=== PATIENT | male | born 1955 | race Hispanic/Latino ===

== ENCOUNTER 2017-03-20 15:17 | Inpatient (IN) | payer BC, MEDICARE ==
[2017-03-20 15:17] VITALS: BMI 27.1
--- NOTE | 2017-03-20 16:00 | ED PDOC ---
Lower Extremity Pain/Injury Time Seen by Provider: 03/20/17 15:44 Chief Complaint (Nursing): Fever Chief Complaint (Provider): Lower Extremity Problem History Per: Patient History/Exam Limitations: no limitations Onset/Duration Of Symptoms: Hrs (prior to arrival) Current Symptoms Are (Timing): Still Present Additional Complaint(s): David Valerio is a 61 year old male with a past medical history of Neutropenia presenting to the ED for an evaluation of redness and swelling to lower extremities bilaterally. The patient also reports associated fever and chills. He states starting antibiotics, on Clindamycin today, but his fever persisted. PMD: Aaron Betancur MD Past Medical History Reviewed: Historical Data, Nursing Documentation, Vital Signs Vital Signs: Last Vital Signs Temp 101.0 F H 03/20/17 15:27 Pulse 104 H 03/20/17 15:27 Resp 16 03/20/17 15:27 BP 139/77 03/20/17 15:27 Pulse Ox 100 03/20/17 15:27 - Medical History PMH: Anxiety, Arthritis, Benign Prostatic Hyperplasia, COPD, Deep Vein Thrombosis (x3), HTN, Hypothyroidism Other PMH: neutropenia - Surgical History Surgical History: Cholecystectomy, Hernia Repair (ventral) - Family History Family History: States: Unknown Family Hx - Immunization History Hx Influenza Vaccination: Yes - Home Medications Home Medications: Ambulatory Orders Medication Instructions Recorded Tamsulosin [Flomax] 0.8 mg PO HS 10/24/14 Dorzolamide 2%/Timolol 0.5% 1 drop EACHEYE BID 06/13/16 [Cosopt 2%-0.5% Opht] Acetaminophen [Tylenol 325mg tab] 650 mg PO Q6 PRN #0 tab 06/18/16 Dexamethasone/Tobramycin [Tobradex 1 drop OS Q4 bottle 06/18/16 Opht Susp] Dorzolamide 2% [Trusopt] 1 drop OU BID bottle 06/18/16 Moxifloxacin [Avelox] 400 mg PO DAILY #7 tab 06/18/16 Mupirocin 2% Ointment [Bactroban 1 applic TOP BID tube 06/18/16 Ointment] Tamsulosin [Flomax] 0.8 mg PO HS cap 06/18/16 predniSONE [predniSONE Tab] 10 mg PO BID tab 06/18/16 Azithromycin [Zithromax] 250 mg PO DAILY #6 tab 06/28/16 Benzonatate [Tessalon Perle] 100 mg PO Q8 PRN #30 capsule 06/28/16 Fluticasone Propionate [Flonase] 2 spr NS DAILY PRN #1 bottle 06/28/16 - Allergies Allergies/Adverse Reactions: Allergies Allergy/AdvReac Type Severity Reaction Status Date / Time aspirin Allergy RASH Verified 03/20/17 15:27 naproxen Allergy RASH Verified 03/20/17 15:27 Penicillins Allergy RASH Verified 03/20/17 15:27 Sulfa (Sulfonamide Allergy RASH Verified 03/20/17 15:27 Antibiotics) Review of Systems ROS Statement: Except As Marked, All Systems Reviewed And Found Negative Constitutional: Positive for: Fever Musculoskeletal: Positive for: Leg Pain (redness and swelling to lower extremities bilaterally) Physical Exam - Reviewed Nursing Documentation Reviewed: Yes Vital Signs Reviewed: Yes - Physical Exam Appears: Positive for: Non-toxic, No Acute Distress Head Exam: Positive for: ATRAUMATIC, NORMOCEPHALIC Cardiovascular/Chest: Positive for: Regular Rate, Rhythm. Negative for: Murmur Respiratory: Positive for: Normal Breath Sounds. Negative for: Respiratory Distress Extremity: Positive for: Tenderness (bilateral lower extremities), Swelling ( bilateral lower extremities), Other (pretibial erythema to left lower extremity ; minimal erythema to right lower extremity). Negative for: Calf Tenderness Neurologic/Psych: Positive for: Alert, Oriented (x3). Negative for: Motor/ Sensory Deficits - Laboratory Results Result Diagrams: 03/20/17 16:30 - ECG O2 Sat by Pulse Oximetry: 100 (RA) Pulse Ox Interpretation: Normal Medical Decision Making Medical Decision Making: Time: 15:44 Impression: Lower Extremity swelling and redness with fever Plan: * VBG * CMP * CBC (with differential) * Blood Culture * Vancomycin Inj 1 gm NS 0.9% 250 ml IVPB * US Duplex Lower Extr Vein Bilat * Reevaluation Scribe Attestation: Documented by Agueda Blue, acting as a scribe for Alexis Bruno MD. Provider Scribe Attestation: All medical record entries made by the Scribe were at my direction and personally dictated by me. I have reviewed the chart and agree that the record accurately reflects my personal performance of the history, physical exam, medical decision making, and the department course for this patient. I have also personally directed, reviewed, and agree with the discharge instructions and disposition. Disposition - Clinical Impression Clinical Impression: Cellulitis - Patient ED Disposition Is Patient to be Admitted: Transfer of Care - Disposition Disposition: Transfer of Care Disposition Time: 17:04 Condition: FAIR Forms: Cuffed and Wanted ([place]) Patient Signed Over To: Aravind Corbin
[2017-03-20] MEDS ORDERED: Vancomycin 1 g Inj ONE (16:20)
[2017-03-20 16:46] LABS: VENOUS BLOOD GAS BASE EXCESS 3.2 mmol/L (0.0-2.0); VENOUS BLOOD GAS PCO2 35 mmHg (40-60); VENOUS BLOOD PH 7.49 (7.32-7.43)
[2017-03-20 17:00] LABS: ALB/GLOB RATIO 1.1 (1.0-2.1); ALKALINE PHOSPHATASE 77 U/L (38-126); ALT/SGPT 25 U/L (21-72); AST/SGOT 19 U/L (17-59); BILIRUBIN,TOTAL 0.6 mg/dl (0.2-1.3); BLOOD UREA NITROGEN 17 mg/dl (9-20); CALCIUM 9.4 mg/dL (8.4-10.2); CARBON DIOXIDE 22 mmol/L (22-30); CHLORIDE 101 mmol/L (98-107); GFR AFRICAN-AMERICAN > 60; GLUCOSE,RANDOM 104 mg/dL (75-110); POTASSIUM 4.5 MMOL/L (3.6-5.0); SODIUM 133 mmol/l (132-148); TOTAL PROTEIN 7.9 G/DL (6.3-8.2)
[2017-03-20 17:03] LABS: BASO % 0.8 % (0.0-2.0); EOS # 0.1 K/uL (0.0-0.7); EOS % 2.2 % (0.0-4.0); HEMATOCRIT 25.3 % (35.0-51.0); LYMPH # 0.7 K/uL (1.0-4.3); LYMPH % 27.7 % (20.0-40.0); MEAN CELL VOLUME 103.9 fl (80.0-94.0); MEAN CORPUSCULAR HEMOGLOBIN 34.4 pg (27.0-31.0); MEAN CORPUSCULAR HGB CONC 33.1 g/dL (33.0-37.0); MEAN PLATELET VOLUME 8.6 fl (7.2-11.7); MONO # 0.2 K/uL (0.0-0.8); MONO % 10.5 % (0.0-10.0); NEUT # 1.4 K/uL (1.8-7.0); NEUT % 58.8 % (50.0-75.0); NRBC % 0.1 % (0.0-0.0); PLATELET COUNT 130 K/uL (130-400); RED CELL DISTRIBUTION WIDTH 13.2 % (11.5-14.5); WHITE BLOOD COUNT 2.4 K/uL (4.8-10.8)
--- NOTE | 2017-03-20 17:25 | ED PDOC ---
- Laboratory Results Result Diagrams: 03/20/17 16:30 03/20/17 16:30 Interpretation Of Abn Labs: 2.4 wbc - ECG O2 Sat by Pulse Oximetry: 100 (RA) Pulse Ox Interpretation: Normal - CT Scan/US us Other Rad Studies (CT/US): Read By Radiologist Other Rad Interpretation: no dvt - Progress ED Course And Treament: 1724: Took over care from Dr. Bruno. Luis Alberto on labs and imaging. Fever with leg cellulitis. Vanco given. 1905: Stable. [facility] resident will admit tele. Disposition Counseled Patient/Family Regarding: Studies Performed, Diagnosis - Clinical Impression Clinical Impression: Cellulitis, Sepsis - POA Present On Arrival: None - Disposition Disposition: Admitted as In-Patient Disposition Time: 18:30 Condition: FAIR
--- NOTE | 2017-03-20 18:04 | US ---
PROCEDURE: Bilateral lower extremity venous duplex Doppler. HISTORY: lower ext pain and erythema COMPARISON: Comparison is made to the previous study dated 07/28/2015 and 05/04/2015 TECHNIQUE: Bilateral common femoral, superficial femoral, popliteal and posterior tibial veins were evaluated. Flow was assessed with color Doppler, compressibility, assessment of phasic flow and augmentation response. FINDINGS: COMMON FEMORAL VEIN: Right CFV: Unremarkable. Left CFV: Unremarkable. SUPERFICIAL FEMORAL VEIN: Right SFV: Unremarkable. Left SFV: Unremarkable. POPLITEAL VEIN: Right Popliteal: Unremarkable. Left Popliteal: Unremarkable. POSTERIOR TIBIAL VEIN: Right PTV: Unremarkable. Left PTV: Unremarkable. OTHER FINDINGS: None. IMPRESSION: No evidence of deep venous thrombosis.
--- NOTE | 2017-03-20 20:12 | CP.PCM.HP ---
<Lizzie Pitt - Last Filed: 03/20/17 21:14> History of Present Illness - History of Present Illness History of Present Illness: 60 y/o male with pmhx leukopenia (Dr. Webb), and Benign Prostatic Hyperplasia , and per medical records COPD (not on any medication for it), Deep Vein Thrombosis (x3), HTN (pt denie), Hypothyroidism ( no TSH on record) presents with complaints of bilateral lower extremity cellulitis, per pt he noticed it 3 days ago, thought something bit him so did not make it a big deal but today his foot was much swollen and red, so he went to see a doctor who started him on Clindamycin, he took 1 tablet this morning, but started to feel feverish so decided to come to the ED. Pt reports he has had previous cellulitis on his right leg in the past. Does not have any other complaints. PMH:leukopenia (Dr. Webb), Anxiety, Arthritis, Benign Prostatic Hyperplasia, COPD?, Deep Vein Thrombosis (x3), HTN?, Hypothyroidism? PSH:hernia repair, hip FH: denies SH: Denies tobacco, ETOH, IVDU MEDS: Flomax 0.8 at night, eye drops, Prednisone ( per pt he stopped taking it about a week ago, as it was causing palpitations) ALLERGIES: aspirin, naproxen, penicillins, sulfa drugs Present on Admission - Present on Admission Any Indicators Present on Admission: Yes History of DVT/PE: Yes History of Uncontrolled Diabetes: No Urinary Catheter: No Review of Systems - Review of Systems All systems: reviewed and no additional remarkable complaints except Past Patient History - Infectious Disease Hx of Infectious Diseases: None - Tetanus Immunizations Tetanus Immunization: Unknown - Past Medical History & Family History Past Medical History?: Yes - Past Social History Smoking Status: Unknown If Ever Smoked - CARDIAC Hx Hypertension: Yes - PULMONARY Hx Chronic Obstructive Pulmonary Disease (COPD): Yes - HEENT Hx HEENT Problems: Yes - ENDOCRINE/METABOLIC Hx Hypothyroidism: Yes - INTEGUMENTARY Hx Dermatological Problems: No - MUSCULOSKELETAL/RHEUMATOLOGICAL Hx Arthritis: Yes - GENITOURINARY/GYNECOLOGICAL Hx Genitourinary Disorders: Yes - PSYCHIATRIC Hx Anxiety: Yes - SURGICAL HISTORY Hx Cholecystectomy: Yes - ANESTHESIA Hx Anesthesia: Yes Hx Anesthesia Reactions: No Hx Malignant Hyperthermia: No Meds Allergies/Adverse Reactions: Allergies Allergy/AdvReac Type Severity Reaction Status Date / Time aspirin Allergy RASH Verified 03/20/17 15:27 naproxen Allergy RASH Verified 03/20/17 15:27 Penicillins Allergy RASH Verified 03/20/17 15:27 Sulfa (Sulfonamide Allergy RASH Verified 03/20/17 15:27 Antibiotics) Physical Exam - Head Exam Head Exam: ATRAUMATIC, NORMOCEPHALIC - Eye Exam Eye Exam: EOMI - ENT Exam ENT Exam: Mucous Membranes Moist - Neck Exam Neck exam: Positive for: Full Rom. Negative for: Lymphadenopathy, Tenderness - Respiratory Exam Respiratory Exam: Clear to Auscultation Bilateral, NORMAL BREATHING PATTERN. absent: Rhonchi, Wheezes - Cardiovascular Exam Cardiovascular Exam: REGULAR RHYTHM, +S1, +S2 - GI/Abdominal Exam GI & Abdominal Exam: Normal Bowel Sounds, Soft. absent: Tenderness - Extremities Exam Extremities exam: Positive for: pedal edema. Negative for: calf tenderness Additional comments: foot 2+ edema left lower extremity: almost entire circumference is erythematous right lower extremity: erythema mainly on the back of the leg - Neurological Exam Neurological exam: Alert, CN II-XII Intact, Oriented x3 - Skin Skin Exam: Erythema Additional comments: mainly on the lower extremity Results - Vital Signs Recent Vital Signs: Last Vital Signs Temp 98.4 F 03/20/17 17:59 Pulse 92 H 03/20/17 17:59 Resp 16 03/20/17 17:59 BP 142/79 03/20/17 17:59 Pulse Ox 100 03/20/17 19:08 - Labs Result Diagrams: 03/20/17 16:30 03/20/17 16:30 Assessment & Plan - Assessment and Plan (Free Text) Assessment: 61 y/o male with pmhc leukopenia (Dr. Webb), Anxiety, Arthritis, Benign Prostatic Hyperplasia, COPD?, Deep Vein Thrombosis (x3), HTN, Hypothyroidism? who presented to ED in sepsis due to bilateral lower extremity cellulites but no longer meets septic criteria at time of admission as fever and tachycardia had resolved, being admitted management of bilateral lower extremity cellulites Plan: 1. Bilateral Lower extremity cellulitis Sepsis resolved Ultrasound negative for DVT continue with vanco and clinda, awaiting Infectious dx consult recommendation tylenol for fever f/u blood culture 2. History of Chronic Neutropenia wbc 2.4 Dr. Channing Samano- consulted, spoke with her via telephone, states pt get neupogen when ANC <900 or has an infection Unable to calculate ANC as bands is not reported on hematology report, mannual diff ordered stat f/u ANC, and neupogen status 3. BPH continue with flomax 0.8 HS 4. History of Possible Hypothyroidism Not on any medication NO TSH on record in labs since 2013 TSH ordered, f/u results 5. History of Previous DVTS per pt he was on termite control technician anticoagulation for years then it was d/c; has not had a DVT since No DVT on ultrasound done in ED today monitor 6. Possible history of HTN Pt denies BP currently controlled Continue to monitor 7. Diet- Regular 8. DVT prophylaxis- Lovenox 40mg daily <Aaron Betancur - Last Filed: 03/21/17 06:40> Results - Vital Signs Recent Vital Signs: Last Vital Signs Temp 99.2 F 03/21/17 06:23 Pulse 80 03/21/17 06:23 Resp 20 03/21/17 06:23 BP 102/57 L 03/21/17 06:23 Pulse Ox 98 03/21/17 06:23 - Labs Result Diagrams: 03/20/17 16:30 03/21/17 04:00 Labs: Laboratory Results - last 24 hr 03/20/17 03/20/17 03/20/17 15:52 16:30 16:30 WBC 2.4 L D RBC 2.43 L Hgb 8.4 L D Hct 25.3 L MCV 103.9 H MCH 34.4 H MCHC 33.1 RDW 13.2 Plt Count 130 MPV 8.6 Neut % (Auto) 58.8 Lymph % (Auto) 27.7 [place] % (Auto) 10.5 H Eos % (Auto) 2.2 Baso % (Auto) 0.8 Neut # 1.4 L Lymph # 0.7 L [place] # 0.2 Eos # 0.1 Baso # 0.0 Neutrophils % (Manual) 57 Lymphocytes % (Manual) 35 Monocytes % (Manual) 8 Platelet Estimate Normal Anisocytosis (manual) Slight Macrocytosis (manual) Slight Tear Drop Cells Slight Ovalocytes Slight pO2 48 VBG pH 7.49 H VBG pCO2 35 L VBG HCO3 27.3 VBG Total CO2 27.8 VBG O2 Sat (Calc) 94.1 H VBG Base Excess 3.2 H VBG Potassium 5.0 Sodium 133.0 133 Chloride 103.0 101 Glucose 107 Lactate 1.0 FiO2 21.0 Potassium 4.5 Carbon Dioxide 22 Anion Gap 15 BUN 17 Creatinine 0.9 Est GFR ( Amer) > 60 Est GFR (Non-Af Amer) > 60 Random Glucose 104 Calcium 9.4 Total Bilirubin 0.6 AST 19 ALT 25 Alkaline Phosphatase 77 Total Protein 7.9 Albumin 4.1 Globulin 3.8 Albumin/Globulin Ratio 1.1 Venous Blood Potassium 5.0 03/21/17 04:00 WBC RBC Hgb Hct MCV MCH MCHC RDW Plt Count MPV Neut % (Auto) Lymph % (Auto) [place] % (Auto) Eos % (Auto) Baso % (Auto) Neut # Lymph # [place] # Eos # Baso # Neutrophils % (Manual) Lymphocytes % (Manual) Monocytes % (Manual) Platelet Estimate Anisocytosis (manual) Macrocytosis (manual) Tear Drop Cells Ovalocytes pO2 VBG pH VBG pCO2 VBG HCO3 VBG Total CO2 VBG O2 Sat (Calc) VBG Base Excess VBG Potassium Sodium 136 Chloride 103 Glucose Lactate FiO2 Potassium 4.1 Carbon Dioxide 24 Anion Gap 13 BUN 12 Creatinine 0.9 Est GFR ( Amer) > 60 Est GFR (Non-Af Amer) > 60 Random Glucose 97 Calcium 8.9 Total Bilirubin AST ALT Alkaline Phosphatase Total Protein Albumin Globulin Albumin/Globulin Ratio Venous Blood Potassium Attending/Attestation - Attestation I have personally seen and examined this patient.: Yes I have fully participated in the care of the patient.: Yes I have reviewed all pertinent clinical information: Yes
[2017-03-20 21:39] LABS: NEUTROPHIL 57 % (42-75); TOTAL CELLS COUNTED 100
[2017-03-21] MEDS: [UNRECOGNIZED DRUG - OTHER] OU SCH ×2 (04:01→18:32)
[2017-03-21 06:08] LABS: BLOOD UREA NITROGEN 12 mg/dl (9-20); CALCIUM 8.9 mg/dL (8.4-10.2); CARBON DIOXIDE 24 mmol/L (22-30); CHLORIDE 103 mmol/L (98-107); GFR AFRICAN-AMERICAN > 60; GLUCOSE,RANDOM 97 mg/dL (75-110); POTASSIUM 4.1 MMOL/L (3.6-5.0); SODIUM 136 mmol/l (132-148)
[2017-03-21 06:12] LABS: BASO % 0.7 % (0.0-2.0); EOS # 0.1 K/uL (0.0-0.7); EOS % 3.8 % (0.0-4.0); HEMATOCRIT 22.5 % (35.0-51.0); LYMPH # 0.6 K/uL (1.0-4.3); LYMPH % 35.8 % (20.0-40.0); MEAN CELL VOLUME 104.7 fl (80.0-94.0); MEAN CORPUSCULAR HGB CONC 33.4 g/dL (33.0-37.0); MEAN PLATELET VOLUME 8.4 fl (7.2-11.7); MONO # 0.2 K/uL (0.0-0.8); MONO % 12.1 % (0.0-10.0); NEUT # 0.7 K/uL (1.8-7.0); NEUT % 47.6 % (50.0-75.0); NRBC % 0.2 % (0.0-0.0); RED CELL DISTRIBUTION WIDTH 13.2 % (11.5-14.5)
[2017-03-21 06:41] LABS: WHITE BLOOD COUNT 1.6 K/uL (4.8-10.8)
--- NOTE | 2017-03-21 08:45 | CP.PCM.PN ---
<Jessica Baugh - Last Filed: 03/21/17 15:44> Subjective - Date & Time of Evaluation Date of Evaluation: 03/21/17 Time of Evaluation: 07:10 - Subjective Subjective: Patient seen and examined in telemetry unit attending kayode. Denies Cp, cough, chills, SOB, N/V, dizziness, urinary symptoms or other complains at this evaluation. Had low grade fever last night of 100.5 F Objective - Vital Signs/Intake and Output Vital Signs (last 24 hours): Temp Pulse Resp BP Pulse Ox 99.6 F 88 14 112/67 95 03/21/17 08:15 03/21/17 08:15 03/21/17 08:15 03/21/17 08:15 03/21/17 08:15 - Medications Medications: Current Medications Acetaminophen (Tylenol 325mg Tab) 650 mg PO Q6 PRN PRN Reason: Fever >100.4 F Last Admin: 03/20/17 23:55 Dose: 650 mg Clindamycin HCl (Cleocin) 150 mg PO QID [facility] Last Admin: 03/20/17 23:10 Dose: 150 mg Home Med (Patient's Own Medication) 1 unit OU Q12@0500,1700 [facility] Last Admin: 03/21/17 04:01 Dose: 1 unit Vancomycin HCl 1 gm/ Sodium (Chloride) 250 mls @ 166.667 mls/hr IVPB Q12@0500, 1700 [facility] Last Admin: 03/21/17 04:00 Dose: 166.667 mls/hr Tamsulosin HCl (Flomax) 0.8 mg PO HS [facility] - Labs Labs: 03/21/17 04:00 03/21/17 04:00 - Constitutional Appears: No Acute Distress - ENT Exam ENT Exam: Mucous Membranes Moist - GI/Abdominal Exam GI & Abdominal Exam: absent: Distended, Guarding - Additional Findings Additional findings: Head Exam Head Exam: ATRAUMATIC, NORMOCEPHALIC - Eye Exam Eye Exam: EOMI - ENT Exam ENT Exam: Mucous Membranes Moist - Neck Exam Neck exam: Positive for: Full Rom. Negative for: Lymphadenopathy, Tenderness - Respiratory Exam Respiratory Exam: Clear to Auscultation Bilateral, NORMAL BREATHING PATTERN. absent: Rhonchi, Wheezes - Cardiovascular Exam Cardiovascular Exam: REGULAR RHYTHM, +S1, +S2 - GI/Abdominal Exam GI & Abdominal Exam: Normal Bowel Sounds, Soft. absent: Tenderness - Extremities Exam Extremities exam: Positive for: pedal edema. Negative for: calf tenderness Additional comments: foot 2+ edema left lower extremity: almost entire circumference is erythematous right lower extremity: erythema mainly on the back of the leg - Neurological Exam Neurological exam: Alert, CN II-XII Intact, Oriented x3 - Skin Skin Exam: Erythema Additional comments: lower extremities Assessment and Plan - Assessment and Plan (Free Text) Assessment: 61 y/o male with pmhc leukopenia (Dr. Webb), Anxiety, Arthritis, Benign Prostatic Hyperplasia, COPD?, Deep Vein Thrombosis (x3), HTN, Hypothyroidism? being admitted management of bilateral lower extremity cellulites and neutropenia. Plan: Bilateral Lower extremity cellulitis -had low grade fever 100.5 F -Ultrasound negative for DVT -continue with vancomycin 1 gm IVP Q12 -continue with clindamycin IV PO -c/w Tylenol PRN for fever -f/u Blood Cx -ID consult appreciated, Dr. Bailey, f/u recommendations Leucopenia History of Chronic Neutropenia WBC 1.6 Dr. Channing Samano- consulted, f/u recommendations Granix 480 mcg SC once f/u repeat CBC in AM Anemia no evidence of active bleeding H/H: 7.5/22.5 Transfuse 2 units of PRBC, will get patient's consent Dr. Joslyn Abbasi aware and agrees with transfusion. F/u recommendations f/u CBC BPH continue with flomax 0.8 HS History of Possible Hypothyroidism no evidence of Hypothyroidism at this time Not on any medication NO TSH on record in labs since 2013 TSH 1.67 WNL History of Previous DVTs per pt he was on [facility] anticoagulation for years/Warfarin then it was d/c; has not had a DVT since approximately 5 years ago No DVT on ultrasound done in ED today will monitor DVT prophylaxis SCDs for now Hemo aware and agrees with holding Lovenox because platelets 120 today <Aaron Betancur - Last Filed: 03/23/17 06:42> Objective - Vital Signs/Intake and Output Vital Signs (last 24 hours): Temp Pulse Resp BP Pulse Ox 98.2 F 70 18 134/74 95 03/23/17 05:45 03/23/17 05:45 03/23/17 05:45 03/23/17 05:45 03/23/17 05:45 - Medications Medications: Current Medications Acetaminophen (Tylenol 325mg Tab) 650 mg PO Q6 PRN PRN Reason: Fever >100.4 F Last Admin: 03/21/17 19:55 Dose: 650 mg Benzocaine/Menthol (Cepacol Sore Throat) 1 alem PO Q3 PRN PRN Reason: Sore Throat Last Admin: 03/22/17 21:19 Dose: 1 alem Famotidine (Pepcid) 20 mg PO DAILY [facility] Last Admin: 03/22/17 10:07 Dose: 20 mg Fluconazole (Diflucan) 200 mg PO DAILY [facility] Home Med (Patient's Own Medication) 1 unit OU Q12@0500,1700 [facility] Last Admin: 03/23/17 05:19 Dose: 1 unit Vancomycin HCl 1 gm/ Sodium (Chloride) 250 mls @ 166.667 mls/hr IVPB Q12 [facility] Last Admin: 03/22/17 20:27 Dose: 166.667 mls/hr Nystatin (Nystatin Oral Susp) 5 ml PO QID [facility] Last Admin: 03/22/17 21:17 Dose: 5 ml Ondansetron HCl (Zofran Inj) 4 mg IVP Q6 PRN PRN Reason: Nausea/Vomiting Last Admin: 03/21/17 17:40 Dose: 4 mg Prednisone (Prednisone Tab) 10 mg PO DAILY [facility] Last Admin: 03/22/17 10:08 Dose: 10 mg Tamsulosin HCl (Flomax) 0.8 mg PO HS [facility] Last Admin: 03/22/17 21:17 Dose: 0.8 mg - Labs Labs: 03/23/17 05:00 03/22/17 05:00 Attending/Attestation - Attestation I have personally seen and examined this patient.: Yes I have fully participated in the care of the patient.: Yes I have reviewed all pertinent clinical information, including history, physical exam and plan: Yes
[2017-03-21] MEDS ORDERED: Dorzolamide 2% Ophth Soln OU SCH (09:00)
[2017-03-21] MEDS ORDERED: Enoxaparin 40 mg Syringe SC SCH (09:00)
--- NOTE | 2017-03-21 09:59 | CP.PCM.CON ---
History of Present Illness - History of Present Illness History of Present Illness: This is a 61 yrs old male who is well known to me for a few years. He had chronic neutropenia. A marrow was done but did not show any abnormal cells. When ever he got an infectiopn of any kind i would give him 1 dose of Granix and the wbc would go up to 15-20, and his infection would improve. Since then he has been diagnosed to have a autoimmune disorder polyarhtritis and was on prednisone until 1 week ago. He has now developed cellulitis and was admitted to the hospital . I was called from the or and I had asked them to give him a dose of granix right away, but it was not given. Today the pt's WBC has dropped from 2.4 to 1.6 today . His Hgb was always normal but today his Hgb is 7.5gms. He does not give a h/o dark stools and frankly has never looked at them. He claims he stopped the prednisone because it was bothering his stomach Platelets are still ok. PMH he has had DVT is the past, but his platelet count is low normal as is the HGB , and I do not want him to get DVT prophylaxis at this time. Past Patient History - Infectious Disease Hx of Infectious Diseases: None - Tetanus Immunizations Tetanus Immunization: Unknown - Past Medical History & Family History Past Medical History?: Yes - Past Social History Smoking Status: Former Smoker - CARDIAC Hx Cardiac Disorders: Yes Hx Hypertension: Yes - PULMONARY Hx Respiratory Disorders: Yes Hx Chronic Obstructive Pulmonary Disease (COPD): Yes - NEUROLOGICAL Hx Neurological Disorder: No - HEENT Hx HEENT Problems: Yes Hx Glaucoma: Yes - RENAL Hx Chronic Kidney Disease: No - ENDOCRINE/METABOLIC Hx Endocrine Disorders: Yes Hx Hypothyroidism: Yes - HEMATOLOGICAL/ONCOLOGICAL Hx Blood Disorders: Yes Other/Comment: neutropenia - INTEGUMENTARY Hx Dermatological Problems: No - MUSCULOSKELETAL/RHEUMATOLOGICAL Hx Musculoskeletal Disorders: Yes Hx Arthritis: Yes Hx Falls: No - GASTROINTESTINAL Hx Gastrointestinal Disorders: No - GENITOURINARY/GYNECOLOGICAL Hx Genitourinary Disorders: Yes Hx Prostate Problems: Yes - PSYCHIATRIC Hx Psychophysiologic Disorder: Yes Hx Anxiety: Yes Hx Substance Use: No - SURGICAL HISTORY Hx Surgeries: Yes Hx Cholecystectomy: Yes Hx Herniorrhaphy: Yes Other/Comment: right hip surgery,prostate surgery - ANESTHESIA Hx Anesthesia: Yes Hx Anesthesia Reactions: No Hx Malignant Hyperthermia: No Has any member of the family had a problem w/ anesthesia?: No Meds Allergies/Adverse Reactions: Allergies Allergy/AdvReac Type Severity Reaction Status Date / Time aspirin Allergy RASH Verified 03/20/17 15:27 naproxen Allergy RASH Verified 03/20/17 15:27 Penicillins Allergy RASH Verified 03/20/17 15:27 Sulfa (Sulfonamide Allergy RASH Verified 03/20/17 15:27 Antibiotics) - Medications Medications: Current Medications Acetaminophen (Tylenol 325mg Tab) 650 mg PO Q6 PRN PRN Reason: Fever >100.4 F Last Admin: 03/21/17 09:06 Dose: 650 mg Clindamycin HCl (Cleocin) 150 mg PO QID [facility] Last Admin: 03/21/17 09:06 Dose: 150 mg Home Med (Patient's Own Medication) 1 unit OU Q12@0500,1700 [facility] Last Admin: 03/21/17 04:01 Dose: 1 unit Vancomycin HCl 1 gm/ Sodium (Chloride) 250 mls @ 166.667 mls/hr IVPB Q12@0500, 1700 [facility] Last Admin: 03/21/17 04:00 Dose: 166.667 mls/hr Tamsulosin HCl (Flomax) 0.8 mg PO HS [facility] Physical Exam - Additional Findings Additional findings: Physical exam; Alert, well oriented in no acute distress., neck; Supple, no adenopathy Chest; Clear, no rales or rhonchi Heart; RSR, no murmur Abd; Soft, no mass, no h/s megaly EXT; Left lower extremity shows cellulitis on the benson area , better than yesterday Results - Vital Signs Recent Vital Signs: Last Vital Signs Temp 99.6 F 03/21/17 08:15 Pulse 88 03/21/17 08:15 Resp 14 03/21/17 08:15 BP 112/67 03/21/17 08:15 Pulse Ox 95 03/21/17 08:15 - Labs Result Diagrams: 03/21/17 04:00 03/21/17 04:00 Labs: Laboratory Results - last 24 hr 03/20/17 03/20/17 03/20/17 15:52 16:30 16:30 WBC 2.4 L D RBC 2.43 L Hgb 8.4 L D Hct 25.3 L MCV 103.9 H MCH 34.4 H MCHC 33.1 RDW 13.2 Plt Count 130 MPV 8.6 Neut % (Auto) 58.8 Lymph % (Auto) 27.7 [place] % (Auto) 10.5 H Eos % (Auto) 2.2 Baso % (Auto) 0.8 Neut # 1.4 L Lymph # 0.7 L [place] # 0.2 Eos # 0.1 Baso # 0.0 Neutrophils % (Manual) 57 Lymphocytes % (Manual) 35 Monocytes % (Manual) 8 Platelet Estimate Normal Anisocytosis (manual) Slight Macrocytosis (manual) Slight Tear Drop Cells Slight Ovalocytes Slight pO2 48 VBG pH 7.49 H VBG pCO2 35 L VBG HCO3 27.3 VBG Total CO2 27.8 VBG O2 Sat (Calc) 94.1 H VBG Base Excess 3.2 H VBG Potassium 5.0 Sodium 133.0 133 Chloride 103.0 101 Glucose 107 Lactate 1.0 FiO2 21.0 Potassium 4.5 Carbon Dioxide 22 Anion Gap 15 BUN 17 Creatinine 0.9 Est GFR ( Amer) > 60 Est GFR (Non-Af Amer) > 60 Random Glucose 104 Calcium 9.4 Total Bilirubin 0.6 AST 19 ALT 25 Alkaline Phosphatase 77 Total Protein 7.9 Albumin 4.1 Globulin 3.8 Albumin/Globulin Ratio 1.1 TSH 3rd Generation Venous Blood Potassium 5.0 03/21/17 03/21/17 03/21/17 04:00 04:00 04:00 WBC 1.6 L* RBC 2.15 L Hgb 7.5 L Hct 22.5 L MCV 104.7 H MCH 35.0 H MCHC 33.4 RDW 13.2 Plt Count 120 L MPV 8.4 Neut % (Auto) 47.6 L Lymph % (Auto) 35.8 [place] % (Auto) 12.1 H Eos % (Auto) 3.8 Baso % (Auto) 0.7 Neut # 0.7 L Lymph # 0.6 L [place] # 0.2 Eos # 0.1 Baso # 0.0 Neutrophils % (Manual) Lymphocytes % (Manual) Monocytes % (Manual) Platelet Estimate Anisocytosis (manual) Macrocytosis (manual) Tear Drop Cells Ovalocytes pO2 VBG pH VBG pCO2 VBG HCO3 VBG Total CO2 VBG O2 Sat (Calc) VBG Base Excess VBG Potassium Sodium 136 Chloride 103 Glucose Lactate FiO2 Potassium 4.1 Carbon Dioxide 24 Anion Gap 13 BUN 12 Creatinine 0.9 Est GFR ( Amer) > 60 Est GFR (Non-Af Amer) > 60 Random Glucose 97 Calcium 8.9 Total Bilirubin AST ALT Alkaline Phosphatase Total Protein Albumin Globulin Albumin/Globulin Ratio TSH 3rd Generation 1.67 Venous Blood Potassium Assessment & Plan - Assessment and Plan (Free Text) Assessment: Impresson; Chronic neutropenia, Celllulitis left lower extremity Plan: Plan; Pt is on antibiotics and already doing better. his Wbc count however is very low and he needs the Granix right away.\ I also feel he neds to get a PRBC transfusion Suggest GI consult to r/o upper gi bleeding.
--- NOTE | 2017-03-21 11:08 | CP.PCM.CON ---
History of Present Illness - History of Present Illness History of Present Illness: Infectious Disease Consult Note- asked to see this patient at the request of for cellulitis HPI- Patient is a 60 year old amle with pmh of BPH, chronic leukopenia ( f/u closely by ) , copd , HTN, Hypothyroidism who was admitted with c/o fever and b /l LE erythema for the past 2 days. Pt. explains he has had cellulitis of the LE in past and was treated. This time he denies any injury to the LE and denies any animal exposure and is not sure how he developed this cellulitis. He states he has chronic leukopenia and even had BM biopsy by bindery machine feeder offbearer allen was negative and he states he usually receives granix once his wbc goes below a certain point and this time and he sattes usually when his wbc goes below a certain point he is more prone to infections. He state he is allergic to both sulfa and PCN. Pt. states it started as swelling on his foot only and then spread to b/l legs along with erythema and he saw a doctor yesterday jorgeho gave him clindamycin and he took one tab but since the redness was much more extensive he decided to come to ER for IV antibiotics. pt. sattes he already feels much betetr since IV abx were initiated and he sattes he also received his granix injection today and was told he would receive PRBC transfusion as well for anemia. PMH:leukopenia (Dr. Webb), Anxiety, Arthritis, Benign Prostatic Hyperplasia, COPD?, Deep Vein Thrombosis (x3), HTN?, Hypothyroidism? PSH:hernia repair, hip FH: denies SH: Denies tobacco, ETOH, IVDU MEDS: Flomax 0.8 at night, eye drops, Prednisone ( per pt he stopped taking it about a week ago, as it was causing palpitations) ALLERGIES: aspirin, naproxen, penicillins, sulfa drugs Review of Systems - Review of Systems Review of Systems: ROS- + fever at home, denies any SANTANA, denies any cough, denies any sob, denies any chest pain, denies any n/v, denies any abd. pain, + swelling and redness and pain in b/L LE starting 2 days ago, denies any injury to the area denies any sick contacts denies any recent travel denies any animal bite or exposure Past Patient History - Infectious Disease Hx of Infectious Diseases: None - Tetanus Immunizations Tetanus Immunization: Unknown - Past Medical History & Family History Past Medical History?: Yes - Past Social History Smoking Status: Former Smoker Home Situation {Lives}: With Family - CARDIAC Hx Hypertension: Yes - PULMONARY Hx Chronic Obstructive Pulmonary Disease (COPD): Yes - NEUROLOGICAL Hx Neurological Disorder: No - HEENT Hx HEENT Problems: Yes Hx Glaucoma: Yes - RENAL Hx Chronic Kidney Disease: No - ENDOCRINE/METABOLIC Hx Endocrine Disorders: Yes Hx Hypothyroidism: Yes - HEMATOLOGICAL/ONCOLOGICAL Hx Blood Disorders: Yes Other/Comment: leukopenia - INTEGUMENTARY Hx Dermatological Problems: No - MUSCULOSKELETAL/RHEUMATOLOGICAL Hx Musculoskeletal Disorders: Yes Hx Arthritis: Yes Hx Falls: No - GASTROINTESTINAL Hx Gastrointestinal Disorders: No - GENITOURINARY/GYNECOLOGICAL Hx Genitourinary Disorders: Yes Hx Prostate Problems: Yes - PSYCHIATRIC Hx Psychophysiologic Disorder: Yes Hx Anxiety: Yes Hx Substance Use: No - SURGICAL HISTORY Hx Surgeries: Yes Hx Cholecystectomy: Yes Hx Herniorrhaphy: Yes Other/Comment: right hip surgery,prostate surgery - ANESTHESIA Hx Anesthesia: Yes Hx Anesthesia Reactions: No Hx Malignant Hyperthermia: No Has any member of the family had a problem w/ anesthesia?: No Meds Allergies/Adverse Reactions: Allergies Allergy/AdvReac Type Severity Reaction Status Date / Time aspirin Allergy RASH Verified 03/20/17 15:27 naproxen Allergy RASH Verified 03/20/17 15:27 Penicillins Allergy RASH Verified 03/20/17 15:27 Sulfa (Sulfonamide Allergy RASH Verified 03/20/17 15:27 Antibiotics) - Medications Medications: Current Medications Acetaminophen (Tylenol 325mg Tab) 650 mg PO Q6 PRN PRN Reason: Fever >100.4 F Last Admin: 03/21/17 09:06 Dose: 650 mg Clindamycin HCl (Cleocin) 150 mg PO QID [facility] Last Admin: 03/21/17 09:06 Dose: 150 mg Home Med (Patient's Own Medication) 1 unit OU Q12@0500,1700 [facility] Last Admin: 03/21/17 04:01 Dose: 1 unit Vancomycin HCl 1 gm/ Sodium (Chloride) 250 mls @ 166.667 mls/hr IVPB Q12@0500, 1700 [facility] Last Admin: 03/21/17 04:00 Dose: 166.667 mls/hr Tamsulosin HCl (Flomax) 0.8 mg PO HS [facility] Physical Exam - Constitutional Appears: Non-toxic, No Acute Distress - Head Exam Head Exam: ATRAUMATIC - Eye Exam Eye Exam: EOMI, PERRL - ENT Exam ENT Exam: Normal Oropharynx - Neck Exam Neck exam: Positive for: Full Rom - Respiratory Exam Respiratory Exam: Clear to Auscultation Bilateral, NORMAL BREATHING PATTERN - Cardiovascular Exam Cardiovascular Exam: RRR, +S1, +S2 - GI/Abdominal Exam GI & Abdominal Exam: Normal Bowel Sounds, Soft Additional comments: NT, ND - Extremities Exam Additional comments: B/L LE erythema on the back of the lower leg and the lateral LE b/l and b/l foot edema but no erythema, mild tenderness to touch in areas of erythema only no discharge 2 small areas of ? mosquito bite vs scratch mayorga on the LLE , no other lesions based on the pen coretta ( done by ED on admission) , erythema improving - Neurological Exam Neurological exam: Alert, Oriented x3 Results - Vital Signs Recent Vital Signs: Last Vital Signs Temp 99.6 F 03/21/17 08:15 Pulse 88 03/21/17 08:15 Resp 14 03/21/17 08:15 BP 112/67 03/21/17 08:15 Pulse Ox 95 03/21/17 08:15 - Labs Result Diagrams: 03/21/17 04:00 03/21/17 04:00 Labs: Laboratory Results - last 24 hr 03/20/17 03/20/17 03/20/17 15:52 16:30 16:30 WBC 2.4 L D RBC 2.43 L Hgb 8.4 L D Hct 25.3 L MCV 103.9 H MCH 34.4 H MCHC 33.1 RDW 13.2 Plt Count 130 MPV 8.6 Neut % (Auto) 58.8 Lymph % (Auto) 27.7 [place] % (Auto) 10.5 H Eos % (Auto) 2.2 Baso % (Auto) 0.8 Neut # 1.4 L Lymph # 0.7 L [place] # 0.2 Eos # 0.1 Baso # 0.0 Neutrophils % (Manual) 57 Lymphocytes % (Manual) 35 Monocytes % (Manual) 8 Platelet Estimate Normal Anisocytosis (manual) Slight Macrocytosis (manual) Slight Tear Drop Cells Slight Ovalocytes Slight pO2 48 VBG pH 7.49 H VBG pCO2 35 L VBG HCO3 27.3 VBG Total CO2 27.8 VBG O2 Sat (Calc) 94.1 H VBG Base Excess 3.2 H VBG Potassium 5.0 Sodium 133.0 133 Chloride 103.0 101 Glucose 107 Lactate 1.0 FiO2 21.0 Potassium 4.5 Carbon Dioxide 22 Anion Gap 15 BUN 17 Creatinine 0.9 Est GFR ( Amer) > 60 Est GFR (Non-Af Amer) > 60 Random Glucose 104 Calcium 9.4 Total Bilirubin 0.6 AST 19 ALT 25 Alkaline Phosphatase 77 Total Protein 7.9 Albumin 4.1 Globulin 3.8 Albumin/Globulin Ratio 1.1 TSH 3rd Generation Venous Blood Potassium 5.0 Crossmatch BBK History Checked 03/21/17 03/21/17 03/21/17 04:00 04:00 04:00 WBC 1.6 L* RBC 2.15 L Hgb 7.5 L Hct 22.5 L MCV 104.7 H MCH 35.0 H MCHC 33.4 RDW 13.2 Plt Count 120 L MPV 8.4 Neut % (Auto) 47.6 L Lymph % (Auto) 35.8 [place] % (Auto) 12.1 H Eos % (Auto) 3.8 Baso % (Auto) 0.7 Neut # 0.7 L Lymph # 0.6 L [place] # 0.2 Eos # 0.1 Baso # 0.0 Neutrophils % (Manual) Lymphocytes % (Manual) Monocytes % (Manual) Platelet Estimate Anisocytosis (manual) Macrocytosis (manual) Tear Drop Cells Ovalocytes pO2 VBG pH VBG pCO2 VBG HCO3 VBG Total CO2 VBG O2 Sat (Calc) VBG Base Excess VBG Potassium Sodium 136 Chloride 103 Glucose Lactate FiO2 Potassium 4.1 Carbon Dioxide 24 Anion Gap 13 BUN 12 Creatinine 0.9 Est GFR ( Amer) > 60 Est GFR (Non-Af Amer) > 60 Random Glucose 97 Calcium 8.9 Total Bilirubin AST ALT Alkaline Phosphatase Total Protein Albumin Globulin Albumin/Globulin Ratio TSH 3rd Generation 1.67 Venous Blood Potassium Crossmatch BBK History Checked 03/21/17 10:15 WBC RBC Hgb Hct MCV MCH MCHC RDW Plt Count MPV Neut % (Auto) Lymph % (Auto) [place] % (Auto) Eos % (Auto) Baso % (Auto) Neut # Lymph # [place] # Eos # Baso # Neutrophils % (Manual) Lymphocytes % (Manual) Monocytes % (Manual) Platelet Estimate Anisocytosis (manual) Macrocytosis (manual) Tear Drop Cells Ovalocytes pO2 VBG pH VBG pCO2 VBG HCO3 VBG Total CO2 VBG O2 Sat (Calc) VBG Base Excess VBG Potassium Sodium Chloride Glucose Lactate FiO2 Potassium Carbon Dioxide Anion Gap BUN Creatinine Est GFR ( Amer) Est GFR (Non-Af Amer) Random Glucose Calcium Total Bilirubin AST ALT Alkaline Phosphatase Total Protein Albumin Globulin Albumin/Globulin Ratio TSH 3rd Generation Venous Blood Potassium Crossmatch See Detail BBK History Checked Patient has bt Laboratory Results - last 72 hr 03/20/17 03/20/17 03/20/17 15:52 16:30 16:30 WBC 2.4 L D RBC 2.43 L Hgb 8.4 L D Hct 25.3 L MCV 103.9 H MCH 34.4 H MCHC 33.1 RDW 13.2 Plt Count 130 MPV 8.6 Neut % (Auto) 58.8 Lymph % (Auto) 27.7 [place] % (Auto) 10.5 H Eos % (Auto) 2.2 Baso % (Auto) 0.8 Neut # 1.4 L Lymph # 0.7 L [place] # 0.2 Eos # 0.1 Baso # 0.0 Neutrophils % (Manual) 57 Lymphocytes % (Manual) 35 Monocytes % (Manual) 8 Platelet Estimate Normal Anisocytosis (manual) Slight Macrocytosis (manual) Slight Tear Drop Cells Slight Ovalocytes Slight pO2 48 VBG pH 7.49 H VBG pCO2 35 L VBG HCO3 27.3 VBG Total CO2 27.8 VBG O2 Sat (Calc) 94.1 H VBG Base Excess 3.2 H VBG Potassium 5.0 Sodium 133.0 133 Chloride 103.0 101 Glucose 107 Lactate 1.0 FiO2 21.0 Potassium 4.5 Carbon Dioxide 22 Anion Gap 15 BUN 17 Creatinine 0.9 Est GFR ( Amer) > 60 Est GFR (Non-Af Amer) > 60 Random Glucose 104 Calcium 9.4 Total Bilirubin 0.6 AST 19 ALT 25 Alkaline Phosphatase 77 Total Protein 7.9 Albumin 4.1 Globulin 3.8 Albumin/Globulin Ratio 1.1 TSH 3rd Generation Venous Blood Potassium 5.0 Blood Type Antibody Screen Crossmatch BBK History Checked 03/21/17 03/21/17 03/21/17 04:00 04:00 04:00 WBC 1.6 L* RBC 2.15 L Hgb 7.5 L Hct 22.5 L MCV 104.7 H MCH 35.0 H MCHC 33.4 RDW 13.2 Plt Count 120 L MPV 8.4 Neut % (Auto) 47.6 L Lymph % (Auto) 35.8 [place] % (Auto) 12.1 H Eos % (Auto) 3.8 Baso % (Auto) 0.7 Neut # 0.7 L Lymph # 0.6 L [place] # 0.2 Eos # 0.1 Baso # 0.0 Neutrophils % (Manual) Lymphocytes % (Manual) Monocytes % (Manual) Platelet Estimate Anisocytosis (manual) Macrocytosis (manual) Tear Drop Cells Ovalocytes pO2 VBG pH VBG pCO2 VBG HCO3 VBG Total CO2 VBG O2 Sat (Calc) VBG Base Excess VBG Potassium Sodium 136 Chloride 103 Glucose Lactate FiO2 Potassium 4.1 Carbon Dioxide 24 Anion Gap 13 BUN 12 Creatinine 0.9 Est GFR ( Amer) > 60 Est GFR (Non-Af Amer) > 60 Random Glucose 97 Calcium 8.9 Total Bilirubin AST ALT Alkaline Phosphatase Total Protein Albumin Globulin Albumin/Globulin Ratio TSH 3rd Generation 1.67 Venous Blood Potassium Blood Type Antibody Screen Crossmatch BBK History Checked 03/21/17 10:15 WBC RBC Hgb Hct MCV MCH MCHC RDW Plt Count MPV Neut % (Auto) Lymph % (Auto) [place] % (Auto) Eos % (Auto) Baso % (Auto) Neut # Lymph # [place] # Eos # Baso # Neutrophils % (Manual) Lymphocytes % (Manual) Monocytes % (Manual) Platelet Estimate Anisocytosis (manual) Macrocytosis (manual) Tear Drop Cells Ovalocytes pO2 VBG pH VBG pCO2 VBG HCO3 VBG Total CO2 VBG O2 Sat (Calc) VBG Base Excess VBG Potassium Sodium Chloride Glucose Lactate FiO2 Potassium Carbon Dioxide Anion Gap BUN Creatinine Est GFR ( Amer) Est GFR (Non-Af Amer) Random Glucose Calcium Total Bilirubin AST ALT Alkaline Phosphatase Total Protein Albumin Globulin Albumin/Globulin Ratio TSH 3rd Generation Venous Blood Potassium Blood Type O POSITIVE Antibody Screen Negative Crossmatch See Detail BBK History Checked Patient has bt Accession No. : [id number] Patient Name / ID : MARU ABBOTT / [id number] Exam Date : 03/20/2017 17:21:31 ( Approved ) Study Comment : Sex / Age : M / [id number] Creator : Tawanda Hightower Dictator : Tawanda Hightower Bundle Helper : Elevator Troubleshooter : Tawanda Hightower Approver2 : Report Date : 03/20/2017 18:03:30 My Comment : PROCEDURE: Bilateral lower extremity venous duplex Doppler. HISTORY: lower ext pain and erythema COMPARISON: Comparison is made to the previous study dated 07/28/2015 and 05/04/2015 TECHNIQUE: Bilateral common femoral, superficial femoral, popliteal and posterior tibial veins were evaluated. Flow was assessed with color Doppler, compressibility, assessment of phasic flow and augmentation response. FINDINGS: COMMON FEMORAL VEIN: Right CFV: Unremarkable. Left CFV: Unremarkable. SUPERFICIAL FEMORAL VEIN: Right SFV: Unremarkable. Left SFV: Unremarkable. POPLITEAL VEIN: Right Popliteal: Unremarkable. Left Popliteal: Unremarkable. POSTERIOR TIBIAL VEIN: Right PTV: Unremarkable. Left PTV: Unremarkable. OTHER FINDINGS: None. IMPRESSION: No evidence of deep venous thrombosis. Assessment & Plan (1) Cellulitis Status: Acute (2) Cellulitis, leg Status: Acute (3) Fever Status: Acute (4) Leukopenia Status: Acute - Assessment and Plan (Free Text) Assessment: A/P- 61 year old male with pmh of BPH, hypothyroidism, HTN, chronic leukopenia admitted with b/l LE cellulitis. afebrile now but had low grade fevers on admission wbc-1.6 with PMN-47 % ( not neutropenic yet). LE US- no dvt etiology of the cellulitis perhaps from scratching plan- check blood cx x 2 advise to continue with IV vancomycin that was already initiated by the primary team. keep vanco trough <15. monitor wbc post granix. advise to keep LE elevated while in bed. Thank you for allowing me to take part in the carer of this patient. will f/u . All above d/w patient at length and he verbalizes full understanding of all above and agrees with above plan of care.
[2017-03-22] MEDS: [UNRECOGNIZED DRUG - OTHER] OU SCH ×2 (04:51→16:44)
[2017-03-22] MEDS: Benzocaine/Menthol (Cepacol) Lozenge PO PRN ×3 (05:16→21:19)
[2017-03-22 05:56] LABS: HEMATOCRIT 27.5 % (35.0-51.0); MEAN CELL VOLUME 101.3 fl (80.0-94.0); MEAN CORPUSCULAR HEMOGLOBIN 33.8 pg (27.0-31.0); MEAN CORPUSCULAR HGB CONC 33.4 g/dL (33.0-37.0); RED CELL DISTRIBUTION WIDTH 14.8 % (11.5-14.5); WHITE BLOOD COUNT 7.4 K/uL (4.8-10.8)
[2017-03-22 06:28] LABS: BLOOD UREA NITROGEN 11 mg/dl (9-20); CALCIUM 9.4 mg/dL (8.4-10.2); CARBON DIOXIDE 21 mmol/L (22-30); CHLORIDE 104 mmol/L (98-107); GFR AFRICAN-AMERICAN > 60; GLUCOSE,RANDOM 93 mg/dL (75-110); POTASSIUM 4.2 MMOL/L (3.6-5.0); SODIUM 135 mmol/l (132-148)
--- NOTE | 2017-03-22 08:38 | CP.PCM.PN ---
Subjective - Date & Time of Evaluation Date of Evaluation: 03/22/17 Time of Evaluation: 07:55 - Subjective Subjective: Patient seen and examined in Telemetry unit this morning. Patient c/o eye irritation this morning, and painful swallowing since yesterday. Denies Cp, SOB, cough, chills, abdominal pain, diarrheas. Objective - Vital Signs/Intake and Output Vital Signs (last 24 hours): Temp Pulse Resp BP Pulse Ox 98.6 F 104 H 18 123/78 96 03/22/17 08:00 03/22/17 08:00 03/22/17 08:00 03/22/17 08:00 03/22/17 08:00 Intake and Output: 03/22/17 03/22/17 06:59 18:59 Intake Total 1055 Output Total 800 Balance 255 - Medications Medications: Current Medications Acetaminophen (Tylenol 325mg Tab) 650 mg PO Q6 PRN PRN Reason: Fever >100.4 F Last Admin: 03/21/17 19:55 Dose: 650 mg Benzocaine/Menthol (Cepacol Sore Throat) 1 alem PO Q3 PRN PRN Reason: Sore Throat Last Admin: 03/22/17 05:16 Dose: 1 alem Home Med (Patient's Own Medication) 1 unit OU Q12@0500,1700 [facility] Last Admin: 03/22/17 04:51 Dose: 1 unit Vancomycin HCl 1 gm/ Sodium (Chloride) 250 mls @ 166.667 mls/hr IVPB Q8 [facility] Last Admin: 03/22/17 08:24 Dose: 166.667 mls/hr Ondansetron HCl (Zofran Inj) 4 mg IVP Q6 PRN PRN Reason: Nausea/Vomiting Last Admin: 03/21/17 17:40 Dose: 4 mg Tamsulosin HCl (Flomax) 0.8 mg PO HS [facility] Last Admin: 03/21/17 21:30 Dose: 0.8 mg - Labs Labs: 03/22/17 05:00 03/22/17 05:00 - Additional Findings Additional findings: Constitutional Appears: No Acute Distress - ENT Exam ENT Exam: Mucous Membranes Moist - GI/Abdominal Exam GI & Abdominal Exam: absent: Distended, Guarding - Additional Findings Additional findings: Head Exam Head Exam: ATRAUMATIC, NORMOCEPHALIC - Eye Exam Eye Exam: EOMI - ENT Exam ENT Exam: Mucous Membranes Moist - Neck Exam Neck exam: Positive for: Full Rom. Negative for: Lymphadenopathy, Tenderness - Respiratory Exam Respiratory Exam: Clear to Auscultation Bilateral, NORMAL BREATHING PATTERN. absent: Rhonchi, Wheezes - Cardiovascular Exam Cardiovascular Exam: REGULAR RHYTHM, +S1, +S2 - GI/Abdominal Exam GI & Abdominal Exam: Normal Bowel Sounds, Soft. absent: Tenderness - Extremities Exam Extremities exam: Positive for: pedal edema. Negative for: calf tenderness Additional comments: left lower extremity: almost entire circumference is erythematous, improving right lower extremity: erythema mainly on the back of the leg, improving Assessment and Plan - Assessment and Plan (Free Text) Assessment: 61 y/o male with pmhc leukopenia (Dr. Webb), Anxiety, Arthritis, Benign Prostatic Hyperplasia, COPD?, Deep Vein Thrombosis (x3), HTN, Hypothyroidism? being admitted management of bilateral lower extremity cellulites and neutropenia. Plan: Bilateral Lower extremity cellulitis -c/w fever 101.7 F -Ultrasound negative for DVT -increased Vancomycin 1 GM frequency from Q12 to Q8 to achieve a higher vanco trough (<15 as per ID recommendations) Day # 2 -c/w Tylenol PRN for fever -First Blood Cx showed no growth 24 hours -f/u Vanco trough on 03/23/17 in AM -f/u 2nd Blood Cx -f/u ESR -ID on board, Dr. Bailey, f/u recommendations Leucopenia History of Chronic Neutropenia WBC: improved from 1.6 yesterday to 7.[address] Channing Samano- consulted, f/u recommendations s/p Granix 480 mcg SC once on 03/21/17 f/u repeat CBC in AM As per Hemo :not give another dose of granix unless his count drops again Anemia no evidence of active bleeding Hemo recommended GI consult for possible GI bleeding, but patient denies any blood in urine or stool at this time. Will f/u H/H, FOBT, and UA, and will consider GI consult as needed H/H: 9.2/27.5 s/p Transfusion of 2 units of PRBC -f/u CBC -f/u FOBT Hemo, Dr. Joslyn Samano. F/u recommendations Odynophagia -unclear etiology, denies dysphagia cristy esophagitis is a possible Dx because patient h/o chronic neutropenia Fluconazole 200 po daily Nystatin 5 ml PO swish and swallow will f/u BPH continue with flomax 0.8 HS f/u UA f/u urine Cx History of Possible Hypothyroidism no evidence of Hypothyroidism at this time Not on any medication NO TSH on record in labs since 2013 TSH 1.67 WNL History of Previous DVTs per pt he was on [facility] for years/Warfarin then it was d/c; has not had a DVT since approximately 5 years ago No DVT on ultrasound done in ED today will monitor DVT prophylaxis SCDs for now Hemo aware and agrees with holding Lovenox because platelets 123 today
--- NOTE | 2017-03-22 09:33 | CP.PCM.PN ---
Subjective - Date & Time of Evaluation Date of Evaluation: 03/22/17 Time of Evaluation: 09:33 - Subjective Subjective: Pt's wbc went up to 7.4 aaand hgb 9.4 podt transfusion. Will not give another dose of granix unless his count drops again. 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 Since early this morning his eyes have been swollen which happens when he is not on prednisone. Will start him on prednisone 10 mg today. I feel he should be seen by a GI to r/o gastric ulcer. Objective - Vital Signs/Intake and Output Vital Signs (last 24 hours): Temp Pulse Resp BP Pulse Ox 98.6 F 104 H 18 123/78 96 03/22/17 08:00 03/22/17 08:00 03/22/17 08:00 03/22/17 08:00 03/22/17 08:00 Intake and Output: 03/22/17 03/22/17 06:59 18:59 Intake Total 1055 Output Total 800 Balance 255 - Medications Medications: Current Medications Acetaminophen (Tylenol 325mg Tab) 650 mg PO Q6 PRN PRN Reason: Fever >100.4 F Last Admin: 03/21/17 19:55 Dose: 650 mg Benzocaine/Menthol (Cepacol Sore Throat) 1 alem PO Q3 PRN PRN Reason: Sore Throat Last Admin: 03/22/17 05:16 Dose: 1 alem Famotidine (Pepcid) 20 mg PO DAILY [facility] Home Med (Patient's Own Medication) 1 unit OU Q12@0500,1700 [facility] Last Admin: 03/22/17 04:51 Dose: 1 unit Vancomycin HCl 1 gm/ Sodium (Chloride) 250 mls @ 166.667 mls/hr IVPB Q8 [facility] Last Admin: 03/22/17 08:24 Dose: 166.667 mls/hr Ondansetron HCl (Zofran Inj) 4 mg IVP Q6 PRN PRN Reason: Nausea/Vomiting Last Admin: 03/21/17 17:40 Dose: 4 mg Prednisone (Prednisone Tab) 10 mg PO DAILY [facility] Prednisone (Prednisone Tab) 10 mg PO DAILY [facility] Tamsulosin HCl (Flomax) 0.8 mg PO HS [facility] Last Admin: 03/21/17 21:30 Dose: 0.8 mg - Labs Labs: 03/22/17 05:00 03/22/17 05:00
--- NOTE | 2017-03-22 12:48 | CP.PCM.PN ---
Subjective - Date & Time of Evaluation Date of Evaluation: 03/22/17 Time of Evaluation: 12:48 - Subjective Subjective: Id Note- pt. seen and examined today. Pt. denies any fever or chlls. states his legs feel much better and much less redness. his wbc and Hgb much improved post granix and PRBC. he states he may have EGD . Objective - Vital Signs/Intake and Output Vital Signs (last 24 hours): Temp Pulse Resp BP Pulse Ox 98.3 F 87 18 118/71 98 03/22/17 11:50 03/22/17 11:50 03/22/17 11:50 03/22/17 11:50 03/22/17 11:50 Intake and Output: 03/22/17 03/22/17 06:59 18:59 Intake Total 1055 Output Total 800 Balance 255 - Medications Medications: Current Medications Acetaminophen (Tylenol 325mg Tab) 650 mg PO Q6 PRN PRN Reason: Fever >100.4 F Last Admin: 03/21/17 19:55 Dose: 650 mg Benzocaine/Menthol (Cepacol Sore Throat) 1 alem PO Q3 PRN PRN Reason: Sore Throat Last Admin: 03/22/17 05:16 Dose: 1 alem Famotidine (Pepcid) 20 mg PO DAILY [facility] Last Admin: 03/22/17 10:07 Dose: 20 mg Fluconazole (Diflucan) 200 mg PO DAILY [facility] Home Med (Patient's Own Medication) 1 unit OU Q12@0500,1700 [facility] Last Admin: 03/22/17 04:51 Dose: 1 unit Vancomycin HCl 1 gm/ Sodium (Chloride) 250 mls @ 166.667 mls/hr IVPB Q8 [facility] Last Admin: 03/22/17 08:24 Dose: 166.667 mls/hr Nystatin (Nystatin Oral Susp) 5 ml PO QID [facility] Ondansetron HCl (Zofran Inj) 4 mg IVP Q6 PRN PRN Reason: Nausea/Vomiting Last Admin: 03/21/17 17:40 Dose: 4 mg Prednisone (Prednisone Tab) 10 mg PO DAILY [facility] Last Admin: 03/22/17 10:08 Dose: 10 mg Tamsulosin HCl (Flomax) 0.8 mg PO HS [facility] Last Admin: 03/21/17 21:30 Dose: 0.8 mg - Labs Labs: - Additional Findings Additional findings: Constitutional Appears: Non-toxic, No Acute Distress - Head Exam Head Exam: ATRAUMATIC - Eye Exam Eye Exam: EOMI, PERRL - ENT Exam ENT Exam: Normal Oropharynx - Neck Exam Neck exam: Positive for: Full Rom - Respiratory Exam Respiratory Exam: Clear to Auscultation Bilateral, NORMAL BREATHING PATTERN - Cardiovascular Exam Cardiovascular Exam: RRR, +S1, +S2 - GI/Abdominal Exam GI & Abdominal Exam: Normal Bowel Sounds, Soft Additional comments: NT, ND - Extremities Exam Additional comments: B/L LE erythema much improved , no edema - Neurological Exam Neurological exam: Alert, Oriented x 3 Laboratory Results - last 72 hr 03/20/17 03/20/17 03/20/17 15:52 16:30 16:30 WBC 2.4 L D RBC 2.43 L Hgb 8.4 L D Hct 25.3 L MCV 103.9 H MCH 34.4 H MCHC 33.1 RDW 13.2 Plt Count 130 MPV 8.6 Neut % (Auto) 58.8 Lymph % (Auto) 27.7 Rusk % (Auto) 10.5 H Eos % (Auto) 2.2 Baso % (Auto) 0.8 Neut # 1.4 L Lymph # 0.7 L Rusk # 0.2 Eos # 0.1 Baso # 0.0 Neutrophils % (Manual) 57 Lymphocytes % (Manual) 35 Monocytes % (Manual) 8 Platelet Estimate Normal Anisocytosis (manual) Slight Macrocytosis (manual) Slight Tear Drop Cells Slight Ovalocytes Slight pO2 48 VBG pH 7.49 H VBG pCO2 35 L VBG HCO3 27.3 VBG Total CO2 27.8 VBG O2 Sat (Calc) 94.1 H VBG Base Excess 3.2 H VBG Potassium 5.0 Sodium 133.0 133 Chloride 103.0 101 Glucose 107 Lactate 1.0 FiO2 21.0 Potassium 4.5 Carbon Dioxide 22 Anion Gap 15 BUN 17 Creatinine 0.9 Est GFR ( Amer) > 60 Est GFR (Non-Af Amer) > 60 Random Glucose 104 Calcium 9.4 Total Bilirubin 0.6 AST 19 ALT 25 Alkaline Phosphatase 77 Total Protein 7.9 Albumin 4.1 Globulin 3.8 Albumin/Globulin Ratio 1.1 TSH 3rd Generation Venous Blood Potassium 5.0 Vancomycin Trough Blood Type Antibody Screen Crossmatch BBK History Checked 03/21/17 03/21/17 03/21/17 04:00 04:00 04:00 WBC 1.6 L* RBC 2.15 L Hgb 7.5 L Hct 22.5 L MCV 104.7 H MCH 35.0 H MCHC 33.4 RDW 13.2 Plt Count 120 L MPV 8.4 Neut % (Auto) 47.6 L Lymph % (Auto) 35.8 Rusk % (Auto) 12.1 H Eos % (Auto) 3.8 Baso % (Auto) 0.7 Neut # 0.7 L Lymph # 0.6 L Rusk # 0.2 Eos # 0.1 Baso # 0.0 Neutrophils % (Manual) Lymphocytes % (Manual) Monocytes % (Manual) Platelet Estimate Anisocytosis (manual) Macrocytosis (manual) Tear Drop Cells Ovalocytes pO2 VBG pH VBG pCO2 VBG HCO3 VBG Total CO2 VBG O2 Sat (Calc) VBG Base Excess VBG Potassium Sodium 136 Chloride 103 Glucose Lactate FiO2 Potassium 4.1 Carbon Dioxide 24 Anion Gap 13 BUN 12 Creatinine 0.9 Est GFR ( Amer) > 60 Est GFR (Non-Af Amer) > 60 Random Glucose 97 Calcium 8.9 Total Bilirubin AST ALT Alkaline Phosphatase Total Protein Albumin Globulin Albumin/Globulin Ratio TSH 3rd Generation 1.67 Venous Blood Potassium Vancomycin Trough Blood Type Antibody Screen Crossmatch BBK History Checked 03/21/17 03/22/17 03/22/17 10:15 05:00 05:00 WBC 7.4 D RBC 2.72 L Hgb 9.2 L Hct 27.5 L MCV 101.3 H D MCH 33.8 H MCHC 33.4 RDW 14.8 H Plt Count 123 L MPV Neut % (Auto) Lymph % (Auto) Rusk % (Auto) Eos % (Auto) Baso % (Auto) Neut # Lymph # Rusk # Eos # Baso # Neutrophils % (Manual) Lymphocytes % (Manual) Monocytes % (Manual) Platelet Estimate Anisocytosis (manual) Macrocytosis (manual) Tear Drop Cells Ovalocytes pO2 VBG pH VBG pCO2 VBG HCO3 VBG Total CO2 VBG O2 Sat (Calc) VBG Base Excess VBG Potassium Sodium 135 Chloride 104 Glucose Lactate FiO2 Potassium 4.2 Carbon Dioxide 21 L Anion Gap 14 BUN 11 Creatinine 0.8 Est GFR ( Amer) > 60 Est GFR (Non-Af Amer) > 60 Random Glucose 93 Calcium 9.4 Total Bilirubin AST ALT Alkaline Phosphatase Total Protein Albumin Globulin Albumin/Globulin Ratio TSH 3rd Generation Venous Blood Potassium Vancomycin Trough Blood Type O POSITIVE Antibody Screen Negative Crossmatch See Detail BBK History Checked Patient has bt 03/22/17 05:00 WBC RBC Hgb Hct MCV MCH MCHC RDW Plt Count MPV Neut % (Auto) Lymph % (Auto) Rusk % (Auto) Eos % (Auto) Baso % (Auto) Neut # Lymph # Rusk # Eos # Baso # Neutrophils % (Manual) Lymphocytes % (Manual) Monocytes % (Manual) Platelet Estimate Anisocytosis (manual) Macrocytosis (manual) Tear Drop Cells Ovalocytes pO2 VBG pH VBG pCO2 VBG HCO3 VBG Total CO2 VBG O2 Sat (Calc) VBG Base Excess VBG Potassium Sodium Chloride Glucose Lactate FiO2 Potassium Carbon Dioxide Anion Gap BUN Creatinine Est GFR ( Amer) Est GFR (Non-Af Amer) Random Glucose Calcium Total Bilirubin AST ALT Alkaline Phosphatase Total Protein Albumin Globulin Albumin/Globulin Ratio TSH 3rd Generation Venous Blood Potassium Vancomycin Trough < 5.0 L Blood Type Antibody Screen Crossmatch BBK History Checked Microbiology 03/20/17 16:30 Blood-Venous Blood Culture - Preliminary NO GROWTH AFTER 24 HOURS Assessment and Plan (1) Cellulitis Status: Acute (2) Cellulitis, leg Status: Acute (3) Fever Status: Acute (4) Leukopenia Status: Acute - Assessment and Plan (Free Text) Assessment: A/P- 61 year old male with pmh of BPH, hypothyroidism, HTN, chronic leukopenia admitted with b/l LE cellulitis. afebrile today Leukopenia resolved post granix and HGB improved to normal levels post PRBC. LE US- no dvt blood cx- neg plan- advise to continue with IV vancomycin that was already initiated by the primary team. day 3 keep vanco trough <15. can be switched to oral clindamycin once pt. is ready to be d/c home.
[2017-03-22] MEDS: Nystatin 100,000 Units/ml Oral Susp 5 ml UD PO SCH ×3 (14:27→21:17)
[2017-03-22 23:14] LABS: RBC URINE 34 /hpf (0-3); URINE BACTERIA RARE (<OCC); URINE BILIRUBIN NEGATIVE (NEGATIVE); URINE BLOOD LARGE (NEGATIVE); URINE CALCIUM OXALATE CRYSTALS OCC /hpf (<OCC); URINE COLOR YELLOW (YELLOW); URINE GLUCOSE (UA) NEG (Normal); URINE KETONE NEGATIVE (NEGATIVE); URINE LEUKOCYTE ESTERASE NEG Leu/uL (Negative); URINE PROTEIN NEGATIVE (NEGATIVE); WBC URINE 4 /hpf (0-5)
[2017-03-23] MEDS: [UNRECOGNIZED DRUG - OTHER] OU SCH (05:19)
[2017-03-23 06:28] LABS: HEMATOCRIT 27.7 % (35.0-51.0); MEAN CELL VOLUME 100.4 fl (80.0-94.0); MEAN CORPUSCULAR HGB CONC 33.8 g/dL (33.0-37.0); PLATELET COUNT 134 K/uL (130-400); RED CELL DISTRIBUTION WIDTH 14.5 % (11.5-14.5); WHITE BLOOD COUNT 2.9 K/uL (4.8-10.8)
[2017-03-23 06:36] LABS: BLOOD UREA NITROGEN 10 mg/dl (9-20); CALCIUM 9.1 mg/dL (8.4-10.2); CARBON DIOXIDE 24 mmol/L (22-30); CHLORIDE 104 mmol/L (98-107); GFR AFRICAN-AMERICAN > 60; GLUCOSE,RANDOM 98 mg/dL (75-110); POTASSIUM 3.9 MMOL/L (3.6-5.0); SODIUM 138 mmol/l (132-148)
--- NOTE | 2017-03-23 08:34 | CP.PCM.PN ---
Subjective - Date & Time of Evaluation Date of Evaluation: 03/23/17 Time of Evaluation: 08:29 - Subjective Subjective: Pt's cellulitis is much better. His WBC count dropped to 2.9. This is his usual count but with the cellulitis I feel he could do with a slightly higher ANC. Will give him another dose of granix today. Also he claims that when his eyes swell he is usually given 20 mg of prednisone for 1-2 days and then tapered off. Objective - Vital Signs/Intake and Output Vital Signs (last 24 hours): Temp Pulse Resp BP Pulse Ox 98.2 F 63 18 124/73 98 03/23/17 08:00 03/23/17 08:00 03/23/17 08:00 03/23/17 08:00 03/23/17 08:00 - Medications Medications: Current Medications Acetaminophen (Tylenol 325mg Tab) 650 mg PO Q6 PRN PRN Reason: Fever >100.4 F Last Admin: 03/21/17 19:55 Dose: 650 mg Benzocaine/Menthol (Cepacol Sore Throat) 1 alem PO Q3 PRN PRN Reason: Sore Throat Last Admin: 03/22/17 21:19 Dose: 1 alem Famotidine (Pepcid) 20 mg PO DAILY [facility] Last Admin: 03/22/17 10:07 Dose: 20 mg Fluconazole (Diflucan) 200 mg PO DAILY [facility] Home Med (Patient's Own Medication) 1 unit OU Q12@0500,1700 [facility] Last Admin: 03/23/17 05:19 Dose: 1 unit Vancomycin HCl 1 gm/ Sodium (Chloride) 250 mls @ 166.667 mls/hr IVPB Q12 [facility] Last Admin: 03/22/17 20:27 Dose: 166.667 mls/hr Nystatin (Nystatin Oral Susp) 5 ml PO QID [facility] Last Admin: 03/22/17 21:17 Dose: 5 ml Ondansetron HCl (Zofran Inj) 4 mg IVP Q6 PRN PRN Reason: Nausea/Vomiting Last Admin: 03/21/17 17:40 Dose: 4 mg Prednisone (Prednisone Tab) 20 mg PO DAILY ONE Stop: 03/23/17 09:01 Tamsulosin HCl (Flomax) 0.8 mg PO HS [facility] Last Admin: 03/22/17 21:17 Dose: 0.8 mg - Labs Labs: 03/23/17 05:00 03/23/17 05:00
[2017-03-23] MEDS: Nystatin 100,000 Units/ml Oral Susp 5 ml UD PO SCH ×4 (08:54→21:30)
[2017-03-23 08:59] LABS: ERYTHROCYTE SEDIMENTATION RATE > 120 mm/hr (0-20)
--- NOTE | 2017-03-23 12:22 | CP.PCM.PN ---
<Jessica Baugh - Last Filed: 03/23/17 19:19> Subjective - Date & Time of Evaluation Date of Evaluation: 03/23/17 Time of Evaluation: 07:05 - Subjective Subjective: Patient seen and examined in Telemetry with attending. Reports that painful swallowing has improved. Denies chills, cough, N/V, abdominal pain, diarrheas afebrile,, HR controlled Objective - Vital Signs/Intake and Output Vital Signs (last 24 hours): Temp Pulse Resp BP Pulse Ox 98.2 F 63 18 124/73 98 03/23/17 08:00 03/23/17 09:00 03/23/17 08:00 03/23/17 08:00 03/23/17 08:00 - Medications Medications: Current Medications Acetaminophen (Tylenol 325mg Tab) 650 mg PO Q6 PRN PRN Reason: Fever >100.4 F Last Admin: 03/21/17 19:55 Dose: 650 mg Benzocaine/Menthol (Cepacol Sore Throat) 1 alem PO Q3 PRN PRN Reason: Sore Throat Last Admin: 03/22/17 21:19 Dose: 1 alem Famotidine (Pepcid) 20 mg PO DAILY [facility] Last Admin: 03/23/17 08:54 Dose: 20 mg Fluconazole (Diflucan) 200 mg PO DAILY [facility] Last Admin: 03/23/17 08:55 Dose: 200 mg Home Med (Patient's Own Medication) 1 unit OU Q12@0500,1700 [facility] Last Admin: 03/23/17 05:19 Dose: 1 unit Vancomycin HCl 1 gm/ Sodium (Chloride) 250 mls @ 166.667 mls/hr IVPB Q12 [facility] Last Admin: 03/22/17 20:27 Dose: 166.667 mls/hr Nystatin (Nystatin Oral Susp) 5 ml PO QID [facility] Last Admin: 03/23/17 08:54 Dose: 5 ml Ondansetron HCl (Zofran Inj) 4 mg IVP Q6 PRN PRN Reason: Nausea/Vomiting Last Admin: 03/21/17 17:40 Dose: 4 mg Prednisone (Prednisone Tab) 20 mg PO DAILY [facility] Tamsulosin HCl (Flomax) 0.8 mg PO HS [facility] Last Admin: 03/22/17 21:17 Dose: 0.8 mg - Labs Labs: 03/23/17 05:00 03/23/17 05:00 - Additional Findings Additional findings: onstitutional Appears: No Acute Distress - ENT Exam ENT Exam: Mucous Membranes Moist - GI/Abdominal Exam GI & Abdominal Exam: absent: Distended, Guarding - Additional Findings Additional findings: Head Exam Head Exam: ATRAUMATIC, NORMOCEPHALIC - Eye Exam Eye Exam: EOMI - ENT Exam ENT Exam: Mucous Membranes Moist - Neck Exam Neck exam: Positive for: Full Rom. Negative for: Lymphadenopathy, Tenderness - Respiratory Exam Respiratory Exam: Clear to Auscultation Bilateral, NORMAL BREATHING PATTERN. absent: Rhonchi, Wheezes - Cardiovascular Exam Cardiovascular Exam: REGULAR RHYTHM, +S1, +S2 - GI/Abdominal Exam GI & Abdominal Exam: Normal Bowel Sounds, Soft. absent: Tenderness - Extremities Exam Extremities exam: Positive for: pedal edema. Negative for: calf tenderness Additional comments: left lower extremity erythema still improving right lower extremity: erythema mainly on the back of the leg, improving Assessment and Plan - Assessment and Plan (Free Text) Assessment: 61 y/o male with pmhc leukopenia (Dr. Webb), Anxiety, Arthritis, Benign Prostatic Hyperplasia, COPD?, Deep Vein Thrombosis (x3), HTN, Hypothyroidism? being admitted management of bilateral lower extremity cellulites and neutropenia. Plan: Bilateral Lower extremity cellulitis improving afebrile for 24 hrs -Ultrasound negative for DVT -c/w Vancomycin 1 GM frequency from Q12 to Q8 to achieve a higher vanco trough ( <15 as per ID recommendations) Day # 3 -Repeat vanco trough 8.9 on 03/23/17 -c/w Tylenol PRN for fever - Blood Cx showed no growth x 3 days -2nd Blood Cx no growth x 48 h ESR >120 -ID on board, Dr. Bailey, f/u recommendations Leucopenia History of Chronic Neutropenia WBC: low today 2.9 after discussed with hemo, dr. Samano, recommended to give a second dose of Granix s/p Granix 480 mcg SC once on 03/21/17 f/u repeat CBC in AM Dr. Channing Samano- consulted, f/u recommendations Anemia no evidence of active bleeding Hemo recommended GI consult for possible GI bleeding, but patient denies any blood in urine or stool at this time. Will f/u H/H, FOBT, and UA, and will consider GI consult as needed H/H: stable 9.4/27.7 s/p Transfusion of 2 units of PRBC on 03/22/17 -f/u CBC -f/u FOBT GI consulted to r/u GI bleeding, pt was on prednisone, and as per Dr. Samano, patient is well known by her, and this is first episode low H/H Hemo, Dr. Joslyn Samano. 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/Warfarin then it was d/c; has not had a DVT since approximately 5 years ago No DVT on ultrasound done in ED today will monitor DVT prophylaxis SCDs for now Hemo aware and agrees with holding Lovenox because platelets 123 today <Aaron Betancur - Last Filed: 03/24/17 07:50> Objective - Vital Signs/Intake and Output Vital Signs (last 24 hours): Temp Pulse Resp BP Pulse Ox 98.2 F 54 L 18 129/64 95 03/24/17 04:51 03/24/17 04:51 03/24/17 04:51 03/24/17 04:51 03/24/17 04:51 Intake and Output: 03/24/17 03/24/17 06:59 18:59 Intake Total 250 Balance 250 - Medications Medications: Current Medications Acetaminophen (Tylenol 325mg Tab) 650 mg PO Q6 PRN PRN Reason: Fever >100.4 F Last Admin: 03/21/17 19:55 Dose: 650 mg Benzocaine/Menthol (Cepacol Sore Throat) 1 alem PO Q3 PRN PRN Reason: Sore Throat Last Admin: 03/22/17 21:19 Dose: 1 alem Dorzolamide HCl (Trusopt) 1 drop OU Q12@0500,1700 [facility] Last Admin: 03/24/17 04:20 Dose: 1 drop Famotidine (Pepcid) 20 mg PO DAILY [facility] Last Admin: 03/23/17 08:54 Dose: 20 mg Fluconazole (Diflucan) 200 mg PO DAILY [facility] Last Admin: 03/23/17 08:55 Dose: 200 mg Vancomycin HCl 1 gm/ Sodium (Chloride) 250 mls @ 166.667 mls/hr IVPB Q12 [facility] Last Admin: 03/23/17 21:30 Dose: 166.667 mls/hr Nystatin (Nystatin Oral Susp) 5 ml PO QID [facility] Last Admin: 03/23/17 21:30 Dose: 5 ml Ondansetron HCl (Zofran Inj) 4 mg IVP Q6 PRN PRN Reason: Nausea/Vomiting Last Admin: 03/23/17 12:59 Dose: 4 mg Prednisone (Prednisone Tab) 20 mg PO DAILY [facility] Tamsulosin HCl (Flomax) 0.8 mg PO HS [facility] Last Admin: 03/23/17 21:30 Dose: 0.8 mg Timolol Maleate (Timoptic 0.5% [facility]) 1 drop OU Q12@0500,1700 [facility] Last Admin: 03/24/17 04:20 Dose: 1 drop - Labs Labs: 03/24/17 05:00 03/24/17 05:00 Attending/Attestation - Attestation I have personally seen and examined this patient.: Yes I have fully participated in the care of the patient.: Yes I have reviewed all pertinent clinical information, including history, physical exam and plan: Yes
[2017-03-23 18:31] LABS: FOLATE 17.3 ng/mL
[2017-03-23] MEDS: Dorzolamide 2% Ophth Soln OU SCH (18:49)
[2017-03-24] MEDS: Dorzolamide 2% Ophth Soln OU SCH (04:20)
[2017-03-24 06:45] LABS: HEMATOCRIT 29.9 % (35.0-51.0); MEAN CELL VOLUME 101.3 fl (80.0-94.0); MEAN CORPUSCULAR HEMOGLOBIN 32.8 pg (27.0-31.0); MEAN CORPUSCULAR HGB CONC 32.3 g/dL (33.0-37.0); RED CELL DISTRIBUTION WIDTH 14.6 % (11.5-14.5); WHITE BLOOD COUNT 15.5 K/uL (4.8-10.8)
[2017-03-24 07:04] LABS: BLOOD UREA NITROGEN 13 mg/dl (9-20); CALCIUM 9.7 mg/dL (8.4-10.2); CARBON DIOXIDE 24 mmol/L (22-30); CHLORIDE 105 mmol/L (98-107); GFR AFRICAN-AMERICAN > 60; GLUCOSE,RANDOM 88 mg/dL (75-110); SODIUM 142 mmol/l (132-148)
--- NOTE | 2017-03-24 08:09 | CP.PCM.PN ---
Subjective - Date & Time of Evaluation Date of Evaluation: 03/24/17 Time of Evaluation: 08:03 - Subjective Subjective: P6 is afebrile, and the cellulitis has completely resolved. His WBC count following the Granix shot yesterday is 15. HGB and platelets are stable.the eyes look much better as well. Will give him another dose of 20 mg of prednisone today. He is cleared for discharge today from a hematology point of view. He will follow up with the GI Dr Avelar as out pt. Objective - Vital Signs/Intake and Output Vital Signs (last 24 hours): Temp Pulse Resp BP Pulse Ox 98.2 F 54 L 18 129/64 95 03/24/17 04:51 03/24/17 04:51 03/24/17 04:51 03/24/17 04:51 03/24/17 04:51 Intake and Output: 03/24/17 03/24/17 06:59 18:59 Intake Total 250 Balance 250 - Medications Medications: Current Medications Acetaminophen (Tylenol 325mg Tab) 650 mg PO Q6 PRN PRN Reason: Fever >100.4 F Last Admin: 03/21/17 19:55 Dose: 650 mg Benzocaine/Menthol (Cepacol Sore Throat) 1 alem PO Q3 PRN PRN Reason: Sore Throat Last Admin: 03/22/17 21:19 Dose: 1 aelm Dorzolamide HCl (Trusopt) 1 drop OU Q12@0500,1700 [facility] Last Admin: 03/24/17 04:20 Dose: 1 drop Famotidine (Pepcid) 20 mg PO DAILY [facility] Last Admin: 03/23/17 08:54 Dose: 20 mg Fluconazole (Diflucan) 200 mg PO DAILY [facility] Last Admin: 03/23/17 08:55 Dose: 200 mg Vancomycin HCl 1 gm/ Sodium (Chloride) 250 mls @ 166.667 mls/hr IVPB Q12 [facility] Last Admin: 03/23/17 21:30 Dose: 166.667 mls/hr Nystatin (Nystatin Oral Susp) 5 ml PO QID [facility] Last Admin: 03/23/17 21:30 Dose: 5 ml Ondansetron HCl (Zofran Inj) 4 mg IVP Q6 PRN PRN Reason: Nausea/Vomiting Last Admin: 03/23/17 12:59 Dose: 4 mg Prednisone (Prednisone Tab) 20 mg PO DAILY [facility] Tamsulosin HCl (Flomax) 0.8 mg PO HS [facility] Last Admin: 03/23/17 21:30 Dose: 0.8 mg Timolol Maleate (Timoptic 0.5% [facility]) 1 drop OU Q12@0500,1700 [facility] Last Admin: 03/24/17 04:20 Dose: 1 drop - Labs Labs: 03/24/17 05:00 03/24/17 05:00
--- NOTE | 2017-03-24 08:25 | CON ---
DATE: 03/23/2017 REFERRING PHYSICIAN: Aaron Betancur MD REASON FOR CONSULTATION: Anemia. HISTORY OF PRESENT ILLNESS: This is a 61-year-old male with history of BPH, chronic leukopenia, found to have diabetes, COPD, hypothyroidism, hypertension. No nausea, no vomiting, no fever ------ cellulitis. ------ unclear etiology, at baseline, but he had no bleeding, no nausea, no vomiting, no GI complaints, no melena, no hematemesis or hematochezia. Currently lying in bed comfortably, in no apparent distress. PAST MEDICAL HISTORY: As above. PAST SURGICAL HISTORY: As above. MEDICATIONS: Have been reviewed. REVIEW OF SYSTEMS: All other systems have been reviewed and negative apart from the HPI. PHYSICAL EXAMINATION: VITAL SIGNS: In the hospital grossly remarkable. GENERAL: Pleasant elderly appearing male, lying in bed comfortable, in no apparent distress. HEENT: Head is normocephalic and atraumatic. Eyes, pupils are equally round and reactive to light bilaterally. No conjunctival pallor or icterus. NECK: Supple. Normal range of motion. No lymphadenopathy appreciated. LUNGS: Coarse breath sounds bilaterally. HEART: S1 and S2. Regular rate and rhythm. No murmurs appreciated. ABDOMEN: Soft and nontender. Bowel sounds present. No rebound. No guarding. RECTAL: Deferred. EXTREMITIES: Pulses felt bilaterally. SKIN: Warm, dry and intact. NEUROLOGIC: A and O x3. LABORATORY DATA: Labs have been reviewed. WBC is currently 2.9, it was 1.6, hemoglobin was low at 7.5, now 9.4, platelet count is 134. ESR is 120. ASSESSMENT AND PLAN: This is a 61 year old male with chronic leukopenia, unclear etiology for the anemia on the day that he had 7.5. He also stated that his WBC was 1.6 ------. From gastrointestinal standpoint, the patient agreed at this point does not really want to do an endoscopy as he is not bleeding and currently he is not bleeding. He can follow me as an outpatient for the possible endoscopy. I will review colonoscopy in an outpatient setting. For now, advance diet as tolerated and antibiotics per Infectious Disease. Thank you for the consult. Tam Means MD/ PhD cc: Aaron Betancur MD
[2017-03-24] MEDS: Nystatin 100,000 Units/ml Oral Susp 5 ml UD PO SCH (09:49)
--- NOTE | 2017-03-24 09:49 | CP.PCM.PN ---
Subjective - Date & Time of Evaluation Date of Evaluation: 03/24/17 Time of Evaluation: 09:05 - Subjective Subjective: doing well Objective - Vital Signs/Intake and Output Vital Signs (last 24 hours): Temp Pulse Resp BP Pulse Ox 97.7 F 69 20 131/66 96 03/24/17 08:00 03/24/17 08:00 03/24/17 08:00 03/24/17 08:00 03/24/17 08:00 Intake and Output: 03/24/17 03/24/17 06:59 18:59 Intake Total 250 Balance 250 - Medications Medications: Current Medications Acetaminophen (Tylenol 325mg Tab) 650 mg PO Q6 PRN PRN Reason: Fever >100.4 F Last Admin: 03/21/17 19:55 Dose: 650 mg Benzocaine/Menthol (Cepacol Sore Throat) 1 alem PO Q3 PRN PRN Reason: Sore Throat Last Admin: 03/22/17 21:19 Dose: 1 alem Dorzolamide HCl (Trusopt) 1 drop OU Q12@0500,1700 [facility] Last Admin: 03/24/17 04:20 Dose: 1 drop Famotidine (Pepcid) 20 mg PO DAILY [facility] Last Admin: 03/23/17 08:54 Dose: 20 mg Fluconazole (Diflucan) 200 mg PO DAILY [facility] Last Admin: 03/23/17 08:55 Dose: 200 mg Vancomycin HCl 1 gm/ Sodium (Chloride) 250 mls @ 166.667 mls/hr IVPB Q12 [facility] Last Admin: 03/23/17 21:30 Dose: 166.667 mls/hr Nystatin (Nystatin Oral Susp) 5 ml PO QID [facility] Last Admin: 03/23/17 21:30 Dose: 5 ml Ondansetron HCl (Zofran Inj) 4 mg IVP Q6 PRN PRN Reason: Nausea/Vomiting Last Admin: 03/23/17 12:59 Dose: 4 mg Prednisone (Prednisone Tab) 20 mg PO DAILY [facility] Tamsulosin HCl (Flomax) 0.8 mg PO HS [facility] Last Admin: 03/23/17 21:30 Dose: 0.8 mg Timolol Maleate (Timoptic 0.5% Ophth Soln) 1 drop OU Q12@0500,1700 [facility] Last Admin: 03/24/17 04:20 Dose: 1 drop - Labs Labs: 03/24/17 05:00 03/24/17 05:00 - Head Exam Head Exam: NORMOCEPHALIC - Eye Exam Eye Exam: Normal appearance - Neck Exam Neck Exam: Normal Inspection - Respiratory Exam Respiratory Exam: Clear to Ausculation Bilateral - Cardiovascular Exam Cardiovascular Exam: REGULAR RHYTHM - GI/Abdominal Exam GI & Abdominal Exam: Soft, Normal Bowel Sounds Assessment and Plan - Assessment and Plan (Free Text) Assessment: 61 yo male with pancytopenia pancytopenia resolving no bleeding hgb stable dc planning outpatient egd
[2017-03-24 12:33] VITALS: BP 130/75; PULSE 70; RESP 18; TEMP 98.4; O2SAT 97
--- NOTE | 2017-03-24 15:16 | CP.PCM.DIS ---
<AmauriJessica - Last Filed: 03/24/17 15:14> Provider - Provider Date of Admission: 03/20/17 19:06 Attending physician: Aaron Betancur MD Consults: Dr. Joslyn Samano, Hematology Dr. Bailey, ID Dr. Means, GI Time Spent in preparation of Discharge (in minutes): 30 Diagnosis - Discharge Diagnosis (1) Lower extremity cellulitis Status: Acute Comment: c/w Clindamycin PO x 7 days. F/u with Dr. Betancur in 1 week (2) Leukopenia Status: Chronic Comment: improved. S/p Granix injection (2 doses). F/u with Hemotology (3) Anemia Status: Acute Comment: unclear etiology. s/p 2 units of PRBC. Stable H/H x 3 days. F/u with GI for possible EDG as outpatient. F/u FOBT done, pending results. F/u Hemo. (4) BPH (benign prostatic hyperplasia) Status: Chronic Hospital Course - Lab Results Lab Results: Micro Results 03/22/17 16:00 Urine,Clean Catch Urine Culture - Final No Growth (<1,000 CFU/ML) 03/20/17 16:30 Blood-Venous Blood Culture - Preliminary NO GROWTH AFTER 3 DAYS 03/21/17 16:00 Blood-Venous Blood Culture - Preliminary NO GROWTH AFTER 48 HOURS Most Recent Lab Values WBC 15.5 K/uL (4.8-10.8) H D 03/24/17 05:00 RBC 2.95 Mil/uL (4.40-5.90) L 03/24/17 05:00 Hgb 9.7 g/dL (12.0-18.0) L 03/24/17 05:00 Hct 29.9 % (35.0-51.0) L 03/24/17 05:00 MCV 101.3 fl (80.0-94.0) H 03/24/17 05:00 MCH 32.8 pg (27.0-31.0) H 03/24/17 05:00 MCHC 32.3 g/dL (33.0-37.0) L 03/24/17 05:00 RDW 14.6 % (11.5-14.5) H 03/24/17 05:00 Plt Count 140 K/uL (130-400) 03/24/17 05:00 MPV 8.4 fl (7.2-11.7) 03/21/17 04:00 Neut % (Auto) 47.6 % (50.0-75.0) L 03/21/17 04:00 Lymph % (Auto) 35.8 % (20.0-40.0) 03/21/17 04:00 [place] % (Auto) 12.1 % (0.0-10.0) H 03/21/17 04:00 Eos % (Auto) 3.8 % (0.0-4.0) 03/21/17 04:00 Baso % (Auto) 0.7 % (0.0-2.0) 03/21/17 04:00 Neut # 0.7 K/uL (1.8-7.0) L 03/21/17 04:00 Lymph # 0.6 K/uL (1.0-4.3) L 03/21/17 04:00 [place] # 0.2 K/uL (0.0-0.8) 03/21/17 04:00 Eos # 0.1 K/uL (0.0-0.7) 03/21/17 04:00 Baso # 0.0 K/uL (0.0-0.2) 03/21/17 04:00 Neutrophils % (Manual) 57 % (42-75) 03/20/17 16:30 Lymphocytes % (Manual) 35 % (20-50) 03/20/17 16:30 Monocytes % (Manual) 8 % (0-10) 03/20/17 16:30 Platelet Estimate Normal (NORMAL) 03/20/17 16:30 Anisocytosis (manual) Slight 03/20/17 16:30 Macrocytosis (manual) Slight 03/20/17 16:30 Tear Drop Cells Slight 03/20/17 16:30 Ovalocytes Slight 03/20/17 16:30 ESR > 120 mm/hr (0-20) H 03/23/17 05:00 pO2 48 mm/Hg (30-55) 03/20/17 15:52 VBG pH 7.49 (7.32-7.43) H 03/20/17 15:52 VBG pCO2 35 mmHg (40-60) L 03/20/17 15:52 VBG HCO3 27.3 mmol/L 03/20/17 15:52 VBG Total CO2 27.8 mmol/L (22-28) 03/20/17 15:52 VBG O2 Sat (Calc) 94.1 % (40-65) H 03/20/17 15:52 VBG Base Excess 3.2 mmol/L (0.0-2.0) H 03/20/17 15:52 VBG Potassium 5.0 mmol/L (3.6-5.2) 03/20/17 15:52 Sodium 133.0 mmol/L (132-148) 03/20/17 15:52 Chloride 103.0 mmol/L (98-107) 03/20/17 15:52 Glucose 107 mg/dL (75-110) 03/20/17 15:52 Lactate 1.0 mmol/L (0.7-2.1) 03/20/17 15:52 FiO2 21.0 % 03/20/17 15:52 Sodium 142 mmol/l (132-148) 03/24/17 05:00 Potassium 4.0 MMOL/L (3.6-5.0) 03/24/17 05:00 Chloride 105 mmol/L (98-107) 03/24/17 05:00 Carbon Dioxide 24 mmol/L (22-30) 03/24/17 05:00 Anion Gap 17 (10-20) 03/24/17 05:00 BUN 13 mg/dl (9-20) 03/24/17 05:00 Creatinine 0.9 mg/dL (0.8-1.5) 03/24/17 05:00 Est GFR ( Amer) > 60 03/24/17 05:00 Est GFR (Non-Af Amer) > 60 03/24/17 05:00 Random Glucose 88 mg/dL (75-110) 03/24/17 05:00 Calcium 9.7 mg/dL (8.4-10.2) 03/24/17 05:00 Total Bilirubin 0.6 mg/dl (0.2-1.3) 03/20/17 16:30 AST 19 U/L (17-59) 03/20/17 16:30 ALT 25 U/L (21-72) 09/18/17 16:30 Alkaline Phosphatase 77 U/L (38-126) 03/20/17 16:30 Total Protein 7.9 G/DL (6.3-8.2) 03/20/17 16:30 Albumin 4.1 g/dL (3.5-5.0) 03/20/17 16:30 Globulin 3.8 gm/dL (2.2-3.9) 03/20/17 16:30 Albumin/Globulin Ratio 1.1 (1.0-2.1) 03/20/17 16:30 Vitamin B12 586 pg/mL (239-931) 03/23/17 11:46 Folate 17.3 ng/mL 03/23/17 11:46 TSH 3rd Generation 1.67 mIU/ML (0.46-4.68) 03/21/17 04:00 Venous Blood Potassium 5.0 mmol/L (3.6-5.2) 03/20/17 15:52 Urine Color Yellow (YELLOW) 03/22/17 22:57 Urine Clarity Cloudy (Clear) 03/22/17 22:57 Urine pH 5.0 (5.0-8.0) 03/22/17 22:57 Ur Specific [place] 1.024 (1.003-1.030) 03/22/17 22:57 Urine Protein Negative mg/dL (NEGATIVE) 03/22/17 22:57 Urine Glucose (UA) Neg mg/dL (Normal) 03/22/17 22:57 Urine Ketones Negative mg/dL (NEGATIVE) 03/22/17 22:57 Urine Blood Large (NEGATIVE) 03/22/17 22:57 Urine Nitrate Negative (NEGATIVE) 03/22/17 22:57 Urine Bilirubin Negative (NEGATIVE) 03/22/17 22:57 Urine Urobilinogen 2.0 mg/dL (0.2-1.0) 03/22/17 22:57 Ur Leukocyte Esterase Neg Maru/uL (Negative) 03/22/17 22:57 Urine RBC (Auto) 34 /hpf (0-3) H 03/22/17 22:57 Urine Microscopic WBC 4 /hpf (0-5) 03/22/17 22:57 Ur Squamous Epith Cells 2 /hpf (0-5) 03/22/17 22:57 Calcium Oxalate Crystal Occ /hpf (<OCC) H 03/22/17 22:57 Urine Bacteria Rare (<OCC) 03/22/17 22:57 Vancomycin Trough 8.9 ug/mL (5.0-10.0) 03/23/17 05:00 Blood Type O POSITIVE 03/21/17 10:15 Antibody Screen Negative 03/21/17 10:15 Crossmatch See Detail 03/21/17 10:15 BBK History Checked Patient has bt 03/21/17 10:15 - Hospital Course Hospital Course: 61 y/o male with pmhc leukopenia (Dr. Webb), Anxiety, Arthritis, Benign Prostatic Hyperplasia, COPD?, Deep Vein Thrombosis (x3), HTN, Hypothyroidism? being admitted management of bilateral lower extremity cellulites and neutropenia. Patient managed with Vancomycin IV. ID specialist was consulted for further antibiotic recommendations, agreed to c/w Vancomicyn and frequency was adjusted based on recommended Vanco trough of < 15. Also patient was found to have very low WBC, Dr. Joslyn Samano, patient's news technical director, and Granix 480 mcg was given as one dose, but because WBC drop again, a secondose dose of Granix was recommended by Hemo. His WBC count following the second Granix shot. Pt has been afebrile for more than 48 hours. Hgb was noted to be 7.5 on admission, an 2 units of PRBc were given, after transfusion hgb was stable on 9s. Because this was first episode of low hgb, Hemo recommended GI consult to r/o active GI bleeding because patient was on prednisone. GI was consulted, and found no evidence of active bleeding, and f/u as outpatient for EDG. He is cleared for discharge today from a hematology and GI point of view. Cleared from ID point of view, and will continue treatment with PO clindamycin for 7 days. Will f/u with Dr. Betancur in 1 week. Patient was seen and examined with attending at 7: 00 am this morning. Denied Cp, SOB, pain, chills, diarrheas or other complains. - Date & Time of H&P Date of H&P: 03/20/17 Time of H&P: 20:10 Discharge Exam - Head Exam Head Exam: ATRAUMATIC - Eye Exam Eye Exam: Normal appearance - ENT Exam ENT Exam: Mucous Membranes Moist - Respiratory Exam Respiratory Exam: Clear to PA & Lateral, NORMAL BREATHING PATTERN - Cardiovascular Exam Cardiovascular Exam: REGULAR RHYTHM, +S1, +S2 - GI/Abdominal Exam GI & Abdominal Exam: Normal Bowel Sounds, Soft. absent: Distended, Tenderness - Extremities Exam Extremities exam: normal inspection Additional comments: no edema in lower extremities. Very small area of mild erythema - Neurological Exam Neurological exam: Alert, Oriented x3 Discharge Plan - Discharge Medications Prescriptions: Clindamycin [Cleocin] 300 mg PO QID 7 Days #28 cap - Follow Up Plan Condition: GOOD Disposition: HOME/ ROUTINE Instructions: Cellulitis (DC), Cellulitis (GEN), Sepsis (GEN) Additional Instructions: FU with PMD within 1 week Referrals: Jatin Bailey MD [Staff Provider] - Poli Samano MD [Staff Provider] - Aaron Betancur MD [Family Provider] - Lewis Avelar MD [Staff Provider] - <Marco Gordon - Last Filed: 03/27/17 07:13> Provider - Provider Date of Admission: 03/20/17 19:06 Attending physician: Aaron Betancur MD Hospital Course - Lab Results Lab Results: Micro Results 03/21/17 16:00 Blood-Venous Blood Culture - Final NO GROWTH AFTER 5 DAYS 03/21/17 16:00 Blood-Venous Gram Stain - Final TEST NOT PERFORMED 03/20/17 16:30 Blood-Venous Blood Culture - Final NO GROWTH AFTER 5 DAYS 03/20/17 16:30 Blood-Venous Gram Stain - Final TEST NOT PERFORMED 03/22/17 16:00 Urine,Clean Catch Urine Culture - Final No Growth (<1,000 CFU/ML) Most Recent Lab Values WBC 15.5 K/uL (4.8-10.8) H D 03/24/17 05:00 RBC 2.95 Mil/uL (4.40-5.90) L 03/24/17 05:00 Hgb 9.7 g/dL (12.0-18.0) L 03/24/17 05:00 Hct 29.9 % (35.0-51.0) L 03/24/17 05:00 MCV 101.3 fl (80.0-94.0) H 03/24/17 05:00 MCH 32.8 pg (27.0-31.0) H 03/24/17 05:00 MCHC 32.3 g/dL (33.0-37.0) L 03/24/17 05:00 RDW 14.6 % (11.5-14.5) H 03/24/17 05:00 Plt Count 140 K/uL (130-400) 03/24/17 05:00 MPV 8.4 fl (7.2-11.7) 03/21/17 04:00 Neut % (Auto) 47.6 % (50.0-75.0) L 03/21/17 04:00 Lymph % (Auto) 35.8 % (20.0-40.0) 03/21/17 04:00 [place] % (Auto) 12.1 % (0.0-10.0) H 03/21/17 04:00 Eos % (Auto) 3.8 % (0.0-4.0) 03/21/17 04:00 Baso % (Auto) 0.7 % (0.0-2.0) 03/21/17 04:00 Neut # 0.7 K/uL (1.8-7.0) L 03/21/17 04:00 Lymph # 0.6 K/uL (1.0-4.3) L 03/21/17 04:00 [place] # 0.2 K/uL (0.0-0.8) 03/21/17 04:00 Eos # 0.1 K/uL (0.0-0.7) 03/21/17 04:00 Baso # 0.0 K/uL (0.0-0.2) 03/21/17 04:00 Neutrophils % (Manual) 57 % (42-75) 03/20/17 16:30 Lymphocytes % (Manual) 35 % (20-50) 03/20/17 16:30 Monocytes % (Manual) 8 % (0-10) 03/20/17 16:30 Platelet Estimate Normal (NORMAL) 03/20/17 16:30 Anisocytosis (manual) Slight 03/20/17 16:30 Macrocytosis (manual) Slight 03/20/17 16:30 Tear Drop Cells Slight 03/20/17 16:30 Ovalocytes Slight 03/20/17 16:30 ESR > 120 mm/hr (0-20) H 03/23/17 05:00 pO2 48 mm/Hg (30-55) 03/20/17 15:52 VBG pH 7.49 (7.32-7.43) H 03/20/17 15:52 VBG pCO2 35 mmHg (40-60) L 03/20/17 15:52 VBG HCO3 27.3 mmol/L 03/20/17 15:52 VBG Total CO2 27.8 mmol/L (22-28) 03/20/17 15:52 VBG O2 Sat (Calc) 94.1 % (40-65) H 03/20/17 15:52 VBG Base Excess 3.2 mmol/L (0.0-2.0) H 03/20/17 15:52 VBG Potassium 5.0 mmol/L (3.6-5.2) 03/20/17 15:52 Sodium 133.0 mmol/L (132-148) 03/20/17 15:52 Chloride 103.0 mmol/L (98-107) 03/20/17 15:52 Glucose 107 mg/dL (75-110) 03/20/17 15:52 Lactate 1.0 mmol/L (0.7-2.1) 03/20/17 15:52 FiO2 21.0 % 03/20/17 15:52 Sodium 142 mmol/l (132-148) 03/24/17 05:00 Potassium 4.0 MMOL/L (3.6-5.0) 03/24/17 05:00 Chloride 105 mmol/L (98-107) 03/24/17 05:00 Carbon Dioxide 24 mmol/L (22-30) 03/24/17 05:00 Anion Gap 17 (10-20) 03/24/17 05:00 BUN 13 mg/dl (9-20) 03/24/17 05:00 Creatinine 0.9 mg/dL (0.8-1.5) 03/24/17 05:00 Est GFR ( Amer) > 60 03/24/17 05:00 Est GFR (Non-Af Amer) > 60 03/24/17 05:00 Random Glucose 88 mg/dL (75-110) 03/24/17 05:00 Calcium 9.7 mg/dL (8.4-10.2) 03/24/17 05:00 Total Bilirubin 0.6 mg/dl (0.2-1.3) 03/20/17 16:30 AST 19 U/L (17-59) 03/20/17 16:30 ALT 25 U/L (21-72) 03/20/17 16:30 Alkaline Phosphatase 77 U/L (38-126) 03/20/17 16:30 Total Protein 7.9 G/DL (6.3-8.2) 03/20/17 16:30 Albumin 4.1 g/dL (3.5-5.0) 03/20/17 16:30 Globulin 3.8 gm/dL (2.2-3.9) 03/20/17 16:30 Albumin/Globulin Ratio 1.1 (1.0-2.1) 03/20/17 16:30 Vitamin B12 586 pg/mL (239-931) 03/23/17 11:46 Folate 17.3 ng/mL 03/23/17 11:46 TSH 3rd Generation 1.67 mIU/ML (0.46-4.68) 03/21/17 04:00 Venous Blood Potassium 5.0 mmol/L (3.6-5.2) 03/20/17 15:52 Urine Color Yellow (YELLOW) 03/22/17 22:57 Urine Clarity Cloudy (Clear) 03/22/17 22:57 Urine pH 5.0 (5.0-8.0) 03/22/17 22:57 Ur Specific [place] 1.024 (1.003-1.030) 03/22/17 22:57 Urine Protein Negative mg/dL (NEGATIVE) 03/22/17 22:57 Urine Glucose (UA) Neg mg/dL (Normal) 03/22/17 22:57 Urine Ketones Negative mg/dL (NEGATIVE) 03/22/17 22:57 Urine Blood Large (NEGATIVE) 03/22/17 22:57 Urine Nitrate Negative (NEGATIVE) 03/22/17 22:57 Urine Bilirubin Negative (NEGATIVE) 03/22/17 22:57 Urine Urobilinogen 2.0 mg/dL (0.2-1.0) 03/22/17 22:57 Ur Leukocyte Esterase Neg Maru/uL (Negative) 03/22/17 22:57 Urine RBC (Auto) 34 /hpf (0-3) H 03/22/17 22:57 Urine Microscopic WBC 4 /hpf (0-5) 03/22/17 22:57 Ur Squamous Epith Cells 2 /hpf (0-5) 03/22/17 22:57 Calcium Oxalate Crystal Occ /hpf (<OCC) H 03/22/17 22:57 Urine Bacteria Rare (<OCC) 03/22/17 22:57 Vancomycin Trough 8.9 ug/mL (5.0-10.0) 03/23/17 05:00 Blood Type O POSITIVE 03/21/17 10:15 Antibody Screen Negative 03/21/17 10:15 Crossmatch See Detail 03/21/17 10:15 BBK History Checked Patient has bt 03/21/17 10:15 Attending/Attestation - Attestation I have personally seen and examined this patient.: Yes I have fully participated in the care of the patient.: Yes I have reviewed all pertinent clinical information, including history, physical exam and plan: Yes
== END 2017-03-24 15:00 | disposition home or self-care (01) | DRG 603 ==
LOC: H.ER 15:17 → H.ERHOLD 19:06 → H.TEL 20:55
PROVIDERS: ADMIT Family Medicine; ATTEND Family Medicine
PROC: 30233N1 Transfusion of Nonautologous Red Blood Cells into Peripheral Vein, Percutaneous Approach (ICD-10-PCS; principal; 2017-03-21)
DX: L03.116 Cellulitis of left lower limb (principal); D70.9 Neutropenia, unspecified; I10 Essential (primary) hypertension; E11.9 Type 2 diabetes mellitus without complications; J44.9 Chronic obstructive pulmonary disease, unspecified; D64.9 Anemia, unspecified; R13.10 Dysphagia, unspecified; E03.9 Hypothyroidism, unspecified; L03.115 Cellulitis of right lower limb; N40.0 Benign prostatic hyperplasia without lower urinary tract symptoms; Z88.2 Allergy status to sulfonamides; Z88.6 Allergy status to analgesic agent; Z88.0 Allergy status to penicillin; D72.819 Decreased white blood cell count, unspecified

== ENCOUNTER 2017-04-21 19:02 | Observation (INO) | payer MEDICARE ==
[2017-04-21 19:03] VITALS: BMI 27.1
--- NOTE | 2017-04-21 20:24 | ED PDOC ---
HPI: General Adult Time Seen by Provider: 04/21/17 19:51 Chief Complaint (Nursing): Abnormal Skin Integrity History Per: Patient History/Exam Limitations: no limitations Onset/Duration Of Symptoms: Days Have you had recent travel within the past 21 days to any of the following countries: [place], [place], [place] or [place]?: No Current Symptoms Are (Timing): Still Present Additional Complaint(s): Pt. has hx of leukopenia, HTN, BPH, COPD?, anxiety p/w 2 days of L 2nd finger swelling, states he did not injure it, doesn't recall any scratches/bites, went to see doctor in [place] 2 days ago for "sore throat" and finger swelling and was placed on Clindamycin, states he's been taking the ABx as directed and sore throat has resolved but his finger looks the same. No increased swelling/ erythema, no fevers, chills, but swelling has not gone down. States that he is worried his WBC count might be low. Last neupogen infusion was 1 week ago and he says his WBC count was around 1.6. Past Medical History Reviewed: Historical Data, Vital Signs Vital Signs: Last Vital Signs Temp 98.3 F 04/21/17 19:15 Pulse 90 04/21/17 19:15 Resp 18 04/21/17 19:15 BP 146/84 04/21/17 19:15 Pulse Ox 100 04/21/17 20:26 - Medical History PMH: Anxiety, Arthritis, Benign Prostatic Hyperplasia, COPD, Deep Vein Thrombosis (x3), HTN, Hypothyroidism Denies: Chronic Kidney Disease - Surgical History Surgical History: Cholecystectomy, Hernia Repair (ventral) - Family History Family History: States: Unknown Family Hx - Immunization History Hx Influenza Vaccination: Yes - Home Medications Home Medications: Ambulatory Orders Medication Instructions Recorded Acetaminophen [Tylenol 325mg tab] 650 mg PO Q6 PRN #0 tab 06/18/16 Dorzolamide 2% [Trusopt] 1 drop OU BID bottle 06/18/16 Tamsulosin [Flomax] 0.8 mg PO HS cap 06/18/16 Timolol 0.5% Ophth [Timoptic 0.5% 1 drop OU Q12@0500,1700 bottle 03/24/17 Ophth Soln] Clindamycin [Cleocin] 300 mg PO BID 04/21/17 predniSONE [predniSONE Tab] 5 mg PO DAILY 04/21/17 - Allergies Allergies/Adverse Reactions: Allergies Allergy/AdvReac Type Severity Reaction Status Date / Time aspirin Allergy RASH Verified 03/20/17 15:27 naproxen Allergy RASH Verified 03/20/17 15:27 Penicillins Allergy RASH Verified 03/20/17 15:27 Sulfa (Sulfonamide Allergy RASH Verified 03/20/17 15:27 Antibiotics) Review of Systems ROS Statement: Except As Marked, All Systems Reviewed And Found Negative Musculoskeletal: Positive for: Hand Pain (Finger pain/swelling) Physical Exam - Reviewed Nursing Documentation Reviewed: Yes Vital Signs Reviewed: Yes - Physical Exam Appears: Positive for: Well, Non-toxic, No Acute Distress Head Exam: Positive for: ATRAUMATIC, NORMAL INSPECTION, NORMOCEPHALIC Skin: Positive for: Normal Color, Warm, DRY Eye Exam: Positive for: EOMI, Normal appearance, PERRL ENT: Positive for: Normal ENT Inspection Neck: Positive for: Normal, Painless ROM Cardiovascular/Chest: Positive for: Regular Rate, Rhythm Respiratory: Positive for: CNT, Normal Breath Sounds Gastrointestinal/Abdominal: Positive for: Normal Exam, Bowel Sounds, Soft Back: Positive for: Normal Inspection Extremity: Positive for: Normal ROM, Swelling (Left 2nd finger swelling between MCP and PIP, mild erythema, limited ROM 2/2 to swelling, sensation intact, no fluctuance/induration) Neurologic/Psych: Positive for: Alert, Oriented - Laboratory Results Result Diagrams: 04/21/17 20:15 04/21/17 20:15 - ECG O2 Sat by Pulse Oximetry: 100 Medical Decision Making Medical Decision Making: PT. w/ finger swelling w/ hx of neutropenia, will get xray and CBC to confirm WBC count. 2200: Case d/w Dr. Channing Woods, suggested possible obs admission for IV Abx and neupogen and reassess in the AM. Case discussed with FP resident Dr. May. Disposition - Clinical Impression Clinical Impression: Leukopenia, Cellulitis - Patient ED Disposition Is Patient to be Admitted: Yes - Disposition Disposition Time: 22:00 Condition: STABLE Forms: [facility] (Azeri)
[2017-04-21 20:40] LABS: BASO % 0.5 % (0.0-2.0); EOS % 1.1 % (0.0-4.0); LYMPH # 1.1 K/uL (1.0-4.3); LYMPH % 49.9 % (20.0-40.0); MEAN CELL VOLUME 102.4 fl (80.0-94.0); MEAN CORPUSCULAR HEMOGLOBIN 33.6 pg (27.0-31.0); MEAN CORPUSCULAR HGB CONC 32.8 g/dL (33.0-37.0); MEAN PLATELET VOLUME 8.6 fl (7.2-11.7); MONO # 0.1 K/uL (0.0-0.8); MONO % 4.4 % (0.0-10.0); NEUT % 44.1 % (50.0-75.0); RED CELL DISTRIBUTION WIDTH 16.2 % (11.5-14.5); WHITE BLOOD COUNT 2.2 K/uL (4.8-10.8)
[2017-04-21 20:42] LABS: BLOOD UREA NITROGEN 26 mg/dl (9-20); CALCIUM 9.4 mg/dL (8.4-10.2); CARBON DIOXIDE 22 mmol/L (22-30); CHLORIDE 102 mmol/L (98-107); GFR AFRICAN-AMERICAN > 60; GLUCOSE,RANDOM 110 mg/dL (75-110); POTASSIUM 4.5 MMOL/L (3.6-5.0); SODIUM 136 mmol/l (132-148)
[2017-04-21] MEDS ORDERED: Vancomycin 1 g Inj ONE (22:26)
--- NOTE | 2017-04-21 23:12 | CP.PCM.HP ---
<Yadira Cárdenas - Last Filed: 04/21/17 23:12> History of Present Illness - History of Present Illness History of Present Illness: 61yo M with PMHx leukopenia, BPH, DVT, LE cellulitis admitted for left 2nd digit cellulitis. left 2nd finger pain/swelling x2 days, a/w erythema. Another doctor besides Dr. Chinchilla started pt on Clindamycin 300mg BID, currently day 2. Denies sick contacts, travel, fever, chills, n/v, H/A, dizziness, chest pain , SOB. PMH:leukopenia, Anxiety, Arthritis, Benign Prostatic Hyperplasia, Deep Vein Thrombosis (x3) PSH:hernia repair, hip FH: denies SH: Denies tobacco, ETOH, drug use MEDS: Flomax 0.8 at night, eye drops, Prednisone 5mg ALLERGIES: aspirin, naproxen, penicillins, sulfa drugs PCP: Dr. Chinchilla H/O: Dr. Joslyn Samano ED course: Vanco 1g IV x1 Granix CBC, CMP, PT, INR XR left finger/hand Blood cx Present on Admission - Present on Admission Any Indicators Present on Admission: No Review of Systems - Review of Systems All systems: reviewed and no additional remarkable complaints except - Musculoskeletal Additional comments: left 2nd finger pain Past Patient History - Infectious Disease Hx of Infectious Diseases: None - Tetanus Immunizations Tetanus Immunization: Unknown - Past Medical History & Family History Past Medical History?: Yes - Past Social History Smoking Status: Former Smoker - CARDIAC Hx Cardiac Disorders: Yes - PULMONARY Hx Respiratory Disorders: Yes - NEUROLOGICAL Hx Neurological Disorder: No - HEENT Hx HEENT Problems: Yes Hx Glaucoma: Yes - RENAL Hx Chronic Kidney Disease: No - ENDOCRINE/METABOLIC Hx Endocrine Disorders: Yes - INTEGUMENTARY Hx Dermatological Problems: No - MUSCULOSKELETAL/RHEUMATOLOGICAL Hx Arthritis: Yes - GENITOURINARY/GYNECOLOGICAL Hx Genitourinary Disorders: Yes Hx Prostate Problems: Yes - PSYCHIATRIC Hx Anxiety: Yes - SURGICAL HISTORY Hx Cholecystectomy: Yes - ANESTHESIA Hx Anesthesia: Yes Hx Anesthesia Reactions: No Hx Malignant Hyperthermia: No Meds Allergies/Adverse Reactions: Allergies Allergy/AdvReac Type Severity Reaction Status Date / Time aspirin Allergy RASH Verified 03/20/17 15:27 naproxen Allergy RASH Verified 03/20/17 15:27 Penicillins Allergy RASH Verified 03/20/17 15:27 Sulfa (Sulfonamide Allergy RASH Verified 03/20/17 15:27 Antibiotics) Physical Exam - Constitutional Appears: Non-toxic, No Acute Distress - Head Exam Head Exam: ATRAUMATIC, NORMOCEPHALIC - Eye Exam Eye Exam: Normal appearance. absent: Conjunctival injection, Scleral icterus - ENT Exam ENT Exam: Mucous Membranes Moist - Neck Exam Neck exam: Positive for: Full Rom, Normal Inspection, Tenderness - Respiratory Exam Respiratory Exam: Clear to Auscultation Bilateral, NORMAL BREATHING PATTERN - Cardiovascular Exam Cardiovascular Exam: REGULAR RHYTHM. absent: Systolic Murmur - GI/Abdominal Exam GI & Abdominal Exam: Normal Bowel Sounds, Soft - Extremities Exam Extremities exam: Positive for: normal inspection. Negative for: pedal edema, tenderness - Back Exam Back exam: NORMAL INSPECTION - Neurological Exam Neurological exam: Alert, Oriented x3 - Skin Skin Exam: Dry, Warm - Additional Findings Additional findings: MSK: left 2nd finger swelling/TTP between MCP and PIP, no induration/fluctuance , erythema present, neurovascularly intact, motor/sensation grossly intact Results - Vital Signs Recent Vital Signs: Last Vital Signs Temp 97.9 F 04/21/17 23:02 Pulse 65 04/21/17 23:02 Resp 16 04/21/17 23:02 BP 113/67 04/21/17 23:02 Pulse Ox 100 04/21/17 22:53 - Labs Result Diagrams: 04/21/17 20:15 04/21/17 20:15 Labs: Laboratory Results - last 24 hr 04/21/17 04/21/17 04/21/17 20:15 20:15 22:27 WBC 2.2 L RBC 2.84 L Hgb 9.5 L Hct 29.0 L MCV 102.4 H MCH 33.6 H MCHC 32.8 L RDW 16.2 H Plt Count 94 L MPV 8.6 Neut % (Auto) 44.1 L Lymph % (Auto) 49.9 H [place] % (Auto) 4.4 Eos % (Auto) 1.1 Baso % (Auto) 0.5 Neut # 1.0 L Lymph # 1.1 [place] # 0.1 Eos # 0.0 Baso # 0.0 Sodium 136 Potassium 4.5 Chloride 102 Carbon Dioxide 22 Anion Gap 16 BUN 26 H Creatinine 1.0 Est GFR ( Amer) > 60 Est GFR (Non-Af Amer) > 60 Random Glucose 110 Calcium 9.4 BBK History Checked Patient has bt Assessment & Plan - Assessment and Plan (Free Text) Assessment: 61yo M with PMHx leukopenia, BPH, DVT, LE cellulitis admitted for left 2nd digit cellulitis. Plan: 1. left 2nd digit cellulitis VSS, afebrile Vanco 1gm IV x1 in the AM f/u blood culture and XR uric acid 2. Chronic Neutropenia wbc 2.2 Dr. Channing Samano contacted by ED provider and rec admission historically pt get neupogen when ANC <900 or has an infection no neutropenia precautions for now as not able to calculate ANC, no % bands CBC AM 3. BPH continue with flomax 0.8 HS 4. DVT prophylaxis- SCDs heparin given plt <100, no bleeding Decision To Admit - Pt Status Changed To: Hospital Disposition Of: Observation - . Bed Request Type: Med/Surg Admitting Physician: Marco Gordon <Marco Gordon - Last Filed: 04/24/17 06:59> Results - Vital Signs Recent Vital Signs: Last Vital Signs Temp 99.2 F 04/22/17 08:34 Pulse 88 04/22/17 10:05 Resp 18 04/22/17 08:34 BP 112/64 04/22/17 08:34 Pulse Ox 93 L 04/22/17 08:34 - Labs Result Diagrams: 04/22/17 05:30 04/22/17 05:30 Attending/Attestation - Attestation I have personally seen and examined this patient.: Yes I have fully participated in the care of the patient.: Yes I have reviewed all pertinent clinical information: Yes
[2017-04-22 07:39] LABS: BASO % 0.2 % (0.0-2.0); EOS % 0.1 % (0.0-4.0); HEMATOCRIT 29.1 % (35.0-51.0); LYMPH # 0.7 K/uL (1.0-4.3); LYMPH % 4.2 % (20.0-40.0); MEAN CELL VOLUME 101.6 fl (80.0-94.0); MEAN CORPUSCULAR HEMOGLOBIN 33.8 pg (27.0-31.0); MEAN CORPUSCULAR HGB CONC 33.3 g/dL (33.0-37.0); MONO % 0.2 % (0.0-10.0); NEUT # 15.4 K/uL (1.8-7.0); NEUT % 95.3 % (50.0-75.0); PLATELET COUNT 91 K/uL (130-400); RED CELL DISTRIBUTION WIDTH 16.8 % (11.5-14.5)
[2017-04-22 07:48] LABS: BLOOD UREA NITROGEN 23 mg/dl (9-20); CALCIUM 9.3 mg/dL (8.4-10.2); CARBON DIOXIDE 22 mmol/L (22-30); CHLORIDE 104 mmol/L (98-107); GFR AFRICAN-AMERICAN > 60; GLUCOSE,RANDOM 103 mg/dL (75-110); POTASSIUM 4.2 MMOL/L (3.6-5.0); SODIUM 139 mmol/l (132-148); URIC ACID 8.3 mg/Dl (3.5-8.5)
[2017-04-22 08:35] VITALS: BP 112/64; RESP 18; TEMP 99.2; O2SAT 93
[2017-04-22] MEDS ORDERED: Enoxaparin 40 mg Syringe SC SCH (09:00)
[2017-04-22] MEDS ORDERED: Dorzolamide 2% Ophth Soln OU SCH (09:00)
[2017-04-22 09:27] LABS: WHITE BLOOD COUNT 16.1 K/uL (4.8-10.8)
--- NOTE | 2017-04-22 09:47 | CP.PCM.DIS ---
Provider - Provider Date of Admission: 04/21/17 21:50 Attending physician: Aaron Betancur MD Time Spent in preparation of Discharge (in minutes): 35 Diagnosis - Discharge Diagnosis (1) Cellulitis Status: Acute Hospital Course - Lab Results Lab Results: Most Recent Lab Values WBC 16.1 K/uL (4.8-10.8) H D 04/22/17 05:30 RBC 2.87 Mil/uL (4.40-5.90) L 04/22/17 05:30 Hgb 9.7 g/dL (12.0-18.0) L 04/22/17 05:30 Hct 29.1 % (35.0-51.0) L 04/22/17 05:30 MCV 101.6 fl (80.0-94.0) H 04/22/17 05:30 MCH 33.8 pg (27.0-31.0) H 04/22/17 05:30 MCHC 33.3 g/dL (33.0-37.0) 04/22/17 05:30 RDW 16.8 % (11.5-14.5) H 04/22/17 05:30 Plt Count 91 K/uL (130-400) L 04/22/17 05:30 MPV 10.0 fl (7.2-11.7) 04/22/17 05:30 Neut % (Auto) 95.3 % (50.0-75.0) H 04/22/17 05:30 Lymph % (Auto) 4.2 % (20.0-40.0) L 04/22/17 05:30 [place] % (Auto) 0.2 % (0.0-10.0) 04/22/17 05:30 Eos % (Auto) 0.1 % (0.0-4.0) 04/22/17 05:30 Baso % (Auto) 0.2 % (0.0-2.0) 04/22/17 05:30 Neut # 15.4 K/uL (1.8-7.0) H 04/22/17 05:30 Lymph # 0.7 K/uL (1.0-4.3) L 04/22/17 05:30 [place] # 0.0 K/uL (0.0-0.8) 04/22/17 05:30 Eos # 0.0 K/uL (0.0-0.7) 04/22/17 05:30 Baso # 0.0 K/uL (0.0-0.2) 04/22/17 05:30 Sodium 139 mmol/l (132-148) 04/22/17 05:30 Potassium 4.2 MMOL/L (3.6-5.0) 04/22/17 05:30 Chloride 104 mmol/L (98-107) 04/22/17 05:30 Carbon Dioxide 22 mmol/L (22-30) 04/22/17 05:30 Anion Gap 17 (-20) 04/22/17 05:30 BUN 23 mg/dl (9-20) H 04/22/17 05:30 Creatinine 0.9 mg/dL (0.8-1.5) 04/22/17 05:30 Est GFR ( Amer) > 60 04/22/17 05:30 Est GFR (Non-Af Amer) > 60 04/22/17 05:30 Random Glucose 103 mg/dL (75-110) 04/22/17 05:30 Uric Acid 8.3 mg/Dl (3.5-8.5) 04/22/17 05:30 Calcium 9.3 mg/dL (8.4-10.2) 04/22/17 05:30 Blood Type O POSITIVE 04/21/17 22:27 Antibody Screen Negative 04/21/17 22:27 BBK History Checked Patient has bt 04/21/17 22:27 - Hospital Course Hospital Course: 61yo M with PMHx leukopenia, BPH, DVT, LE cellulitis admitted for left 2nd digit cellulitis. Pt recieved granix and dose of IV vanc. No acute events overnight. Afebrile. Reported improvement in hand pain. After an uneventful hospital stay, pt was discharged in stable condition. Discharge Exam - Head Exam Head Exam: ATRAUMATIC, NORMOCEPHALIC - Eye Exam Eye Exam: EOMI Pupil Exam: PERRL - ENT Exam ENT Exam: Mucous Membranes Moist - Respiratory Exam Respiratory Exam: Clear to PA & Lateral, NORMAL BREATHING PATTERN, UNREMARKABLE - Cardiovascular Exam Cardiovascular Exam: REGULAR RHYTHM, RRR, +S1, +S2. absent: Rubs - GI/Abdominal Exam GI & Abdominal Exam: Normal Bowel Sounds, Unremarkable - Extremities Exam Extremities exam: normal inspection Additional comments: left hand: digits 1-2: mild edema, no fluctuance, no erythema, mild tenderness to palpation. NV intact, FROM. - Neurological Exam Neurological exam: Alert, CN II-XII Intact, Oriented x3 - Psychiatric Exam Psychiatric exam: Normal Affect, Normal Mood Discharge Plan - Follow Up Plan Condition: STABLE Disposition: HOME/ ROUTINE Instructions: Cellulitis (DC) Additional Instructions: follow up with Dr. Betancur within 2-3 days of Discharge. Referrals: Aaron Betancur MD [Staff Provider] -
[2017-04-22 10:26] VITALS: PULSE 88
[2017-04-22 10:57] LABS: NEUTROPHIL 88 % (42-75); TOTAL CELLS COUNTED 100
--- NOTE | 2017-04-22 13:05 | RAD ---
HISTORY: r/o PNA COMPARISON: No prior. FINDINGS: LUNGS: No active pulmonary disease. PLEURA: No significant pleural effusion identified, no pneumothorax apparent. CARDIOVASCULAR: Normal. OSSEOUS STRUCTURES: No significant abnormalities. VISUALIZED UPPER ABDOMEN: Normal. OTHER FINDINGS: None. IMPRESSION: No active disease.
--- NOTE | 2017-04-22 13:54 | RAD ---
PROCEDURE: Left Hand Radiographs. HISTORY: finger swelling COMPARISON: None. FINDINGS: BONES: Normal. No fracture. JOINTS: Normal. No osteoarthritic changes. SOFT TISSUES: Normal. OTHER FINDINGS: None. IMPRESSION: Normal left hand radiographs.
== END 2017-04-22 11:36 | disposition home or self-care (01) ==
LOC: H.ER 19:02 → H.ERHOLD 21:50 → H.MEDSURG1 23:05
PROVIDERS: ADMIT Family Medicine; ATTEND Family Medicine
DX: L03.012 Cellulitis of left finger (principal); D72.819 Decreased white blood cell count, unspecified; E03.9 Hypothyroidism, unspecified; H40.9 Unspecified glaucoma; I10 Essential (primary) hypertension; J44.9 Chronic obstructive pulmonary disease, unspecified; N40.0 Benign prostatic hyperplasia without lower urinary tract symptoms; Z87.891 Personal history of nicotine dependence; Z90.49 Acquired absence of other specified parts of digestive tract; D70.9 Neutropenia, unspecified; F41.9 Anxiety disorder, unspecified; M19.90 Unspecified osteoarthritis, unspecified site
CPT/HCPCS: 36415; 71010; 73140; 80048; 84550; 85025; 86850; 86900; 87040; 99283; G0378; J1447; J1644; J1885

== ENCOUNTER 2017-05-26 19:27 | Inpatient (IN) | payer MEDICARE ==
[2017-05-26 19:27] VITALS: BMI 27.1
[2017-05-26] MEDS ORDERED: Clindamycin 150 mg/mL Inj IV STA (20:31)
--- NOTE | 2017-05-26 20:59 | ED PDOC ---
Lower Extremity Pain/Injury Time Seen by Provider: 05/26/17 19:50 Chief Complaint (Nursing): Lower Extremity Problem/Injury Chief Complaint (Provider): Right third toe swelling and pain History Per: Patient History/Exam Limitations: no limitations Onset/Duration Of Symptoms: Days (5) Additional Complaint(s): Patient is a 61 y/o male with a past medical history of chronic Jayjay granulomatosis, recurring cellulitis, and DVTs presenting to the emergency department for worsening right third toe pain, swelling, and redness that started five days ago. On 05/22/17, patient started clindamycin with no significant improvement. Report that the following Monday he received an injection of GCSF for his neutropenia. Denies any fever, chills, nausea, vomiting, chest pain, cough, shortness of breath, diarrhea, or other complaints. Patient expresses concern that his neutropenia and recurring cellulitis may require parenteral antibiotic treatment. PCP: Dr. Marco Gordon Apron Cleaner: Dr. Gleason. Past Medical History Reviewed: Historical Data, Nursing Documentation, Vital Signs Vital Signs: Last Vital Signs Temp 98.5 F 05/26/17 19:31 Pulse 90 05/26/17 19:31 Resp 16 05/26/17 19:31 BP 120/84 05/26/17 19:31 Pulse Ox 99 05/26/17 19:31 - Medical History PMH: Anxiety, Arthritis, Benign Prostatic Hyperplasia, COPD, Deep Vein Thrombosis (x3), HTN, Hypothyroidism Denies: Chronic Kidney Disease Other PMH: Jayjay granulomatosis, cellulitis - Surgical History Surgical History: Cholecystectomy, Hernia Repair (ventral) - Family History Family History: States: Unknown Family Hx - Social History Current smoker - smoking cessation education provided: No Ex-Smoker (has not smoked in the last 12 months): No Alcohol: None Drugs: Denies - Immunization History Hx Influenza Vaccination: Yes - Home Medications Home Medications: Ambulatory Orders Medication Instructions Recorded Tamsulosin [Flomax] 0.8 mg PO HS cap 06/18/16 Timolol 0.5% Ophth [Timoptic 0.5% 1 drop OU Q12@0500,1700 bottle 03/24/17 Ophth Soln] predniSONE [predniSONE Tab] 5 mg PO DAILY 04/21/17 - Allergies Allergies/Adverse Reactions: Allergies Allergy/AdvReac Type Severity Reaction Status Date / Time aspirin Allergy RASH Verified 03/20/17 15:27 naproxen Allergy RASH Verified 03/20/17 15:27 Penicillins Allergy RASH Verified 03/20/17 15:27 Sulfa (Sulfonamide Allergy RASH Verified 03/20/17 15:27 Antibiotics) Review of Systems ROS Statement: Except As Marked, All Systems Reviewed And Found Negative Constitutional: Negative for: Fever, Chills Cardiovascular: Negative for: Chest Pain Respiratory: Negative for: Cough, Shortness of Breath Gastrointestinal: Negative for: Nausea, Vomiting, Diarrhea Musculoskeletal: Positive for: Other (right third toe pain, swelling, and redness) Physical Exam - Reviewed Nursing Documentation Reviewed: Yes Vital Signs Reviewed: Yes - Physical Exam Appears: Positive for: Well, Non-toxic, No Acute Distress Head Exam: Positive for: ATRAUMATIC, NORMAL INSPECTION, NORMOCEPHALIC Skin: Positive for: Normal Color, Warm, Dry Eye Exam: Positive for: Normal appearance Neck: Positive for: Normal Cardiovascular/Chest: Positive for: Regular Rate, Rhythm. Negative for: Murmur Respiratory: Positive for: Normal Breath Sounds. Negative for: Accessory Muscle Use, Respiratory Distress Gastrointestinal/Abdominal: Positive for: Normal Exam Extremity: Positive for: Normal ROM, Tenderness (mild, right third toe), Capillary Refill (normal), Swelling (confined to third toe which is indurated and erythematous, with no involvement of the plantar or dorsal surface of the right foot) Neurologic/Psych: Positive for: Alert, Oriented (x3) - Laboratory Results Result Diagrams: 05/27/17 06:00 05/27/17 05:30 - ECG O2 Sat by Pulse Oximetry: 99 (RA) Pulse Ox Interpretation: Normal Medical Decision Making Medical Decision Making: Time: 19:57 Initial impression: Patient is a 61 y/o male with right third toe with cellulitis in setting of chronic neutropenia. Initial plan: EKG Labs: CMP, Lactic Acid, CBC, PTT, Prothrombin Time Clindamycin 600 mg IV Blood Culture Right foot x-ray Reevaluation 22:30 Labs reviewed which showed no significant clinical abnormalities with the exception of leukemia. ANC is normal. Patient will be admitted for cellulitis of the right third toe. Case referred to admitting resident covering Dr. Gordon. Scribe Attestation: Documented by Wanda Santana, acting as a scribe for Von Ferro MD. Provider Scribe Attestation: All medical record entries made by the Scribe were at my direction and personally dictated by me. I have reviewed the chart and agree that the record accurately reflects my personal performance of the history, physical exam, medical decision making, and the department course for this patient. I have also personally directed, reviewed, and agree with the discharge instructions and disposition. Disposition - Clinical Impression Clinical Impression: Cellulitis - Patient ED Disposition Is Patient to be Admitted: Yes Doctor Will See Patient In The: Hospital Counseled Patient/Family Regarding: Studies Performed, Diagnosis - Disposition Disposition: Transfer of Care Disposition Time: 22:30 Condition: STABLE
[2017-05-26] MEDS ORDERED: Clindamycin 600mg/50ml NS 600 MG/50 ML BAG IVPB ONE (21:00)
[2017-05-26 22:12] LABS: ALKALINE PHOSPHATASE 110 U/L (38-126); ALT/SGPT 31 U/L (21-72); AST/SGOT 19 U/L (17-59); BILIRUBIN,TOTAL 0.3 mg/dl (0.2-1.3); BLOOD UREA NITROGEN 23 mg/dl (9-20); CARBON DIOXIDE 29 mmol/L (22-30); CHLORIDE 101 mmol/L (98-107); GFR AFRICAN-AMERICAN > 60; GLUCOSE,RANDOM 138 mg/dL (75-110); POTASSIUM 4.1 MMOL/L (3.6-5.0); SODIUM 136 mmol/l (132-148); TOTAL PROTEIN 8.5 G/DL (6.3-8.2)
[2017-05-26 22:13] LABS: ALB/GLOB RATIO 1.1 (1.0-2.1)
[2017-05-26 22:15] LABS: BASO % 0.4 % (0.0-2.0); EOS % 0.6 % (0.0-4.0); HEMATOCRIT 29.9 % (35.0-51.0); LYMPH # 1.1 K/uL (1.0-4.3); MEAN CELL VOLUME 105.4 fl (80.0-94.0); MEAN CORPUSCULAR HEMOGLOBIN 35.4 pg (27.0-31.0); MEAN CORPUSCULAR HGB CONC 33.5 g/dL (33.0-37.0); MEAN PLATELET VOLUME 8.2 fl (7.2-11.7); MONO # 0.3 K/uL (0.0-0.8); MONO % 7.8 % (0.0-10.0); NEUT # 2.7 K/uL (1.8-7.0); NEUT % 64.2 % (50.0-75.0); NRBC % 0.3 % (0.0-0.0); RED CELL DISTRIBUTION WIDTH 16.7 % (11.5-14.5); WHITE BLOOD COUNT 4.2 K/uL (4.8-10.8)
--- NOTE | 2017-05-26 23:04 | CP.PCM.HP ---
Addendum entered and electronically signed by Ruyd Edmondson MD 05/27/17 01 :30: correction to POA: positive hx of DVT, no PE as mentioned in HPI in PMHx. Original Note: History of Present Illness - History of Present Illness History of Present Illness: 61 y/o male with PMHx remarkable for leukopenia, Chronic wegeners granulomatosis , BPH, DVTx3, recurrent LE cellulitis admitted for right 3rd toe cellulitis.Symptoms began about Monday night/Monday morning of this week without any inciting trauma or injury. Pain was isolated to the right 3rd toe, on the dorsal aspect of 3rd proximal phalanx 5/10, nonradiating, felt warm, w/o associated discharge. Pt came in on Monday, received neupogen injection and reported to Dr. Gordon's office. Pt was started on PO 300mg Clindamycin TID. Took two doses on Monday, three doses on , and 1 dose today around 13 :00 (reports he was out of the house all day due to car issues). He reports the redness was not improving and had not yet spread from original area so he decided to come in thinking IV Abx would help it. Denies any fever/chills, headaches, changes in vision, CP/SOB/palpitations, N/V/D/C, urinary symptoms, numbness/tingling. ROS: as per HPI, 10 systems reviewed, found to be negative PMD: Dr. Ahmet Gordon Aerospace Products Sales Engineer: Dr. Channing Samano PMHx:leukopenia, Anxiety, Arthritis, Benign Prostatic Hyperplasia, Deep Vein Thrombosis (x3) Meds: Flomax 0.8 at night, eye drops, Prednisone 5mg/10mg intermittently ALL: aspirin, naproxen, penicillins, sulfa drugs PSurgHx: hernia repair, THR FamilyHX: denies SocialHx: Denies tobacco, ETOH, drug use -full code -next of kin: Danielito Valerio ED course: vitals on presentation: T: 98.5, BP 120/84, HR 90, RR 16, POX 99% RA Labs: CBC: 4.2>10.0/29.9<145 CMP: BUN/Cr: 23/0.9 Lactic acid: 1.9 Coags: 13.0/1.2/31.0 Imaging: Foot Xray Meds: S/P IV 600 mg Clindamycin Present on Admission - Present on Admission Any Indicators Present on Admission: No History of DVT/PE: No History of Uncontrolled Diabetes: No Urinary Catheter: No Decubitus Ulcer Present: No History Surgical Site Infection Following: None Past Patient History - Infectious Disease Hx of Infectious Diseases: None - Tetanus Immunizations Tetanus Immunization: Unknown - Past Medical History & Family History Past Medical History?: Yes - Past Social History Alcohol: None Drugs: Denies - CARDIAC Hx Hypertension: Yes - PULMONARY Hx Chronic Obstructive Pulmonary Disease (COPD): Yes - HEENT Hx HEENT Problems: Yes Hx Glaucoma: Yes - RENAL Hx Chronic Kidney Disease: No - ENDOCRINE/METABOLIC Hx Hypothyroidism: Yes - INTEGUMENTARY Hx Dermatological Problems: No - MUSCULOSKELETAL/RHEUMATOLOGICAL Hx Arthritis: Yes - GENITOURINARY/GYNECOLOGICAL Hx Genitourinary Disorders: Yes Hx Prostate Problems: Yes - PSYCHIATRIC Hx Anxiety: Yes - SURGICAL HISTORY Hx Cholecystectomy: Yes - ANESTHESIA Hx Anesthesia: Yes Hx Anesthesia Reactions: No Hx Malignant Hyperthermia: No Meds Allergies/Adverse Reactions: Allergies Allergy/AdvReac Type Severity Reaction Status Date / Time aspirin Allergy RASH Verified 03/20/17 15:27 naproxen Allergy RASH Verified 03/20/17 15:27 Penicillins Allergy RASH Verified 03/20/17 15:27 Sulfa (Sulfonamide Allergy RASH Verified 03/20/17 15:27 Antibiotics) Physical Exam - Constitutional Appears: Non-toxic, No Acute Distress - Head Exam Head Exam: ATRAUMATIC, NORMOCEPHALIC - Eye Exam Eye Exam: EOMI. absent: Conjunctival injection, Scleral icterus Pupil Exam: PERRL - ENT Exam ENT Exam: Mucous Membranes Moist - Respiratory Exam Respiratory Exam: Clear to Auscultation Bilateral, NORMAL BREATHING PATTERN. absent: Rales, Rhonchi, Wheezes - Cardiovascular Exam Cardiovascular Exam: REGULAR RHYTHM, RRR, +S1, +S2. absent: JVD, Rubs - GI/Abdominal Exam GI & Abdominal Exam: Normal Bowel Sounds, Soft. absent: Tenderness - Extremities Exam Extremities exam: Positive for: normal capillary refill, pedal pulses present. Negative for: calf tenderness, pedal edema - Expanded Lower Extremities Exam Right Foot/Toe exam: erythema (erythema overlying 3rd toe on dorsal aspect. Mild edema ), tenderness (mild tenderness to palpation of 3rd toe, no fluctuance, discharge ). absent: abrasion, puncture wound, swelling - Neurological Exam Neurological exam: Alert, CN II-XII Intact, Oriented x3, Reflexes Normal - Psychiatric Exam Psychiatric exam: Normal Affect, Normal Mood - Skin Skin Exam: Dry, Intact, Normal Color, Warm Results - Vital Signs Recent Vital Signs: Last Vital Signs Temp 98.5 F 05/26/17 19:31 Pulse 90 05/26/17 19:31 Resp 16 05/26/17 19:31 BP 120/84 05/26/17 19:31 Pulse Ox 99 05/26/17 22:37 - Labs Result Diagrams: 05/26/17 21:57 05/26/17 21:57 Labs: Laboratory Results - last 24 hr 05/26/17 05/26/17 05/26/17 21:57 21:57 21:57 WBC 4.2 L D RBC 2.83 L Hgb 10.0 L Hct 29.9 L MCV 105.4 H MCH 35.4 H MCHC 33.5 RDW 16.7 H Plt Count 145 MPV 8.2 Neut % (Auto) 64.2 Lymph % (Auto) 27.0 [place] % (Auto) 7.8 Eos % (Auto) 0.6 Baso % (Auto) 0.4 Neut # 2.7 Lymph # 1.1 [place] # 0.3 Eos # 0.0 Baso # 0.0 PT INR APTT Sodium 136 Potassium 4.1 Chloride 101 Carbon Dioxide 29 Anion Gap 10 BUN 23 H Creatinine 0.9 Est GFR ( Amer) > 60 Est GFR (Non-Af Amer) > 60 Random Glucose 138 H Lactic Acid 1.4 Calcium 10.0 Total Bilirubin 0.3 AST 19 ALT 31 Alkaline Phosphatase 110 Total Protein 8.5 H Albumin 4.4 Globulin 4.1 H Albumin/Globulin Ratio 1.1 05/26/17 21:57 WBC RBC Hgb Hct MCV MCH MCHC RDW Plt Count MPV Neut % (Auto) Lymph % (Auto) [place] % (Auto) Eos % (Auto) Baso % (Auto) Neut # Lymph # [place] # Eos # Baso # PT 13.0 INR 1.2 APTT 31.0 Sodium Potassium Chloride Carbon Dioxide Anion Gap BUN Creatinine Est GFR ( Amer) Est GFR (Non-Af Amer) Random Glucose Lactic Acid Calcium Total Bilirubin AST ALT Alkaline Phosphatase Total Protein Albumin Globulin Albumin/Globulin Ratio Assessment & Plan - Assessment and Plan (Free Text) Assessment: 61 y/o male with PMHx remarkable for Chronic Wegeners, Leukopenia, BPH, s/p DVT , admitted for Right 3rd Toe Cellulitis. Plan: 1) Right 3rd Toe Cellulitis -s/p 1 dose 600mg IV clindamycin in ED -IV Clindamycin 600mg Q8H -monitor vitals -f/u cbc/bmp in AM -ESR: pending -Tylenol 650mg PRN pain 2) Leukopenia -s/p Neupogen injection on 05/24/2017 -WBC 4.2 -unable to calculate ANC as no % bands available on current lab results -no neutropenic precautions at this time -monitor CBC 3) Chronic Wegeners -stable -c/w home med Prednisone 3) BPH -stable -c/w home med Flomax 4) Diet: -Regular diet 5) DVT PPx: -CrCl: 81 mL/min -SCDs PRN -Lovenox 40mg SC QD -ambulation
[2017-05-27] MEDS: Clindamycin 600mg/50ml NS 600 MG/50 ML BAG IVPB SCH ×3 (06:31→22:54)
--- NOTE | 2017-05-27 08:27 | RAD ---
HISTORY: toe swelling COMPARISON: No prior FINDINGS: BONES: Normal. No fracture. JOINTS: Normal. No osteoarthritis. SOFT TISSUE: Normal. OTHER FINDINGS: None . IMPRESSION: Normal Bone Xray.
[2017-05-27 08:30] LABS: BASO % 0.4 % (0.0-2.0); HEMATOCRIT 27.9 % (35.0-51.0); MEAN CELL VOLUME 105.6 fl (80.0-94.0); MEAN CORPUSCULAR HGB CONC 34.1 g/dL (33.0-37.0); MEAN PLATELET VOLUME 8.4 fl (7.2-11.7); MONO # 0.3 K/uL (0.0-0.8); MONO % 8.5 % (0.0-10.0); NEUT # 2.7 K/uL (1.8-7.0); NEUT % 66.1 % (50.0-75.0); NRBC % 0.2 % (0.0-0.0); RED CELL DISTRIBUTION WIDTH 16.5 % (11.5-14.5); WHITE BLOOD COUNT 4.1 K/uL (4.8-10.8)
[2017-05-27 08:59] LABS: BLOOD UREA NITROGEN 21 mg/dl (9-20); CALCIUM 9.3 mg/dL (8.4-10.2); CARBON DIOXIDE 26 mmol/L (22-30); CHLORIDE 105 mmol/L (98-107); GFR AFRICAN-AMERICAN > 60; GLUCOSE,RANDOM 92 mg/dL (75-110); POTASSIUM 4.2 MMOL/L (3.6-5.0); SODIUM 141 mmol/l (132-148)
[2017-05-27] MEDS: Enoxaparin 40 mg Syringe SC SCH (09:17)
[2017-05-27] MEDS: Dorzolamide 2% Ophth Soln OU SCH ×2 (10:29→17:14)
--- NOTE | 2017-05-27 12:46 | CARD ---
APPROVED REPORT EKG Measurement Heart [id number] <Conclusion> Sinus rhythm with frequent premature ventricular complexes Otherwise normal ECG
--- NOTE | 2017-05-27 12:53 | CP.PCM.PN ---
Subjective - Date & Time of Evaluation Date of Evaluation: 05/27/17 Time of Evaluation: 09:00 - Subjective Subjective: 61 y/o M seen at bedside, talkative, in not acute distress. Patient "concerned" about not improving discoloration on his toe. He denies severe pain and states he does not need any pain meds. Denies paresthesias, or motor impairment of the affected LE. Afebrile. States discoloration is no improving or worsening since it started 3-4 days ago. Denies other rashes, purpuric lesions or swelling. Denies changes in urination or stools. Denies CP, cough, SOB. Objective - Vital Signs/Intake and Output Vital Signs (last 24 hours): Temp Pulse Resp BP Pulse Ox 98.3 F 85 20 133/78 95 05/27/17 08:22 05/27/17 08:22 05/27/17 08:22 05/27/17 08:22 05/27/17 08:22 - Medications Medications: Current Medications Acetaminophen (Tylenol 325mg Tab) 650 mg PO Q6 PRN PRN Reason: Pain, moderate (4-7) Last Admin: 05/27/17 10:55 Dose: 650 mg Dorzolamide HCl (Trusopt) 1 drop OU BID [facility] Last Admin: 05/27/17 10:29 Dose: Not Given Enoxaparin Sodium (Lovenox) 40 mg SC DAILY [facility] PRN Reason: Protocol Last Admin: 05/27/17 09:17 Dose: 40 mg Clindamycin Phosphate (Cleocin In Normal Saline) 600 mg in 50 mls @ 46.296 mls/ hr IVPB Q8H [facility] PRN Reason: Protocol Last Admin: 05/27/17 06:31 Dose: 46.296 mls/hr Prednisone (Prednisone Tab) 5 mg PO DAILY [facility] Last Admin: 05/27/17 11:08 Dose: 5 mg Prednisone (Prednisone Tab) 70 mg PO DAILY [facility] Tamsulosin HCl (Flomax) 0.8 mg PO HS [facility] Timolol Maleate (Timoptic 0.5% Ophth Soln) 1 drop OU Q12@0500,1700 [facility] Last Admin: 05/27/17 05:45 Dose: 1 drop - Labs Labs: 05/27/17 06:00 05/27/17 05:30 PT 13.0 Seconds (9.8-13.1) 05/26/17 21:57 INR 1.2 (0.9-1.2) 05/26/17 21:57 APTT 31.0 Seconds (25.6-37.1) 05/26/17 21:57 - Constitutional Appears: Non-toxic, No Acute Distress - Eye Exam Eye Exam: EOMI, PERRL - ENT Exam ENT Exam: Mucous Membranes Moist - Respiratory Exam Respiratory Exam: Clear to Ausculation Bilateral. absent: Rales, Wheezes - Cardiovascular Exam Cardiovascular Exam: REGULAR RHYTHM, +S1, +S2. absent: Gallop - GI/Abdominal Exam GI & Abdominal Exam: Soft, Normal Bowel Sounds. absent: Distended, Guarding, Tenderness - Extremities Exam Extremities Exam: Normal Capillary Refill, Tenderness (Mild tenderness R/3rd toe , anterior, associated with well defined area of light purplish-dark pink discoloration. No other lesions. No evident swelling IP joints). absent: Calf Tenderness, Pedal Edema Additional comments: No signs of neurovascular compromise at this time. - Neurological Exam Neurological Exam: Alert, Awake, Oriented x3 - Psychiatric Exam Psychiatric exam: Anxious - Skin Skin Exam: Warm - Additional Findings Additional findings: scattered(1-2), vasculitis-like small lesion B/L Legs, anterior, unknown if new Assessment and Plan - Assessment and Plan (Free Text) Assessment: 61 y/o male with PMHx remarkable for Chronic Wegeners, Leukopenia, BPH, s/p DVT , admitted for Right 3rd Toe Cellulitis. 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 Unlikely cellulitis or arthritis clinically. 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 -Slightly painful, no signs of severe neurovascular compromise noticed -C/w Clindamycin 600mg Q8H. Consider DCing abx tomorrow during rounds after discussing with attendant. -Start Prednisone 70 mg daily -BMP unremarkable -F/U ESR -Patient cytotechnologist supervisor contacted: Our team spoke with Dr Silverio Linn(Covering for Dr Ramirez) and case discussed with him including suspected diagnosis of vasculitis. He recommends c/w current dose of 70 mg daily of prednisone and f/u as outpatient in 1 week after DC. Leukopenia, chronic -stable -s/p Neupogen injection on 05/24/2017 -WBC 4.2 -no neutropenic precautions at this time -monitor CBC BPH -stable -c/w home med Flomax Diet: -Regular diet DVT PPx: -Lovenox 40mg SC QD
[2017-05-28] MEDS: Clindamycin 600mg/50ml NS 600 MG/50 ML BAG IVPB SCH (06:40)
[2017-05-28 08:19] VITALS: BP 130/80; PULSE 74; RESP 20; TEMP 98; O2SAT 95
[2017-05-28] MEDS: Enoxaparin 40 mg Syringe SC SCH (08:20)
[2017-05-28 08:46] LABS: BASO % 0.2 % (0.0-2.0); EOS % 0.2 % (0.0-4.0); HEMATOCRIT 27.6 % (35.0-51.0); LYMPH # 0.9 K/uL (1.0-4.3); LYMPH % 18.7 % (20.0-40.0); MEAN CELL VOLUME 104.8 fl (80.0-94.0); MEAN CORPUSCULAR HEMOGLOBIN 35.6 pg (27.0-31.0); MEAN PLATELET VOLUME 8.4 fl (7.2-11.7); MONO # 0.3 K/uL (0.0-0.8); MONO % 7.1 % (0.0-10.0); NEUT # 3.5 K/uL (1.8-7.0); NEUT % 73.8 % (50.0-75.0); NRBC % 0.1 % (0.0-0.0); RED CELL DISTRIBUTION WIDTH 16.2 % (11.5-14.5); WHITE BLOOD COUNT 4.7 K/uL (4.8-10.8)
[2017-05-28 09:00] LABS: BLOOD UREA NITROGEN 18 mg/dl (9-20); CALCIUM 9.3 mg/dL (8.4-10.2); CARBON DIOXIDE 26 mmol/L (22-30); CHLORIDE 105 mmol/L (98-107); GFR AFRICAN-AMERICAN > 60; GLUCOSE,RANDOM 99 mg/dL (75-110); POTASSIUM 4.2 MMOL/L (3.6-5.0); SODIUM 141 mmol/l (132-148)
[2017-05-28] MEDS ORDERED: DORZOLAMIDE OU SCH (09:00)
[2017-05-28] MEDS ORDERED: TIMOLOL 0.5% OU SCH (09:00)
[2017-05-28] MEDS ORDERED: OPTH OU SCH (09:00)
[2017-05-28 09:04] LABS: IRON 152 ug/dL (49-181)
--- NOTE | 2017-05-28 14:03 | CP.PCM.DIS ---
Provider - Provider Date of Admission: 05/26/17 22:31 Attending physician: Marco Gordon MD Time Spent in preparation of Discharge (in minutes): 30 Diagnosis - Discharge Diagnosis (1) Vasculitis Status: Chronic Hospital Course - Lab Results Lab Results: Micro Results 05/26/17 22:00 Blood Blood Culture - Preliminary NO GROWTH AFTER 24 HOURS 05/26/17 21:29 Blood Blood Culture - Preliminary NO GROWTH AFTER 24 HOURS Most Recent Lab Values WBC 4.7 K/uL (4.8-10.8) L 05/28/17 06:00 RBC 2.64 Mil/uL (4.40-5.90) L 05/28/17 06:00 Hgb 9.4 g/dL (12.0-18.0) L 05/28/17 06:00 Hct 27.6 % (35.0-51.0) L 05/28/17 06:00 MCV 104.8 fl (80.0-94.0) H 05/28/17 06:00 MCH 35.6 pg (27.0-31.0) H 05/28/17 06:00 MCHC 34.0 g/dL (33.0-37.0) 05/28/17 06:00 RDW 16.2 % (11.5-14.5) H 05/28/17 06:00 Plt Count 139 K/uL (130-400) 05/28/17 06:00 MPV 8.4 fl (7.2-11.7) 05/28/17 06:00 Neut % (Auto) 73.8 % (50.0-75.0) 05/28/17 06:00 Lymph % (Auto) 18.7 % (20.0-40.0) L 05/28/17 06:00 [place] % (Auto) 7.1 % (0.0-10.0) 05/28/17 06:00 Eos % (Auto) 0.2 % (0.0-4.0) 05/28/17 06:00 Baso % (Auto) 0.2 % (0.0-2.0) 05/28/17 06:00 Neut # 3.5 K/uL (1.8-7.0) 05/28/17 06:00 Lymph # 0.9 K/uL (1.0-4.3) L 05/28/17 06:00 [place] # 0.3 K/uL (0.0-0.8) 05/28/17 06:00 Eos # 0.0 K/uL (0.0-0.7) 05/28/17 06:00 Baso # 0.0 K/uL (0.0-0.2) 05/28/17 06:00 ESR 100 mm/hr (0-20) H 05/27/17 14:30 PT 13.0 Seconds (9.8-13.1) 05/26/17 21:57 INR 1.2 (0.9-1.2) 05/26/17 21:57 APTT 31.0 Seconds (25.6-37.1) 05/26/17 21:57 Sodium 141 mmol/l (132-148) 05/28/17 05:45 Potassium 4.2 MMOL/L (3.6-5.0) 05/28/17 05:45 Chloride 105 mmol/L (98-107) 05/28/17 05:45 Carbon Dioxide 26 mmol/L (22-30) 05/28/17 05:45 Anion Gap 14 (10-20) 05/28/17 05:45 BUN 18 mg/dl (9-20) 05/28/17 05:45 Creatinine 0.8 mg/dl (0.8-1.5) 05/28/17 05:45 Est GFR ( Amer) > 60 05/28/17 05:45 Est GFR (Non-Af Amer) > 60 05/28/17 05:45 Random Glucose 99 mg/dL (75-110) 05/28/17 05:45 Lactic Acid 1.4 MMOL/L (0.7-2.1) 05/26/17 21:57 Calcium 9.3 mg/dL (8.4-10.2) 05/28/17 05:45 Iron 152 ug/dL (49-181) 05/28/17 05:45 TIBC 275 ug/dL (250-450) 05/28/17 05:45 % Saturation 55 % (20-55) 05/28/17 05:45 Ferritin 205.0 ng/Ml (17.9-464) 05/28/17 05:45 Total Bilirubin 0.3 mg/dl (0.2-1.3) 05/26/17 21:57 AST 19 U/L (17-59) 05/26/17 21:57 ALT 31 U/L (21-72) 05/26/17 21:57 Alkaline Phosphatase 110 U/L (38-126) 05/26/17 21:57 Total Protein 8.5 G/DL (6.3-8.2) H 05/26/17 21:57 Albumin 4.4 g/dL (3.5-5.0) 05/26/17 21:57 Globulin 4.1 gm/dL (2.2-3.9) H 05/26/17 21:57 Albumin/Globulin Ratio 1.1 (1.0-2.1) 05/26/17 21:57 Vitamin B12 646 pg/mL (239-931) 05/28/17 05:45 - Hospital Course Hospital Course: 61 y.o. 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 foot 3rd digit. During the course of the hospital stay pt. remained afebrile and without increased in WBC with no signs of infection of Right 3rd digit of RT. foot. ESR was noted to be elevated 100 with negative BCX. Foot x-ray also without any evidence of osteomyelitis. 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 Waldron, recommended to continue with 70mg Prednisone and follow up with the clinic within 2 to 3 days. Pt. home meds resumed and advised to follow up with Rheumatology Dr. Ramirez and PMD. Dr. Gordon. E.R. precautions given if pain, difficulty walking, discharge, swelling, bleeding, or increase in size of RT foot 3rd digit lesion. Discharge Medication Prednisone 70mg daily Timolol opthalmic eye drops Flomax 0.8 mg Discontinue Clindamycin Discharge Exam - Head Exam Head Exam: ATRAUMATIC, NORMAL INSPECTION, NORMOCEPHALIC - Eye Exam Eye Exam: Normal appearance - ENT Exam ENT Exam: Mucous Membranes Moist - Neck Exam Neck exam: Full Rom - Respiratory Exam Respiratory Exam: Clear to PA & Lateral, NORMAL BREATHING PATTERN - Cardiovascular Exam Cardiovascular Exam: REGULAR RHYTHM, +S1, +S2 - GI/Abdominal Exam GI & Abdominal Exam: Soft. absent: Tenderness - Extremities Exam Extremities exam: full ROM, normal capillary refill - Neurological Exam Neurological exam: Alert, Oriented x3 - Psychiatric Exam Psychiatric exam: Normal Affect, Normal Mood - Skin Skin Exam: Cyanosis (Limited to 3rd digit of Rt. foot dorsal aspect without any signs or symptoms necrosis, pt. baring weight without any pain, appearrs to be limited to supeficial skin, with bilateral pedal pulses regular and +2), Intact , Warm Discharge Plan - Discharge Medications Prescriptions: predniSONE [predniSONE Tab] 70 mg PO DAILY #25 tab - Follow Up Plan Condition: STABLE Disposition: HOME/ ROUTINE Instructions: Cellulitis (DC), Connective Tissue Disorders (GEN) Additional Instructions: Pt. to stop all antibiotics. Thank You. Pt. to follow up with Rheumatology Dr. Ramirez in [place], [place] within 2 to 3 days. Pt. to follow up with PMD Dr. Finch / Dr. Gordon within 2 to 3 days. Thank You. Referrals: Marco Gordon MD [Staff Provider] - Ba Ramirez MD [Medical Doctor] -
[2017-05-29 13:20] LABS: FOLATE 18.3 ng/mL
== END 2017-05-28 14:37 | disposition home or self-care (01) | DRG 546 ==
LOC: H.ER 19:27 → H.ERHOLD 22:31 → H.MEDSURG1 05-27 00:12
PROVIDERS: ADMIT Family Medicine; ATTEND Family Medicine
DX: I77.6 Arteritis, unspecified (principal); M31.30 Wegener's granulomatosis without renal involvement; D61.818 Other pancytopenia; Z88.6 Allergy status to analgesic agent; Z88.0 Allergy status to penicillin; Z88.2 Allergy status to sulfonamides; N40.0 Benign prostatic hyperplasia without lower urinary tract symptoms; J44.9 Chronic obstructive pulmonary disease, unspecified; Z86.718 Personal history of other venous thrombosis and embolism; I10 Essential (primary) hypertension; E03.9 Hypothyroidism, unspecified; M19.90 Unspecified osteoarthritis, unspecified site

== ENCOUNTER 2017-07-15 07:49 | Emergency (ER) | payer MEDICARE ==
[2017-07-15 08:04] VITALS: BMI 27.1
[2017-07-15 08:07] VITALS: BP 120/72; PULSE 85; RESP 16; TEMP 97.6; O2SAT 98
--- NOTE | 2017-07-15 08:33 | ED PDOC ---
HPI: General Adult Time Seen by Provider: 07/15/17 08:11 Chief Complaint (Nursing): Abnormal Skin Integrity Chief Complaint (Provider): Abnormal Skin Integrity History Per: Patient History/Exam Limitations: no limitations Onset/Duration Of Symptoms: Days (x2) Current Symptoms Are (Timing): Still Present Additional Complaint(s): 61 year old male with a past medical history of chronic neutropenia, who presents to the ED complaining of pustules to his left cheek and lip x2 days. Denies fever or drainage. PMD: Aaron Betancur Past Medical History Reviewed: Historical Data, Nursing Documentation, Vital Signs Vital Signs: Last Vital Signs Temp 97.6 F 07/15/17 08:21 Pulse 85 07/15/17 08:21 Resp 16 07/15/17 08:21 BP 120/72 07/15/17 08:21 Pulse Ox 98 07/15/17 08:44 - Medical History PMH: Anxiety, Arthritis, Benign Prostatic Hyperplasia, COPD, Deep Vein Thrombosis (x3), HTN, Hypothyroidism Denies: Chronic Kidney Disease - Surgical History Surgical History: Cholecystectomy, Hernia Repair (ventral) - Family History Family History: States: Unknown Family Hx - Immunization History Hx Influenza Vaccination: Yes - Home Medications Home Medications: Ambulatory Orders Medication Instructions Recorded Tamsulosin [Flomax] 0.8 mg PO HS cap 06/18/ Timolol 0.5% Ophth [Timoptic 0.5% 1 drop OU Q12@0500,1700 bottle 03/24/17 Ophth Soln] Clindamycin [Cleocin] 300 mg PO TID #30 cap 07/15/17 - Allergies Allergies/Adverse Reactions: Allergies Allergy/AdvReac Type Severity Reaction Status Date / Time aspirin Allergy RASH Verified 07/15/17 08:19 naproxen Allergy RASH Verified 07/15/17 08:19 Penicillins Allergy RASH Verified 07/15/17 08:19 Sulfa (Sulfonamide Allergy RASH Verified 07/15/17 08:19 Antibiotics) Review of Systems ROS Statement: Except As Marked, All Systems Reviewed And Found Negative Constitutional: Negative for: Fever Skin: Positive for: Lesions (left cheek and lip. no drainage ) Physical Exam - Reviewed Nursing Documentation Reviewed: Yes Vital Signs Reviewed: Yes - Physical Exam Appears: Positive for: Non-toxic, No Acute Distress Head Exam: Positive for: ATRAUMATIC, NORMAL INSPECTION, NORMOCEPHALIC Skin: Positive for: Normal Color (Multiple postules to left cheek and left upper lip, no fluctuance, no abscess, minimal surround erythema, mild tenderness ), Warm Eye Exam: Positive for: EOMI, Normal appearance, PERRL Neck: Positive for: Normal (No lymphadenopathy palpated), Painless ROM, Supple Cardiovascular/Chest: Positive for: Regular Rate, Rhythm. Negative for: Murmur Respiratory: Positive for: Normal Breath Sounds. Negative for: Respiratory Distress Gastrointestinal/Abdominal: Positive for: Normal Exam, Bowel Sounds, Soft. Negative for: Tenderness Back: Positive for: Normal Inspection. Negative for: L CVA Tenderness, R CVA Tenderness, Vertebral Tenderness Extremity: Positive for: Normal ROM. Negative for: Pedal Edema, Deformity Neurologic/Psych: Positive for: Alert, Oriented (x3). Negative for: Motor/ Sensory Deficits - Laboratory Results Result Diagrams: 07/15/17 09:00 - ECG O2 Sat by Pulse Oximetry: 98 (RA) Pulse Ox Interpretation: Normal Medical Decision Making Medical Decision Making: Time: 08:16 Plan: --CBC w/ differential --Blood culture --Reevaluation Scribe Attestation: Documented by Kishore Qiu, acting as a scribe for Alexis Bruno MD. Provider Scribe Attestation: All medical record entries made by the Scribe were at my direction and personally dictated by me. I have reviewed the chart and agree that the record accurately reflects my personal performance of the history, physical exam, medical decision making, and the department course for this patient. I have also personally directed, reviewed, and agree with the discharge instructions and disposition. Disposition - Clinical Impression Clinical Impression: Skin pustule - Patient ED Disposition Is Patient to be Admitted: No - Disposition Referrals: Poli Samano MD [Staff Provider] - Disposition: Routine/Home Disposition Time: 10:22 Condition: FAIR Prescriptions: Clindamycin [Cleocin] 300 mg PO TID #30 cap Instructions: Cellulitis (ED) Forms: [facility] (Bulgarian)
[2017-07-15 09:31] LABS: EOS % 0.3 % (0.0-4.0); HEMOGLOBIN 9.5 g/dL (12.0-18.0); LYMPH # 1.2 K/uL (1.0-4.3); LYMPH % 48.8 % (20.0-40.0); MEAN CELL VOLUME 105.5 fl (80.0-94.0); MEAN CORPUSCULAR HEMOGLOBIN 34.4 pg (27.0-31.0); MEAN CORPUSCULAR HGB CONC 32.6 g/dL (33.0-37.0); MEAN PLATELET VOLUME 8.1 fl (7.2-11.7); MONO # 0.1 K/uL (0.0-0.8); MONO % 4.5 % (0.0-10.0); NEUT # 1.2 K/uL (1.8-7.0); NEUT % 45.4 % (50.0-75.0); NRBC % 0.4 % (0.0-0.0); RBC 2.76 Mil/uL (4.40-5.90); RED CELL DISTRIBUTION WIDTH 14.3 % (11.5-14.5); WHITE BLOOD COUNT 2.5 K/uL (4.8-10.8)
== END 2017-07-15 11:00 | disposition home or self-care (01) ==
LOC: H.ER 07:49
DX: L08.9 Local infection of the skin and subcutaneous tissue, unspecified (principal)

== ENCOUNTER 2017-07-16 05:40 | Inpatient (IN) | payer MEDICARE ==
[2017-07-16 05:40] VITALS: BMI 27.1
[2017-07-16] MEDS ORDERED: Clindamycin 150 mg/mL Inj IV STA (06:03)
[2017-07-16] MEDS ORDERED: Clindamycin 600mg/50ml NS 600 MG/50 ML BAG IVPB STA (06:10)
--- NOTE | 2017-07-16 06:55 | ED PDOC ---
HPI: General Adult Time Seen by Provider: 07/16/17 05:50 Chief Complaint (Nursing): Abnormal Skin Integrity Chief Complaint (Provider): Left Facial and Neck Pain History Per: Patient History/Exam Limitations: no limitations Onset/Duration Of Symptoms: Days (3 days ago) Current Symptoms Are (Timing): Still Present Additional Complaint(s): 61 yo male with a history of Neutropenia, Hypertension, BPH, DVT, recurring Cellulitis, Jayjay's Granulomatosis, presents to the ED with left facial and neck pain, onset of 3 days ago. Patient reports of having left sided facial swelling and redness to the left cheek. Patient was seen in the ED one day prior complaining of pustules to his left cheek and lip x2 days. Patient reports that the swelling has become worse, more painful, and the selling extends to the neck. Patient is known to provider for having multiple previous admission to the ED for his recurring cellulitis. Denies fever or chills. PMD: Aaron Betancur Past Medical History Reviewed: Historical Data, Nursing Documentation, Vital Signs Vital Signs: Last Vital Signs Temp 97.8 F 07/16/17 06:03 Pulse 72 07/16/17 06:03 Resp 16 07/16/17 06:03 BP 103/65 07/16/17 06:03 Pulse Ox 98 07/16/17 07:06 - Medical History PMH: Anxiety, Arthritis, Benign Prostatic Hyperplasia, COPD, Deep Vein Thrombosis (x3), HTN, Hypothyroidism Denies: Chronic Kidney Disease - Surgical History Surgical History: Cholecystectomy, Hernia Repair (ventral) - Family History Family History: States: Unknown Family Hx - Social History Ex-Smoker (has not smoked in the last 12 months): Yes Alcohol: None Drugs: Denies - Immunization History Hx Influenza Vaccination: Yes - Home Medications Home Medications: Ambulatory Orders Medication Instructions Recorded Tamsulosin [Flomax] 0.8 mg PO HS cap 06/18/16 Timolol 0.5% Ophth [Timoptic 0.5% 1 drop OU Q12@0500,1700 bottle 03/24/17 Ophth Soln] Clindamycin [Cleocin] 300 mg PO TID #30 cap 07/15/17 - Allergies Allergies/Adverse Reactions: Allergies Allergy/AdvReac Type Severity Reaction Status Date / Time aspirin Allergy RASH Verified 07/15/17 08:19 naproxen Allergy RASH Verified 07/15/17 08:19 Penicillins Allergy RASH Verified 07/15/17 08:19 Sulfa (Sulfonamide Allergy RASH Verified 07/15/17 08:19 Antibiotics) Review of Systems ROS Statement: Except As Marked, All Systems Reviewed And Found Negative Constitutional: Negative for: Fever, Chills Musculoskeletal: Positive for: Neck Pain (left), Other (left facial pain) Physical Exam - Reviewed Nursing Documentation Reviewed: Yes Vital Signs Reviewed: Yes - Physical Exam Appears: Positive for: Non-toxic, No Acute Distress Head Exam: Positive for: ATRAUMATIC, NORMOCEPHALIC Skin: Positive for: Normal Color, Warm Eye Exam: Positive for: Normal appearance, EOMI, PERRL ENT: Positive for: Normal ENT Inspection Neck: Positive for: Normal, Painless ROM, Supple Cardiovascular/Chest: Positive for: Regular Rate, Rhythm. Negative for: Murmur Respiratory: Positive for: Normal Breath Sounds. Negative for: Respiratory Distress Back: Positive for: Normal Inspection Extremity: Positive for: Swelling (left facial edema, erythematous of left cheek , multiple pustules on left cheek, induration, warm to touch ) Lymphatic: Positive for: Adenopathy (left cervical adenopathy, tender to palpation) Neurologic/Psych: Positive for: Alert, Oriented. Negative for: Motor/Sensory Deficits - Laboratory Results Result Diagrams: 07/16/17 06:47 - ECG O2 Sat by Pulse Oximetry: 98 (RA) Pulse Ox Interpretation: Normal Medical Decision Making Medical Decision Making: Time: --06:03 Impression: --Left Facial Cellulitis and neck pain in setting of known history neutropenia and cellulitis. Plan: --CT Maxillofacial W/ Contrast --Labs --Lactic Acid, Plasma Specimen --PTT --Prothrombin Time --Clindamycin 600mg --Blood Culture Heplock Insertion Reassess --7:00 Patient to be signed out to Dr. Mariluz San pending CT and labs. Scribe Attestation: Documented by Candelario Lou acting as a scribe for Von Ferro MD. Disposition - Clinical Impression Clinical Impression: Cellulitis and abscess of face - Patient ED Disposition Is Patient to be Admitted: Transfer of Care Discussed With Dr.: Mariluz San Doctor Will See Patient In The: ED - Disposition Disposition: Transfer of Care Disposition Time: 07:00 Condition: FAIR Forms: [employer] [facility] (Korean) Patient Signed Over To: Mariluz San
[2017-07-16 07:00] LABS: BASO % 0.7 % (0.0-2.0); EOS % 0.4 % (0.0-4.0); HEMOGLOBIN 9.3 g/dL (12.0-18.0); LYMPH # 0.9 K/uL (1.0-4.3); LYMPH % 29.3 % (20.0-40.0); MEAN CELL VOLUME 103.8 fl (80.0-94.0); MEAN CORPUSCULAR HEMOGLOBIN 34.4 pg (27.0-31.0); MEAN CORPUSCULAR HGB CONC 33.1 g/dL (33.0-37.0); MEAN PLATELET VOLUME 7.8 fl (7.2-11.7); MONO # 0.1 K/uL (0.0-0.8); MONO % 3.9 % (0.0-10.0); NEUT % 65.7 % (50.0-75.0); NRBC % 0.1 % (0.0-0.0); RBC 2.7 Mil/uL (4.40-5.90); RED CELL DISTRIBUTION WIDTH 14.5 % (11.5-14.5)
--- NOTE | 2017-07-16 07:12 | ED PDOC ---
- Laboratory Results Result Diagrams: 07/16/17 06:47 - ECG O2 Sat by Pulse Oximetry: 98 (RA) Medical Decision Making Medical Decision Making: Time: 07:00 Patient is signed out to Dr. San pending CT and labs. Scribe Attestation: Documented by Mohit Henderson acting as a scribe for Von Ferro MD. Scribe Attestation: All medical record entries made by the Scribe were at my direction and personally dictated by me. I have reviewed the chart and agree that the record accurately reflects my personal performance of the history, physical exam, medical decision making, and the department course for this patient. I have also personally directed, reviewed, and agree with the discharge instructions and disposition. Disposition - Clinical Impression Clinical Impression: Cellulitis and abscess of face - Disposition Condition: FAIR Forms: [employer] (Turkmen)
[2017-07-16 07:13] LABS: ALB/GLOB RATIO 0.9 (1.0-2.1); ALBUMIN 3.6 g/dL (3.5-5.0); ALT/SGPT 27 U/L (21-72); AST/SGOT 13 U/L (17-59); BLOOD UREA NITROGEN 17 mg/dl (9-20); CALCIUM 9.2 mg/dL (8.4-10.2); GFR AFRICAN-AMERICAN > 60; GFR NON-AFRICAN AMERICAN > 60
[2017-07-16 07:29] LABS: INR 1.2 (0.9-1.2); PROTHROMBIN TIME 13.1 Seconds (9.8-13.1)
[2017-07-16 07:30] LABS: PARTIAL THROMBOPLASTIN TIME 31.9 Seconds (25.6-37.1)
[2017-07-16] MEDS ORDERED: Oxycodone/Acetaminophen 5/325 mg Tab PO STA (07:51)
[2017-07-16] MEDS ORDERED: Iohexol 300 100 ML IJ ONE (07:56)
[2017-07-16] MEDS ORDERED: Sodium Chloride 0.9% 50 ML IV ONE (07:56)
--- NOTE | 2017-07-16 09:46 | CT ---
EXAM: CT Maxillofacial and mandible With Intravenous Contrast CLINICAL HISTORY: 61 years old, male; Pain; Other: Swelling; Additional info: Left facial pain/swelling TECHNIQUE: Axial computed tomography images of the face and mandible with intravenous contrast. All CT scans at this facility use one or more dose reduction techniques, viz.: automated exposure control; ma/kV adjustment per patient size (including targeted exams where dose is matched to indication; i.e. head); or iterative reconstruction technique. 1037 images are submitted.Sagittal , axial and coronal MPR reformatted images are submitted in soft tissue and bone windows. CT maxillofacial with mandible CONTRAST: 95 mL of [id number] administered intravenously. COMPARISON: No relevant prior studies available. FINDINGS: Bones/joints: No acute fracture. Soft tissues: There is a left facial skin thickening with subcutaneous soft tissue infiltration representing cellulitis. There is nodularity to the skin surface. These may represent abrasions versus ulceration or skin lesions. Correlation with direct visualization is recommended. Orbits: The globe and lens are intact. Submandibular/parotid glands: There is inflammatory change around the left submandibular and parotid salivary gland representing sialadenitis. Fatty infiltration of parotid glands. Sinuses: Patchy right sphenoid sinus disease. Mild patchy sinus disease. No air-fluid levels. Dental: There is periodontal bone loss and dental restorations not evaluated on this examination. If clinically indicated dedicated dental examination can be helpful. Brain: The visualized portions of the brain appears unremarkable. Ventricles: Cavum septum pellucidum and cavum septum vergae obtained. Thyroid: Mild enlargement of thyroid gland. IMPRESSION: 1. There is a left facial skin thickening with subcutaneous soft tissue infiltration representing cellulitis. There is nodularity to the skin surface. These may represent abrasions versus ulceration or skin lesions. Correlation with direct visualization is recommended. 2. There is inflammatory change around the left submandibular and parotid salivary gland representing sialadenitis.
--- NOTE | 2017-07-16 10:34 | ED PDOC ---
- Laboratory Results Result Diagrams: 07/16/17 06:47 07/16/17 06:47 - ECG O2 Sat by Pulse Oximetry: 98 (RA) Medical Decision Making Medical Decision Making: received endorsement from Dr. Ferro on patient with facial cellutitis who is pending CT scan. Results reviewed. IV antibiotics indicated for the treatment. Disposition Doctor Will See Patient In The: Hospital Counseled Patient/Family Regarding: Diagnosis, Need For Followup - Clinical Impression Clinical Impression: Cellulitis and abscess of face - POA Present On Arrival: None - Disposition Disposition: Transfer of Care Disposition Time: 10:34 Condition: FAIR Forms: [facility] (Spanish)
--- NOTE | 2017-07-16 12:49 | CP.PCM.HP ---
History of Present Illness - History of Present Illness History of Present Illness: CC: "pain in my face" HPI: 61 YO Male with PMH of leukopenia, neutropenia, glaucoma, wegners granulomatosis, BPH, DVT, and recurrent cellulitis presents to [facility] ED for pain , redness in his L face and neck. Per pt, pain started two days ago along with a small area of redness. Pt applied topical abx which he had at home, but it did not make the pain better. Pt presented to the ED for the pain and was d.c home with PO Clindamycin. Pt took it but overnight the pain extended to his neck and redness worsened. Denies chest pain, dyspnea, palpitations, n/v/d/c, chills, night sweats and has remain afebrile. In the ED: s/p Clindamycin 600 IVBP [address] pain CT maxilofacial: left facial skin cellulitis, L submandibular and parotid sialadenitis cbc sig for leukenia, macrocytic anemia cmp, lactic acid wnl pt/ptt/int wnl PMH: Dr. Gordon/Pipe PMH: leukopenia, neutropenia, wegners granulomatosis, BPH, DVT, and recurrent cellulites SurgHx: gallbladder removal, R hip surgery, prostate surgery, hernia repair FHx: hx of DM and CAD in father and paternal side of family SH: denies ETOH, illicit drug use and 20+yrs hx of smoking, quit 10 yrs ago. Allergies: asa (abdominal discomfort), penicillins (hives, itching), sulfa ( anorexia) Meds: eye drops and Flomax 0.4mg Code: Full code Present on Admission - Present on Admission Any Indicators Present on Admission: Yes Review of Systems - Constitutional Constitutional: absent: Chills, Fever, Headache, Malaise - EENT Eyes: absent: Blurred Vision, Pain Ears: absent: Ear Pain - Cardiovascular Cardiovascular: absent: Chest Pain, Dyspnea, Edema - Respiratory Respiratory: absent: Cough, Dyspnea - Gastrointestinal Gastrointestinal: absent: Abdominal Pain, Diarrhea, Vomiting - Genitourinary Genitourinary: Difficulty Urinating (BPH ). absent: Dysuria, Urinary Frequency - Musculoskeletal Musculoskeletal: absent: Back Pain, Joint Swelling, Muscle Cramps, Muscle Weakness - Neurological Neurological: Other (has pain in his L face ). absent: Dizziness, Numbness, Headaches - Psychiatric Psychiatric: absent: Confusion, Depression Past Patient History - Infectious Disease Hx of Infectious Diseases: None - Tetanus Immunizations Tetanus Immunization: Unknown - Past Medical History & Family History Past Medical History?: Yes - Past Social History Smoking Status: Former Smoker Alcohol: None Drugs: Denies - CARDIAC Hx Hypertension: No - PULMONARY Hx Chronic Obstructive Pulmonary Disease (COPD): No - HEENT Hx HEENT Problems: Yes Hx Glaucoma: Yes - RENAL Hx Chronic Kidney Disease: No - ENDOCRINE/METABOLIC Hx Hypothyroidism: No - INTEGUMENTARY Hx Dermatological Problems: No - MUSCULOSKELETAL/RHEUMATOLOGICAL Hx Arthritis: Yes - GENITOURINARY/GYNECOLOGICAL Hx Genitourinary Disorders: Yes Hx Prostate Problems: Yes - PSYCHIATRIC Hx Anxiety: Yes - SURGICAL HISTORY Hx Cholecystectomy: Yes - ANESTHESIA Hx Anesthesia: Yes Hx Anesthesia Reactions: No Hx Malignant Hyperthermia: No Meds Allergies/Adverse Reactions: Allergies Allergy/AdvReac Type Severity Reaction Status Date / Time aspirin Allergy RASH Verified 07/15/17 08:19 naproxen Allergy RASH Verified 07/15/17 08:19 Penicillins Allergy RASH Verified 07/15/17 08:19 Sulfa (Sulfonamide Allergy RASH Verified 07/15/17 08:19 Antibiotics) Physical Exam - Constitutional Appears: No Acute Distress Additional comments: area of erythema, mild edema noted on his L face - Head Exam Head Exam: ATRAUMATIC, NORMAL INSPECTION Additional comments: Erythema and mild edema noted from the L zygomatic bone to the L cheeks extending to the L side neck. Tenderness to palpation. No exudates. Mild pustular discharge noted, dried on cheeks. - Eye Exam Eye Exam: EOMI, Normal appearance - ENT Exam ENT Exam: Mucous Membranes Moist - Neck Exam Neck exam: Positive for: Full Rom, Lymphadenopathy (L submandibular lymph noted ) Additional comments: Redness and erythema noted on L side of neck - Respiratory Exam Respiratory Exam: Clear to Auscultation Bilateral, NORMAL BREATHING PATTERN. absent: Wheezes - Cardiovascular Exam Cardiovascular Exam: REGULAR RHYTHM, +S1, +S2 - GI/Abdominal Exam GI & Abdominal Exam: Normal Bowel Sounds, Soft. absent: Tenderness - Extremities Exam Extremities exam: Positive for: full ROM, normal inspection. Negative for: pedal edema, tenderness - Back Exam Back exam: NORMAL INSPECTION. absent: CVA tenderness (L), CVA tenderness (R) - Neurological Exam Neurological exam: Alert, CN II-XII Intact, Normal Gait, Oriented x3 - Psychiatric Exam Psychiatric exam: Normal Affect, Normal Mood - Skin Skin Exam: Dry, Intact, Normal Color, Warm Results - Vital Signs Recent Vital Signs: Last Vital Signs Temp 98.7 F 07/16/17 11:56 Pulse 72 07/16/17 11:52 Resp 16 07/16/17 11:52 BP 103/65 07/16/17 11:52 Pulse Ox 98 07/16/17 10:34 - Labs Result Diagrams: 07/16/17 06:47 07/16/17 06:47 Labs: Laboratory Results - last 24 hr 07/16/17 07/16/17 07/16/17 06:47 06:47 06:47 WBC 3.0 L RBC 2.70 L Hgb 9.3 L Hct 28.0 L MCV 103.8 H MCH 34.4 H MCHC 33.1 RDW 14.5 Plt Count 137 MPV 7.8 Neut % (Auto) 65.7 Lymph % (Auto) 29.3 Wake % (Auto) 3.9 Eos % (Auto) 0.4 Baso % (Auto) 0.7 Neut # 2.0 Lymph # 0.9 L Wake # 0.1 Eos # 0.0 Baso # 0.0 PT INR APTT Sodium 137 Potassium 4.6 Chloride 101 Carbon Dioxide 28 Anion Gap 13 BUN 17 Creatinine 0.9 Est GFR ( Amer) > 60 Est GFR (Non-Af Amer) > 60 Random Glucose 93 Lactic Acid 1.2 Calcium 9.2 Total Bilirubin 0.5 AST 13 L D ALT 27 Alkaline Phosphatase 80 Total Protein 7.6 Albumin 3.6 Globulin 4.0 H Albumin/Globulin Ratio 0.9 L 07/16/17 06:47 WBC RBC Hgb Hct MCV MCH MCHC RDW Plt Count MPV Neut % (Auto) Lymph % (Auto) Wake % (Auto) Eos % (Auto) Baso % (Auto) Neut # Lymph # Wake # Eos # Baso # PT 13.1 INR 1.2 APTT 31.9 Sodium Potassium Chloride Carbon Dioxide Anion Gap BUN Creatinine Est GFR ( Amer) Est GFR (Non-Af Amer) Random Glucose Lactic Acid Calcium Total Bilirubin AST ALT Alkaline Phosphatase Total Protein Albumin Globulin Albumin/Globulin Ratio Assessment & Plan - Assessment and Plan (Free Text) Assessment: Assessment/Plan: 61 YO Male with PMH of leukopenia, neutropenia, glaucoma, wegners granulomatosis , BPH, DVT, and recurrent cellulitis is admitted for L face cellulitis. 1) Left, Cellulitis of the face, sialadenitis -admit pt to hospital -CT maxilofacial: left facial skin cellulitis, L submandibular and parotid sialadenitis -s/p 1x Clindamycin 600mg IVPB in ED -will continue Clindamycin 600mg IVPB Q8 -Tylenol, Tramadol, percocet for pain -continue to monitor 2) Leukopenia -WBC 3.0, afebrile. No hypo/hyper thermia -will continue to monitor -Tylenol for fever over 100.4 -blood cultures pending -CBC AM -consulted hematology/oncology if needed 3) BPH -stable -has surgery scheduled next week -continue home med, flomax 4) Glucoma -stable -will continue home meds, Timolol 5) Macrocytic Anemia -stable -hb/hct 3.9/28.0 with MCV 103.8 -B12 646 and folate 18.3 (05/28/17) -will continue to monitor 6) Prophylaxis -Lovenox 40 SC Decision To Admit - Pt Status Changed To: Hospital Disposition Of: Inpatient - Admit Certification Admit to Inpatient:: After my assessment, the patient will require hospitalization for at least two midnights. This is because of the severity of symptoms shown, intensity of services needed, and/or the medical risk in this patient being treated as an outpatient. - . Bed Request Type: Med/Surg Admitting Physician: Aaron Betancur
[2017-07-16] MEDS ORDERED: Oxycodone/Acetaminophen 5/325 mg Tab PO PRN (13:15)
[2017-07-16] MEDS: Clindamycin 600mg/50ml NS 600 MG/50 ML BAG IVPB SCH (16:52)
[2017-07-16] MEDS ORDERED: Pneumococcal 23-Valent Vaccine IM ONE (17:00)
[2017-07-16] MEDS ORDERED: Dorzolamide 2% Ophth Soln OU SCH (17:00)
[2017-07-17] MEDS: Clindamycin 600mg/50ml NS 600 MG/50 ML BAG IVPB SCH ×3 (00:27→16:56)
[2017-07-17] MEDS: Dorzolamide 2% Ophth Soln OU SCH ×2 (05:20→16:57)
[2017-07-17 06:19] LABS: HEMOGLOBIN 7.7 g/dL (12.0-18.0); MEAN CELL VOLUME 103.5 fl (80.0-94.0); MEAN CORPUSCULAR HEMOGLOBIN 34.5 pg (27.0-31.0); MEAN CORPUSCULAR HGB CONC 33.4 g/dL (33.0-37.0); RBC 2.23 Mil/uL (4.40-5.90); RED CELL DISTRIBUTION WIDTH 13.9 % (11.5-14.5); WHITE BLOOD COUNT 2.5 K/uL (4.8-10.8)
[2017-07-17] MEDS ORDERED: Enoxaparin 40 mg Syringe SC SCH (09:00)
--- NOTE | 2017-07-17 09:32 | CP.PCM.PN ---
Subjective - Date & Time of Evaluation Date of Evaluation: 07/17/17 Time of Evaluation: 09:16 - Subjective Subjective: This is a 61 yrs old male wo is well kno3wn to me. H4e was diagnosed to have chronic neutropenia about 6 yrs ago. He would get a eupogen shot if needed for an infection, and would respond immediately. over the last 8 months he has needed the neupogen more frequently, and 3 months ago he was diagnosed to have a joanna's granulomatosis and is under the care of a vacuum cleaner operator. Over the past few months he has gradually been gettinbeen low.. He denies any gi bleed but the count has He w as advised to see his steam drier tender for a endoscopy and colonoscopy to see if there is evidence of bleeding. this time he was admitted for pustular lesions on the skin of the left mandible with left cervical adenopathy. He is on iv antibiotics. He also has obstructive uropathy and is to have surgery next week. Will order tests to see if he is bleeding or hemolysing. Objective - Vital Signs/Intake and Output Vital Signs (last 24 hours): Temp Pulse Resp BP Pulse Ox 98.0 F 78 20 112/64 98 07/17/17 07:40 07/17/17 07:40 07/17/17 07:40 07/17/17 07:40 07/17/17 07:40 - Medications Medications: Current Medications Acetaminophen (Tylenol 325mg Tab) 650 mg PO Q6 PRN PRN Reason: Fever >100.4 F Acetaminophen (Tylenol 325mg Tab) 650 mg PO Q6 PRN PRN Reason: Pain, Mild (1-3) Last Admin: 07/17/17 05:01 Dose: 650 mg Dorzolamide HCl (Trusopt) 1 drop OU BID@0500,1700 [facility] Last Admin: 07/17/17 05:20 Dose: 1 drop Enoxaparin Sodium (Lovenox) 40 mg SC DAILY [facility] PRN Reason: Protocol Clindamycin Phosphate (Cleocin In Normal Saline) 600 mg in 50 mls @ 50 mls/hr IVPB Q8 [facility] PRN Reason: Protocol Last Admin: 07/17/17 08:24 Dose: 50 mls/hr Oxycodone/Acetaminophen (Percocet 5/325 Mg Tab) 1 tab PO Q6 PRN PRN Reason: Pain, severe (8-10) Stop: 07/19/17 13:16 Prednisone (Prednisone Tab) 5 mg PO DAILY [facility] Last Admin: 07/17/17 08:23 Dose: 5 mg Tamsulosin HCl (Flomax) 0.4 mg PO BID [facility] Last Admin: 07/17/17 08:23 Dose: 0.4 mg Timolol Maleate (Timoptic 0.5% Ophth Soln) 1 drop OU Q12@0500,1700 [facility] Last Admin: 07/17/17 05:10 Dose: 1 drop Tramadol HCl (Ultram) 50 mg PO Q6 PRN PRN Reason: Pain, moderate (4-7) - Labs Labs: 07/17/17 05:30 07/16/17 06:47 PT 13.1 Seconds (9.8-13.1) 07/16/17 06:47 INR 1.2 (0.9-1.2) 07/16/17 06:47 APTT 31.9 Seconds (25.6-37.1) 07/16/17 06:47 - Additional Findings Additional findings: Physical exam; Alert, well oriented in no acute distress neck; Supple, left cervical adenopathy Chest; Clear, no rales or rhonchi Heart; RSR, no murmur Abd;Soft, no mass no h/s megaly He has pustules over the left mandible., with erythema. Assessment and Plan - Assessment and Plan (Free Text) Assessment: Impression; Chronic neutropenia, cellulutis left mandibular area. Anemia etiology to be determined Plan: Plan; Have ordered tests to evaluate the cause of anemia [id number] GI consult.
--- NOTE | 2017-07-17 11:10 | CP.PCM.PN ---
<Maria Alejandra Hinton - Last Filed: 07/17/17 14:13> Subjective - Date & Time of Evaluation Date of Evaluation: 07/17/17 Time of Evaluation: 07:15 - Subjective Subjective: Patient seen and examined bedside with Dr Gordon. Patient reports had right side facial pain last night subsided with tylenol. He denies fever, odynophagia , dysphagia, SOB, trismus, ocular pain. Objective - Vital Signs/Intake and Output Vital Signs (last 24 hours): Temp Pulse Resp BP Pulse Ox 98.0 F 78 20 112/64 98 07/17/17 07:40 07/17/17 07:40 07/17/17 07:40 07/17/17 07:40 07/17/17 07:40 - Medications Medications: Current Medications Acetaminophen (Tylenol 325mg Tab) 650 mg PO Q6 PRN PRN Reason: Fever >100.4 F Acetaminophen (Tylenol 325mg Tab) 650 mg PO Q6 PRN PRN Reason: Pain, Mild (1-3) Last Admin: 07/17/17 10:22 Dose: 650 mg Dorzolamide HCl (Trusopt) 1 drop OU BID@0500,1700 [facility] Last Admin: 07/17/17 05:20 Dose: 1 drop Clindamycin Phosphate (Cleocin In Normal Saline) 600 mg in 50 mls @ 50 mls/hr IVPB Q8 [facility] PRN Reason: Protocol Last Admin: 07/17/17 08:24 Dose: 50 mls/hr Oxycodone/Acetaminophen (Percocet 5/325 Mg Tab) 1 tab PO Q6 PRN PRN Reason: Pain, severe (8-10) Stop: 07/19/17 13:16 Prednisone (Prednisone Tab) 5 mg PO DAILY [facility] Last Admin: 07/17/17 08:23 Dose: 5 mg Tamsulosin HCl (Flomax) 0.4 mg PO BID [facility] Last Admin: 07/17/17 08:23 Dose: 0.4 mg Timolol Maleate (Timoptic 0.5% Ophth Soln) 1 drop OU Q12@0500,1700 [facility] Last Admin: 07/17/17 05:10 Dose: 1 drop Tramadol HCl (Ultram) 50 mg PO Q6 PRN PRN Reason: Pain, moderate (4-7) - Labs Labs: 07/17/17 05:30 07/16/17 06:47 PT 13.1 Seconds (9.8-13.1) 07/16/17 06:47 INR 1.2 (0.9-1.2) 07/16/17 06:47 APTT 31.9 Seconds (25.6-37.1) 07/16/17 06:47 - Constitutional Appears: Non-toxic, No Acute Distress - Head Exam Head Exam: ATRAUMATIC, NORMOCEPHALIC Additional comments: pustular lesion aprox1 cm left side superior lip and 2 similar pustular lesions over left cheek. left parotid swelling, td to palpation - Eye Exam Eye Exam: Normal appearance - ENT Exam ENT Exam: Mucous Membranes Moist - Neck Exam Neck Exam: Normal Inspection - Respiratory Exam Respiratory Exam: absent: Rales, Rhonchi, Wheezes - Cardiovascular Exam Cardiovascular Exam: REGULAR RHYTHM, +S1, +S2 - GI/Abdominal Exam GI & Abdominal Exam: Soft, Normal Bowel Sounds - Extremities Exam Extremities Exam: Normal Inspection. absent: Pedal Edema - Neurological Exam Neurological Exam: Alert, Awake, Oriented x3 - Psychiatric Exam Psychiatric exam: Normal Affect, Normal Mood Assessment and Plan - Assessment and Plan (Free Text) Plan: 61 YO Male with PMH of leukopenia, neutropenia, glaucoma, wegners granulomatosis , BPH, DVT, and recurrent cellulitis is admitted for L face cellulitis. 1) Left, Cellulitis of the face, sialadenitis -admit pt to hospital -CT maxilofacial: left facial skin cellulitis, L submandibular and parotid sialadenitis -c/w Clindamycin 600 mg IVPB in ED -will continue Clindamycin 600mg IVPB Q8 -Tylenol, Tramadol, percocet for pain -continue to monitor 2) Thrombocytopenia -WBC 2.5 Hgb 7.7 plt 100 -f/u blood cx -Hemo-Onc consult appreciate. transfuse 1 unit -GI consult suggested 3) BPH -stable -has surgery scheduled next week -Urologist consult suggested Dr Gonzales -continue home med, flomax 4) Glucoma -stable -will continue home meds, Timolol 5) Macrocytic Anemia -stable - MCV 103.8 -B12 646 and folate 18.3 (05/28/17) -will continue to monitor 6) Prophylaxis -Lovenox 40 SC <Evan,Marco A - Last Filed: 07/18/17 06:59> Objective - Vital Signs/Intake and Output Vital Signs (last 24 hours): Temp Pulse Resp BP Pulse Ox 98.1 F 86 19 102/61 98 07/18/17 00:00 07/18/17 00:00 07/18/17 00:00 07/18/17 00:00 07/18/17 00:00 - Medications Medications: Current Medications Acetaminophen (Tylenol 325mg Tab) 650 mg PO Q6 PRN PRN Reason: Fever >100.4 F Last Admin: 07/18/17 00:47 Dose: 650 mg Acetaminophen (Tylenol 325mg Tab) 650 mg PO Q6 PRN PRN Reason: Pain, Mild (1-3) Last Admin: 07/17/17 18:29 Dose: 650 mg Dorzolamide HCl (Trusopt) 1 drop OU BID@0500,1700 [facility] Last Admin: 07/18/17 05:10 Dose: 1 drop Clindamycin Phosphate (Cleocin In Normal Saline) 600 mg in 50 mls @ 50 mls/hr IVPB Q8 [facility] PRN Reason: Protocol Last Admin: 07/18/17 00:42 Dose: 50 mls/hr Oxycodone/Acetaminophen (Percocet 5/325 Mg Tab) 1 tab PO Q6 PRN PRN Reason: Pain, severe (8-10) Stop: 07/19/17 13:16 Prednisone (Prednisone Tab) 5 mg PO DAILY [facility] Last Admin: 07/17/17 08:23 Dose: 5 mg Tamsulosin HCl (Flomax) 0.4 mg PO BID [facility] Last Admin: 07/17/17 16:56 Dose: 0.4 mg Timolol Maleate (Timoptic 0.5% Ophth Soln) 1 drop OU Q12@0500,1700 [facility] Last Admin: 07/18/17 05:10 Dose: 1 drop Tramadol HCl (Ultram) 50 mg PO Q6 PRN PRN Reason: Pain, moderate (4-7) - Labs Labs: 07/18/17 05:30 07/18/17 05:30 PT 13.1 Seconds (9.8-13.1) 07/16/17 06:47 INR 1.2 (0.9-1.2) 07/16/17 06:47 APTT 31.9 Seconds (25.6-37.1) 07/16/17 06:47 Attending/Attestation - Attestation I have personally seen and examined this patient.: Yes I have fully participated in the care of the patient.: Yes I have reviewed all pertinent clinical information, including history, physical exam and plan: Yes
--- NOTE | 2017-07-17 16:28 | CP.PCM.CON ---
History of Present Illness - History of Present Illness History of Present Illness: 61 yo male with chronic low WBC requiring at times neupogen injections admitted with infection involving left parotid and submandibular glands. Has also had 1.5 gram drop in Hgb though no overt GI bleeding observed. Review of Systems - Constitutional Constitutional: absent: Chills - EENT Eyes: absent: Blurred Vision Ears: absent: Decreased Hearing Nose/Mouth/Throat: absent: Epistaxis - Cardiovascular Cardiovascular: absent: Chest Pain - Respiratory Respiratory: absent: Cough - Gastrointestinal Gastrointestinal: absent: Abdominal Pain - Genitourinary Genitourinary: absent: Change in Urinary Stream Past Patient History - Infectious Disease Hx of Infectious Diseases: None - Tetanus Immunizations Tetanus Immunization: Unknown - Past Medical History & Family History Past Medical History?: Yes - Past Social History Smoking Status: Former Smoker - CARDIAC Hx Hypertension: No - PULMONARY Hx Chronic Obstructive Pulmonary Disease (COPD): No - HEENT Hx HEENT Problems: Yes Hx Glaucoma: Yes - RENAL Hx Chronic Kidney Disease: No - ENDOCRINE/METABOLIC Hx Hypothyroidism: No - INTEGUMENTARY Hx Dermatological Problems: No - MUSCULOSKELETAL/RHEUMATOLOGICAL Hx Arthritis: Yes Hx Falls: No - GENITOURINARY/GYNECOLOGICAL Hx Genitourinary Disorders: Yes Hx Prostate Problems: Yes - PSYCHIATRIC Hx Anxiety: Yes Hx Substance Use: No - SURGICAL HISTORY Hx Cholecystectomy: Yes - ANESTHESIA Hx Anesthesia: Yes Hx Anesthesia Reactions: No Hx Malignant Hyperthermia: No Meds Allergies/Adverse Reactions: Allergies Allergy/AdvReac Type Severity Reaction Status Date / Time aspirin Allergy RASH Verified 07/15/17 08:19 naproxen Allergy RASH Verified 07/15/17 08:19 Penicillins Allergy RASH Verified 07/15/17 08:19 Sulfa (Sulfonamide Allergy RASH Verified 07/15/17 08:19 Antibiotics) - Medications Medications: Current Medications Acetaminophen (Tylenol 325mg Tab) 650 mg PO Q6 PRN PRN Reason: Fever >100.4 F Acetaminophen (Tylenol 325mg Tab) 650 mg PO Q6 PRN PRN Reason: Pain, Mild (1-3) Last Admin: 07/17/17 10:22 Dose: 650 mg Dorzolamide HCl (Trusopt) 1 drop OU BID@0500,1700 [facility] Last Admin: 07/17/17 05:20 Dose: 1 drop Clindamycin Phosphate (Cleocin In Normal Saline) 600 mg in 50 mls @ 50 mls/hr IVPB Q8 [facility] PRN Reason: Protocol Last Admin: 07/17/17 08:24 Dose: 50 mls/hr Oxycodone/Acetaminophen (Percocet 5/325 Mg Tab) 1 tab PO Q6 PRN PRN Reason: Pain, severe (8-10) Stop: 07/19/17 13:16 Prednisone (Prednisone Tab) 5 mg PO DAILY [facility] Last Admin: 07/17/17 08:23 Dose: 5 mg Tamsulosin HCl (Flomax) 0.4 mg PO BID [facility] Last Admin: 07/17/17 08:23 Dose: 0.4 mg Timolol Maleate (Timoptic 0.5% Ophth Soln) 1 drop OU Q12@0500,1700 [facility] Last Admin: 07/17/17 05:10 Dose: 1 drop Tramadol HCl (Ultram) 50 mg PO Q6 PRN PRN Reason: Pain, moderate (4-7) Physical Exam - Head Exam Head Exam: ATRAUMATIC Additional comments: pustular eruption left siade of face with accompanying glandular swelling. - Eye Exam Eye Exam: EOMI - ENT Exam ENT Exam: Mucous Membranes Moist - Respiratory Exam Respiratory Exam: Clear to Auscultation Bilateral - Cardiovascular Exam Cardiovascular Exam: REGULAR RHYTHM, +S1, +S2 - GI/Abdominal Exam GI & Abdominal Exam: Normal Bowel Sounds, Soft. absent: Tenderness Results - Vital Signs Recent Vital Signs: Last Vital Signs Temp 98.6 F 07/17/17 16:02 Pulse 58 L 07/17/17 16:02 Resp 18 07/17/17 16:02 BP 108/68 07/17/17 16:02 Pulse Ox 97 07/17/17 16:02 - Labs Result Diagrams: 07/17/17 05:30 07/16/17 06:47 Labs: Laboratory Results - last 24 hr 07/17/17 07/17/17 07/17/17 05:30 09:26 09:26 WBC 2.5 L RBC 2.23 L Hgb 7.7 L Hct 23.0 L MCV 103.5 H MCH 34.5 H MCHC 33.4 RDW 13.9 Plt Count 100 L D Retic Count 0.7 D Lactate Dehydrogenase 240 L Blood Type Antibody Screen Crossmatch BBK History Checked 07/17/17 09:30 WBC RBC Hgb Hct MCV MCH MCHC RDW Plt Count Retic Count Lactate Dehydrogenase Blood Type O POSITIVE Antibody Screen Negative Crossmatch See Detail BBK History Checked Patient has bt Assessment & Plan (1) Anemia Assessment and Plan: Cause of fall in Hgb unclear and appreciate workup initiated by Dr. Samano. Patient had colonscopy about 3 years ago but no recent upper endoscopy. Will follow with you and schedule upper endoscopy on Monday. Status: Acute
[2017-07-17 19:10] LABS: HEMOGLOBIN 8.1 g/dL (12.0-18.0); MEAN CELL VOLUME 102.2 fl (80.0-94.0); MEAN CORPUSCULAR HEMOGLOBIN 34.1 pg (27.0-31.0); MEAN CORPUSCULAR HGB CONC 33.3 g/dL (33.0-37.0); RBC 2.38 Mil/uL (4.40-5.90); WHITE BLOOD COUNT 2.4 K/uL (4.8-10.8)
[2017-07-17 19:54] LABS: URINE BACTERIA RARE (<OCC); URINE BILIRUBIN NEGATIVE (NEGATIVE); URINE BLOOD MODERATE (NEGATIVE); URINE CLARITY CLEAR (Clear); URINE COLOR YELLOW (YELLOW); URINE GLUCOSE (UA) NEG (Normal); URINE LEUKOCYTE ESTERASE NEG Leu/uL (Negative); URINE NITRATE NEGATIVE (NEGATIVE); URINE PROTEIN NEGATIVE (NEGATIVE)
[2017-07-18] MEDS: Clindamycin 600mg/50ml NS 600 MG/50 ML BAG IVPB SCH ×3 (00:42→16:05)
[2017-07-18] MEDS: Dorzolamide 2% Ophth Soln OU SCH ×2 (05:10→16:07)
[2017-07-18 06:12] LABS: BASO % 0.4 % (0.0-2.0); EOS % 0.6 % (0.0-4.0); HEMOGLOBIN 8.5 g/dL (12.0-18.0); LYMPH # 0.7 K/uL (1.0-4.3); LYMPH % 34.3 % (20.0-40.0); MEAN CELL VOLUME 102.4 fl (80.0-94.0); MEAN CORPUSCULAR HEMOGLOBIN 34.2 pg (27.0-31.0); MEAN CORPUSCULAR HGB CONC 33.4 g/dL (33.0-37.0); MONO # 0.2 K/uL (0.0-0.8); MONO % 8.5 % (0.0-10.0); NEUT # 1.2 K/uL (1.8-7.0); NEUT % 56.2 % (50.0-75.0); NRBC % 0.4 % (0.0-0.0); RBC 2.48 Mil/uL (4.40-5.90); RED CELL DISTRIBUTION WIDTH 15.9 % (11.5-14.5); WHITE BLOOD COUNT 2.1 K/uL (4.8-10.8)
[2017-07-18 06:21] LABS: ALB/GLOB RATIO 0.9 (1.0-2.1); ALBUMIN 3.5 g/dL (3.5-5.0); ALT/SGPT 21 U/L (21-72); AST/SGOT 13 U/L (17-59); BLOOD UREA NITROGEN 18 mg/dl (9-20); CALCIUM 9.2 mg/dL (8.4-10.2); GFR AFRICAN-AMERICAN > 60; GFR NON-AFRICAN AMERICAN > 60
--- NOTE | 2017-07-18 07:59 | CP.PCM.PN ---
Subjective - Date & Time of Evaluation Date of Evaluation: 07/18/17 Time of Evaluation: 07:59 - Subjective Subjective: Pt is afebrile in no acute distress. The skin is still erythematous, and lesions s6ill persist. There is no discharge from the lesions. His hgb went up to 8.5 post transfusion. The retic is 0.7 and the LDH is low. Haptoglobin result is not back yet,.Will order ferritin and B12 levels, and he is to have a endoscopy tomorrow. Objective - Vital Signs/Intake and Output Vital Signs (last 24 hours): Temp Pulse Resp BP Pulse Ox 98.1 F 86 19 102/61 98 07/18/17 00:00 07/18/17 00:00 07/18/17 00:00 07/18/17 00:00 07/18/17 00:00 - Medications Medications: Current Medications Acetaminophen (Tylenol 325mg Tab) 650 mg PO Q6 PRN PRN Reason: Fever >100.4 F Last Admin: 07/18/17 00:47 Dose: 650 mg Acetaminophen (Tylenol 325mg Tab) 650 mg PO Q6 PRN PRN Reason: Pain, Mild (1-3) Last Admin: 07/17/17 18:29 Dose: 650 mg Dorzolamide HCl (Trusopt) 1 drop OU BID@0500,1700 [facility] Last Admin: 07/18/17 05:10 Dose: 1 drop Clindamycin Phosphate (Cleocin In Normal Saline) 600 mg in 50 mls @ 50 mls/hr IVPB Q8 [facility] PRN Reason: Protocol Last Admin: 07/18/17 00:42 Dose: 50 mls/hr Oxycodone/Acetaminophen (Percocet 5/325 Mg Tab) 1 tab PO Q6 PRN PRN Reason: Pain, severe (8-10) Stop: 07/19/17 13:16 Prednisone (Prednisone Tab) 5 mg PO DAILY [facility] Last Admin: 07/17/17 08:23 Dose: 5 mg Tamsulosin HCl (Flomax) 0.4 mg PO BID [facility] Last Admin: 07/17/17 16:56 Dose: 0.4 mg Timolol Maleate (Timoptic 0.5% Ophth Soln) 1 drop OU Q12@0500,1700 [facility] Last Admin: 07/18/17 05:10 Dose: 1 drop Tramadol HCl (Ultram) 50 mg PO Q6 PRN PRN Reason: Pain, moderate (4-7) - Labs Labs: 07/18/17 05:30 07/18/17 05:30 PT 13.1 Seconds (9.8-13.1) 07/16/17 06:47 INR 1.2 (0.9-1.2) 07/16/17 06:47 APTT 31.9 Seconds (25.6-37.1) 07/16/17 06:47
--- NOTE | 2017-07-18 08:54 | CP.PCM.PN ---
<Maria Alejandra Hinton - Last Filed: 07/18/17 14:10> Subjective - Date & Time of Evaluation Date of Evaluation: 07/18/17 Time of Evaluation: 07:20 - Subjective Subjective: Patient seen and examined bedside reports feeling well. Reports facial pain alleviated with medications. Denies fever, n,v,abd pain, diarrhea. will call ID consult Objective - Vital Signs/Intake and Output Vital Signs (last 24 hours): Temp Pulse Resp BP Pulse Ox 97.8 F 71 20 112/71 98 07/18/17 08:09 07/18/17 08:09 07/18/17 08:09 07/18/17 08:09 07/18/17 08:09 - Medications Medications: Current Medications Acetaminophen (Tylenol 325mg Tab) 650 mg PO Q6 PRN PRN Reason: Fever >100.4 F Last Admin: 07/18/17 00:47 Dose: 650 mg Acetaminophen (Tylenol 325mg Tab) 650 mg PO Q6 PRN PRN Reason: Pain, Mild (1-3) Last Admin: 07/17/17 18:29 Dose: 650 mg Dorzolamide HCl (Trusopt) 1 drop OU BID@0500,1700 [facility] Last Admin: 07/18/17 05:10 Dose: 1 drop Clindamycin Phosphate (Cleocin In Normal Saline) 600 mg in 50 mls @ 50 mls/hr IVPB Q8 [facility] PRN Reason: Protocol Last Admin: 07/18/17 00:42 Dose: 50 mls/hr Oxycodone/Acetaminophen (Percocet 5/325 Mg Tab) 1 tab PO Q6 PRN PRN Reason: Pain, severe (8-10) Stop: 07/19/17 13:16 Prednisone (Prednisone Tab) 5 mg PO DAILY [facility] Last Admin: 07/17/17 08:23 Dose: 5 mg Tamsulosin HCl (Flomax) 0.4 mg PO BID [facility] Last Admin: 07/17/17 16:56 Dose: 0.4 mg Timolol Maleate (Timoptic 0.5% Ophth Soln) 1 drop OU Q12@0500,1700 [facility] Last Admin: 07/18/17 05:10 Dose: 1 drop Tramadol HCl (Ultram) 50 mg PO Q6 PRN PRN Reason: Pain, moderate (4-7) - Labs Labs: 07/18/17 05:30 07/18/17 05:30 PT 13.1 Seconds (9.8-13.1) 07/16/17 06:47 INR 1.2 (0.9-1.2) 07/16/17 06:47 APTT 31.9 Seconds (25.6-37.1) 07/16/17 06:47 - Constitutional Appears: Non-toxic, No Acute Distress - Head Exam Head Exam: ATRAUMATIC, NORMOCEPHALIC Additional comments: pustular lesion aprox1 cm left side superior lip and 2 similar pustular lesions over left cheek. left parotid swelling, td to palpation - Eye Exam Eye Exam: Normal appearance - ENT Exam ENT Exam: Mucous Membranes Moist - Neck Exam Neck Exam: Tenderness Additional comments: left lateral side submandibular region - Respiratory Exam Respiratory Exam: Clear to Ausculation Bilateral. absent: Rales, Rhonchi, Wheezes - Cardiovascular Exam Cardiovascular Exam: REGULAR RHYTHM, +S1, +S2 - GI/Abdominal Exam GI & Abdominal Exam: Soft, Normal Bowel Sounds. absent: Tenderness - Extremities Exam Extremities Exam: Full ROM - Back Exam Back Exam: NORMAL INSPECTION - Neurological Exam Neurological Exam: Alert, Awake, Oriented x3 Assessment and Plan - Assessment and Plan (Free Text) Plan: 61 YO Male with PMH of leukopenia, neutropenia, glaucoma, wegeners granulomatosis, BPH, DVT, and recurrent cellulitis is admitted for L face cellulitis. 1) Left, Cellulitis of the face, sialadenitis -admit pt to hospital -CT maxilofacial: left facial skin cellulitis, L submandibular and parotid sialadenitis -c/w Clindamycin 600 mg IVPB in ED -will continue Clindamycin 600mg IVPB Q8 -Tylenol, Tramadol, percocet for pain -ID Consult suggested 2) Thrombocytopenia -WBC 2.1 Hgb 8.5 plt 102 -f/u blood cx -Hemo-Onc consult appreciate. 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 home meds, Timolol 5) Macrocytic Anemia -stable - MCV 103.8 -B12 646 and folate 18.3 (11/26/17) -will continue to monitor 6) Prophylaxis -Lovenox 40 SC <Aaron Betancur - Last Filed: 07/20/17 06:54> Objective - Vital Signs/Intake and Output Vital Signs (last 24 hours): Temp Pulse Resp BP Pulse Ox 98.4 F 85 19 99/61 L 96 07/20/17 00:18 07/20/17 00:18 07/20/17 00:18 07/20/17 00:18 07/20/17 00:18 Intake and Output: 07/19/17 07/20/17 18:59 06:59 Intake Total 150 Balance 150 - Medications Medications: Current Medications Acetaminophen (Tylenol 325mg Tab) 650 mg PO Q6 PRN PRN Reason: Fever >100.4 F Last Admin: 07/18/17 00:47 Dose: 650 mg Acetaminophen (Tylenol 325mg Tab) 650 mg PO Q6 PRN PRN Reason: Pain, Mild (1-3) Last Admin: 07/19/17 11:21 Dose: 650 mg Dorzolamide HCl (Trusopt) 1 drop OU BID@0500,1700 [facility] Last Admin: 07/20/17 04:19 Dose: 1 drop Metronidazole (Flagyl 500mg/100ml Ns) 100 mls @ 100 mls/hr IVPB Q8H [facility] PRN Reason: Protocol Last Admin: 07/20/17 04:18 Dose: 100 mls/hr Aztreonam 1 gm/ Sodium (Chloride) 100 mls @ 100 mls/hr IVPB Q12@1100,2300 [facility] PRN Reason: Protocol Last Admin: 07/19/17 22:57 Dose: 100 mls/hr Vancomycin HCl 1 gm/ Sodium (Chloride) 250 mls @ 166.667 mls/hr IVPB Q12@0000, 1200 [facility] PRN Reason: Protocol Last Admin: 07/19/17 23:55 Dose: 166.667 mls/hr Acyclovir 500 mg/ Sodium (Chloride) 100 mls @ 100 mls/hr IVPB Q8 [facility] PRN Reason: Protocol Last Admin: 07/20/17 01:27 Dose: 100 mls/hr Prednisone (Prednisone Tab) 5 mg PO DAILY [facility] Last Admin: 07/19/17 10:09 Dose: 5 mg Tamsulosin HCl (Flomax) 0.4 mg PO BID [facility] Last Admin: 07/19/17 16:17 Dose: 0.4 mg Timolol Maleate (Timoptic 0.5% Ophth Soln) 1 drop OU Q12@0500,1700 [facility] Last Admin: 07/20/17 04:26 Dose: 1 drop Tramadol HCl (Ultram) 50 mg PO Q6 PRN PRN Reason: Pain, moderate (4-7) - Labs Labs: 07/19/17 05:45 07/19/17 05:45 PT 13.1 Seconds (9.8-13.1) 07/16/17 06:47 INR 1.2 (0.9-1.2) 07/16/17 06:47 APTT 31.9 Seconds (25.6-37.1) 07/16/17 06:47 Attending/Attestation - Attestation I have personally seen and examined this patient.: Yes I have fully participated in the care of the patient.: Yes I have reviewed all pertinent clinical information, including history, physical exam and plan: Yes
--- NOTE | 2017-07-18 09:53 | CP.PCM.PN ---
Subjective - Date & Time of Evaluation Date of Evaluation: 07/18/17 Time of Evaluation: 09:51 - Subjective Subjective: Still with left facial swelling. No GI bleeding Objective - Vital Signs/Intake and Output Vital Signs (last 24 hours): Temp Pulse Resp BP Pulse Ox 97.8 F 71 20 112/71 98 07/18/17 08:09 07/18/17 08:09 07/18/17 08:09 07/18/17 08:09 07/18/17 08:09 - Medications Medications: Current Medications Acetaminophen (Tylenol 325mg Tab) 650 mg PO Q6 PRN PRN Reason: Fever >100.4 F Last Admin: 07/18/17 00:47 Dose: 650 mg Acetaminophen (Tylenol 325mg Tab) 650 mg PO Q6 PRN PRN Reason: Pain, Mild (1-3) Last Admin: 07/17/17 18:29 Dose: 650 mg Dorzolamide HCl (Trusopt) 1 drop OU BID@0500,1700 [facility] Last Admin: 07/18/17 05:10 Dose: 1 drop Clindamycin Phosphate (Cleocin In Normal Saline) 600 mg in 50 mls @ 50 mls/hr IVPB Q8 [facility] PRN Reason: Protocol Last Admin: 07/18/17 09:05 Dose: 50 mls/hr Oxycodone/Acetaminophen (Percocet 5/325 Mg Tab) 1 tab PO Q6 PRN PRN Reason: Pain, severe (8-10) Stop: 07/19/17 13:16 Prednisone (Prednisone Tab) 5 mg PO DAILY [facility] Last Admin: 07/18/17 09:06 Dose: 5 mg Tamsulosin HCl (Flomax) 0.4 mg PO BID [facility] Last Admin: 07/18/17 09:06 Dose: 0.4 mg Timolol Maleate (Timoptic 0.5% Ophth Soln) 1 drop OU Q12@0500,1700 [facility] Last Admin: 07/18/17 05:10 Dose: 1 drop Tramadol HCl (Ultram) 50 mg PO Q6 PRN PRN Reason: Pain, moderate (4-7) - Labs Labs: 07/18/17 05:30 07/18/17 05:30 PT 13.1 Seconds (9.8-13.1) 07/16/17 06:47 INR 1.2 (0.9-1.2) 07/16/17 06:47 APTT 31.9 Seconds (25.6-37.1) 07/16/17 06:47 - Head Exam Head Exam: ATRAUMATIC - Eye Exam Eye Exam: Normal appearance Pupil Exam: PERRL - Neck Exam Neck Exam: Normal Inspection - Respiratory Exam Respiratory Exam: Clear to Ausculation Bilateral - Cardiovascular Exam Cardiovascular Exam: +S1, +S2 - GI/Abdominal Exam GI & Abdominal Exam: Soft, Normal Bowel Sounds. absent: Tenderness Assessment and Plan (1) Anemia Assessment & Plan: Hgb stable. Upper endoscopy in AM to r/o gastric ulcer, gastritis or other possible upper GI source of anemia. Status: Acute
--- NOTE | 2017-07-18 20:07 | CP.PCM.PN ---
Subjective - Date & Time of Evaluation Date of Evaluation: 07/18/17 Time of Evaluation: 20:00 - Subjective Subjective: I D NOTE PATIENT SEEN,EXAMINED ,CHART REVIEWED HAVE ADJUSTED ANTIBIOTICS IN VIEW OF POOR RESPONSE TO CLINDAMYCIN ALONE Rx:VANCOMYCIN/FLAGYL/AZACTAM Objective - Vital Signs/Intake and Output Vital Signs (last 24 hours): Temp Pulse Resp BP Pulse Ox 98.1 F 83 18 104/66 96 07/18/17 16:21 07/18/17 16:21 07/18/17 16:21 07/18/17 16:21 07/18/17 16:21 - Medications Medications: Current Medications Acetaminophen (Tylenol 325mg Tab) 650 mg PO Q6 PRN PRN Reason: Fever >100.4 F Last Admin: 07/18/17 00:47 Dose: 650 mg Acetaminophen (Tylenol 325mg Tab) 650 mg PO Q6 PRN PRN Reason: Pain, Mild (1-3) Last Admin: 07/18/17 10:52 Dose: 650 mg Dorzolamide HCl (Trusopt) 1 drop OU BID@0500,1700 [facility] Last Admin: 07/18/17 16:07 Dose: 1 drop Aztreonam 1 gm/ Sodium (Chloride) 100 mls @ 100 mls/hr IVPB Q12 [facility] PRN Reason: Protocol Vancomycin HCl 1 gm/ Sodium (Chloride) 250 mls @ 166.667 mls/hr IVPB Q12 [facility] PRN Reason: Protocol Metronidazole (Flagyl 500mg/100ml Ns) 100 mls @ 100 mls/hr IVPB Q8H [facility] PRN Reason: Protocol Oxycodone/Acetaminophen (Percocet 5/325 Mg Tab) 1 tab PO Q6 PRN PRN Reason: Pain, severe (8-10) Stop: 07/19/17 13:16 Prednisone (Prednisone Tab) 5 mg PO DAILY [facility] Last Admin: 07/18/17 09:06 Dose: 5 mg Tamsulosin HCl (Flomax) 0.4 mg PO BID [facility] Last Admin: 07/18/17 16:06 Dose: 0.4 mg Timolol Maleate (Timoptic 0.5% Ophth Soln) 1 drop OU Q12@0500,1700 [facility] Last Admin: 07/18/17 16:06 Dose: 1 drop Tramadol HCl (Ultram) 50 mg PO Q6 PRN PRN Reason: Pain, moderate (4-7) - Labs Labs: 07/18/17 05:30 07/18/17 05:30 PT 13.1 Seconds (9.8-13.1) 07/16/17 06:47 INR 1.2 (0.9-1.2) 07/16/17 06:47 APTT 31.9 Seconds (25.6-37.1) 07/16/17 06:47
[2017-07-18] MEDS: metroNIDAZOLE 500mg/100ml NS 100 ML IVPB SCH (20:56)
[2017-07-18] MEDS ORDERED: Aztreonam 1 GM in Sodium Chloride 0.9% 100 ML IVPB SCH (21:00)
--- NOTE | 2017-07-19 00:14 | CON ---
DATE: INFECTIOUS DISEASE CONSULT HISTORY OF PRESENT ILLNESS: Patient has been seen by me on previous admissions. He came to the emergency room last Monday when he developed pain on the left side of his face. He was given p.o. clindamycin at the time due to multiple allergies, but had to come back early Monday morning because of severe pain and continued swelling on the left facial area. Patient has significant history for leukopenia, neutropenia, glaucoma, Jayjay granulomatosis, BPH, DVT, and recurrent cellulitis. Patient was again seen by the ER physician and noted to have cellulitis in left facial area and neck, and significant swelling with some drainage. Patient denies any fever or chills, or night sweats, and has been afebrile while in the hospital. CT scan noted left facial skin cellulitis, submandibular and parotid sialadenitis. Really appears to be an abscess there.Also would will consider HVZ pending response to changed antibiotic regimen. Patient is alert, cooperative, and pleasant white male. He is followed by Dr. Samano for his leukopenia and neutropenia. PAST SURGICAL HISTORY: Includes gallbladder, right hip surgery, prostate surgery, and hernia repair. PHYSICAL EXAMINATION: GENERAL: Patient is alert, cooperative, and oriented to time and place, and again as noted talkative and quite pleasant. HEENT: Erythema and significant edema noted from the left zygomatic bone to the left cheek, extending to the left side of the neck. He has severe tenderness and it is really erythematous. There is some discharge noted. NECK: Supple. Left medial adenopathy and cellulitis. Lymphadenopathy, left submandibular lymph node, noted. CHEST: Clear. HEART: Regular sinus rhythm. ABDOMEN: Soft. Positive bowel sounds. EXTREMITIES: No CCE. HOSPITAL COURSE: After review of the chart and discussion with patient, patient really showed no improvement on the IV clindamycin. There are no culture results that are positive. Renal is within normal limits. Ferritin is 632. LDH is 240. Creatinine is 0.9. GFR is greater than 60. He shows white count of 2.1, hemoglobin of 8.5, platelets of 102. Patient is going to have some upper endoscopy done by Dr. Avelar in the morning for questionable GI bleeding. HIV is nonreactive. Hepatitis C is negative. At this point in time, we will change IV antibiotics. We will discontinue clindamycin and start vancomycin 1 gram IV piggyback q. 12 hours, Flagyl 500 q. 8 hours, and Azactam 1 gram q.12. Patient was unable to take an MRI. Question if he should have an ENT consult. DIAGNOSES: Cellulitis of the face, sialadenitis, pancytopenia, benign prostatic hypertrophy. Thank you for the consult. We will be following with you. Rocco Barraza MD [facility]
[2017-07-19] MEDS: metroNIDAZOLE 500mg/100ml NS 100 ML IVPB SCH ×3 (04:01→20:00)
[2017-07-19] MEDS: Dorzolamide 2% Ophth Soln OU SCH ×2 (04:03→16:17)
[2017-07-19 06:30] LABS: ALB/GLOB RATIO 0.9 (1.0-2.1); ALBUMIN 3.7 g/dL (3.5-5.0); ALT/SGPT 23 U/L (21-72); AST/SGOT 16 U/L (17-59); BLOOD UREA NITROGEN 15 mg/dl (9-20); CALCIUM 9.3 mg/dL (8.4-10.2); GFR AFRICAN-AMERICAN > 60; GFR NON-AFRICAN AMERICAN > 60
[2017-07-19 06:33] LABS: BASO % 0.5 % (0.0-2.0); EOS % 0.8 % (0.0-4.0); HEMOGLOBIN 8.5 g/dL (12.0-18.0); LYMPH # 0.6 K/uL (1.0-4.3); LYMPH % 31.8 % (20.0-40.0); MEAN CELL VOLUME 102.9 fl (80.0-94.0); MEAN CORPUSCULAR HEMOGLOBIN 34.5 pg (27.0-31.0); MEAN CORPUSCULAR HGB CONC 33.5 g/dL (33.0-37.0); MONO # 0.1 K/uL (0.0-0.8); MONO % 7.9 % (0.0-10.0); NEUT # 1.1 K/uL (1.8-7.0); NRBC % 0.2 % (0.0-0.0); RBC 2.46 Mil/uL (4.40-5.90); RED CELL DISTRIBUTION WIDTH 15.1 % (11.5-14.5)
[2017-07-19 06:46] LABS: WHITE BLOOD COUNT 1.8 K/uL (4.8-10.8)
[2017-07-19] MEDS ORDERED: Lactated Ringer's 1,000 ML IV ONE (08:28)
--- NOTE | 2017-07-19 08:58 | CP.PCM.PN ---
Subjective - Date & Time of Evaluation Date of Evaluation: 07/19/17 Time of Evaluation: 07:20 - Subjective Subjective: Patient seen and examined bedside with Dr Gordon. He stated that Id Dr changed his medications last night. reports that swelling is getting better and he is concerned because his roommate has been coughing and he has hx/o neutropenia Abx changed: Vanco/ flagyl, aztreonam will have pt on neutroenic precaution Objective - Vital Signs/Intake and Output Vital Signs (last 24 hours): Temp Pulse Resp BP Pulse Ox 98.6 F 76 20 109/63 98 07/19/17 08:25 07/19/17 08:25 07/19/17 08:25 07/19/17 08:25 07/19/17 08:25 Intake and Output: 07/19/17 07/19/17 06:59 18:59 Intake Total 50 Balance 50 - Medications Medications: Current Medications Acetaminophen (Tylenol 325mg Tab) 650 mg PO Q6 PRN PRN Reason: Fever >100.4 F Last Admin: 07/18/17 00:47 Dose: 650 mg Acetaminophen (Tylenol 325mg Tab) 650 mg PO Q6 PRN PRN Reason: Pain, Mild (1-3) Last Admin: 07/18/17 20:04 Dose: 650 mg Dorzolamide HCl (Trusopt) 1 drop OU BID@0500,1700 [facility] Last Admin: 07/19/17 04:03 Dose: 1 drop Metronidazole (Flagyl 500mg/100ml Ns) 100 mls @ 100 mls/hr IVPB Q8H [facility] PRN Reason: Protocol Last Admin: 07/19/17 04:01 Dose: 100 mls/hr Aztreonam 1 gm/ Sodium (Chloride) 100 mls @ 100 mls/hr IVPB Q12@1100,2300 [facility] PRN Reason: Protocol Vancomycin HCl 1 gm/ Sodium (Chloride) 250 mls @ 166.667 mls/hr IVPB Q12@0000, 1200 [facility] PRN Reason: Protocol Oxycodone/Acetaminophen (Percocet 5/325 Mg Tab) 1 tab PO Q6 PRN PRN Reason: Pain, severe (8-10) Stop: 07/19/17 13:16 Prednisone (Prednisone Tab) 5 mg PO DAILY [facility] Last Admin: 07/18/17 09:06 Dose: 5 mg Tamsulosin HCl (Flomax) 0.4 mg PO BID [facility] Last Admin: 07/18/17 16:06 Dose: 0.4 mg Timolol Maleate (Timoptic 0.5% Ophth Soln) 1 drop OU Q12@0500,1700 [facility] Last Admin: 07/19/17 04:00 Dose: 1 drop Tramadol HCl (Ultram) 50 mg PO Q6 PRN PRN Reason: Pain, moderate (4-7) - Labs Labs: 07/19/17 05:45 07/19/17 05:45 PT 13.1 Seconds (9.8-13.1) 07/16/17 06:47 INR 1.2 (0.9-1.2) 07/16/17 06:47 APTT 31.9 Seconds (25.6-37.1) 07/16/17 06:47 - Constitutional Appears: Non-toxic, No Acute Distress - Head Exam Head Exam: ATRAUMATIC, NORMOCEPHALIC - Eye Exam Eye Exam: Normal appearance - ENT Exam ENT Exam: Normal Exam - Respiratory Exam Respiratory Exam: absent: Rales, Rhonchi, Wheezes - Cardiovascular Exam Cardiovascular Exam: REGULAR RHYTHM. absent: +S1, +S2 - GI/Abdominal Exam GI & Abdominal Exam: Soft, Normal Bowel Sounds. absent: Tenderness - Extremities Exam Extremities Exam: Normal Inspection. absent: Pedal Edema - Back Exam Back Exam: NORMAL INSPECTION - Neurological Exam Neurological Exam: Alert, Awake, Oriented x3 - Psychiatric Exam Psychiatric exam: Normal Mood - Skin Additional comments: pustular lesion aprox1 cm left side superior lip and 2 similar pustular lesions over left cheek. left parotid swelling, td to palpation Assessment and Plan - Assessment and Plan (Free Text) Plan: 61 YO Male with PMH of leukopenia, neutropenia, glaucoma, wegeners granulomatosis, BPH, DVT, and recurrent cellulitis is admitted for L face cellulitis. 1) Left, Cellulitis of the face, sialadenitis -admit pt to hospital -CT maxilofacial: left facial skin cellulitis, L submandibular and parotid sialadenitis -Stop Clinda -Started Vancomycin, Flagyl, Azactam -Tylenol, Tramadol, percocet for pain -ID Consult appreciated 2) Thrombocytopenia -WBC 1.8 Hgb 8.5 plt 102 -ANC 1.0 -f/u blood cx -Hemo-Onc Dr Samano consult appreciated. s/p transfused 1 unit. notified about ANC, suggest Filgastrim 480 mcg SC and neutropenic precaution -GI consult appreciated: to r/o GI condition inducing anemia. EGD normal.biopsy done. 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
[2017-07-19] MEDS ORDERED: Propofol 10 mg/ml Inj (20 ML) ONE (09:01)
[2017-07-19] MEDS ORDERED: Lidocaine 2% MPF (5 ml) Inj ONE (09:02)
[2017-07-19] MEDS: Aztreonam 1 GM in Sodium Chloride 0.9% 100 ML IVPB SCH ×2 (10:34→22:57)
--- NOTE | 2017-07-19 17:20 | CP.PCM.PN ---
Subjective - Date & Time of Evaluation Date of Evaluation: 07/19/17 Time of Evaluation: 17:15 - Subjective Subjective: I D NOTE WBC:1.8 SWELLING HAS DESREASED,LESS TENDER HAVE ORDERED VARICELLA ZOSTER TITERS STARTED ACYCLOVIR TO COVER ZOSTER CONSIDERING SEVERE LEUKOPENIA Objective - Vital Signs/Intake and Output Vital Signs (last 24 hours): Temp Pulse Resp BP Pulse Ox 98.1 F 90 18 104/64 99 07/19/17 16:09 07/19/17 16:09 07/19/17 16:09 07/19/17 16:09 07/19/17 16:09 Intake and Output: 07/19/17 07/19/17 06:59 18:59 Intake Total 150 Balance 150 - Medications Medications: Current Medications Acetaminophen (Tylenol 325mg Tab) 650 mg PO Q6 PRN PRN Reason: Fever >100.4 F Last Admin: 07/18/17 00:47 Dose: 650 mg Acetaminophen (Tylenol 325mg Tab) 650 mg PO Q6 PRN PRN Reason: Pain, Mild (1-3) Last Admin: 07/19/17 11:21 Dose: 650 mg Dorzolamide HCl (Trusopt) 1 drop OU BID@0500,1700 [facility] Last Admin: 07/19/17 16:17 Dose: 1 drop Metronidazole (Flagyl 500mg/100ml Ns) 100 mls @ 100 mls/hr IVPB Q8H [facility] PRN Reason: Protocol Last Admin: 07/19/17 11:22 Dose: 100 mls/hr Aztreonam 1 gm/ Sodium (Chloride) 100 mls @ 100 mls/hr IVPB Q12@1100,2300 [facility] PRN Reason: Protocol Last Admin: 07/19/17 10:34 Dose: 100 mls/hr Vancomycin HCl 1 gm/ Sodium (Chloride) 250 mls @ 166.667 mls/hr IVPB Q12@0000, 1200 [facility] PRN Reason: Protocol Last Admin: 07/19/17 11:24 Dose: 166.667 mls/hr Acyclovir 500 mg/ Sodium (Chloride) 100 mls @ 100 mls/hr IVPB Q8 [facility] PRN Reason: Protocol Prednisone (Prednisone Tab) 5 mg PO DAILY [facility] Last Admin: 07/19/17 10:09 Dose: 5 mg Tamsulosin HCl (Flomax) 0.4 mg PO BID [facility] Last Admin: 07/19/17 16:17 Dose: 0.4 mg Timolol Maleate (Timoptic 0.5% Ophth Soln) 1 drop OU Q12@0500,1700 [facility] Last Admin: 07/19/17 16:17 Dose: 1 drop Tramadol HCl (Ultram) 50 mg PO Q6 PRN PRN Reason: Pain, moderate (4-7) - Labs Labs: 07/19/17 05:45 07/19/17 05:45 PT 13.1 Seconds (9.8-13.1) 07/16/17 06:47 INR 1.2 (0.9-1.2) 07/16/17 06:47 APTT 31.9 Seconds (25.6-37.1) 07/16/17 06:47
[2017-07-20] MEDS: Acyclovir 500 MG in Sodium Chloride 0.9% 100 ML IVPB SCH ×3 (01:27→16:45)
[2017-07-20] MEDS: metroNIDAZOLE 500mg/100ml NS 100 ML IVPB SCH ×3 (04:18→19:57)
[2017-07-20] MEDS: Dorzolamide 2% Ophth Soln OU SCH ×2 (04:19→16:42)
[2017-07-20 07:16] LABS: BASO % 0.3 % (0.0-2.0); EOS % 0.3 % (0.0-4.0); HEMOGLOBIN 8.9 g/dL (12.0-18.0); LYMPH % 13.7 % (20.0-40.0); MEAN CELL VOLUME 102.9 fl (80.0-94.0); MEAN CORPUSCULAR HEMOGLOBIN 34.8 pg (27.0-31.0); MEAN CORPUSCULAR HGB CONC 33.8 g/dL (33.0-37.0); MEAN PLATELET VOLUME 7.8 fl (7.2-11.7); MONO # 0.3 K/uL (0.0-0.8); MONO % 3.6 % (0.0-10.0); NEUT # 5.8 K/uL (1.8-7.0); NEUT % 82.1 % (50.0-75.0); NRBC % 0.1 % (0.0-0.0); RBC 2.56 Mil/uL (4.40-5.90); RED CELL DISTRIBUTION WIDTH 15.6 % (11.5-14.5); WHITE BLOOD COUNT 7.1 K/uL (4.8-10.8)
[2017-07-20 07:21] LABS: ALB/GLOB RATIO 0.9 (1.0-2.1); ALBUMIN 3.7 g/dL (3.5-5.0); ALT/SGPT 21 U/L (21-72); AST/SGOT 18 U/L (17-59); BLOOD UREA NITROGEN 14 mg/dl (9-20); CALCIUM 9.6 mg/dL (8.4-10.2); GFR AFRICAN-AMERICAN > 60; GFR NON-AFRICAN AMERICAN > 60
--- NOTE | 2017-07-20 08:58 | CP.PCM.PN ---
Subjective - Date & Time of Evaluation Date of Evaluation: 07/20/17 Time of Evaluation: 08:50 - Subjective Subjective: Pt is afebrile, still has redness ad lesions on the mandibular area ?zoster. He is on antibiotics for the same. He was given granix yesterday since his ANC was 1000. Today the WBC is 7.1, hgb 8.9gms platelets 95k, and ANC is 5.8. His haptoglobin was normal, as was the B12, ferritin, ldh and bilirubin. He had a endoscopy which showed patches of erythema, but no acute bleed. I freel just to be sure he may need a colonoscopy as well. If there is no evidence of bleeding, will do bone marrow test. Objective - Vital Signs/Intake and Output Vital Signs (last 24 hours): Temp Pulse Resp BP Pulse Ox 98.4 F 84 20 113/71 97 07/20/17 07:57 07/20/17 07:57 07/20/17 07:57 07/20/17 07:57 07/20/17 07:57 - Medications Medications: Current Medications Acetaminophen (Tylenol 325mg Tab) 650 mg PO Q6 PRN PRN Reason: Fever >100.4 F Last Admin: 07/18/17 00:47 Dose: 650 mg Acetaminophen (Tylenol 325mg Tab) 650 mg PO Q6 PRN PRN Reason: Pain, Mild (1-3) Last Admin: 07/19/17 11:21 Dose: 650 mg Dorzolamide HCl (Trusopt) 1 drop OU BID@0500,1700 [facility] Last Admin: 07/20/17 04:19 Dose: 1 drop Metronidazole (Flagyl 500mg/100ml Ns) 100 mls @ 100 mls/hr IVPB Q8H [facility] PRN Reason: Protocol Last Admin: 07/20/17 04:18 Dose: 100 mls/hr Aztreonam 1 gm/ Sodium (Chloride) 100 mls @ 100 mls/hr IVPB Q12@1100,2300 [facility] PRN Reason: Protocol Last Admin: 07/19/17 22:57 Dose: 100 mls/hr Vancomycin HCl 1 gm/ Sodium (Chloride) 250 mls @ 166.667 mls/hr IVPB Q12@0000, 1200 [facility] PRN Reason: Protocol Last Admin: 07/19/17 23:55 Dose: 166.667 mls/hr Acyclovir 500 mg/ Sodium (Chloride) 100 mls @ 100 mls/hr IVPB Q8 [facility] PRN Reason: Protocol Last Admin: 07/20/17 01:27 Dose: 100 mls/hr Prednisone (Prednisone Tab) 5 mg PO DAILY [facility] Last Admin: 07/19/17 10:09 Dose: 5 mg Tamsulosin HCl (Flomax) 0.4 mg PO BID [facility] Last Admin: 07/19/17 16:17 Dose: 0.4 mg Timolol Maleate (Timoptic 0.5% Oph Soln) 1 drop OU Q12@0500,1700 [facility] Last Admin: 07/20/17 04:26 Dose: 1 drop Tramadol HCl (Ultram) 50 mg PO Q6 PRN PRN Reason: Pain, moderate (4-7) - Labs Labs: 07/20/17 06:00 07/20/17 06:00 PT 13.1 Seconds (9.8-13.1) 07/16/17 06:47 INR 1.2 (0.9-1.2) 07/16/17 06:47 APTT 31.9 Seconds (25.6-37.1) 07/16/17 06:47
--- NOTE | 2017-07-20 10:21 | CP.PCM.PN ---
Addendum entered and electronically signed by Maria Alejandra Hinton MD 07/20/17 14:54: Prednisone dose increased to 10 mg daily Original Note: <Maria Alejandra Hinton - Last Filed: 07/20/17 14:50> Subjective - Date & Time of Evaluation Date of Evaluation: 07/20/17 Time of Evaluation: 07:15 - Subjective Subjective: Patient seen and examined bedside with Dr Betancur. Patient reports feeling better. Patient denies fever, odynophagia, dysphagia, SOB, chest pain, palpitation. Patient on neutropenic precaution. PAtient states that he does not want a PICC Line. Will notified nurse to try other periphery vein. WBC improved to 7.1 Objective - Vital Signs/Intake and Output Vital Signs (last 24 hours): Temp Pulse Resp BP Pulse Ox 98.4 F 84 20 113/71 97 07/20/17 07:57 07/20/17 07:57 07/20/17 07:57 07/20/17 07:57 07/20/17 07:57 - Medications Medications: Current Medications Acetaminophen (Tylenol 325mg Tab) 650 mg PO Q6 PRN PRN Reason: Fever >100.4 F Last Admin: 07/18/17 00:47 Dose: 650 mg Acetaminophen (Tylenol 325mg Tab) 650 mg PO Q6 PRN PRN Reason: Pain, Mild (1-3) Last Admin: 07/20/17 08:59 Dose: 650 mg Dorzolamide HCl (Trusopt) 1 drop OU BID@0500,1700 [facility] Last Admin: 07/20/17 04:19 Dose: 1 drop Metronidazole (Flagyl 500mg/100ml Ns) 100 mls @ 100 mls/hr IVPB Q8H [facility] PRN Reason: Protocol Last Admin: 07/20/17 04:18 Dose: 100 mls/hr Aztreonam 1 gm/ Sodium (Chloride) 100 mls @ 100 mls/hr IVPB Q12@1100,2300 [facility] PRN Reason: Protocol Last Admin: 07/19/17 22:57 Dose: 100 mls/hr Vancomycin HCl 1 gm/ Sodium (Chloride) 250 mls @ 166.667 mls/hr IVPB Q12@0000, 1200 [facility] PRN Reason: Protocol Last Admin: 07/19/17 23:55 Dose: 166.667 mls/hr Acyclovir 500 mg/ Sodium (Chloride) 100 mls @ 100 mls/hr IVPB Q8 [facility] PRN Reason: Protocol Last Admin: 07/20/17 08:55 Dose: 100 mls/hr Prednisone (Prednisone Tab) 5 mg PO DAILY [facility] Last Admin: 07/20/17 08:54 Dose: 5 mg Tamsulosin HCl (Flomax) 0.4 mg PO BID [facility] Last Admin: 07/20/17 08:54 Dose: 0.4 mg Timolol Maleate (Timoptic 0.5% Ophth Soln) 1 drop OU Q12@0500,1700 [facility] Last Admin: 07/20/17 04:26 Dose: 1 drop Tramadol HCl (Ultram) 50 mg PO Q6 PRN PRN Reason: Pain, moderate (4-7) - Labs Labs: 07/20/17 06:00 07/20/17 06:00 PT 13.1 Seconds (9.8-13.1) 07/16/17 06:47 INR 1.2 (0.9-1.2) 07/16/17 06:47 APTT 31.9 Seconds (25.6-37.1) 07/16/17 06:47 - Constitutional Appears: Non-toxic, No Acute Distress - Head Exam Head Exam: ATRAUMATIC, NORMOCEPHALIC Additional comments: pustular lesion aprox 1 cm left side superior lip and 2 similar pustular lesions over left cheek improving. left parotid less swollen, td to palpation, less erythema around left cheek. - Eye Exam Eye Exam: Normal appearance - ENT Exam ENT Exam: Mucous Membranes Moist - Neck Exam Neck Exam: Full ROM Additional comments: mild lateral neck swelling - Respiratory Exam Respiratory Exam: Clear to Ausculation Bilateral. absent: Rales, Rhonchi, Wheezes, Stridor - Cardiovascular Exam Cardiovascular Exam: REGULAR RHYTHM, +S1, +S2 - GI/Abdominal Exam GI & Abdominal Exam: Soft, Normal Bowel Sounds. absent: Tenderness - Extremities Exam Extremities Exam: Normal Inspection. absent: Pedal Edema - Neurological Exam Neurological Exam: Alert, Awake, Oriented x3 - Psychiatric Exam Psychiatric exam: Normal Affect, Normal Mood - Skin Additional comments: pustular lesion aprox 1 cm left side superior lip and 2 similar pustular lesions over left cheek improving. left parotid less swollen, td to palpation, less erythema around left cheek. Assessment and Plan - Assessment and Plan (Free Text) Plan: 61 YO Male with PMH of leukopenia, neutropenia, glaucoma, wegeners granulomatosis, BPH, DVT, and recurrent cellulitis is admitted for L face cellulitis. 1) Left, Cellulitis of the face, sialadenitis -furuncle x 3 (1 over lip and 2 over left cheek ) -possible secondary to herpes zoster infection in a neutropenic patient -CT maxilofacial: left facial skin cellulitis, L submandibular and parotid sialadenitis - Vancomycin day #1 -Flagyl day # 2, -Azactam day # 1 -Acyclovir day #1 -Tylenol, Tramadol, percocet for pain -ID Consult appreciated: c/w abx 2) Thrombocytopenia -possible secondary to autoinmune disease( ESR >120, C react prot 86) -improving, s/p Filgastrim 480 mcg SC -s/p 1 unit rBC transfusion -WBC 7.1 Hgb 8.9 plt 95 -ANC 5.8 -Neutropenic precaution -f/u blood cx -Hemo-Onc Dr Samano consult appreciated. may need bone marrow biopsy -GI consult appreciated: to r/o GI condition inducing anemia. EGD normal.f/u biopsy.May need colonoscopy. -will consider Sales And Marketing Coordinator consult on discharge. 3) BPH -stable -has surgery scheduled next week -Urologist consult suggested Dr Gonzales -continue home med, flomax 4) Glucoma -stable -will continue home meds, Timolol 5) Macrocytic Anemia -stable - MCV 103.8 -B12 646 and folate 18.3 (05/28/17) -will continue to monitor 6) Prophylaxis -SCD -Lovenox hold due to pancytopenia <Aaron Betancur - Last Filed: 07/21/17 06:52> Objective - Vital Signs/Intake and Output Vital Signs (last 24 hours): Temp Pulse Resp BP Pulse Ox 98.2 F 78 19 120/69 97 07/21/17 00:00 07/21/17 00:00 07/21/17 00:00 07/21/17 00:00 07/21/17 00:00 - Medications Medications: Current Medications Acetaminophen (Tylenol 325mg Tab) 650 mg PO Q6 PRN PRN Reason: Fever >100.4 F Last Admin: 07/18/17 00:47 Dose: 650 mg Acetaminophen (Tylenol 325mg Tab) 650 mg PO Q6 PRN PRN Reason: Pain, Mild (1-3) Last Admin: 07/20/17 23:19 Dose: 650 mg Dorzolamide HCl (Trusopt) 1 drop OU BID@0500,1700 [facility] Last Admin: 07/21/17 04:03 Dose: 1 drop Metronidazole (Flagyl 500mg/100ml Ns) 100 mls @ 100 mls/hr IVPB Q8H [facility] PRN Reason: Protocol Last Admin: 07/21/17 04:02 Dose: 100 mls/hr Aztreonam 1 gm/ Sodium (Chloride) 100 mls @ 100 mls/hr IVPB Q12@1100,2300 [facility] PRN Reason: Protocol Last Admin: 07/20/17 23:16 Dose: 100 mls/hr Acyclovir 500 mg/ Sodium (Chloride) 100 mls @ 100 mls/hr IVPB Q8 [facility] PRN Reason: Protocol Last Admin: 07/21/17 01:34 Dose: 100 mls/hr Vancomycin HCl 750 mg/ Sodium (Chloride) 100 mls @ 100 mls/hr IVPB Q12 [facility] PRN Reason: Protocol Last Admin: 07/20/17 21:09 Dose: 100 mls/hr Prednisone (Prednisone Tab) 10 mg PO DAILY [facility] Tamsulosin HCl (Flomax) 0.4 mg PO BID [facility] Last Admin: 07/20/17 16:42 Dose: 0.4 mg Timolol Maleate (Timoptic 0.5% Oph Soln) 1 drop OU Q12@0500,1700 [facility] Last Admin: 07/21/17 04:03 Dose: 1 drop Tramadol HCl (Ultram) 50 mg PO Q6 PRN PRN Reason: Pain, moderate (4-7) - Labs Labs: 07/20/17 06:00 07/20/17 06:00 PT 13.1 Seconds (9.8-13.1) 07/16/17 06:47 INR 1.2 (0.9-1.2) 07/16/17 06:47 APTT 31.9 Seconds (25.6-37.1) 07/16/17 06:47 Attending/Attestation - Attestation I have personally seen and examined this patient.: Yes I have fully participated in the care of the patient.: Yes I have reviewed all pertinent clinical information, including history, physical exam and plan: Yes
[2017-07-20] MEDS: Aztreonam 1 GM in Sodium Chloride 0.9% 100 ML IVPB SCH ×2 (10:47→23:16)
--- NOTE | 2017-07-20 18:47 | CP.PCM.PN ---
Subjective - Date & Time of Evaluation Date of Evaluation: 07/20/17 Time of Evaluation: 18:46 - Subjective Subjective: I D NOTE WBC TODAY IS 7.1,WAS GIVEN GRANIX AWAITING VZ IGG/IGM THIS APPEARS TO BE BACTERIAL C POSSIBLE SUPERIMPOSED ZOSTER IMPROVING BUT WE NEED TO CONTINUE c IV COVERAGE, WOULD BE UNABLE TO COVER C ORALS, HAVE ADJUSTED VANCOMYCIN DOSE SED RATE IS>120 Objective - Vital Signs/Intake and Output Vital Signs (last 24 hours): Temp Pulse Resp BP Pulse Ox 98 F 115 H 18 135/63 96 07/20/17 16:00 07/20/17 16:00 07/20/17 16:00 07/20/17 16:00 07/20/17 16:00 - Medications Medications: Current Medications Acetaminophen (Tylenol 325mg Tab) 650 mg PO Q6 PRN PRN Reason: Fever >100.4 F Last Admin: 07/18/17 00:47 Dose: 650 mg Acetaminophen (Tylenol 325mg Tab) 650 mg PO Q6 PRN PRN Reason: Pain, Mild (1-3) Last Admin: 07/20/17 08:59 Dose: 650 mg Dorzolamide HCl (Trusopt) 1 drop OU BID@0500,1700 [facility] Last Admin: 07/20/17 16:42 Dose: 1 drop Metronidazole (Flagyl 500mg/100ml Ns) 100 mls @ 100 mls/hr IVPB Q8H [facility] PRN Reason: Protocol Last Admin: 07/20/17 12:14 Dose: 100 mls/hr Aztreonam 1 gm/ Sodium (Chloride) 100 mls @ 100 mls/hr IVPB Q12@1100,2300 [facility] PRN Reason: Protocol Last Admin: 07/20/17 10:47 Dose: 100 mls/hr Acyclovir 500 mg/ Sodium (Chloride) 100 mls @ 100 mls/hr IVPB Q8 [facility] PRN Reason: Protocol Last Admin: 07/20/17 16:45 Dose: 100 mls/hr Vancomycin HCl 750 mg/ Sodium (Chloride) 100 mls @ 100 mls/hr IVPB Q12 [facility] PRN Reason: Protocol Prednisone (Prednisone Tab) 10 mg PO DAILY [facility] Tamsulosin HCl (Flomax) 0.4 mg PO BID [facility] Last Admin: 07/20/17 16:42 Dose: 0.4 mg Timolol Maleate (Timoptic 0.5% Ophth Soln) 1 drop OU Q12@0500,1700 [facility] Last Admin: 07/20/17 16:43 Dose: 1 drop Tramadol HCl (Ultram) 50 mg PO Q6 PRN PRN Reason: Pain, moderate (4-7) - Labs Labs: 07/20/17 06:00 07/20/17 06:00 PT 13.1 Seconds (9.8-13.1) 07/16/17 06:47 INR 1.2 (0.9-1.2) 07/16/17 06:47 APTT 31.9 Seconds (25.6-37.1) 07/16/17 06:47
--- NOTE | 2017-07-20 20:34 | CP.PCM.PN ---
Subjective - Date & Time of Evaluation Date of Evaluation: 07/20/17 Time of Evaluation: 20:32 - Subjective Subjective: Facial swelling and pain are somewhat better. Hgb remains stable. Receiced GSF. Objective - Vital Signs/Intake and Output Vital Signs (last 24 hours): Temp Pulse Resp BP Pulse Ox 98 F 115 H 18 135/63 96 07/20/17 16:00 07/20/17 16:00 07/20/17 16:00 07/20/17 16:00 07/20/17 16:00 - Medications Medications: Current Medications Acetaminophen (Tylenol 325mg Tab) 650 mg PO Q6 PRN PRN Reason: Fever >100.4 F Last Admin: 07/18/17 00:47 Dose: 650 mg Acetaminophen (Tylenol 325mg Tab) 650 mg PO Q6 PRN PRN Reason: Pain, Mild (1-3) Last Admin: 07/20/17 08:59 Dose: 650 mg Dorzolamide HCl (Trusopt) 1 drop OU BID@0500,1700 [facility] Last Admin: 07/20/17 16:42 Dose: 1 drop Metronidazole (Flagyl 500mg/100ml Ns) 100 mls @ 100 mls/hr IVPB Q8H [facility] PRN Reason: Protocol Last Admin: 07/20/17 19:57 Dose: 100 mls/hr Aztreonam 1 gm/ Sodium (Chloride) 100 mls @ 100 mls/hr IVPB Q12@1100,2300 [facility] PRN Reason: Protocol Last Admin: 07/20/17 10:47 Dose: 100 mls/hr Acyclovir 500 mg/ Sodium (Chloride) 100 mls @ 100 mls/hr IVPB Q8 [facility] PRN Reason: Protocol Last Admin: 07/20/17 16:45 Dose: 100 mls/hr Vancomycin HCl 750 mg/ Sodium (Chloride) 100 mls @ 100 mls/hr IVPB Q12 [facility] PRN Reason: Protocol Prednisone (Prednisone Tab) 10 mg PO DAILY [facility] Tamsulosin HCl (Flomax) 0.4 mg PO BID [facility] Last Admin: 07/20/17 16:42 Dose: 0.4 mg Timolol Maleate (Timoptic 0.5% Ophth Soln) 1 drop OU Q12@0500,1700 [facility] Last Admin: 07/20/17 16:43 Dose: 1 drop Tramadol HCl (Ultram) 50 mg PO Q6 PRN PRN Reason: Pain, moderate (4-7) - Labs Labs: 07/20/17 06:00 07/20/17 06:00 PT 13.1 Seconds (9.8-13.1) 07/16/17 06:47 INR 1.2 (0.9-1.2) 07/16/17 06:47 APTT 31.9 Seconds (25.6-37.1) 07/16/17 06:47 - Head Exam Additional comments: Furuncles and erythema better. - Eye Exam Eye Exam: EOMI Pupil Exam: PERRL - ENT Exam ENT Exam: Mucous Membranes Moist - Neck Exam Neck Exam: Normal Inspection - Respiratory Exam Respiratory Exam: NORMAL BREATHING PATTERN - Cardiovascular Exam Cardiovascular Exam: REGULAR RHYTHM - GI/Abdominal Exam GI & Abdominal Exam: Soft, Normal Bowel Sounds. absent: Tenderness Assessment and Plan (1) Anemia Assessment & Plan: Hgb remains stable. Endoscopy showed gastritis but no evidence of bleeding.Biopsies pending Status: Acute (2) Cellulitis and abscess of face Assessment & Plan: Patient on tiple bacterial coverage and acyclovir. WBC has responded nicely to GSF. Status: Acute
[2017-07-21] MEDS: Acyclovir 500 MG in Sodium Chloride 0.9% 100 ML IVPB SCH ×3 (01:34→17:17)
[2017-07-21] MEDS: metroNIDAZOLE 500mg/100ml NS 100 ML IVPB SCH ×3 (04:02→20:33)
[2017-07-21] MEDS: Dorzolamide 2% Ophth Soln OU SCH ×2 (04:03→17:14)
[2017-07-21 07:44] LABS: EOS % 0.8 % (0.0-4.0); HEMOGLOBIN 8.1 g/dL (12.0-18.0); LYMPH # 0.8 K/uL (1.0-4.3); LYMPH % 34.5 % (20.0-40.0); MEAN CELL VOLUME 102.6 fl (80.0-94.0); MEAN CORPUSCULAR HEMOGLOBIN 34.8 pg (27.0-31.0); MEAN CORPUSCULAR HGB CONC 33.9 g/dL (33.0-37.0); MONO # 0.2 K/uL (0.0-0.8); MONO % 8.4 % (0.0-10.0); NEUT # 1.2 K/uL (1.8-7.0); NEUT % 55.3 % (50.0-75.0); NRBC % 0.2 % (0.0-0.0); RBC 2.32 Mil/uL (4.40-5.90); RED CELL DISTRIBUTION WIDTH 15.6 % (11.5-14.5); WHITE BLOOD COUNT 2.2 K/uL (4.8-10.8)
[2017-07-21 08:00] LABS: PLATELET COUNT 90 K/uL (130-400)
[2017-07-21 08:01] LABS: ALB/GLOB RATIO 0.8 (1.0-2.1); ALBUMIN 3.3 g/dL (3.5-5.0); ALT/SGPT 26 U/L (21-72); AST/SGOT 15 U/L (17-59); BLOOD UREA NITROGEN 14 mg/dl (9-20); CALCIUM 9.1 mg/dL (8.4-10.2); GFR AFRICAN-AMERICAN > 60; GFR NON-AFRICAN AMERICAN > 60
--- NOTE | 2017-07-21 09:04 | CP.PCM.PN ---
Subjective - Date & Time of Evaluation Date of Evaluation: 07/21/17 Time of Evaluation: 09:01 - Subjective Subjective: Patient feeling less pain and swelling of face.No overt GI bleeding. Objective - Vital Signs/Intake and Output Vital Signs (last 24 hours): Temp Pulse Resp BP Pulse Ox 98.3 F 72 20 110/58 L 95 07/21/17 08:44 07/21/17 08:44 07/21/17 08:44 07/21/17 08:44 07/21/17 08:44 - Medications Medications: Current Medications Acetaminophen (Tylenol 325mg Tab) 650 mg PO Q6 PRN PRN Reason: Fever >100.4 F Last Admin: 07/18/17 00:47 Dose: 650 mg Acetaminophen (Tylenol 325mg Tab) 650 mg PO Q6 PRN PRN Reason: Pain, Mild (1-3) Last Admin: 07/20/17 23:19 Dose: 650 mg Dorzolamide HCl (Trusopt) 1 drop OU BID@0500,1700 [facility] Last Admin: 07/21/17 04:03 Dose: 1 drop Metronidazole (Flagyl 500mg/100ml Ns) 100 mls @ 100 mls/hr IVPB Q8H [facility] PRN Reason: Protocol Last Admin: 07/21/17 04:02 Dose: 100 mls/hr Aztreonam 1 gm/ Sodium (Chloride) 100 mls @ 100 mls/hr IVPB Q12@1100,2300 [facility] PRN Reason: Protocol Last Admin: 07/20/17 23:16 Dose: 100 mls/hr Acyclovir 500 mg/ Sodium (Chloride) 100 mls @ 100 mls/hr IVPB Q8 [facility] PRN Reason: Protocol Last Admin: 07/21/17 01:34 Dose: 100 mls/hr Vancomycin HCl 750 mg/ Sodium (Chloride) 100 mls @ 100 mls/hr IVPB Q12 [facility] PRN Reason: Protocol Last Admin: 07/20/17 21:09 Dose: 100 mls/hr Prednisone (Prednisone Tab) 10 mg PO DAILY [facility] Tamsulosin HCl (Flomax) 0.4 mg PO BID [facility] Last Admin: 07/20/17 16:42 Dose: 0.4 mg Timolol Maleate (Timoptic 0.5% Ophth Soln) 1 drop OU Q12@0500,1700 [facility] Last Admin: 07/21/17 04:03 Dose: 1 drop Tramadol HCl (Ultram) 50 mg PO Q6 PRN PRN Reason: Pain, moderate (4-7) - Labs Labs: 07/21/17 06:59 07/21/17 06:59 PT 13.1 Seconds (9.8-13.1) 07/16/17 06:47 INR 1.2 (0.9-1.2) 07/16/17 06:47 APTT 31.9 Seconds (25.6-37.1) 07/16/17 06:47 - Head Exam Head Exam: ATRAUMATIC Additional comments: Crusted areas on left face appear to be shrinking. Less swelling. - Eye Exam Pupil Exam: PERRL - Neck Exam Neck Exam: Full ROM - Respiratory Exam Respiratory Exam: NORMAL BREATHING PATTERN - Cardiovascular Exam Cardiovascular Exam: +S1, +S2 - GI/Abdominal Exam GI & Abdominal Exam: Soft, Normal Bowel Sounds. absent: Tenderness Assessment and Plan (1) Anemia Assessment & Plan: Upper endoscopy showed gastritis. Has unexplained anemia and will schedule colonoscopy Monday. Infection on face much better. Status: Acute (2) Cellulitis and abscess of face Status: Acute
--- NOTE | 2017-07-21 09:31 | CP.PCM.PN ---
<Maria Alejandra Hinton - Last Filed: 07/21/17 15:40> Subjective - Date & Time of Evaluation Date of Evaluation: 07/21/17 Time of Evaluation: 07:00 - Subjective Subjective: Patient seen and examined bedside with Dr Betancur. Patient reports feeling better and reports less face swelling. He denies fever, n,v,abd pain, dysphagia , SOB, Chest pain Noticed leukopenia again today WBC 2.2 Dr Samano notified and ordered Filgastrim x 1 dose. Patients Performance Improvement Director called yesterday Dr Mckeon covering Dr James Cosme and notified about patient hospitalization. states that patient is seen in the office with the diagnosis of Relapsing Polychondritis and recommends to c/w Prednisone 10 mg daily. Objective - Vital Signs/Intake and Output Vital Signs (last 24 hours): Temp Pulse Resp BP Pulse Ox 98.3 F 72 20 110/58 L 95 07/21/17 08:44 07/21/17 08:44 07/21/17 08:44 07/21/17 08:44 07/21/17 08:44 - Medications Medications: Current Medications Acetaminophen (Tylenol 325mg Tab) 650 mg PO Q6 PRN PRN Reason: Fever >100.4 F Last Admin: 07/18/17 00:47 Dose: 650 mg Acetaminophen (Tylenol 325mg Tab) 650 mg PO Q6 PRN PRN Reason: Pain, Mild (1-3) Last Admin: 07/20/17 23:19 Dose: 650 mg Bisacodyl (Dulcolax) 20 mg PO ONCE ONE Stop: 07/23/17 15:01 Dorzolamide HCl (Trusopt) 1 drop OU BID@0500,1700 [facility] Last Admin: 07/21/17 04:03 Dose: 1 drop Metronidazole (Flagyl 500mg/100ml Ns) 100 mls @ 100 mls/hr IVPB Q8H [facility] PRN Reason: Protocol Last Admin: 07/21/17 04:02 Dose: 100 mls/hr Aztreonam 1 gm/ Sodium (Chloride) 100 mls @ 100 mls/hr IVPB Q12@1100,2300 [facility] PRN Reason: Protocol Last Admin: 07/20/17 23:16 Dose: 100 mls/hr Acyclovir 500 mg/ Sodium (Chloride) 100 mls @ 100 mls/hr IVPB Q8 [facility] PRN Reason: Protocol Last Admin: 07/21/17 09:07 Dose: 100 mls/hr Vancomycin HCl 750 mg/ Sodium (Chloride) 100 mls @ 100 mls/hr IVPB Q12 [facility] PRN Reason: Protocol Last Admin: 07/21/17 09:04 Dose: 100 mls/hr Magnesium Citrate (Citrate Of Mag) 300 ml PO ONCE ONE Stop: 07/23/17 11:01 Magnesium Citrate (Citrate Of Mag) 300 ml PO ONCE ONE Stop: 07/23/17 20:01 Prednisone (Prednisone Tab) 10 mg PO DAILY [facility] Last Admin: 07/21/17 09:08 Dose: 10 mg Tamsulosin HCl (Flomax) 0.4 mg PO BID [facility] Last Admin: 07/21/17 09:08 Dose: 0.4 mg Timolol Maleate (Timoptic 0.5% Ophth Soln) 1 drop OU Q12@0500,1700 [facility] Last Admin: 07/21/17 04:03 Dose: 1 drop Tramadol HCl (Ultram) 50 mg PO Q6 PRN PRN Reason: Pain, moderate (4-7) - Labs Labs: 07/21/17 06:59 07/21/17 06:59 PT 13.1 Seconds (9.8-13.1) 07/16/17 06:47 INR 1.2 (0.9-1.2) 07/16/17 06:47 APTT 31.9 Seconds (25.6-37.1) 07/16/17 06:47 - Constitutional Appears: Non-toxic, No Acute Distress - Head Exam Head Exam: ATRAUMATIC, NORMOCEPHALIC Additional comments: pustular lesion over left side superior lip with dry scab and not swollen, and 1 pustular lesions over left cheek with dry scab. no erythema, no more left side parotid swollen. - Eye Exam Eye Exam: Normal appearance - ENT Exam ENT Exam: Normal Exam - Respiratory Exam Respiratory Exam: Clear to Ausculation Bilateral. absent: Rales, Rhonchi, Wheezes, Stridor - Cardiovascular Exam Cardiovascular Exam: REGULAR RHYTHM, +S1, +S2 - GI/Abdominal Exam GI & Abdominal Exam: Soft, Normal Bowel Sounds. absent: Tenderness - Extremities Exam Extremities Exam: Normal Inspection. absent: Pedal Edema - Neurological Exam Neurological Exam: Alert, Awake, Oriented x3 - Psychiatric Exam Psychiatric exam: Normal Mood - Skin Skin Exam: absent: Urticaria, Vesicles Assessment and Plan - Assessment and Plan (Free Text) Plan: 61 YO Male with PMH of leukopenia, neutropenia, glaucoma, wegeners granulomatosis, BPH, DVT, and recurrent cellulitis is admitted for L face cellulitis. 1) Left, Cellulitis of the face, sialadenitis -resolving -furuncle x 3 (1 over lip and 2 over left cheek ) -possible secondary to herpes zoster infection in a neutropenic patient -CT maxilofacial: left facial skin cellulitis, L submandibular and parotid sialadenitis - Vancomycin day #2 -Flagyl day # 3, -Azactam day # 2 -Acyclovir day #2 -Tylenol, Tramadol, percocet for pain -ID Consult appreciated: c/w abx, Vanco dose reduced according vanco trough -Zoster IGG positive, waiting for Zoster IGM 2) Thrombocytopenia -possible secondary to autoinmune disease( ESR >120, C react prot 86) -improving, s/p Filgastrim 480 mcg SC x 2 dose -s/p 1 unit rBC transfusion -WBC 2.2 Hgb 8.1 plt 90 -Neutropenic precaution -f/u blood cx -Hemo-Onc Dr Samano consult appreciated. may need bone marrow biopsy. repeat Filgastrim today -GI consult appreciated: to r/o GI condition inducing anemia. EGD normal.f/u biopsy.For colonoscopy on monday -will consider Performance Improvement Director consult on discharge. 3) Relapsing Polychondritis - Performance Improvement Director called yesterday Dr Mckeon covering Dr James Cosme and notified about patient hospitalization. states that patient is seen in the office with the diagnosis of Relapsing Polychondritis and recommends to c/w Prednisone 10 mg daily. -c/w Prednisone 10 mg PO daily 4) BPH -stable -has surgery scheduled next week -Urologist consult suggested Dr Gonzales -continue home med, flomax 5) Glucoma -stable -will continue home meds, Timolol 6) Macrocytic Anemia -stable - MCV 103.8 -B12 646 and folate 18.3 (05/28/17) -will continue to monitor 7) DVT Prophylaxis -SCD -Lovenox hold due to pancytopenia <Aaron Betancur - Last Filed: 07/24/17 06:46> Objective - Vital Signs/Intake and Output Vital Signs (last 24 hours): Temp Pulse Resp BP Pulse Ox 97.9 F 63 18 119/61 98 07/24/17 00:28 07/24/17 00:28 07/24/17 00:28 07/24/17 00:28 07/24/17 00:28 - Medications Medications: Current Medications Acetaminophen (Tylenol 325mg Tab) 650 mg PO Q6 PRN PRN Reason: Fever >100.4 F Last Admin: 07/18/17 00:47 Dose: 650 mg Acetaminophen (Tylenol 325mg Tab) 650 mg PO Q6 PRN PRN Reason: Pain, Mild (1-3) Last Admin: 07/22/17 04:13 Dose: 650 mg Dorzolamide HCl (Trusopt) 1 drop OU BID@0500,1700 [facility] Last Admin: 07/24/17 04:41 Dose: 1 drop Emollient Ointment (Vaseline Oint) 1 pkt TOP BID PRN PRN Reason: Dry skin Last Admin: 07/22/17 16:16 Dose: 1 pkt Metronidazole (Flagyl 500mg/100ml Ns) 100 mls @ 100 mls/hr IVPB Q8H [facility] PRN Reason: Protocol Last Admin: 07/24/17 04:40 Dose: 100 mls/hr Vancomycin HCl 750 mg/ Sodium (Chloride) 250 mls @ 166.667 mls/hr IVPB Q12 [facility] PRN Reason: Protocol Last Admin: 07/23/17 20:03 Dose: 166.667 mls/hr Aztreonam 1 gm/ Sodium (Chloride) 50 mls @ 50 mls/hr IVPB Q12@1100,2300 [facility] PRN Reason: Protocol Last Admin: 07/23/17 22:51 Dose: 50 mls/hr Sodium Chloride (Sodium Chloride 0.9%) 1,000 mls @ 100 mls/hr IV .Q10H [facility] Last Admin: 07/24/17 00:03 Dose: 100 mls/hr Prednisone (Prednisone Tab) 10 mg PO DAILY [facility] Last Admin: 07/23/17 08:11 Dose: 10 mg Tamsulosin HCl (Flomax) 0.4 mg PO BID [facility] Last Admin: 07/23/17 16:43 Dose: 0.4 mg Timolol Maleate (Timoptic 0.5% Ophth Soln) 1 drop OU Q12@0500,1700 [facility] Last Admin: 07/24/17 04:41 Dose: 1 drop - Labs Labs: 07/24/17 05:30 07/24/17 05:30 PT 13.1 Seconds (9.8-13.1) 07/16/17 06:47 INR 1.2 (0.9-1.2) 07/16/17 06:47 APTT 31.9 Seconds (25.6-37.1) 07/16/17 06:47 Attending/Attestation - Attestation I have personally seen and examined this patient.: Yes I have fully participated in the care of the patient.: Yes I have reviewed all pertinent clinical information, including history, physical exam and plan: Yes
[2017-07-21] MEDS: Aztreonam 1 GM in Sodium Chloride 0.9% 100 ML IVPB SCH (11:22)
[2017-07-22] MEDS: Acyclovir 500 MG in Sodium Chloride 0.9% 100 ML IVPB SCH ×3 (01:13→16:15)
[2017-07-22] MEDS: metroNIDAZOLE 500mg/100ml NS 100 ML IVPB SCH ×3 (04:14→19:39)
[2017-07-22] MEDS: Dorzolamide 2% Ophth Soln OU SCH ×2 (04:16→16:16)
[2017-07-22 07:08] LABS: BASO % 0.5 % (0.0-2.0); EOS % 0.4 % (0.0-4.0); HEMOGLOBIN 8.2 g/dL (12.0-18.0); LYMPH # 1.3 K/uL (1.0-4.3); LYMPH % 13.5 % (20.0-40.0); MEAN CELL VOLUME 103.8 fl (80.0-94.0); MEAN CORPUSCULAR HEMOGLOBIN 34.1 pg (27.0-31.0); MEAN CORPUSCULAR HGB CONC 32.8 g/dL (33.0-37.0); MEAN PLATELET VOLUME 8.6 fl (7.2-11.7); MONO # 0.3 K/uL (0.0-0.8); MONO % 3.1 % (0.0-10.0); NEUT % 82.5 % (50.0-75.0); NRBC % 0.1 % (0.0-0.0); RBC 2.4 Mil/uL (4.40-5.90); RED CELL DISTRIBUTION WIDTH 15.3 % (11.5-14.5); WHITE BLOOD COUNT 9.7 K/uL (4.8-10.8)
[2017-07-22 07:27] LABS: ALB/GLOB RATIO 0.8 (1.0-2.1); ALBUMIN 3.2 g/dL (3.5-5.0); ALT/SGPT 33 U/L (21-72); AST/SGOT 23 U/L (17-59); BLOOD UREA NITROGEN 12 mg/dl (9-20); CALCIUM 9.2 mg/dL (8.4-10.2); GFR AFRICAN-AMERICAN > 60; GFR NON-AFRICAN AMERICAN > 60
--- NOTE | 2017-07-22 08:05 | CP.PCM.PN ---
Subjective - Date & Time of Evaluation Date of Evaluation: 07/22/17 Time of Evaluation: 08:02 - Subjective Subjective: Pt is afebrile with WBC 9.7 hgb 8.1, and platelets 83K. His has lesser erythema , and no new lesions are seen. He is to have a colonoscopy on monday, the last one was 3 yrs ago. Will do a bone marrow test if counts continue to drop. Objective - Vital Signs/Intake and Output Vital Signs (last 24 hours): Temp Pulse Resp BP Pulse Ox 98.4 F 74 20 103/56 L 97 07/22/17 07:59 07/22/17 07:59 07/22/17 07:59 07/22/17 07:59 07/22/17 07:59 - Medications Medications: Current Medications Acetaminophen (Tylenol 325mg Tab) 650 mg PO Q6 PRN PRN Reason: Fever >100.4 F Last Admin: 07/18/17 00:47 Dose: 650 mg Acetaminophen (Tylenol 325mg Tab) 650 mg PO Q6 PRN PRN Reason: Pain, Mild (1-3) Last Admin: 07/22/17 04:13 Dose: 650 mg Bisacodyl (Dulcolax) 20 mg PO ONCE ONE Stop: 07/23/17 15:01 Dorzolamide HCl (Trusopt) 1 drop OU BID@0500,1700 [facility] Last Admin: 07/22/17 04:16 Dose: 1 drop Metronidazole (Flagyl 500mg/100ml Ns) 100 mls @ 100 mls/hr IVPB Q8H [facility] PRN Reason: Protocol Last Admin: 07/22/17 04:14 Dose: 100 mls/hr Aztreonam 1 gm/ Sodium (Chloride) 100 mls @ 100 mls/hr IVPB Q12@1100,2300 [facility] PRN Reason: Protocol Last Admin: 07/22/17 00:00 Dose: 100 mls/hr Acyclovir 500 mg/ Sodium (Chloride) 100 mls @ 100 mls/hr IVPB Q8 [facility] PRN Reason: Protocol Last Admin: 07/22/17 01:13 Dose: 100 mls/hr Vancomycin HCl 750 mg/ Sodium (Chloride) 250 mls @ 166.667 mls/hr IVPB Q12 [facility] PRN Reason: Protocol Last Admin: 07/21/17 21:55 Dose: 166.667 mls/hr Magnesium Citrate (Citrate Of Mag) 300 ml PO ONCE ONE Stop: 07/23/17 11:01 Magnesium Citrate (Citrate Of Mag) 300 ml PO ONCE ONE Stop: 07/23/17 20:01 Prednisone (Prednisone Tab) 10 mg PO DAILY [facility] Last Admin: 07/21/17 09:08 Dose: 10 mg Tamsulosin HCl (Flomax) 0.4 mg PO BID [facility] Last Admin: 07/21/17 17:13 Dose: 0.4 mg Timolol Maleate (Timoptic 0.5% Oph Soln) 1 drop OU Q12@0500,1700 [facility] Last Admin: 07/22/17 04:16 Dose: 1 drop Tramadol HCl (Ultram) 50 mg PO Q6 PRN PRN Reason: Pain, moderate (4-7) - Labs Labs: 07/22/17 05:30 07/22/17 05:30 PT 13.1 Seconds (9.8-13.1) 07/16/17 06:47 INR 1.2 (0.9-1.2) 07/16/17 06:47 APTT 31.9 Seconds (25.6-37.1) 07/16/17 06:47
--- NOTE | 2017-07-22 08:35 | CP.PCM.PN ---
Subjective - Date & Time of Evaluation Date of Evaluation: 07/22/17 Time of Evaluation: 07:15 - Subjective Subjective: Patient seen and examined bedside reports feeling better and less swollen face today. Patient reports a small cut over gland penis noticed yesterday with minimal bleeding. He denies fever, chest pain, SOB, dysuria, hematuria. Pt will have colonoscopy and bone marrow biopsy on monday. Objective - Vital Signs/Intake and Output Vital Signs (last 24 hours): Temp Pulse Resp BP Pulse Ox 98.4 F 74 20 103/56 L 97 07/22/17 07:59 07/22/17 07:59 07/22/17 07:59 07/22/17 07:59 07/22/17 07:59 - Medications Medications: Current Medications Acetaminophen (Tylenol 325mg Tab) 650 mg PO Q6 PRN PRN Reason: Fever >100.4 F Last Admin: 07/18/17 00:47 Dose: 650 mg Acetaminophen (Tylenol 325mg Tab) 650 mg PO Q6 PRN PRN Reason: Pain, Mild (1-3) Last Admin: 07/22/17 04:13 Dose: 650 mg Bisacodyl (Dulcolax) 20 mg PO ONCE ONE Stop: 07/23/17 15:01 Dorzolamide HCl (Trusopt) 1 drop OU BID@0500,1700 [facility] Last Admin: 07/22/17 04:16 Dose: 1 drop Metronidazole (Flagyl 500mg/100ml Ns) 100 mls @ 100 mls/hr IVPB Q8H [facility] PRN Reason: Protocol Last Admin: 07/22/17 04:14 Dose: 100 mls/hr Aztreonam 1 gm/ Sodium (Chloride) 100 mls @ 100 mls/hr IVPB Q12@1100,2300 [facility] PRN Reason: Protocol Last Admin: 07/22/17 00:00 Dose: 100 mls/hr Acyclovir 500 mg/ Sodium (Chloride) 100 mls @ 100 mls/hr IVPB Q8 [facility] PRN Reason: Protocol Last Admin: 07/22/17 08:30 Dose: 100 mls/hr Vancomycin HCl 750 mg/ Sodium (Chloride) 250 mls @ 166.667 mls/hr IVPB Q12 [facility] PRN Reason: Protocol Last Admin: 07/21/17 21:55 Dose: 166.667 mls/hr Magnesium Citrate (Citrate Of Mag) 300 ml PO ONCE ONE Stop: 07/23/17 11:01 Magnesium Citrate (Citrate Of Mag) 300 ml PO ONCE ONE Stop: 07/23/17 20:01 Prednisone (Prednisone Tab) 10 mg PO DAILY [facility] Last Admin: 07/21/17 09:08 Dose: 10 mg Tamsulosin HCl (Flomax) 0.4 mg PO BID [facility] Last Admin: 07/21/17 17:13 Dose: 0.4 mg Timolol Maleate (Timoptic 0.5% Ophth Soln) 1 drop OU Q12@0500,1700 [facility] Last Admin: 07/22/17 04:16 Dose: 1 drop Tramadol HCl (Ultram) 50 mg PO Q6 PRN PRN Reason: Pain, moderate (4-7) - Labs Labs: 07/22/17 05:30 07/22/17 05:30 PT 13.1 Seconds (9.8-13.1) 07/16/17 06:47 INR 1.2 (0.9-1.2) 07/16/17 06:47 APTT 31.9 Seconds (25.6-37.1) 07/16/17 06:47 - Constitutional Appears: Non-toxic, No Acute Distress - Head Exam Head Exam: ATRAUMATIC, NORMOCEPHALIC Additional comments: pustular lesion over left side superior lip with dry scab and not swollen, and 1 pustular lesions over left cheek with dry scab. no erythema, no more left side parotid swollen. - Eye Exam Eye Exam: Normal appearance - ENT Exam ENT Exam: Mucous Membranes Moist - Neck Exam Neck Exam: Full ROM - Respiratory Exam Respiratory Exam: Clear to Ausculation Bilateral. absent: Rales, Rhonchi, Wheezes - Cardiovascular Exam Cardiovascular Exam: REGULAR RHYTHM, +S1, +S2 - GI/Abdominal Exam GI & Abdominal Exam: Soft, Normal Bowel Sounds. absent: Tenderness - Exam Exam: absent: Scrotal Swelling External exam: Lesions Additional comments: small gland penis fissure right side periurethral with minimal erythema, no active bleeding noticed, no discharged. - Extremities Exam Extremities Exam: Normal Inspection. absent: Pedal Edema - Neurological Exam Neurological Exam: Alert, Awake, Oriented x3 - Psychiatric Exam Psychiatric exam: Normal Affect, Normal Mood - Skin Skin Exam: absent: Petechiae, Rash Assessment and Plan - Assessment and Plan (Free Text) Plan: 61 YO Male with PMH of leukopenia, neutropenia, glaucoma, wegeners granulomatosis, BPH, DVT, and recurrent cellulitis is admitted for L face cellulitis. 1) Left, Cellulitis of the face, sialadenitis -resolving -furuncle x 3 (1 over lip and 2 over left cheek ) -possible secondary to herpes zoster infection in a neutropenic patient -CT maxilofacial: left facial skin cellulitis, L submandibular and parotid sialadenitis - Vancomycin day #3 -Flagyl day # 4, -Azactam day # 3 -Acyclovir day #3 -Tylenol, Tramadol, percocet for pain -ID Consult appreciated: c/w abx, Vanco dose reduced according vanco trough -Zoster IGG positive, waiting for Zoster IGM 2) Thrombocytopenia -possible secondary to autoinmune disease( ESR >120, C react prot 86) -improving, s/p Filgastrim 480 mcg SC x 2 dose. last dose yesterday -s/p 1 unit rBC transfusion -today WBC 9.7 Hgb 8.2 plt 83 -Neutropenic precaution -Blood cx no growth after 5 days -Hemo-Onc Dr Samano consult appreciated. for Bone marrow on monday. -GI consult appreciated: EGD normal.f/u biopsy.For colonoscopy on monday -will consider Synthetic Cloth Binding Cutter consult on discharge. 3) Relapsing Polychondritis - Synthetic Cloth Binding Cutter called Dr Mckeon covering Dr James Cosme and notified about patient hospitalization. states that patient is seen in the office with the diagnosis of Relapsing Polychondritis and recommends to c/w Prednisone 10 mg daily. -c/w Prednisone 10 mg PO daily 4) BPH -stable -has surgery scheduled next week -Urologist consult appreciated. c/w same treatment -continue home med, flomax 5) Glucoma -stable -will continue home meds, Timolol 6) Macrocytic Anemia -stable - MCV 103.8 -B12 646 and folate 18.3 (05/28/17) -will continue to monitor 7) DVT Prophylaxis -SCD -Lovenox hold due to pancytopenia
[2017-07-22] MEDS ORDERED: Petrolatum UD PAK TOP PRN (08:59)
[2017-07-22] MEDS: Aztreonam 1 GM in Sodium Chloride 0.9% 100 ML IVPB SCH ×2 (12:59)
--- NOTE | 2017-07-22 15:57 | CP.PCM.PN ---
Subjective - Date & Time of Evaluation Date of Evaluation: 07/22/17 Time of Evaluation: 15:55 - Subjective Subjective: I D NOTE CONTINUES TO IMPROVE SWELLING AND PAIN ARE DECREASING BUT HGB STILL LOW AND HE WILL RECEIVE ANOTHER TRANSFUSION SCHEDULED FOR COLONOSCOPY AND BONE MARROW NEXT WEEK AWAITING VZ IGM ,IGG IS STRONGLY POSITIVE,THIS IS LIKELY NOT ZOSTER VANCO TROUGH :9,9,CONTINUE SAME DOSE(750MG IVPB Q12H) Objective - Vital Signs/Intake and Output Vital Signs (last 24 hours): Temp Pulse Resp BP Pulse Ox 98.6 F 82 18 138/79 97 07/22/17 15:48 07/22/17 15:48 07/22/17 15:48 07/22/17 15:48 07/22/17 15:48 - Medications Medications: Current Medications Acetaminophen (Tylenol 325mg Tab) 650 mg PO Q6 PRN PRN Reason: Fever >100.4 F Last Admin: 07/18/17 00:47 Dose: 650 mg Acetaminophen (Tylenol 325mg Tab) 650 mg PO Q6 PRN PRN Reason: Pain, Mild (1-3) Last Admin: 07/22/17 04:13 Dose: 650 mg Bisacodyl (Dulcolax) 20 mg PO ONCE ONE Stop: 07/23/17 15:01 Dorzolamide HCl (Trusopt) 1 drop OU BID@0500,1700 [facility] Last Admin: 07/22/17 04:16 Dose: 1 drop Emollient Ointment (Vaseline Oint) 1 pkt TOP BID PRN PRN Reason: Dry skin Metronidazole (Flagyl 500mg/100ml Ns) 100 mls @ 100 mls/hr IVPB Q8H [facility] PRN Reason: Protocol Last Admin: 07/22/17 11:44 Dose: 100 mls/hr Acyclovir 500 mg/ Sodium (Chloride) 100 mls @ 100 mls/hr IVPB Q8 [facility] PRN Reason: Protocol Last Admin: 07/22/17 08:30 Dose: 100 mls/hr Vancomycin HCl 750 mg/ Sodium (Chloride) 250 mls @ 166.667 mls/hr IVPB Q12 [facility] PRN Reason: Protocol Last Admin: 07/22/17 09:37 Dose: 166.667 mls/hr Aztreonam 1 gm/ Sodium (Chloride) 50 mls @ 50 mls/hr IVPB Q12@1100,2300 [facility] PRN Reason: Protocol Magnesium Citrate (Citrate Of Mag) 300 ml PO ONCE ONE Stop: 07/23/17 11:01 Magnesium Citrate (Citrate Of Mag) 300 ml PO ONCE ONE Stop: 07/23/17 20:01 Prednisone (Prednisone Tab) 10 mg PO DAILY [facility] Last Admin: 07/22/17 11:48 Dose: 10 mg Tamsulosin HCl (Flomax) 0.4 mg PO BID [facility] Last Admin: 07/22/17 08:44 Dose: 0.4 mg Timolol Maleate ([facility]) 1 drop OU Q12@0500,1700 [facility] Last Admin: 07/22/17 04:16 Dose: 1 drop Tramadol HCl (Ultram) 50 mg PO Q6 PRN PRN Reason: Pain, moderate (4-7) - Labs Labs: 07/22/17 05:30 07/22/17 05:30 PT 13.1 Seconds (9.8-13.1) 07/16/17 06:47 INR 1.2 (0.9-1.2) 07/16/17 06:47 APTT 31.9 Seconds (25.6-37.1) 07/16/17 06:47
[2017-07-23] MEDS: Acyclovir 500 MG in Sodium Chloride 0.9% 100 ML IVPB SCH ×2 (00:47→09:56)
[2017-07-23] MEDS: metroNIDAZOLE 500mg/100ml NS 100 ML IVPB SCH ×3 (04:26→20:03)
[2017-07-23] MEDS: Dorzolamide 2% Ophth Soln OU SCH ×2 (04:27→16:43)
[2017-07-23 07:37] LABS: BASO % 0.8 % (0.0-2.0); EOS % 0.7 % (0.0-4.0); HEMOGLOBIN 8.6 g/dL (12.0-18.0); LYMPH # 1.4 K/uL (1.0-4.3); LYMPH % 29.1 % (20.0-40.0); MEAN CELL VOLUME 103.5 fl (80.0-94.0); MEAN CORPUSCULAR HEMOGLOBIN 33.5 pg (27.0-31.0); MEAN CORPUSCULAR HGB CONC 32.4 g/dL (33.0-37.0); MEAN PLATELET VOLUME 8.9 fl (7.2-11.7); MONO # 0.4 K/uL (0.0-0.8); MONO % 8.9 % (0.0-10.0); NEUT # 2.8 K/uL (1.8-7.0); NEUT % 60.5 % (50.0-75.0); NRBC % 0.1 % (0.0-0.0); RBC 2.56 Mil/uL (4.40-5.90); RED CELL DISTRIBUTION WIDTH 15.3 % (11.5-14.5); WHITE BLOOD COUNT 4.6 K/uL (4.8-10.8)
[2017-07-23 08:27] LABS: ALBUMIN 3.4 g/dL (3.5-5.0); ALT/SGPT 38 U/L (21-72); AST/SGOT 27 U/L (17-59); BLOOD UREA NITROGEN 14 mg/dl (9-20); CALCIUM 9.1 mg/dL (8.4-10.2); GFR AFRICAN-AMERICAN > 60; GFR NON-AFRICAN AMERICAN > 60
[2017-07-23 08:32] LABS: ALB/GLOB RATIO 0.9 (1.0-2.1)
--- NOTE | 2017-07-23 10:31 | CP.PCM.PN ---
Subjective - Date & Time of Evaluation Date of Evaluation: 07/23/17 Time of Evaluation: 08:35 - Subjective Subjective: 61 y/o F examined and evaluated by bedside. pt reports feeling good, afebrile and tolerating PO. Pt reports left facial redness and swelling improved remarkably, he described mild tenderness over the mentioned area. No acute events overnight. Pt walked for several minutes around the floor last night. -Vancomycin serum level, suspected to be inaccurate as per sample was collected 1 hour after administration of medication. -VZV IgM <0.90 Objective - Vital Signs/Intake and Output Vital Signs (last 24 hours): Temp Pulse Resp BP Pulse Ox 97.5 F L 65 20 135/64 97 07/23/17 07:57 07/23/17 07:57 07/23/17 07:57 07/23/17 07:57 07/23/17 07:57 - Medications Medications: Current Medications Acetaminophen (Tylenol 325mg Tab) 650 mg PO Q6 PRN PRN Reason: Fever >100.4 F Last Admin: 07/18/17 00:47 Dose: 650 mg Acetaminophen (Tylenol 325mg Tab) 650 mg PO Q6 PRN PRN Reason: Pain, Mild (1-3) Last Admin: 07/22/17 04:13 Dose: 650 mg Bisacodyl (Dulcolax) 20 mg PO ONCE ONE Stop: 07/23/17 15:01 Dorzolamide HCl (Trusopt) 1 drop OU BID@0500,1700 [facility] Last Admin: 07/23/17 04:27 Dose: 1 drop Emollient Ointment (Vaseline Oint) 1 pkt TOP BID PRN PRN Reason: Dry skin Last Admin: 07/22/17 16:16 Dose: 1 pkt Metronidazole (Flagyl 500mg/100ml Ns) 100 mls @ 100 mls/hr IVPB Q8H [facility] PRN Reason: Protocol Last Admin: 07/23/17 04:26 Dose: 100 mls/hr Acyclovir 500 mg/ Sodium (Chloride) 100 mls @ 100 mls/hr IVPB Q8 [facility] PRN Reason: Protocol Last Admin: 07/23/17 09:56 Dose: 100 mls/hr Vancomycin HCl 750 mg/ Sodium (Chloride) 250 mls @ 166.667 mls/hr IVPB Q12 [facility] PRN Reason: Protocol Last Admin: 07/23/17 08:20 Dose: 166.667 mls/hr Aztreonam 1 gm/ Sodium (Chloride) 50 mls @ 50 mls/hr IVPB Q12@1100,2300 [facility] PRN Reason: Protocol Last Admin: 07/22/17 22:49 Dose: 50 mls/hr Sodium Chloride (Sodium Chloride 0.9%) 1,000 mls @ 100 mls/hr IV .Q10H [facility] Magnesium Citrate (Citrate Of Mag) 300 ml PO ONCE ONE Stop: 07/23/17 11:01 Magnesium Citrate (Citrate Of Mag) 300 ml PO ONCE ONE Stop: 07/23/17 20:01 Prednisone (Prednisone Tab) 10 mg PO DAILY [facility] Last Admin: 07/23/17 08:11 Dose: 10 mg Tamsulosin HCl (Flomax) 0.4 mg PO BID [facility] Last Admin: 07/23/17 08:11 Dose: 0.4 mg Timolol Maleate (Timoptic 0.5% Ophth Soln) 1 drop OU Q12@0500,1700 [facility] Last Admin: 07/23/17 04:27 Dose: 1 drop - Labs Labs: 07/23/17 06:00 07/23/17 06:00 PT 13.1 Seconds (9.8-13.1) 07/16/17 06:47 INR 1.2 (0.9-1.2) 07/16/17 06:47 APTT 31.9 Seconds (25.6-37.1) 07/16/17 06:47 - Constitutional Appears: Well, No Acute Distress - Eye Exam Eye Exam: EOMI, Normal appearance - ENT Exam ENT Exam: Mucous Membranes Moist, Normal Exam - Neck Exam Neck Exam: Full ROM - Respiratory Exam Respiratory Exam: Clear to Ausculation Bilateral, NORMAL BREATHING PATTERN - Cardiovascular Exam Cardiovascular Exam: REGULAR RHYTHM, +S1, +S2 - GI/Abdominal Exam GI & Abdominal Exam: Soft, Normal Bowel Sounds. absent: Guarding - Extremities Exam Extremities Exam: Full ROM. absent: Calf Tenderness, Joint Swelling - Neurological Exam Neurological Exam: Alert, Awake, Oriented x3 Assessment and Plan - Assessment and Plan (Free Text) Assessment: 61 y/o Male with PMH of leukopenia, neutropenia, glaucoma, wegeners granulomatosis, BPH, DVT, and recurrent cellulitis is admitted for L face cellulitis. 1) Left, Cellulitis of the face, sialadenitis -CT maxilofacial: left facial skin cellulitis, L submandibular and parotid sialadenitis -resolving -Vancomycin day #4, Flagyl day # 5, Azactam day # 4, Acyclovir day #4 -Tylenol, Tramadol, percocet for pain -Will repeat Vancomzcin through at 20:30 as per ID. -Zoster IGG positive, -VZV IgM <0.90 => Acyclovir discontinued. 2) Thrombocytopenia -possible secondary to autoinmune disease( ESR >120, C react prot 86) -improving, s/p Filgastrim 480 mcg SC x 2 dose. last dose yesterday -today(07/23/17): WBC 4.6 Hgb 8.6 plt 92 -Neutropenic precaution -Blood cx no growth after 5 days -Hemo-Onc Dr Samano consult appreciated. - For Bone marrow on monday. -GI consult appreciated: EGD normal.f/u biopsy. - For colonoscopy on monday -NPO except for medications after midnight. -will consider Alteration Manager consult on discharge. 3) Relapsing Polychondritis - Alteration Manager called Dr Mckeon covering Dr James Cosme and notified about patient hospitalization. states that patient is seen in the office with the diagnosis of Relapsing Polychondritis and recommends to c/w Prednisone 10 mg daily. -c/w Prednisone 10 mg PO daily 4) BPH -stable -has surgery scheduled next week -Urologist consult appreciated. c/w same treatment -continue home med, flomax 5) Glaucoma -stable -c/w Timolol 6) Macrocytic Anemia -stable -MCV 103.5 -B12 646 and folate 18.3 (05/28/17) -will continue to monitor 7) DVT Prophylaxis -Pt walking around floor, encouraged to continue ambulation. -SCD -Lovenox hold due to pancytopenia
[2017-07-23] MEDS ORDERED: Magnesium Citrate Oral SOL (300 ml) PO ONE ×2 (11:00→20:00)
--- NOTE | 2017-07-23 13:37 | CP.PCM.PN ---
Subjective - Date & Time of Evaluation Date of Evaluation: 07/23/17 Time of Evaluation: 13:40 - Subjective Subjective: I D NOTE APPEARS THAT VANCOMYCIN TROUGH WAS DRAWN INAPPROPRIATELY(VANCOMYCIN WAS BEING INFUSED BLOOD WAS BEING DRAWN WILL REPEAT TONITE AT 20:30 VZ:IGM NEG, ACYCLOVIR DISCONTINUED CONTINUE VANCOMYCIN /FLAGYL/AZACTAM Objective - Vital Signs/Intake and Output Vital Signs (last 24 hours): Temp Pulse Resp BP Pulse Ox 97.5 F L 65 20 135/64 97 07/23/17 07:57 07/23/17 07:57 07/23/17 07:57 07/23/17 07:57 07/23/17 07:57 - Medications Medications: Current Medications Acetaminophen (Tylenol 325mg Tab) 650 mg PO Q6 PRN PRN Reason: Fever >100.4 F Last Admin: 07/18/17 00:47 Dose: 650 mg Acetaminophen (Tylenol 325mg Tab) 650 mg PO Q6 PRN PRN Reason: Pain, Mild (1-3) Last Admin: 07/22/17 04:13 Dose: 650 mg Bisacodyl (Dulcolax) 20 mg PO ONCE ONE Stop: 07/23/17 15:01 Dorzolamide HCl (Trusopt) 1 drop OU BID@0500,1700 [facility] Last Admin: 07/23/17 04:27 Dose: 1 drop Emollient Ointment (Vaseline Oint) 1 pkt TOP BID PRN PRN Reason: Dry skin Last Admin: 07/22/17 16:16 Dose: 1 pkt Metronidazole (Flagyl 500mg/100ml Ns) 100 mls @ 100 mls/hr IVPB Q8H [facility] PRN Reason: Protocol Last Admin: 07/23/17 12:12 Dose: 100 mls/hr Vancomycin HCl 750 mg/ Sodium (Chloride) 250 mls @ 166.667 mls/hr IVPB Q12 [facility] PRN Reason: Protocol Last Admin: 07/23/17 08:20 Dose: 166.667 mls/hr Aztreonam 1 gm/ Sodium (Chloride) 50 mls @ 50 mls/hr IVPB Q12@1100,2300 [facility] PRN Reason: Protocol Last Admin: 07/23/17 11:11 Dose: 50 mls/hr Sodium Chloride (Sodium Chloride 0.9%) 1,000 mls @ 100 mls/hr IV .Q10H [facility] Magnesium Citrate (Citrate Of Mag) 300 ml PO ONCE ONE Stop: 07/23/17 20:01 Prednisone (Prednisone Tab) 10 mg PO DAILY [facility] Last Admin: 07/23/17 08:11 Dose: 10 mg Tamsulosin HCl (Flomax) 0.4 mg PO BID [facility] Last Admin: 07/23/17 08:11 Dose: 0.4 mg Timolol Maleate (Timoptic 0.5% [facility]) 1 drop OU Q12@0500,1700 [facility] Last Admin: 07/23/17 04:27 Dose: 1 drop - Labs Labs: 07/23/17 06:00 07/23/17 06:00 PT 13.1 Seconds (9.8-13.1) 07/16/17 06:47 INR 1.2 (0.9-1.2) 07/16/17 06:47 APTT 31.9 Seconds (25.6-37.1) 07/16/17 06:47
[2017-07-23] MEDS ORDERED: Bisacodyl 5mg EC Tab PO ONE (15:00)
--- NOTE | 2017-07-23 22:51 | CP.PCM.PN ---
Subjective - Date & Time of Evaluation Date of Evaluation: 07/23/17 Time of Evaluation: 22:49 - Subjective Subjective: Infection is much better. Noted some bleeding with prep. Objective - Vital Signs/Intake and Output Vital Signs (last 24 hours): Temp Pulse Resp BP Pulse Ox 98.1 F 76 18 130/77 97 07/23/17 16:14 07/23/17 16:14 07/23/17 16:14 07/23/17 16:14 07/23/17 16:14 - Medications Medications: Current Medications Acetaminophen (Tylenol 325mg Tab) 650 mg PO Q6 PRN PRN Reason: Fever >100.4 F Last Admin: 07/18/17 00:47 Dose: 650 mg Acetaminophen (Tylenol 325mg Tab) 650 mg PO Q6 PRN PRN Reason: Pain, Mild (1-3) Last Admin: 07/22/17 04:13 Dose: 650 mg Dorzolamide HCl (Trusopt) 1 drop OU BID@0500,1700 [facility] Last Admin: 07/23/17 16:43 Dose: 1 drop Emollient Ointment (Vaseline Oint) 1 pkt TOP BID PRN PRN Reason: Dry skin Last Admin: 07/22/17 16:16 Dose: 1 pkt Metronidazole (Flagyl 500mg/100ml Ns) 100 mls @ 100 mls/hr IVPB Q8H [facility] PRN Reason: Protocol Last Admin: 07/23/17 20:03 Dose: 100 mls/hr Vancomycin HCl 750 mg/ Sodium (Chloride) 250 mls @ 166.667 mls/hr IVPB Q12 [facility] PRN Reason: Protocol Last Admin: 07/23/17 20:03 Dose: 166.667 mls/hr Aztreonam 1 gm/ Sodium (Chloride) 50 mls @ 50 mls/hr IVPB Q12@1100,2300 [facility] PRN Reason: Protocol Last Admin: 07/23/17 11:11 Dose: 50 mls/hr Sodium Chloride (Sodium Chloride 0.9%) 1,000 mls @ 100 mls/hr IV .Q10H [facility] Prednisone (Prednisone Tab) 10 mg PO DAILY [facility] Last Admin: 07/23/17 08:11 Dose: 10 mg Tamsulosin HCl (Flomax) 0.4 mg PO BID [facility] Last Admin: 07/23/17 16:43 Dose: 0.4 mg Timolol Maleate (Timoptic 0.5% Op[facility] Soln) 1 drop OU Q12@0500,1700 [facility] Last Admin: 07/23/17 16:43 Dose: 1 drop - Labs Labs: 07/23/17 06:00 07/23/17 06:00 PT 13.1 Seconds (9.8-13.1) 07/16/17 06:47 INR 1.2 (0.9-1.2) 07/16/17 06:47 APTT 31.9 Seconds (25.6-37.1) 07/16/17 06:47 - Head Exam Head Exam: ATRAUMATIC - Eye Exam Eye Exam: Normal appearance Pupil Exam: PERRL - Neck Exam Neck Exam: Full ROM - Respiratory Exam Respiratory Exam: NORMAL BREATHING PATTERN - Cardiovascular Exam Cardiovascular Exam: REGULAR RHYTHM - GI/Abdominal Exam GI & Abdominal Exam: Soft, Normal Bowel Sounds. absent: Tenderness Assessment and Plan (1) Anemia Assessment & Plan: Clinically doing better. inor bleeding with colon prep. Colonoscopy Monday. Status: Acute (2) Cellulitis and abscess of face Status: Acute
--- NOTE | 2017-07-23 23:05 | CP.PCM.PN ---
Subjective - Date & Time of Evaluation Date of Evaluation: 07/23/17 Time of Evaluation: 22:00 - Subjective Subjective: I D NOTE VANCO TROUGH IS 7.2 CONTINUE SAME RX Objective - Vital Signs/Intake and Output Vital Signs (last 24 hours): Temp Pulse Resp BP Pulse Ox 98.1 F 76 18 130/77 97 07/23/17 16:14 07/23/17 16:14 07/23/17 16:14 07/23/17 16:14 07/23/17 16:14 - Medications Medications: Current Medications Acetaminophen (Tylenol 325mg Tab) 650 mg PO Q6 PRN PRN Reason: Fever >100.4 F Last Admin: 07/18/17 00:47 Dose: 650 mg Acetaminophen (Tylenol 325mg Tab) 650 mg PO Q6 PRN PRN Reason: Pain, Mild (1-3) Last Admin: 07/22/17 04:13 Dose: 650 mg Dorzolamide HCl (Trusopt) 1 drop OU BID@0500,1700 [facility] Last Admin: 07/23/17 16:43 Dose: 1 drop Emollient Ointment (Vaseline Oint) 1 pkt TOP BID PRN PRN Reason: Dry skin Last Admin: 07/22/17 16:16 Dose: 1 pkt Metronidazole (Flagyl 500mg/100ml Ns) 100 mls @ 100 mls/hr IVPB Q8H [facility] PRN Reason: Protocol Last Admin: 07/23/17 20:03 Dose: 100 mls/hr Vancomycin HCl 750 mg/ Sodium (Chloride) 250 mls @ 166.667 mls/hr IVPB Q12 [facility] PRN Reason: Protocol Last Admin: 07/23/17 20:03 Dose: 166.667 mls/hr Aztreonam 1 gm/ Sodium (Chloride) 50 mls @ 50 mls/hr IVPB Q12@1100,2300 [facility] PRN Reason: Protocol Last Admin: 07/23/17 22:51 Dose: 50 mls/hr Sodium Chloride (Sodium Chloride 0.9%) 1,000 mls @ 100 mls/hr IV .Q10H [facility] Prednisone (Prednisone Tab) 10 mg PO DAILY [facility] Last Admin: 07/23/17 08:11 Dose: 10 mg Tamsulosin HCl (Flomax) 0.4 mg PO BID [facility] Last Admin: 07/23/17 16:43 Dose: 0.4 mg Timolol Maleate (Timoptic 0.5% [facility]) 1 drop OU Q12@0500,1700 [facility] Last Admin: 07/23/17 16:43 Dose: 1 drop - Labs Labs: 07/23/17 06:00 07/23/17 06:00 PT 13.1 Seconds (9.8-13.1) 07/16/17 06:47 INR 1.2 (0.9-1.2) 07/16/17 06:47 APTT 31.9 Seconds (25.6-37.1) 07/16/17 06:47
[2017-07-24] MEDS: Sodium Chloride 0.9% 1,000 ML IV SCH ×3 (00:03→20:07)
[2017-07-24] MEDS: metroNIDAZOLE 500mg/100ml NS 100 ML IVPB SCH ×3 (04:40→20:03)
[2017-07-24] MEDS: Dorzolamide 2% Ophth Soln OU SCH ×2 (04:41→16:28)
[2017-07-24 06:21] LABS: BASO % 0.7 % (0.0-2.0); EOS % 0.8 % (0.0-4.0); HEMOGLOBIN 8.5 g/dL (12.0-18.0); LYMPH # 1.2 K/uL (1.0-4.3); LYMPH % 35.7 % (20.0-40.0); MEAN CELL VOLUME 102.9 fl (80.0-94.0); MEAN CORPUSCULAR HEMOGLOBIN 33.9 pg (27.0-31.0); MEAN CORPUSCULAR HGB CONC 32.9 g/dL (33.0-37.0); MEAN PLATELET VOLUME 7.5 fl (7.2-11.7); MONO # 0.2 K/uL (0.0-0.8); NEUT # 1.9 K/uL (1.8-7.0); NEUT % 56.8 % (50.0-75.0); RBC 2.51 Mil/uL (4.40-5.90); RED CELL DISTRIBUTION WIDTH 15.5 % (11.5-14.5)
[2017-07-24 06:27] LABS: WHITE BLOOD COUNT 3.4 K/uL (4.8-10.8)
[2017-07-24 06:31] LABS: ALB/GLOB RATIO 0.9 (1.0-2.1); ALBUMIN 3.3 g/dL (3.5-5.0); ALT/SGPT 36 U/L (21-72); AST/SGOT 32 U/L (17-59); BLOOD UREA NITROGEN 14 mg/dl (9-20); CALCIUM 8.8 mg/dL (8.4-10.2); GFR AFRICAN-AMERICAN > 60; GFR NON-AFRICAN AMERICAN > 60
--- NOTE | 2017-07-24 08:53 | CP.PCM.PN ---
Subjective - Date & Time of Evaluation Date of Evaluation: 07/24/17 Time of Evaluation: 08:52 - Subjective Subjective: Pt is afebriile in no acute distress, The left cheek lesion is less erythematous , WBC is 4.5, hgb 8.6gms. He is to go to colonoscopy today . will do a bone marrow if no bleeding is found on the colonoscopy. Objective - Vital Signs/Intake and Output Vital Signs (last 24 hours): Temp Pulse Resp BP Pulse Ox 97.9 F 63 18 119/61 98 07/24/17 00:28 07/24/17 00:28 07/24/17 00:28 07/24/17 00:28 07/24/17 00:28 - Medications Medications: Current Medications Acetaminophen (Tylenol 325mg Tab) 650 mg PO Q6 PRN PRN Reason: Fever >100.4 F Last Admin: 07/18/17 00:47 Dose: 650 mg Acetaminophen (Tylenol 325mg Tab) 650 mg PO Q6 PRN PRN Reason: Pain, Mild (1-3) Last Admin: 07/22/17 04:13 Dose: 650 mg Dorzolamide HCl (Trusopt) 1 drop OU BID@0500,1700 [facility] Last Admin: 07/24/17 04:41 Dose: 1 drop Emollient Ointment (Vaseline Oint) 1 pkt TOP BID PRN PRN Reason: Dry skin Last Admin: 07/22/17 16:16 Dose: 1 pkt Metronidazole (Flagyl 500mg/100ml Ns) 100 mls @ 100 mls/hr IVPB Q8H [facility] PRN Reason: Protocol Last Admin: 07/24/17 04:40 Dose: 100 mls/hr Vancomycin HCl 750 mg/ Sodium (Chloride) 250 mls @ 166.667 mls/hr IVPB Q12 [facility] PRN Reason: Protocol Last Admin: 07/23/17 20:03 Dose: 166.667 mls/hr Aztreonam 1 gm/ Sodium (Chloride) 50 mls @ 50 mls/hr IVPB Q12@1100,2300 [facility] PRN Reason: Protocol Last Admin: 07/23/17 22:51 Dose: 50 mls/hr Sodium Chloride (Sodium Chloride 0.9%) 1,000 mls @ 100 mls/hr IV .Q10H [facility] Last Admin: 07/24/17 00:03 Dose: 100 mls/hr Prednisone (Prednisone Tab) 10 mg PO DAILY [facility] Last Admin: 07/23/17 08:11 Dose: 10 mg Tamsulosin HCl (Flomax) 0.4 mg PO BID [facility] Last Admin: 07/23/17 16:43 Dose: 0.4 mg Timolol Maleate (Timoptic 0.5% Ophth Soln) 1 drop OU Q12@0500,1700 [facility] Last Admin: 07/24/17 04:41 Dose: 1 drop - Labs Labs: 07/24/17 05:30 07/24/17 05:30 PT 13.1 Seconds (9.8-13.1) 07/16/17 06:47 INR 1.2 (0.9-1.2) 07/16/17 06:47 APTT 31.9 Seconds (25.6-37.1) 07/16/17 06:47
--- NOTE | 2017-07-24 09:29 | CP.PCM.PN ---
<Maria Alejandra Hinton - Last Filed: 07/24/17 15:57> Subjective - Date & Time of Evaluation Date of Evaluation: 07/24/17 Time of Evaluation: 07:15 - Subjective Subjective: Patient seen and examined bedside with Dr Betancur. Patient reports feeling better and aware he will have colonoscopy and bone marrow biopsy today. He denies fever, n,v,abd pain, chest pain, SOB. Objective - Vital Signs/Intake and Output Vital Signs (last 24 hours): Temp Pulse Resp BP Pulse Ox 97.6 F 55 L 20 149/75 98 07/24/17 08:57 07/24/17 08:57 07/24/17 08:57 07/24/17 08:57 07/24/17 08:57 - Medications Medications: Current Medications Acetaminophen (Tylenol 325mg Tab) 650 mg PO Q6 PRN PRN Reason: Fever >100.4 F Last Admin: 07/18/17 00:47 Dose: 650 mg Acetaminophen (Tylenol 325mg Tab) 650 mg PO Q6 PRN PRN Reason: Pain, Mild (1-3) Last Admin: 07/22/17 04:13 Dose: 650 mg Dorzolamide HCl (Trusopt) 1 drop OU BID@0500,1700 [facility] Last Admin: 07/24/17 04:41 Dose: 1 drop Emollient Ointment (Vaseline Oint) 1 pkt TOP BID PRN PRN Reason: Dry skin Last Admin: 07/22/17 16:16 Dose: 1 pkt Metronidazole (Flagyl 500mg/100ml Ns) 100 mls @ 100 mls/hr IVPB Q8H [facility] PRN Reason: Protocol Last Admin: 07/24/17 04:40 Dose: 100 mls/hr Vancomycin HCl 750 mg/ Sodium (Chloride) 250 mls @ 166.667 mls/hr IVPB Q12 [facility] PRN Reason: Protocol Last Admin: 07/24/17 09:21 Dose: 166.667 mls/hr Aztreonam 1 gm/ Sodium (Chloride) 50 mls @ 50 mls/hr IVPB Q12@1100,2300 [facility] PRN Reason: Protocol Last Admin: 07/23/17 22:51 Dose: 50 mls/hr Sodium Chloride (Sodium Chloride 0.9%) 1,000 mls @ 100 mls/hr IV .Q10H [facility] Last Admin: 07/24/17 00:03 Dose: 100 mls/hr Prednisone (Prednisone Tab) 10 mg PO DAILY [facility] Last Admin: 07/23/17 08:11 Dose: 10 mg Tamsulosin HCl (Flomax) 0.4 mg PO BID [facility] Last Admin: 07/24/17 09:18 Dose: Not Given Timolol Maleate (Timoptic 0.5% Ophth Soln) 1 drop OU Q12@0500,1700 [facility] Last Admin: 07/24/17 04:41 Dose: 1 drop - Labs Labs: 07/24/17 05:30 07/24/17 05:30 PT 13.1 Seconds (9.8-13.1) 07/16/17 06:47 INR 1.2 (0.9-1.2) 07/16/17 06:47 APTT 31.9 Seconds (25.6-37.1) 07/16/17 06:47 - Constitutional Appears: Non-toxic, No Acute Distress - Head Exam Head Exam: ATRAUMATIC, NORMOCEPHALIC Additional comments: left side cheek with dark scab.no swelling, no erythema, no discharged noted. - Eye Exam Eye Exam: Normal appearance - ENT Exam ENT Exam: Mucous Membranes Moist - Neck Exam Neck Exam: Normal Inspection - Respiratory Exam Respiratory Exam: Clear to Ausculation Bilateral. absent: Rales, Rhonchi, Wheezes - Cardiovascular Exam Cardiovascular Exam: REGULAR RHYTHM, +S1, +S2 - GI/Abdominal Exam GI & Abdominal Exam: Soft, Normal Bowel Sounds. absent: Tenderness - Extremities Exam Extremities Exam: Normal Inspection. absent: Pedal Edema - Neurological Exam Neurological Exam: Alert, Oriented x3 - Psychiatric Exam Psychiatric exam: Normal Mood - Skin Skin Exam: absent: Petechiae Additional comments: left cheek presence of dark scab. Assessment and Plan - Assessment and Plan (Free Text) Plan: 61 y/o Male with PMH of leukopenia, neutropenia, glaucoma, wegeners granulomatosis, BPH, DVT, and recurrent cellulitis is admitted for L face cellulitis. 1) Left, Cellulitis of the face, sialadenitis -resolved -CT maxilofacial: left facial skin cellulitis, L submandibular and parotid sialadenitis -Vancomycin day #3, Flagyl day # 6, Azactam day # 2, Acyclovir stopped -Tylenol, Tramadol, percocet for pain -Vancomzcin through 7.6 -Zoster IGG positive, I -VZV IgM <0.90 => Acyclovir discontinued. -ID consult appreciated: Patiet will need IV 5 days more -Possible c/w abx in TCU 2) Thrombocytopenia -possible secondary to autoinmune disease( ESR >120, C react prot 86) -improving, s/p Filgastrim 480 mcg SC x 2 dose. last dose yesterday -today(07/23/17): WBC 3,4 Hgb 8.5 plt 85 -Neutropenic precaution -Blood cx no growth after 5 days -Hemo-Onc Dr Samano consult appreciated. - For Bone marrow today -GI consult appreciated: EGD normal.f/u biopsy. - For colonoscopy today -will consider [employer] consult on discharge. 3) Relapsing Polychondritis - [employer] called Dr Mckeon covering Dr James Cosme and notified about patient hospitalization. states that patient is seen in the office with the diagnosis of Relapsing Polychondritis and recommends to c/w Prednisone 10 mg daily. -c/w Prednisone 10 mg PO daily 4) BPH -stable -has surgery scheduled next week -Urologist consult appreciated. c/w same treatment -continue home med, flomax 5) Glaucoma -stable -c/w Timolol 6) Macrocytic Anemia -stable -MCV 103.5 -B12 646 and folate 18.3 (05/28/17) -will continue to monitor 7) DVT Prophylaxis -Pt walking around floor, encouraged to continue ambulation. -SCD -Lovenox hold due to pancytopenia <Aaron Betancur - Last Filed: 07/25/17 06:50> Objective - Vital Signs/Intake and Output Vital Signs (last 24 hours): Temp Pulse Resp BP Pulse Ox 98.0 F 57 L 20 135/70 100 07/24/17 23:53 07/24/17 23:53 07/24/17 23:53 07/24/17 23:53 07/24/17 23:53 Intake and Output: 07/24/17 07/25/17 18:59 06:59 Intake Total 100 Balance 100 - Medications Medications: Current Medications Acetaminophen (Tylenol 325mg Tab) 650 mg PO Q6 PRN PRN Reason: Fever >100.4 F Last Admin: 07/18/17 00:47 Dose: 650 mg Acetaminophen (Tylenol 325mg Tab) 650 mg PO Q6 PRN PRN Reason: Pain, Mild (1-3) Last Admin: 07/25/17 04:09 Dose: 650 mg Dorzolamide HCl (Trusopt) 1 drop OU BID@0500,1700 [facility] Last Admin: 07/25/17 04:04 Dose: 1 drop Emollient Ointment (Vaseline Oint) 1 pkt TOP BID PRN PRN Reason: Dry skin Last Admin: 07/22/17 16:16 Dose: 1 pkt Metronidazole (Flagyl 500mg/100ml Ns) 100 mls @ 100 mls/hr IVPB Q8H [facility] PRN Reason: Protocol Last Admin: 07/25/17 04:02 Dose: 100 mls/hr Vancomycin HCl 750 mg/ Sodium (Chloride) 250 mls @ 166.667 mls/hr IVPB Q12 [facility] PRN Reason: Protocol Last Admin: 07/24/17 21:39 Dose: 166.667 mls/hr Aztreonam 1 gm/ Sodium (Chloride) 50 mls @ 50 mls/hr IVPB Q12@1100,2300 [facility] PRN Reason: Protocol Last Admin: 07/25/17 00:05 Dose: 50 mls/hr Sodium Chloride (Sodium Chloride 0.9%) 1,000 mls @ 100 mls/hr IV .Q10H [facility] Last Admin: 07/25/17 06:07 Dose: Not Given Prednisone (Prednisone Tab) 10 mg PO DAILY [facility] Last Admin: 07/24/17 11:54 Dose: 10 mg Tamsulosin HCl (Flomax) 0.4 mg PO BID [facility] Last Admin: 07/24/17 16:27 Dose: 0.4 mg Timolol Maleate (Timoptic 0.5% Ophth Soln) 1 drop OU Q12@0500,1700 [facility] Last Admin: 07/25/17 04:03 Dose: 1 drop - Labs Labs: 07/24/17 05:30 07/24/17 05:30 PT 13.1 Seconds (9.8-13.1) 07/16/17 06:47 INR 1.2 (0.9-1.2) 07/16/17 06:47 APTT 31.9 Seconds (25.6-37.1) 07/16/17 06:47 Attending/Attestation - Attestation I have personally seen and examined this patient.: Yes I have fully participated in the care of the patient.: Yes I have reviewed all pertinent clinical information, including history, physical exam and plan: Yes
[2017-07-24] MEDS ORDERED: Lactated Ringer's 1,000 ML IV ONE (09:59)
[2017-07-24] MEDS ORDERED: Propofol 10 mg/ml Inj (20 ML) ONE (10:47)
[2017-07-24] MEDS ORDERED: Lidocaine 2% MPF (5 ml) Inj ONE (10:48)
--- NOTE | 2017-07-24 14:46 | CP.PCM.PN ---
Subjective - Date & Time of Evaluation Date of Evaluation: 07/24/17 Time of Evaluation: 14:44 - Subjective Subjective: I D NOTE REVIEWED FP RESIDENT AND NEED TO RX AT LEAST 5 MORE DAYS ON IV ANTIBIOTICS NO REAL ORAL SUBSTITUTE Objective - Vital Signs/Intake and Output Vital Signs (last 24 hours): Temp Pulse Resp BP Pulse Ox 97.3 F L 55 L 15 111/60 100 07/24/17 11:33 07/24/17 11:33 07/24/17 11:33 07/24/17 11:33 07/24/17 11:21 Intake and Output: 07/24/17 07/24/17 06:59 18:59 Intake Total 100 Balance 100 - Medications Medications: Current Medications Acetaminophen (Tylenol 325mg Tab) 650 mg PO Q6 PRN PRN Reason: Fever >100.4 F Last Admin: 07/18/17 00:47 Dose: 650 mg Acetaminophen (Tylenol 325mg Tab) 650 mg PO Q6 PRN PRN Reason: Pain, Mild (1-3) Last Admin: 07/22/17 04:13 Dose: 650 mg Dorzolamide HCl (Trusopt) 1 drop OU BID@0500,1700 [facility] Last Admin: 07/24/17 04:41 Dose: 1 drop Emollient Ointment (Vaseline Oint) 1 pkt TOP BID PRN PRN Reason: Dry skin Last Admin: 07/22/17 16:16 Dose: 1 pkt Metronidazole (Flagyl 500mg/100ml Ns) 100 mls @ 100 mls/hr IVPB Q8H [facility] PRN Reason: Protocol Last Admin: 07/24/17 13:07 Dose: 100 mls/hr Vancomycin HCl 750 mg/ Sodium (Chloride) 250 mls @ 166.667 mls/hr IVPB Q12 [facility] PRN Reason: Protocol Last Admin: 07/24/17 09:21 Dose: 166.667 mls/hr Aztreonam 1 gm/ Sodium (Chloride) 50 mls @ 50 mls/hr IVPB Q12@1100,2300 [facility] PRN Reason: Protocol Last Admin: 07/24/17 11:55 Dose: 50 mls/hr Sodium Chloride (Sodium Chloride 0.9%) 1,000 mls @ 100 mls/hr IV .Q10H [facility] Last Admin: 07/24/17 11:53 Dose: Not Given Prednisone (Prednisone Tab) 10 mg PO DAILY [facility] Last Admin: 07/24/17 11:54 Dose: 10 mg Tamsulosin HCl (Flomax) 0.4 mg PO BID [facility] Last Admin: 07/24/17 11:54 Dose: 0.4 mg Timolol Maleate (Timoptic 0.5% Ophth Soln) 1 drop OU Q12@0500,1700 [facility] Last Admin: 07/24/17 04:41 Dose: 1 drop - Labs Labs: 07/24/17 05:30 07/24/17 05:30 PT 13.1 Seconds (9.8-13.1) 07/16/17 06:47 INR 1.2 (0.9-1.2) 07/16/17 06:47 APTT 31.9 Seconds (25.6-37.1) 07/16/17 06:47
[2017-07-25] MEDS: metroNIDAZOLE 500mg/100ml NS 100 ML IVPB SCH ×2 (04:02→12:51)
[2017-07-25] MEDS: Dorzolamide 2% Ophth Soln OU SCH ×2 (04:04→17:13)
[2017-07-25] MEDS: Sodium Chloride 0.9% 1,000 ML IV SCH ×2 (06:07→16:31)
[2017-07-25 08:10] VITALS: O2SAT 98
--- NOTE | 2017-07-25 08:19 | CP.PCM.PN ---
Subjective - Date & Time of Evaluation Date of Evaluation: 07/25/17 Time of Evaluation: 07:10 - Subjective Subjective: Patient seen and examined bedside with Dr Betancur. Patient reports feeling better. Patient aware he will have bone marrow biopsy today. He denies fever, SOB,chest pain, skin rash, n,v,abd pain. Discussed with Dr Samano. Pt will have bone marrow biopsy today bedside. Objective - Vital Signs/Intake and Output Vital Signs (last 24 hours): Temp Pulse Resp BP Pulse Ox 98.6 F 55 L 20 156/79 H 98 07/25/17 08:10 07/25/17 08:10 07/25/17 08:10 07/25/17 08:10 07/25/17 08:10 - Medications Medications: Current Medications Acetaminophen (Tylenol 325mg Tab) 650 mg PO Q6 PRN PRN Reason: Fever >100.4 F Last Admin: 07/18/17 00:47 Dose: 650 mg Acetaminophen (Tylenol 325mg Tab) 650 mg PO Q6 PRN PRN Reason: Pain, Mild (1-3) Last Admin: 07/25/17 04:09 Dose: 650 mg Dorzolamide HCl (Trusopt) 1 drop OU BID@0500,1700 [facility] Last Admin: 07/25/17 04:04 Dose: 1 drop Emollient Ointment (Vaseline Oint) 1 pkt TOP BID PRN PRN Reason: Dry skin Last Admin: 07/22/17 16:16 Dose: 1 pkt Metronidazole (Flagyl 500mg/100ml Ns) 100 mls @ 100 mls/hr IVPB Q8H [facility] PRN Reason: Protocol Last Admin: 07/25/17 04:02 Dose: 100 mls/hr Vancomycin HCl 750 mg/ Sodium (Chloride) 250 mls @ 166.667 mls/hr IVPB Q12 [facility] PRN Reason: Protocol Last Admin: 07/24/17 21:39 Dose: 166.667 mls/hr Aztreonam 1 gm/ Sodium (Chloride) 50 mls @ 50 mls/hr IVPB Q12@1100,2300 [facility] PRN Reason: Protocol Last Admin: 07/25/17 00:05 Dose: 50 mls/hr Sodium Chloride (Sodium Chloride 0.9%) 1,000 mls @ 100 mls/hr IV .Q10H [facility] Last Admin: 07/25/17 06:07 Dose: Not Given Prednisone (Prednisone Tab) 10 mg PO DAILY [facility] Last Admin: 07/24/17 11:54 Dose: 10 mg Tamsulosin HCl (Flomax) 0.4 mg PO BID [facility] Last Admin: 07/24/17 16:27 Dose: 0.4 mg Timolol Maleate (Timoptic 0.5% Ophth Soln) 1 drop OU Q12@0500,1700 [facility] Last Admin: 07/25/17 04:03 Dose: 1 drop - Labs Labs: 07/24/17 05:30 07/24/17 05:30 PT 13.1 Seconds (9.8-13.1) 07/16/17 06:47 INR 1.2 (0.9-1.2) 07/16/17 06:47 APTT 31.9 Seconds (25.6-37.1) 07/16/17 06:47 - Constitutional Appears: No Acute Distress - Head Exam Head Exam: ATRAUMATIC, NORMOCEPHALIC Additional comments: left side cheek with small scab. no swelling, no discharge - Eye Exam Eye Exam: Normal appearance - ENT Exam ENT Exam: Mucous Membranes Moist - Neck Exam Neck Exam: Normal Inspection - Respiratory Exam Respiratory Exam: Clear to Ausculation Bilateral. absent: Rales, Rhonchi, Wheezes - Cardiovascular Exam Cardiovascular Exam: REGULAR RHYTHM, +S1, +S2 - GI/Abdominal Exam GI & Abdominal Exam: Soft, Normal Bowel Sounds. absent: Tenderness - Extremities Exam Extremities Exam: Normal Inspection. absent: Pedal Edema - Back Exam Back Exam: NORMAL INSPECTION - Neurological Exam Neurological Exam: Alert, Awake, Oriented x3 - Psychiatric Exam Psychiatric exam: Normal Affect, Normal Mood - Skin Skin Exam: absent: Pallor, Petechiae Assessment and Plan - Assessment and Plan (Free Text) Plan: 61 y/o Male with PMH of leukopenia, neutropenia, glaucoma, relapsing polychondritis, BPH, DVT, and recurrent cellulitis is admitted for L face cellulitis. 1) Left, Cellulitis of the face, sialadenitis -resolved -CT maxilofacial: left facial skin cellulitis, L submandibular and parotid sialadenitis -Vancomycin day #4, Flagyl day # 7, Azactam day # 3, Acyclovir stopped -Tylenol, Tramadol, percocet for pain -Vancomzcin through 7.6 -Zoster IGG positive, I -VZV IgM <0.90 => Acyclovir discontinued. -ID consult appreciated: Patiet will need IV 5 days more -Discussed with SW for TCU 2) Pancytopenia -possible secondary to autoinmune disease( ESR >120, C react prot 86) -improving, s/p Filgastrim 480 mcg SC x 2 dose. last dose yesterday - WBC 3 Hgb 8.2 plt 85 -Neutropenic precaution -Blood cx no growth after 5 days -Hemo-Onc Dr Samano consult appreciated. - For Bone marrow today -GI consult appreciated: EGD normal.f/u biopsy. colonoscopy:internal hemorrhoids, diverticulosis -will consider [employer] consult on discharge. 3) Relapsing Polychondritis - [employer] called Dr Mckeon covering Dr James Cosme and notified about patient hospitalization. states that patient is seen in the office with the diagnosis of Relapsing Polychondritis and recommends to c/w Prednisone 10 mg daily. -c/w Prednisone 10 mg PO daily 4) BPH -stable -has surgery scheduled next week -Urologist consult appreciated. c/w same treatment -continue home med, flomax 5) Glaucoma -stable -c/w Timolol 6) Macrocytic Anemia -stable -MCV 103.5 -B12 646 and folate 18.3 (05/28/17) -will continue to monitor 7) DVT Prophylaxis -Pt walking around floor, encouraged to continue ambulation. -SCD -Lovenox hold due to pancytopenia
[2017-07-25 08:33] LABS: BASO % 0.7 % (0.0-2.0); EOS % 0.6 % (0.0-4.0); HEMOGLOBIN 8.2 g/dL (12.0-18.0); LYMPH # 1.2 K/uL (1.0-4.3); LYMPH % 39.3 % (20.0-40.0); MEAN CELL VOLUME 104.3 fl (80.0-94.0); MEAN CORPUSCULAR HGB CONC 32.6 g/dL (33.0-37.0); MEAN PLATELET VOLUME 8.5 fl (7.2-11.7); MONO # 0.1 K/uL (0.0-0.8); MONO % 3.8 % (0.0-10.0); NEUT # 1.7 K/uL (1.8-7.0); NEUT % 55.6 % (50.0-75.0); NRBC % 0.2 % (0.0-0.0); RBC 2.4 Mil/uL (4.40-5.90); RED CELL DISTRIBUTION WIDTH 15.4 % (11.5-14.5)
[2017-07-25 08:50] LABS: ALBUMIN 3.1 g/dL (3.5-5.0); ALT/SGPT 36 U/L (21-72); AST/SGOT 29 U/L (17-59); BLOOD UREA NITROGEN 14 mg/dl (9-20); CALCIUM 8.8 mg/dL (8.4-10.2); GFR AFRICAN-AMERICAN > 60; GFR NON-AFRICAN AMERICAN > 60
[2017-07-25 09:06] LABS: ALB/GLOB RATIO 0.9 (1.0-2.1)
[2017-07-25] MEDS ORDERED: Lidocaine 2% Inj (20ml) SC ONE (09:44)
[2017-07-25] MEDS ORDERED: Lidocaine 2% Inj (20ml) ONE (09:49)
--- NOTE | 2017-07-25 10:42 | CP.PCM.PN ---
Subjective - Date & Time of Evaluation Date of Evaluation: 07/25/17 Time of Evaluation: 10:41 - Subjective Subjective: Pt is feeling well no symptoms. He is afebrile. He had a colonoscopy yesterday and this showed no evidence of bleeding.His cbc today is WBC 3.0, hgb 8.2gms and platelets 85. ANC was 1.7. Will give him 1 dose of granix today.Bone marrow aspiration was done from the sternum under local anesthesia. Procedure tolerated well, result to follow.Specimen sent for bone marrow clot pathology. slide staining, ,flow cytometry and cytogenetics. Objective - Vital Signs/Intake and Output Vital Signs (last 24 hours): Temp Pulse Resp BP Pulse Ox 98.6 F 55 L 20 156/79 H 98 07/25/17 08:10 07/25/17 08:10 07/25/17 08:10 07/25/17 08:10 07/25/17 08:10 - Medications Medications: Current Medications Acetaminophen (Tylenol 325mg Tab) 650 mg PO Q6 PRN PRN Reason: Fever >100.4 F Last Admin: 07/18/17 00:47 Dose: 650 mg Acetaminophen (Tylenol 325mg Tab) 650 mg PO Q6 PRN PRN Reason: Pain, Mild (1-3) Last Admin: 07/25/17 04:09 Dose: 650 mg Dorzolamide HCl (Trusopt) 1 drop OU BID@0500,1700 [facility] Last Admin: 07/25/17 04:04 Dose: 1 drop Emollient Ointment (Vaseline Oint) 1 pkt TOP BID PRN PRN Reason: Dry skin Last Admin: 07/22/17 16:16 Dose: 1 pkt Metronidazole (Flagyl 500mg/100ml Ns) 100 mls @ 100 mls/hr IVPB Q8H [facility] PRN Reason: Protocol Last Admin: 07/25/17 04:02 Dose: 100 mls/hr Vancomycin HCl 750 mg/ Sodium (Chloride) 250 mls @ 166.667 mls/hr IVPB Q12 [facility] PRN Reason: Protocol Last Admin: 07/25/17 09:08 Dose: 166.667 mls/hr Aztreonam 1 gm/ Sodium (Chloride) 50 mls @ 50 mls/hr IVPB Q12@1100,2300 [facility] PRN Reason: Protocol Last Admin: 07/25/17 00:05 Dose: 50 mls/hr Sodium Chloride (Sodium Chloride 0.9%) 1,000 mls @ 100 mls/hr IV .Q10H [facility] Last Admin: 07/25/17 06:07 Dose: Not Given Prednisone (Prednisone Tab) 10 mg PO DAILY [facility] Last Admin: 07/25/17 09:09 Dose: 10 mg Tamsulosin HCl (Flomax) 0.4 mg PO BID [facility] Last Admin: 07/25/17 09:09 Dose: 0.4 mg Timolol Maleate (Timoptic 0.5% [facility]) 1 drop OU Q12@0500,1700 [facility] Last Admin: 07/25/17 04:03 Dose: 1 drop - Labs Labs: 07/25/17 08:15 07/25/17 08:15 PT 13.1 Seconds (9.8-13.1) 07/16/17 06:47 INR 1.2 (0.9-1.2) 07/16/17 06:47 APTT 31.9 Seconds (25.6-37.1) 07/16/17 06:47
[2017-07-25 11:41] LABS: ANCA SCREEN POSITIVE (NEGATIVE)
--- NOTE | 2017-07-25 14:23 | CP.PCM.DIS ---
Provider - Provider Date of Admission: 07/16/17 15:00 Attending physician: Aaron Betancur MD Consults: GI Dr Avelar Hemo-Onc Dr Denise ID Dr Cerna Urologist Dr Gonzales Time Spent in preparation of Discharge (in minutes): 30 Hospital Course - Lab Results Lab Results: Micro Results 07/16/17 06:47 Blood Blood Culture - Final NO GROWTH AFTER 5 DAYS 07/16/17 06:47 Blood Gram Stain - Final TEST NOT PERFORMED Most Recent Lab Values WBC 3.0 K/uL (4.8-10.8) L 07/25/17 08:15 RBC 2.40 Mil/uL (4.40-5.90) L 07/25/17 08:15 Hgb 8.2 g/dL (12.0-18.0) L 07/25/17 08:15 Hct 25.1 % (35.0-51.0) L 07/25/17 08:15 MCV 104.3 fl (80.0-94.0) H 07/25/17 08:15 MCH 34.0 pg (27.0-31.0) H 07/25/17 08:15 MCHC 32.6 g/dL (33.0-37.0) L 07/25/17 08:15 RDW 15.4 % (11.5-14.5) H 07/25/17 08:15 Plt Count 85 K/uL (130-400) L 07/25/17 08:15 MPV 8.5 fl (7.2-11.7) 07/25/17 08:15 Neut % (Auto) 55.6 % (50.0-75.0) 07/25/17 08:15 Lymph % (Auto) 39.3 % (20.0-40.0) 07/25/17 08:15 [place] % (Auto) 3.8 % (0.0-10.0) 07/25/17 08:15 Eos % (Auto) 0.6 % (0.0-4.0) 07/25/17 08:15 Baso % (Auto) 0.7 % (0.0-2.0) 07/25/17 08:15 Neut # 1.7 K/uL (1.8-7.0) L 07/25/17 08:15 Lymph # 1.2 K/uL (1.0-4.3) 07/25/17 08:15 [place] # 0.1 K/uL (0.0-0.8) 07/25/17 08:15 Eos # 0.0 K/uL (0.0-0.7) 07/25/17 08:15 Baso # 0.0 K/uL (0.0-0.2) 07/25/17 08:15 ESR > 120 mm/hr (0-20) H 07/21/17 06:59 Retic Count 0.7 % (0.5-1.5) D 07/17/17 09:26 Haptoglobin 226 mg/dL (43-212) H 07/17/17 11:02 PT 13.1 Seconds (9.8-13.1) 07/16/17 06:47 INR 1.2 (0.9-1.2) 07/16/17 06:47 APTT 31.9 Seconds (25.6-37.1) 07/16/17 06:47 Sodium 140 mmol/l (132-148) 07/25/17 08:15 Potassium 3.9 MMOL/L (3.6-5.0) 07/25/17 08:15 Chloride 107 mmol/L (98-107) 07/25/17 08:15 Carbon Dioxide 24 mmol/L (22-30) 07/25/17 08:15 Anion Gap 13 (10-20) 07/25/17 08:15 BUN 14 mg/dl (9-20) 07/25/17 08:15 Creatinine 0.8 mg/dl (0.8-1.5) 07/25/17 08:15 Est GFR ( Amer) > 60 07/25/17 08:15 Est GFR (Non-Af Amer) > 60 07/25/17 08:15 Random Glucose 81 mg/dL (75-110) 07/25/17 08:15 Lactic Acid 1.2 MMOL/L (0.7-2.1) 07/16/17 06:47 Calcium 8.8 mg/dL (8.4-10.2) 07/25/17 08:15 Ferritin 632.0 ng/Ml (17.9-464) H 07/18/17 10:48 Total Bilirubin 0.3 mg/dl (0.2-1.3) 07/25/17 08:15 AST 29 U/L (17-59) 07/25/17 08:15 ALT 36 U/L (21-72) 07/25/17 08:15 Alkaline Phosphatase 73 U/L (38-126) 07/25/17 08:15 Lactate Dehydrogenase 240 U/L (313-618) L 07/17/17 09:26 C-Reactive Prot, Quant 86.0 mg/L (<8.0) H 07/19/17 09:31 Total Protein 6.6 G/DL (6.3-8.2) 07/25/17 08:15 Albumin 3.1 g/dL (3.5-5.0) L 07/25/17 08:15 Globulin 3.5 gm/dL (2.2-3.9) 07/25/17 08:15 Albumin/Globulin Ratio 0.9 (1.0-2.1) L 07/25/17 08:15 Vitamin B12 368 pg/mL (239-931) 07/18/17 10:48 Urine Color Yellow (YELLOW) 07/17/17 19:44 Urine Clarity Clear (Clear) 07/17/17 19:44 Urine pH 6.0 (5.0-8.0) 07/17/17 19:44 Ur Specific [place] 1.026 (1.003-1.030) 07/17/17 19:44 Urine Protein Negative mg/dL (NEGATIVE) 07/17/17 19:44 Urine Glucose (UA) Neg mg/dL (Normal) 07/17/17 19:44 Urine Ketones Negative mg/dL (NEGATIVE) 07/17/17 19:44 Urine Blood Moderate (NEGATIVE) 07/17/17 19:44 Urine Nitrate Negative (NEGATIVE) 07/17/17 19:44 Urine Bilirubin Negative (NEGATIVE) 07/17/17 19:44 Urine Urobilinogen 4.0 mg/dL (0.2-1.0) 07/17/17 19:44 Ur Leukocyte Esterase Neg Maru/uL (Negative) 07/17/17 19:44 Urine RBC (Auto) 10 /hpf (0-3) H 07/17/17 19:44 Urine Microscopic WBC 1 /hpf (0-5) 07/17/17 19:44 Urine Bacteria Rare (<OCC) 07/17/17 19:44 Stool Occult Blood Negative (NEGATIVE) 07/21/17 08:56 Vancomycin Trough 7.6 ug/mL (5.0-10.0) 07/23/17 20:25 [place] Screen Negative (Negative) 07/20/17 18:01 ANCA Screen Positive (NEGATIVE) H 07/20/17 18:01 c-ANCA Titer TNP 07/20/17 18:01 Proteinase 3 (PR3) <1.0 AI (<1.0) 07/20/17 18:01 p-ANCA Titer TNP 07/20/17 18:01 Atypical p-ANCA Titer 1:80 titer (<1:20) H 07/20/17 18:01 Myeloperoxidase Ab <1.0 AI (<1.0) 07/20/17 18:01 Hepatitis C Antibody Negative (NEGATIVE) 07/17/17 15:08 HIV 1&2 Ag/Ab, 4th Gen Nonreactive (Nonreactive) 07/17/17 15:08 VZV IgG Antibody 986.00 index 07/20/17 06:00 VZV IgM Antibody <=0.90 (<=0.90) 07/20/17 06:00 Blood Type O POSITIVE 07/17/17 09:30 Antibody Screen Negative 07/17/17 09:30 Crossmatch See Detail 07/17/17 09:30 BBK History Checked Patient has bt 07/17/17 09:30 - Hospital Course Hospital Course: 61 yo, Male with PMH of leukopenia, neutropenia, glaucoma, wegners granulomatosis, BPH, DVT, and recurrent cellulitis presents to [facility] ED for pain , redness in his L face and neck. Per pt, pain started two days ago prior to admission along with a small area of redness. Pt applied topical abx which he had at home, but it did not make the pain better. Pt presented to the ED for the pain and was d.c home with PO Clindamycin. Pt took it but overnight the pain extended to his neck and redness worsened. Denies chest pain, dyspnea, palpitations, n/v/d/c, chills, night sweats and has remain afebrile. During hospitalization patient treated with Clindamycin IV for 2 days and abx were switched by ID to Vancomycin day 4 today, Metronidazol day 7 today and Aztreonam day 3 today. Acyclovir added to treatment and stopped after Zoster IGM was neg. Facial Cellulitis improved significantly after switch abx. ID Dr Cerna recommended 5 days more IV Abx in TCU. CBC showed pancytopenia. Hem-Onc consulted Dr Denise. Pt transfused 1 unit, Filgastrim given x 3 dosis, las dosis given today. Bone marrow biopsy done today GI consulted Dr Avelar to r/o anemia of GI etiololgy. EGD done normal, Colonoscopy showed internal hemorrhoids, diverticulosis. Prevention Coordinator for this pt consulted Dr Mckeon covering Dr James Cosme. Patient with diagnosis of relapsing polychondritis. will c/o prednisone 10 mg daily. Patient clinically stable, afebrile, will be transferred to TCU. DVT prophylaxis SCD due to pancytopenia. --- Diagnosis 1) Left, Cellulitis of the face, sialadenitis -resolved -c/w Vancomycin day #4, Flagyl day # 7, Azactam day # 3, Acyclovir stopped 2) Pancytopenia -possible secondary to autoinmune disease( ESR >120, C react prot 86) -improving, s/p Filgastrim 480 mcg SC x 3 dose. last dose today - WBC 3 Hgb 8.2 plt 85 -Neutropenic precaution 3) Relapsing Polychondritis - Prevention Coordinator called Dr Mckeon covering Dr James Cosme and notified about patient hospitalization. states that patient is seen in the office with the diagnosis of Relapsing Polychondritis and recommends to c/w Prednisone 10 mg daily. -c/w Prednisone 10 mg PO daily 4) BPH -stable -Urologist consult appreciated. c/w same treatment 5) Glaucoma -stable -c/w Timolol 6) Macrocytic Anemia -stable 7) DVT Prophylaxis -pt with pancytopenia -Pt walking around floor, encouraged to continue ambulation. -SCD Discharge Exam - Head Exam Head Exam: ATRAUMATIC, NORMOCEPHALIC Additional comments: left side cheek scab, no cellulitis, no erythema, no discharge - Eye Exam Eye Exam: Normal appearance - ENT Exam ENT Exam: Normal Exam - Respiratory Exam Respiratory Exam: NORMAL BREATHING PATTERN. absent: Rales, Rhonchi - Cardiovascular Exam Cardiovascular Exam: REGULAR RHYTHM, +S1, +S2 - GI/Abdominal Exam GI & Abdominal Exam: Normal Bowel Sounds, Soft. absent: Tenderness - Extremities Exam Extremities exam: normal inspection - Neurological Exam Neurological exam: Alert, Oriented x3 - Psychiatric Exam Psychiatric exam: Normal Affect, Normal Mood Discharge Plan - Discharge Medications Prescriptions: Aztreonam 1 Gm in NS 100mL [Azactam 1 gm] 1 gm IVPB Q12 5 Days ml metroNIDAZOLE 500mg/100ml NS [Flagyl 500MG/100ML NS] 500 mg IVPB Q8H 5 Days bag Vancomycin 750mg [Vancomycin 750 mg in NS] 750 mg IVPB Q12 5 Days bag - Follow Up Plan Condition: FAIR Disposition: REHAB FACILITY/REHAB UNIT Instructions: Cellulitis (DC), Bone Marrow Biopsy (DC)
[2017-07-25 16:43] VITALS: BP 142/74; PULSE 54; RESP 18; TEMP 98.1
--- NOTE | 2017-07-25 19:59 | CP.PCM.PN ---
Subjective - Date & Time of Evaluation Date of Evaluation: 07/25/17 Time of Evaluation: 14:00 - Subjective Subjective: Doing well clinically. No overt GI bleeding. Objective - Vital Signs/Intake and Output Vital Signs (last 24 hours): Temp Pulse Resp BP Pulse Ox 98.1 F 54 L 18 142/74 98 07/25/17 16:42 07/25/17 16:42 07/25/17 16:42 07/25/17 16:42 07/25/17 16:42 - Medications Medications: Current Medications Acetaminophen (Tylenol 325mg Tab) 650 mg PO Q6 PRN PRN Reason: Fever >100.4 F Last Admin: 07/18/17 00:47 Dose: 650 mg Acetaminophen (Tylenol 325mg Tab) 650 mg PO Q6 PRN PRN Reason: Pain, Mild (1-3) Last Admin: 07/25/17 04:09 Dose: 650 mg Dorzolamide HCl (Trusopt) 1 drop OU BID@0500,1700 [facility] Last Admin: 07/25/17 17:13 Dose: 1 drop Emollient Ointment (Vaseline Oint) 1 pkt TOP BID PRN PRN Reason: Dry skin Last Admin: 07/22/17 16:16 Dose: 1 pkt Metronidazole (Flagyl 500mg/100ml Ns) 100 mls @ 100 mls/hr IVPB Q8H [facility] PRN Reason: Protocol Last Admin: 07/25/17 12:51 Dose: 100 mls/hr Vancomycin HCl 750 mg/ Sodium (Chloride) 250 mls @ 166.667 mls/hr IVPB Q12 [facility] PRN Reason: Protocol Last Admin: 07/25/17 09:08 Dose: 166.667 mls/hr Aztreonam 1 gm/ Sodium (Chloride) 50 mls @ 50 mls/hr IVPB Q12@1100,2300 [facility] PRN Reason: Protocol Last Admin: 07/25/17 11:46 Dose: 50 mls/hr Sodium Chloride (Sodium Chloride 0.9%) 1,000 mls @ 100 mls/hr IV .Q10H [facility] Last Admin: 07/25/17 16:31 Dose: Not Given Prednisone (Prednisone Tab) 10 mg PO DAILY [facility] Last Admin: 07/25/17 09:09 Dose: 10 mg Tamsulosin HCl (Flomax) 0.4 mg PO BID [facility] Last Admin: 07/25/17 17:12 Dose: 0.4 mg Timolol Maleate (Timoptic 0.5% Ophth Soln) 1 drop OU Q12@0500,1700 [facility] Last Admin: 07/25/17 17:13 Dose: 1 drop - Labs Labs: 07/25/17 08:15 07/25/17 08:15 PT 13.1 Seconds (9.8-13.1) 07/16/17 06:47 INR 1.2 (0.9-1.2) 07/16/17 06:47 APTT 31.9 Seconds (25.6-37.1) 07/16/17 06:47 - Head Exam Head Exam: ATRAUMATIC Additional comments: left sided facial infection considerably better. - Eye Exam Pupil Exam: PERRL - ENT Exam ENT Exam: Normal Exam - Neck Exam Neck Exam: Full ROM - Respiratory Exam Respiratory Exam: NORMAL BREATHING PATTERN - Cardiovascular Exam Cardiovascular Exam: REGULAR RHYTHM - GI/Abdominal Exam GI & Abdominal Exam: Soft. absent: Tenderness Assessment and Plan (1) Anemia Assessment & Plan: Hgb remains stable and no significant GI lesions on upper and lower endoscopy Status: Acute (2) Cellulitis and abscess of face Status: Acute
== END 2017-07-25 20:55 | DRG 155 ==
LOC: H.ER 05:40 → H.ERHOLD 10:31 → H.MEDSURG1 13:10 → OBSVTOIN 15:00 → H.MEDSURG1 07-17 08:05
PROVIDERS: ADMIT Family Medicine; ATTEND Family Medicine
PROC: 07DQ3ZX Extraction of Sternum Bone Marrow, Percutaneous Approach, Diagnostic (ICD-10-PCS; 2017-07-19)
PROC: 0DB68ZX Excision of Stomach, Via Natural or Artificial Opening Endoscopic, Diagnostic (ICD-10-PCS; principal; 2017-07-19 08:30)
PROC: 0DJD8ZZ Inspection of Lower Intestinal Tract, Via Natural or Artificial Opening Endoscopic (ICD-10-PCS; 2017-07-25)
DX: K11.20 Sialoadenitis, unspecified (principal); D61.818 Other pancytopenia; M31.30 Wegener's granulomatosis without renal involvement; L03.211 Cellulitis of face; N13.8 Other obstructive and reflux uropathy; K64.8 Other hemorrhoids; K57.30 Diverticulosis of large intestine without perforation or abscess without bleeding; B02.9 Zoster without complications; D53.9 Nutritional anemia, unspecified; H40.9 Unspecified glaucoma; Z88.6 Allergy status to analgesic agent; Z88.0 Allergy status to penicillin; Z88.2 Allergy status to sulfonamides; I10 Essential (primary) hypertension; J44.9 Chronic obstructive pulmonary disease, unspecified; E03.9 Hypothyroidism, unspecified; Z86.718 Personal history of other venous thrombosis and embolism; F41.9 Anxiety disorder, unspecified; M19.90 Unspecified osteoarthritis, unspecified site; N40.1 Benign prostatic hyperplasia with lower urinary tract symptoms; K29.70 Gastritis, unspecified, without bleeding; M94.1 Relapsing polychondritis

== ENCOUNTER 2017-07-25 16:35 | Inpatient (IN) | payer MEDICARE ==
[~2017-07-25 16:35] MED LIST: metroNIDAZOLE 500mg/100ml NS IVPB SCH
[2017-07-25 21:20] VITALS: BMI 27.3
[2017-07-25] MEDS ORDERED: Petrolatum UD PAK TOP PRN (23:59)
[2017-07-26] MEDS: Sodium Chloride 0.9% 1,000 ML IV SCH ×3 (00:25→22:10)
[2017-07-26] MEDS: metroNIDAZOLE 500mg/100ml NS 100 ML IVPB SCH ×4 (00:27→22:04)
[2017-07-26] MEDS ORDERED: Aztreonam 1 GM in Sodium Chloride 0.9% 100 ML IVPB SCH (05:00)
[2017-07-26] MEDS: Dorzolamide 2% Ophth Soln OU SCH ×2 (05:35→17:19)
[2017-07-26 06:25] VITALS: RESP 20
--- NOTE | 2017-07-26 07:01 | CP.PCM.HP ---
History of Present Illness - History of Present Illness History of Present Illness: 61 yo,m,PMhx/o leukopenia, neutropenia, glaucoma, Relapsing Polychondritis, BPH , DVT, and recurrent cellulitis admitted for left side facial cellulitis. Patient reported pain, redness in his L face and neck. Per pt, pain started two days ago prior to admission 07/16/16 along with a small area of redness. Pt applied topical abx which he had at home, but it did not make the pain better. Pt presented to the ED for the pain and was d.c home with PO Clindamycin. Pt took it but overnight the pain extended to his neck and redness worsened. Denies chest pain, dyspnea, palpitations, n/v/d/c, chills, night sweats and has remain afebrile. During hospitalization patient treated with Clindamycin IV for 2 days and abx were switched by ID to Vancomycin day 5 today, Metronidazol day 8 today and Aztreonam day 4 today. Acyclovir added to treatment and stopped after Zoster IGM was neg. Facial Cellulitis improved significantly after switch abx. ID Dr Cerna recommended 5 days more IV Abx in TCU. Pt transferred yesterday to TCU. PMH: Dr. Gorodn/Pipe PMH: leukopenia, neutropenia, wegners granulomatosis, BPH, DVT, and recurrent cellulites SurgHx: gallbladder removal, R hip surgery, prostate surgery, hernia repair FHx: hx of DM and CAD in father and paternal side of family SH: denies ETOH, illicit drug use and 20+yrs hx of smoking, quit 10 yrs ago. Allergies: asa (abdominal discomfort), penicillins (hives, itching), sulfa ( anorexia) Meds: eye drops and Flomax 0.4mg Code: Full code Present on Admission - Present on Admission Any Indicators Present on Admission: No History of DVT/PE: No History of Uncontrolled Diabetes: No Urinary Catheter: No Decubitus Ulcer Present: No Review of Systems - Constitutional Constitutional: As Per HPI - Cardiovascular Cardiovascular: As Per HPI - Respiratory Respiratory: As Per HPI - Gastrointestinal Gastrointestinal: As Per HPI - Genitourinary Genitourinary: As Per HPI - Neurological Neurological: As Per HPI Past Patient History - Infectious Disease Hx of Infectious Diseases: None - Tetanus Immunizations Tetanus Immunization: Unknown - Past Medical History & Family History Past Medical History?: Yes - Past Social History Smoking Status: Former Smoker - CARDIAC Hx Hypertension: No - PULMONARY Hx Pneumonia: Yes - NEUROLOGICAL Hx Neurological Disorder: No - HEENT Hx HEENT Problems: Yes Hx Glaucoma: Yes - RENAL Hx Chronic Kidney Disease: No - ENDOCRINE/METABOLIC Hx Hypothyroidism: No - HEMATOLOGICAL/ONCOLOGICAL Hx Blood Transfusions: Yes Hx Blood Transfusion Reaction: No - INTEGUMENTARY Hx Cellulitis: Yes (facial) - MUSCULOSKELETAL/RHEUMATOLOGICAL Hx Arthritis: Yes Hx Falls: No - GENITOURINARY/GYNECOLOGICAL Hx Genitourinary Disorders: Yes Hx Prostate Problems: Yes - PSYCHIATRIC Hx Substance Use: No - SURGICAL HISTORY Hx Cholecystectomy: Yes Hx Herniorrhaphy: Yes - ANESTHESIA Hx Anesthesia: Yes Hx Anesthesia Reactions: No Hx Malignant Hyperthermia: No Meds Allergies/Adverse Reactions: Allergies Allergy/AdvReac Type Severity Reaction Status Date / Time aspirin Allergy RASH Verified 07/15/17 08:19 naproxen Allergy RASH Verified 07/15/17 08:19 Penicillins Allergy RASH Verified 07/15/17 08:19 Sulfa (Sulfonamide Allergy RASH Verified 07/15/17 08:19 Antibiotics) Physical Exam - Constitutional Appears: No Acute Distress - Head Exam Head Exam: ATRAUMATIC, NORMOCEPHALIC Additional comments: left side cheek scab - Eye Exam Eye Exam: Normal appearance - ENT Exam ENT Exam: Mucous Membranes Moist - Neck Exam Neck exam: Positive for: Normal Inspection - Respiratory Exam Respiratory Exam: Clear to Auscultation Bilateral. absent: Rales - Cardiovascular Exam Cardiovascular Exam: REGULAR RHYTHM, +S1, +S2 - GI/Abdominal Exam GI & Abdominal Exam: Normal Bowel Sounds, Soft. absent: Tenderness - Extremities Exam Extremities exam: Positive for: normal inspection. Negative for: pedal edema - Neurological Exam Neurological exam: Alert, Oriented x3 - Psychiatric Exam Psychiatric exam: Normal Affect, Normal Mood - Skin Additional comments: left side cheek scab Results - Vital Signs Recent Vital Signs: Last Vital Signs Temp 97 F L 07/25/17 21:30 Pulse 62 07/25/17 22:00 Resp 20 07/25/17 22:00 BP 144/82 07/25/17 21:30 Pulse Ox 99 07/25/17 22:00 - Labs Result Diagrams: 07/26/17 06:51 07/26/17 06:51 Assessment & Plan - Assessment and Plan (Free Text) Plan: 61 y/o Male with PMH of leukopenia, neutropenia, glaucoma, relapsing polychondritis, BPH, DVT, and recurrent cellulitis is admitted for L face cellulitis that has been resolving and patient was discharged to TCU. TCU day # 1 1) Left, Cellulitis of the face, sialadenitis -resolved -CT maxilofacial: left facial skin cellulitis, L submandibular and parotid sialadenitis -Vancomycin day #5, Flagyl day # 8, Azactam day # 4, Acyclovir stopped -Tylenol, Tramadol, percocet for pain -Vancomzcin through 7.6 -Zoster IGG positive, I -VZV IgM <0.90 => Acyclovir discontinued. -ID consult appreciated: Patiet will need IV 5 days more in TCU 2) Pancytopenia -possible secondary to autoinmune disease( ESR >120, C react prot 86) -improving, s/p Filgastrim 480 mcg SC x 3 dose. last dose yesterday - WBC 33.4 Hgb 9 plt 82 (leukocytosis possible reactive to bone marrow biopsy done yesterday -Neutropenic precaution -Blood cx no growth after 5 days -Hemo-Onc Dr Samano consult appreciated. - s/p Bone marrow today. f/u result -GI consult appreciated EGD normal.Gastric biopsy showed mild chronic gastritis. H.pylori neg. colonoscopy:internal hemorrhoids, diverticulosis -will consider Project Manager consult on discharge. 3) Relapsing Polychondritis - Project Manager called Dr Mckeon covering Dr James Cosme and notified about patient hospitalization. states that patient is seen in the office with the diagnosis of Relapsing Polychondritis and recommends to c/w Prednisone 10 mg daily. -c/w Prednisone 10 mg PO daily 4) BPH -stable -has surgery scheduled next week -Urologist consult appreciated. c/w same treatment -continue home med, flomax 5) Glaucoma -stable -c/w Timolol 6) Macrocytic Anemia -stable -MCV 103.5 -B12 646 and folate 18.3 (05/28/17) -will continue to monitor 7) DVT Prophylaxis -Pt walking around floor, encouraged to continue ambulation. -SCD -Lovenox hold due to pancytopenia
[2017-07-26 07:34] LABS: ALB/GLOB RATIO 0.9 (1.0-2.1); ALBUMIN 3.5 g/dL (3.5-5.0); ALT/SGPT 34 U/L (21-72); AST/SGOT 28 U/L (17-59); BLOOD UREA NITROGEN 11 mg/dl (9-20); CALCIUM 9.2 mg/dL (8.4-10.2); GFR AFRICAN-AMERICAN > 60; GFR NON-AFRICAN AMERICAN > 60
[2017-07-26 07:36] LABS: BASO # 0.1 K/uL (0.0-0.2); BASO % 0.3 % (0.0-2.0); EOS % 0.1 % (0.0-4.0); LYMPH # 1.8 K/uL (1.0-4.3); LYMPH % 5.3 % (20.0-40.0); MEAN CELL VOLUME 103.5 fl (80.0-94.0); MEAN CORPUSCULAR HEMOGLOBIN 33.6 pg (27.0-31.0); MEAN CORPUSCULAR HGB CONC 32.5 g/dL (33.0-37.0); MEAN PLATELET VOLUME 8.1 fl (7.2-11.7); MONO # 0.1 K/uL (0.0-0.8); MONO % 0.2 % (0.0-10.0); NEUT # 31.4 K/uL (1.8-7.0); NEUT % 94.1 % (50.0-75.0); NRBC % 0.1 % (0.0-0.0); RBC 2.67 Mil/uL (4.40-5.90); RED CELL DISTRIBUTION WIDTH 15.8 % (11.5-14.5); WHITE BLOOD COUNT 33.4 K/uL (4.8-10.8)
[2017-07-26 07:41] LABS: PLATELET COUNT 82 K/uL (130-400)
[2017-07-26] MEDS ORDERED: Patient's Own Med (Aztreonam 1 Gm In Ns 100ml [Azactam 1 Gm] 1 GM) IVPB SCH (09:00)
[2017-07-26] MEDS ORDERED: Aztreonam 1 GM in Sodium Chloride 0.9% 100 ML IV SCH (09:00)
[2017-07-26 10:46] LABS: ANISOCYTOSIS SLIGHT; BANDS 8 % (0-2); HYPOCHROMIC SLIGHT; LYMPHOCYTE 7 % (20-50); MONOCYTE 1 % (0-10); NEUTROPHIL 84 % (42-75); PLATELET ESTIMATE DECREASED (NORMAL); TOTAL CELLS COUNTED 100; TOXIC GRANULATION PRESENT
[2017-07-26] MEDS: Aztreonam 1 GM in Sodium Chloride 0.9% 100 ML IV SCH (17:18)
--- NOTE | 2017-07-26 17:41 | CP.PCM.CON ---
History of Present Illness - History of Present Illness History of Present Illness: 61 yo male s/p recent hospitalization for facial cellulitis. Has responded well to broad spectrum antibiotics and IV acyclovir. Has long h/o leukopenia and anemia. Also has relapsing polychondritis. During most recent hospitalization had upper endoscopy and colonoscopy which were essentially normal. Had bone marrow study and results are pending. Review of Systems - Constitutional Constitutional: absent: Chills - EENT Eyes: absent: Blind Spots Ears: absent: Decreased Hearing Nose/Mouth/Throat: absent: Epistaxis - Cardiovascular Cardiovascular: absent: Chest Pain - Respiratory Respiratory: absent: Dyspnea - Gastrointestinal Gastrointestinal: absent: Abdominal Pain Past Patient History - Infectious Disease Hx of Infectious Diseases: None - Tetanus Immunizations Tetanus Immunization: Unknown - Past Medical History & Family History Past Medical History?: Yes - Past Social History Smoking Status: Former Smoker - CARDIAC Hx Hypertension: No - PULMONARY Hx Pneumonia: Yes - NEUROLOGICAL Hx Neurological Disorder: No - HEENT Hx HEENT Problems: Yes Hx Glaucoma: Yes - RENAL Hx Chronic Kidney Disease: No - ENDOCRINE/METABOLIC Hx Hypothyroidism: No - HEMATOLOGICAL/ONCOLOGICAL Hx Blood Transfusions: Yes Hx Blood Transfusion Reaction: No - INTEGUMENTARY Hx Cellulitis: Yes (facial) - MUSCULOSKELETAL/RHEUMATOLOGICAL Hx Arthritis: Yes Hx Falls: No - GENITOURINARY/GYNECOLOGICAL Hx Genitourinary Disorders: Yes Hx Prostate Problems: Yes - PSYCHIATRIC Hx Substance Use: No - SURGICAL HISTORY Hx Cholecystectomy: Yes Hx Herniorrhaphy: Yes - ANESTHESIA Hx Anesthesia: Yes Hx Anesthesia Reactions: No Hx Malignant Hyperthermia: No Meds Allergies/Adverse Reactions: Allergies Allergy/AdvReac Type Severity Reaction Status Date / Time aspirin Allergy RASH Verified 07/15/17 08:19 naproxen Allergy RASH Verified 07/15/17 08:19 Penicillins Allergy RASH Verified 07/15/17 08:19 Sulfa (Sulfonamide Allergy RASH Verified 07/15/17 08:19 Antibiotics) - Medications Medications: Current Medications Acetaminophen (Tylenol 325mg Tab) 650 mg PO Q6 PRN PRN Reason: Pain, Mild (1-3) Last Admin: 07/26/17 17:22 Dose: 650 mg Dorzolamide HCl (Trusopt) 1 drop OU BID@0500,1700 [facility] Last Admin: 07/26/17 17:19 Dose: 1 drop Emollient Ointment (Vaseline Oint) 1 pkt TOP BID PRN PRN Reason: Dry skin Famotidine (Pepcid) 20 mg PO BID [facility] Last Admin: 07/26/17 17:18 Dose: 20 mg Sodium Chloride (Sodium Chloride 0.9%) 1,000 mls @ 100 mls/hr IV .Q10H [facility] Stop: 07/26/17 23:55 Last Admin: 07/26/17 08:45 Dose: 100 mls/hr Vancomycin HCl 750 mg/ Sodium (Chloride) 250 mls @ 166.667 mls/hr IVPB Q12 [facility] PRN Reason: Protocol Last Admin: 07/26/17 09:50 Dose: 166.667 mls/hr Aztreonam 1 gm/ Sodium (Chloride) 100 mls @ 100 mls/hr IV Q12@0500,1700 [facility] Last Admin: 07/26/17 17:18 Dose: 100 mls/hr Metronidazole (Flagyl 500mg/100ml Ns) 100 mls @ 100 mls/hr IVPB Q8@0500,1300, 2100 [facility] Last Admin: 07/26/17 12:19 Dose: 100 mls/hr Prednisone (Prednisone Tab) 10 mg PO DAILY [facility] Last Admin: 07/26/17 08:39 Dose: 10 mg Tamsulosin HCl (Flomax) 0.4 mg PO BID [facility] Last Admin: 07/26/17 17:19 Dose: 0.4 mg Timolol Maleate (Timoptic 0.5% Oph Soln) 1 drop OU Q12@0500,1700 [facility] Last Admin: 07/26/17 17:19 Dose: 1 drop Physical Exam - Head Exam Head Exam: ATRAUMATIC - Eye Exam Eye Exam: PERRL Pupil Exam: PERRL - ENT Exam ENT Exam: Normal Exam - Neck Exam Neck exam: Positive for: Normal Inspection - Respiratory Exam Respiratory Exam: Clear to Auscultation Bilateral - Cardiovascular Exam Cardiovascular Exam: REGULAR RHYTHM, +S1, +S2 - GI/Abdominal Exam GI & Abdominal Exam: Normal Bowel Sounds, Soft. absent: Tenderness Results - Vital Signs Recent Vital Signs: Last Vital Signs Temp 99.0 F 07/26/17 17:22 Pulse 90 07/26/17 15:59 Resp 20 07/26/17 15:59 BP 144/85 07/26/17 15:59 Pulse Ox 97 07/26/17 15:59 - Labs Result Diagrams: 07/26/17 06:51 07/26/17 06:51 Labs: Laboratory Results - last 24 hr 07/26/17 07/26/17 06:51 06:51 WBC 33.4 H D RBC 2.67 L Hgb 9.0 L Hct 27.6 L MCV 103.5 H MCH 33.6 H MCHC 32.5 L RDW 15.8 H Plt Count 82 L MPV 8.1 Neut % (Auto) 94.1 H Lymph % (Auto) 5.3 L [place] % (Auto) 0.2 Eos % (Auto) 0.1 Baso % (Auto) 0.3 Neut # 31.4 H Lymph # 1.8 [place] # 0.1 Eos # 0.0 Baso # 0.1 Neutrophils % (Manual) 84 H Band Neutrophils % 8 H Lymphocytes % (Manual) 7 L Monocytes % (Manual) 1 Toxic Granulation Present Platelet Estimate Decreased L Hypochromasia (manual) Slight Anisocytosis (manual) Slight Macrocytosis (manual) Slight Sodium 138 Potassium 3.9 Chloride 105 Carbon Dioxide 23 Anion Gap 14 BUN 11 Creatinine 0.8 Est GFR ( Amer) > 60 Est GFR (Non-Af Amer) > 60 Random Glucose 72 L Calcium 9.2 Total Bilirubin 0.3 AST 28 ALT 34 Alkaline Phosphatase 91 Total Protein 7.2 Albumin 3.5 Globulin 3.7 Albumin/Globulin Ratio 0.9 L Assessment & Plan (1) Anemia Assessment and Plan: No gross bleeding seen and Hgb has been stable, Upper and lower endoscopy essentially negative. Bone marrow results pending. Status: Acute
--- NOTE | 2017-07-26 19:42 | CP.PCM.PN ---
Subjective - Date & Time of Evaluation Date of Evaluation: 07/26/17 Time of Evaluation: 19:40 - Subjective Subjective: UROLOGY pt known to me . He was being prepared for [employer] prior to hisfacial celluylitis episode. I will be away until Aug 08 and upon my return I will reschedule his prostate procedure Objective - Vital Signs/Intake and Output Vital Signs (last 24 hours): Temp Pulse Resp BP Pulse Ox 99.0 F 90 20 144/85 97 07/26/17 17:22 07/26/17 15:59 07/26/17 15:59 07/26/17 15:59 07/26/17 15:59 - Medications Medications: Current Medications Acetaminophen (Tylenol 325mg Tab) 650 mg PO Q6 PRN PRN Reason: Pain, Mild (1-3) Last Admin: 07/26/17 17:22 Dose: 650 mg Dorzolamide HCl (Trusopt) 1 drop OU BID@0500,1700 [facility] Last Admin: 07/26/17 17:19 Dose: 1 drop Emollient Ointment (Vaseline Oint) 1 pkt TOP BID PRN PRN Reason: Dry skin Famotidine (Pepcid) 20 mg PO BID [facility] Last Admin: 07/26/17 17:18 Dose: 20 mg Sodium Chloride (Sodium Chloride 0.9%) 1,000 mls @ 100 mls/hr IV .Q10H [facility] Stop: 07/26/17 23:55 Last Admin: 07/26/17 08:45 Dose: 100 mls/hr Vancomycin HCl 750 mg/ Sodium (Chloride) 250 mls @ 166.667 mls/hr IVPB Q12 [facility] PRN Reason: Protocol Last Admin: 07/26/17 09:50 Dose: 166.667 mls/hr Aztreonam 1 gm/ Sodium (Chloride) 100 mls @ 100 mls/hr IV Q12@0500,1700 [facility] Last Admin: 07/26/17 17:18 Dose: 100 mls/hr Metronidazole (Flagyl 500mg/100ml Ns) 100 mls @ 100 mls/hr IVPB Q8@0500,1300, 2100 [facility] Last Admin: 07/26/17 12:19 Dose: 100 mls/hr Prednisone (Prednisone Tab) 10 mg PO DAILY [facility] Last Admin: 07/26/17 08:39 Dose: 10 mg Tamsulosin HCl (Flomax) 0.4 mg PO BID [facility] Last Admin: 07/26/17 17:19 Dose: 0.4 mg Timolol Maleate (Timoptic 0.5% Oph Soln) 1 drop OU Q12@0500,1700 [facility] Last Admin: 07/26/17 17:19 Dose: 1 drop - Labs Labs: 07/26/17 06:51 07/26/17 06:51
[2017-07-27] MEDS: Aztreonam 1 GM in Sodium Chloride 0.9% 100 ML IV SCH ×2 (04:33→16:40)
[2017-07-27] MEDS: Dorzolamide 2% Ophth Soln OU SCH ×2 (04:37→16:41)
[2017-07-27] MEDS: metroNIDAZOLE 500mg/100ml NS 100 ML IVPB SCH ×3 (06:10→20:02)
--- NOTE | 2017-07-27 19:36 | CP.PCM.PN ---
Subjective - Date & Time of Evaluation Date of Evaluation: 07/27/17 Time of Evaluation: 19:34 - Subjective Subjective: I D NOTE PATIENT DOING WELL MINIMAL SWELLLING AND TENDERNESS DISCONTINUE NEUTROPENIC PRECAUTIONS CONTINUE IV ANTIBIOTICS Objective - Vital Signs/Intake and Output Vital Signs (last 24 hours): Temp Pulse Resp BP Pulse Ox 98.2 F 71 20 140/75 96 07/27/17 16:27 07/27/17 16:27 07/27/17 16:27 07/27/17 16:27 07/27/17 16:27 - Medications Medications: Current Medications Acetaminophen (Tylenol 325mg Tab) 650 mg PO Q6 PRN PRN Reason: Pain, Mild (1-3) Last Admin: 07/26/17 23:24 Dose: 650 mg Dorzolamide HCl (Trusopt) 1 drop OU BID@0500,1700 [facility] Last Admin: 07/27/17 16:41 Dose: 1 drop Emollient Ointment (Vaseline Oint) 1 pkt TOP BID PRN PRN Reason: Dry skin Famotidine (Pepcid) 20 mg PO BID [facility] Last Admin: 07/27/17 16:40 Dose: 20 mg Vancomycin HCl 750 mg/ Sodium (Chloride) 250 mls @ 166.667 mls/hr IVPB Q12 [facility] PRN Reason: Protocol Last Admin: 07/27/17 09:17 Dose: 166.667 mls/hr Aztreonam 1 gm/ Sodium (Chloride) 100 mls @ 100 mls/hr IV Q12@0500,1700 [facility] Last Admin: 07/27/17 16:40 Dose: 100 mls/hr Metronidazole (Flagyl 500mg/100ml Ns) 100 mls @ 100 mls/hr IVPB Q8@0500,1300, 2100 [facility] Last Admin: 07/27/17 12:50 Dose: 100 mls/hr Prednisone (Prednisone Tab) 10 mg PO DAILY [facility] Last Admin: 07/27/17 09:19 Dose: 10 mg Promethazine HCl (Phenergan Syrup) 6.25 mg PO Q6 PRN PRN Reason: Cough Tamsulosin HCl (Flomax) 0.4 mg PO BID [facility] Last Admin: 07/27/17 16:40 Dose: 0.4 mg Timolol Maleate (Timoptic 0.5% Ophth Soln) 1 drop OU Q12@0500,1700 [facility] Last Admin: 07/27/17 16:41 Dose: 1 drop - Labs Labs: 07/26/17 06:51 07/26/17 06:51
[2017-07-27] MEDS: Promethazine 6.25 MG/5 ML CUP PO PRN (20:54)
[2017-07-28] MEDS ORDERED: Benzocaine/Menthol (Cepacol) Lozenge PO ONE ×2 (01:58→09:34)
[2017-07-28] MEDS: Phenol 1.4% Throat Spray MT PRN ×2 (04:02→05:45)
[2017-07-28] MEDS: metroNIDAZOLE 500mg/100ml NS 100 ML IVPB SCH ×3 (04:03→20:44)
[2017-07-28] MEDS: Aztreonam 1 GM in Sodium Chloride 0.9% 100 ML IV SCH ×2 (05:09→17:00)
[2017-07-28] MEDS: Dorzolamide 2% Ophth Soln OU SCH ×2 (05:13→16:59)
[2017-07-28 08:06] LABS: BASO % 0.4 % (0.0-2.0); EOS % 0.7 % (0.0-4.0); HEMOGLOBIN 8.4 g/dL (12.0-18.0); LYMPH % 25.9 % (20.0-40.0); MEAN CELL VOLUME 103.8 fl (80.0-94.0); MEAN CORPUSCULAR HEMOGLOBIN 34.3 pg (27.0-31.0); MEAN PLATELET VOLUME 8.4 fl (7.2-11.7); MONO # 0.2 K/uL (0.0-0.8); MONO % 4.4 % (0.0-10.0); NEUT # 2.7 K/uL (1.8-7.0); NEUT % 68.6 % (50.0-75.0); NRBC % 0.1 % (0.0-0.0); RBC 2.45 Mil/uL (4.40-5.90); RED CELL DISTRIBUTION WIDTH 15.8 % (11.5-14.5)
[2017-07-28] MEDS ORDERED: Epoetin Alfa 40000 UNIT/ml Inj SC ONE (08:59)
--- NOTE | 2017-07-28 09:01 | CP.PCM.PN ---
Subjective - Date & Time of Evaluation Date of Evaluation: 07/28/17 Time of Evaluation: 09:00 - Subjective Subjective: Pt is afebrile in no acute distress His wbc today is 4.4, the hgb 8.2gms and the plateles 70. His bone marrow smear was normal, no evidence of increased blasts, no evidence of lymphoma. There are enough cells in the bone marrow, but his counts still remain low. I will give him Procrit to see if it helps. The bone marrow pathilogy result and FISH studies are pending. The flow cytometry was normal ,only that the CD4 and CD8 ratio was reversed.. Will await the results. Objective - Vital Signs/Intake and Output Vital Signs (last 24 hours): Temp Pulse Resp BP Pulse Ox 97.7 F 60 20 141/75 98 07/28/17 08:12 07/28/17 08:12 07/28/17 08:12 07/28/17 08:12 07/28/17 08:12 - Medications Medications: Current Medications Acetaminophen (Tylenol 325mg Tab) 650 mg PO Q6 PRN PRN Reason: Pain, Mild (1-3) Last Admin: 07/28/17 03:50 Dose: 650 mg Dorzolamide HCl (Trusopt) 1 drop OU BID@0500,1700 [facility] Last Admin: 07/28/17 05:13 Dose: 1 drop Emollient Ointment (Vaseline Oint) 1 pkt TOP BID PRN PRN Reason: Dry skin Epoetin Emory (Procrit) 40,000 unit SC ONCE ONE Stop: 07/28/17 09:00 Famotidine (Pepcid) 20 mg PO BID [facility] Last Admin: 07/28/17 08:45 Dose: 20 mg Vancomycin HCl 750 mg/ Sodium (Chloride) 250 mls @ 166.667 mls/hr IVPB Q12 [facility] PRN Reason: Protocol Last Admin: 07/27/17 20:55 Dose: 166.667 mls/hr Aztreonam 1 gm/ Sodium (Chloride) 100 mls @ 100 mls/hr IV Q12@0500,1700 [facility] Last Admin: 07/28/17 05:09 Dose: 100 mls/hr Metronidazole (Flagyl 500mg/100ml Ns) 100 mls @ 100 mls/hr IVPB Q8@0500,1300, 2100 [facility] Last Admin: 07/28/17 04:03 Dose: 100 mls/hr Prednisone (Prednisone Tab) 10 mg PO DAILY [facility] Last Admin: 07/28/17 08:45 Dose: 10 mg Promethazine HCl (Phenergan Syrup) 6.25 mg PO Q6 PRN PRN Reason: Cough Last Admin: 07/27/17 20:54 Dose: 6.25 mg Tamsulosin HCl (Flomax) 0.4 mg PO BID [facility] Last Admin: 07/28/17 08:44 Dose: 0.4 mg Timolol Maleate ([facility] 1 drop OU Q12@0500,1700 [facility] Last Admin: 07/28/17 05:07 Dose: 1 drop - Labs Labs: 07/28/17 07:54 07/26/17 06:51
[2017-07-28] MEDS ORDERED: Fluconazole 150 MG TAB PO ONE (09:36)
--- NOTE | 2017-07-28 11:13 | CP.PCM.PN ---
<Maria Alejandra iHnton - Last Filed: 07/28/17 11:57> Subjective - Date & Time of Evaluation Date of Evaluation: 07/28/17 Time of Evaluation: 07:15 - Subjective Subjective: Patient seen and examined bedside. Reports sore throat since yesterday but denies cough, SOB, wheezing, nasal congestion, fever. Waiting for bone marrow biopsy. will c/w antibiotics. Objective - Vital Signs/Intake and Output Vital Signs (last 24 hours): Temp Pulse Resp BP Pulse Ox 97.7 F 60 20 141/75 98 07/28/17 08:12 07/28/17 08:12 07/28/17 08:12 07/28/17 08:12 07/28/17 08:12 - Medications Medications: Current Medications Acetaminophen (Tylenol 325mg Tab) 650 mg PO Q6 PRN PRN Reason: Pain, Mild (1-3) Last Admin: 07/28/17 03:50 Dose: 650 mg Dorzolamide HCl (Trusopt) 1 drop OU BID@0500,1700 [facility] Last Admin: 07/28/17 05:13 Dose: 1 drop Emollient Ointment (Vaseline Oint) 1 pkt TOP BID PRN PRN Reason: Dry skin Famotidine (Pepcid) 20 mg PO BID [facility] Last Admin: 07/28/17 08:45 Dose: 20 mg Vancomycin HCl 750 mg/ Sodium (Chloride) 250 mls @ 166.667 mls/hr IVPB Q12 [facility] PRN Reason: Protocol Last Admin: 07/28/17 10:12 Dose: 166.667 mls/hr Aztreonam 1 gm/ Sodium (Chloride) 100 mls @ 100 mls/hr IV Q12@0500,1700 [facility] Last Admin: 07/28/17 05:09 Dose: 100 mls/hr Metronidazole (Flagyl 500mg/100ml Ns) 100 mls @ 100 mls/hr IVPB Q8@0500,1300, 2100 [facility] Last Admin: 07/28/17 04:03 Dose: 100 mls/hr Prednisone (Prednisone Tab) 10 mg PO DAILY [facility] Last Admin: 07/28/17 08:45 Dose: 10 mg Promethazine HCl (Phenergan Syrup) 6.25 mg PO Q6 PRN PRN Reason: Cough Last Admin: 07/27/17 20:54 Dose: 6.25 mg Tamsulosin HCl (Flomax) 0.4 mg PO BID [facility] Last Admin: 07/28/17 08:44 Dose: 0.4 mg Timolol Maleate (Timoptic 0.5% Ophth Soln) 1 drop OU Q12@0500,1700 [facility] Last Admin: 07/28/17 05:07 Dose: 1 drop - Labs Labs: 07/28/17 07:54 07/26/17 06:51 - Constitutional Appears: Non-toxic, Toxic, No Acute Distress - Head Exam Head Exam: ATRAUMATIC, NORMOCEPHALIC Additional comments: minimal dark scab over left cheek - Eye Exam Eye Exam: Normal appearance - ENT Exam ENT Exam: Mucous Membranes Moist - Neck Exam Neck Exam: Normal Inspection - Respiratory Exam Respiratory Exam: Clear to Ausculation Bilateral. absent: Rales, Rhonchi, Wheezes - Cardiovascular Exam Cardiovascular Exam: REGULAR RHYTHM, +S1, +S2 - GI/Abdominal Exam GI & Abdominal Exam: Soft, Normal Bowel Sounds. absent: Tenderness - Extremities Exam Extremities Exam: Normal Inspection. absent: Pedal Edema - Back Exam Back Exam: NORMAL INSPECTION - Neurological Exam Neurological Exam: Alert, Awake, Oriented x3 - Psychiatric Exam Psychiatric exam: Normal Affect, Normal Mood - Skin Skin Exam: Intact. absent: Petechiae, Urticaria Assessment and Plan - Assessment and Plan (Free Text) Plan: 61 y/o Male with PMH of leukopenia, neutropenia, glaucoma, relapsing polychondritis, BPH, DVT, and recurrent cellulitis is admitted for L face cellulitis that has been resolving and patient was discharged to TCU. 1) Left, Cellulitis of the face, sialadenitis -resolved -CT maxilofacial: left facial skin cellulitis, L submandibular and parotid sialadenitis -Vancomycin day #9, Flagyl day # 10, Azactam day # 10, Acyclovir stopped -Tylenol, Tramadol, percocet for pain -Vancomzcin through 7.8 -Zoster IGG positive, I -VZV IgM <0.90 => Acyclovir discontinued. -ID consult appreciated: c/w antibiotic. DC neutropenic precaution.completing 10 days tomorrow antibiotics. possible dc tomorrow. 2) Pancytopenia -possible secondary to autoinmune disease( ESR >120, C react prot 86) -improving, s/p Filgastrim 480 mcg SC x 3 dose. - WBC 4 Hgb 8.4 plt 70 . ANC 3040 -Blood cx no growth -Hemo-Onc Dr Samano consult appreciated. Flow cytometry: no abnormal myeloid maturation, no increased blast population or lymphoproliferative disorder. CD4/ CD8 ratio inverted - f/u Bone marrow biopsy -GI consult appreciated EGD normal.Gastric biopsy showed mild chronic gastritis. H.pylori neg. colonoscopy:internal hemorrhoids, diverticulosis -will consider Cylinder Tester consult on discharge. 3) Relapsing Polychondritis - Cylinder Tester called Dr Mckeon covering Dr James Cosme and notified about patient hospitalization. states that patient is seen in the office with the diagnosis of Relapsing Polychondritis and recommends to c/w Prednisone 10 mg daily. -c/w Prednisone 10 mg PO daily 4) BPH -stable -Urologist consult appreciated. c/w same treatment.laser treatment outpatient -continue home med, flomax 5) Glaucoma -stable -c/w Timolol 6) Macrocytic Anemia -stable -MCV 103.5 -B12 646 and folate 18.3 -will continue to monitor 7) DVT Prophylaxis -Pt walking around floor, encouraged to continue ambulation. -SCD -Lovenox hold due to pancytopenia <Aaron Betancur - Last Filed: 07/31/17 06:40> Objective - Vital Signs/Intake and Output Vital Signs (last 24 hours): Temp Pulse Resp BP Pulse Ox 98.6 F 95 H 20 125/69 96 07/30/17 22:43 07/30/17 22:43 07/30/17 22:43 07/30/17 22:43 07/30/17 22:43 - Medications Medications: Current Medications Acetaminophen (Tylenol 325mg Tab) 650 mg PO Q6 PRN PRN Reason: Pain, Mild (1-3) Last Admin: 07/31/17 06:04 Dose: 650 mg Albuterol/Ipratropium (Duoneb 3 Mg/0.5 Mg (3 Ml) Ud) 3 ml INH RQ4 PRN PRN Reason: Shortness of Breath Last Admin: 07/30/17 21:44 Dose: 3 ml Benzocaine/Menthol (Cepacol Sore Throat) 1 alem PO Q6 [facility] Last Admin: 07/31/17 04:00 Dose: 1 alem Dorzolamide HCl (Trusopt) 1 drop OU BID@0500,1700 [facility] Last Admin: 07/31/17 04:00 Dose: 1 drop Emollient Ointment (Vaseline Oint) 1 pkt TOP BID PRN PRN Reason: Dry skin Famotidine (Pepcid) 20 mg PO BID [facility] Last Admin: 07/30/17 16:46 Dose: 20 mg Vancomycin HCl 750 mg/ Sodium (Chloride) 250 mls @ 166.667 mls/hr IVPB Q12 [facility] PRN Reason: Protocol Last Admin: 07/30/17 21:03 Dose: Not Given Loratadine (Claritin) 10 mg PO DAILY [facility] Last Admin: 07/30/17 10:09 Dose: Not Given Prednisone (Prednisone Tab) 10 mg PO DAILY [facility] Last Admin: 07/30/17 08:40 Dose: 10 mg Promethazine HCl (Phenergan Syrup) 6.25 mg PO Q6 PRN PRN Reason: Cough Last Admin: 07/31/17 06:06 Dose: 6.25 mg Tamsulosin HCl (Flomax) 0.4 mg PO BID [facility] Last Admin: 07/30/17 16:46 Dose: 0.4 mg Timolol Maleate (Timoptic 0.5% Oph Soln) 1 drop OU Q12@0500,1700 [facility] Last Admin: 07/31/17 04:01 Dose: 1 drop - Labs Labs: 07/30/17 08:00 07/29/17 05:25 Attending/Attestation - Attestation I have personally seen and examined this patient.: Yes I have fully participated in the care of the patient.: Yes I have reviewed all pertinent clinical information, including history, physical exam and plan: Yes
[2017-07-28] MEDS: Promethazine 6.25 MG/5 ML CUP PO PRN (20:48)
[2017-07-29] MEDS: metroNIDAZOLE 500mg/100ml NS 100 ML IVPB SCH ×2 (04:09→12:18)
[2017-07-29] MEDS: Promethazine 6.25 MG/5 ML CUP PO PRN (04:09)
[2017-07-29] MEDS: Dorzolamide 2% Ophth Soln OU SCH ×2 (05:27→16:32)
[2017-07-29] MEDS: Aztreonam 1 GM in Sodium Chloride 0.9% 100 ML IV SCH (05:30)
[2017-07-29 07:47] LABS: BASO % 0.7 % (0.0-2.0); EOS % 1.2 % (0.0-4.0); HEMOGLOBIN 8.2 g/dL (12.0-18.0); LYMPH # 0.8 K/uL (1.0-4.3); LYMPH % 30.5 % (20.0-40.0); MEAN CELL VOLUME 104.3 fl (80.0-94.0); MEAN CORPUSCULAR HEMOGLOBIN 33.9 pg (27.0-31.0); MEAN CORPUSCULAR HGB CONC 32.5 g/dL (33.0-37.0); MONO # 0.2 K/uL (0.0-0.8); MONO % 5.8 % (0.0-10.0); NEUT # 1.7 K/uL (1.8-7.0); NEUT % 61.8 % (50.0-75.0); RBC 2.42 Mil/uL (4.40-5.90); WHITE BLOOD COUNT 2.7 K/uL (4.8-10.8)
[2017-07-29 08:11] LABS: BLOOD UREA NITROGEN 14 mg/dl (9-20); GFR AFRICAN-AMERICAN > 60; GFR NON-AFRICAN AMERICAN > 60
--- NOTE | 2017-07-29 11:05 | RAD ---
HISTORY: URI.pancytopenia COMPARISON: Comparison chest dated 04/21/2017. Comparison also made with CTA of the chest dated 01/17/2016. TECHNIQUE: Chest PA and lateral FINDINGS: LUNGS: Mild bibasilar atelectasis and or scarring. There also appears to be mild atelectasis right upper lobe. Slight blunting left CP angle could be due to chronic pleural thickening. . Tiny subpleural calcific density right lateral upper lung field adjacent to the right 2nd rib with tiny calcified subpleural densities left anterolateral upper lobe all of which are less well seen on this exam as compared to prior high-resolution CT scan. PLEURA: No significant pleural effusion identified. No pneumothorax apparent. CARDIOVASCULAR: Cardiomegaly. OSSEOUS STRUCTURES: No significant abnormalities. VISUALIZED UPPER ABDOMEN: Normal. OTHER FINDINGS: None. IMPRESSION: Mild bibasilar atelectasis and or scarring. There also appears to be mild atelectasis right upper lobe. Slight blunting left CP angle could be due to chronic pleural thickening. Tiny subpleural calcific density right lateral upper lung field adjacent to the right 2nd rib with tiny calcified subpleural densities left anterolateral upper lobe all of which are less well seen on this exam as compared to prior high-resolution CT scan
[2017-07-29] MEDS: Benzocaine/Menthol (Cepacol) Lozenge PO SCH ×3 (12:17→21:30)
--- NOTE | 2017-07-29 13:42 | CP.PCM.PN ---
Subjective - Date & Time of Evaluation Date of Evaluation: 07/29/17 Time of Evaluation: 07:30 - Subjective Subjective: Patient seen and examined bedside. Patient c/o sore throat yesterday and chest congestion associated with mild productive whitish expectoration. Patient worried about getting a new URI infection in hospital . He denies SOB, palpitation,chest pain, fever, n,v,abd pain. Will finish tonight Vancomycin last dose to complete 10 days. Potential discharge tomorrow. CXR done normal. Flu test neg Objective - Vital Signs/Intake and Output Vital Signs (last 24 hours): Temp Pulse Resp BP Pulse Ox 97.7 F 69 20 139/80 97 07/29/17 09:27 07/29/17 09:27 07/29/17 09:27 07/29/17 09:27 07/29/17 09:27 - Medications Medications: Current Medications Acetaminophen (Tylenol 325mg Tab) 650 mg PO Q6 PRN PRN Reason: Pain, Mild (1-3) Last Admin: 07/29/17 10:23 Dose: 650 mg Benzocaine/Menthol (Cepacol Sore Throat) 1 alem PO Q6 [facility] Last Admin: 07/29/17 12:17 Dose: 1 alem Dorzolamide HCl (Trusopt) 1 drop OU BID@0500,1700 [facility] Last Admin: 07/29/17 05:27 Dose: Not Given Emollient Ointment (Vaseline Oint) 1 pkt TOP BID PRN PRN Reason: Dry skin Famotidine (Pepcid) 20 mg PO BID [facility] Last Admin: 07/29/17 08:40 Dose: 20 mg Vancomycin HCl 750 mg/ Sodium (Chloride) 250 mls @ 166.667 mls/hr IVPB Q12 [facility] PRN Reason: Protocol Last Admin: 07/29/17 08:44 Dose: 166.667 mls/hr Prednisone (Prednisone Tab) 10 mg PO DAILY [facility] Last Admin: 07/29/17 08:41 Dose: 10 mg Promethazine HCl (Phenergan Syrup) 6.25 mg PO Q6 PRN PRN Reason: Cough Last Admin: 07/29/17 04:09 Dose: 6.25 mg Tamsulosin HCl (Flomax) 0.4 mg PO BID [facility] Last Admin: 07/29/17 08:40 Dose: 0.4 mg Timolol Maleate (Timoptic 0.5% Ophth Soln) 1 drop OU Q12@0500,1700 [facility] Last Admin: 07/29/17 04:14 Dose: 1 drop - Labs Labs: 07/29/17 05:25 07/29/17 05:25 - Constitutional Appears: Non-toxic, No Acute Distress - Head Exam Head Exam: ATRAUMATIC, NORMAL INSPECTION, NORMOCEPHALIC Additional comments: small scab over left cheek - Eye Exam Eye Exam: Normal appearance - ENT Exam ENT Exam: Normal Exam - Neck Exam Neck Exam: Normal Inspection - Respiratory Exam Respiratory Exam: Clear to Ausculation Bilateral. absent: Rales, Rhonchi, Wheezes - Cardiovascular Exam Cardiovascular Exam: REGULAR RHYTHM, +S1, +S2 - GI/Abdominal Exam GI & Abdominal Exam: Soft, Normal Bowel Sounds. absent: Tenderness - Neurological Exam Neurological Exam: Alert, Awake, Oriented x3 - Skin Skin Exam: absent: Pallor, Petechiae, Rash Additional comments: small scab over left cheek Assessment and Plan - Assessment and Plan (Free Text) Plan: 61 y/o Male with PMH of leukopenia, neutropenia, glaucoma, relapsing polychondritis, BPH, DVT, and recurrent cellulitis is admitted for L face cellulitis that has been resolving and patient was discharged to TCU. 1) Left, Cellulitis of the face, sialadenitis -resolved -CT maxilofacial: left facial skin cellulitis, L submandibular and parotid sialadenitis -Vancomycin day #10 today at night time, Flagyl and Azactam DC today , Acyclovir stopped -Tylenol, Tramadol, percocet for pain -Vancomzcin through 7.8 -Zoster IGG positive, -VZV IgM <0.90 => Acyclovir discontinued. -ID consult appreciated: DC neutropenic precaution.DC antibiotics after course of 10 days.(today) 2) Pancytopenia -possible secondary to autoinmune disease( ESR >120, C react prot 86) -improving, s/p Filgastrim 480 mcg SC x 3 dose. - WBC 2.7 Hgb 8.2 plt 68 . -Blood cx no growth -Hemo-Onc Dr Samano consult appreciated. Flow cytometry: no abnormal myeloid maturation, no increased blast population or lymphoproliferative disorder. CD4/ CD8 ratio inverted - f/u Bone marrow biopsy -GI consult appreciated EGD normal.Gastric biopsy showed mild chronic gastritis. H.pylori neg. colonoscopy:internal hemorrhoids, diverticulosis -will consider Spike Machine Feeder consult on discharge. 3) Relapsing Polychondritis - Spike Machine Feeder called Dr Mckeon covering Dr James Cosme and notified about patient hospitalization. states that patient is seen in the office with the diagnosis of Relapsing Polychondritis and recommends to c/w Prednisone 10 mg daily. -c/w Prednisone 10 mg PO daily 4) BPH -stable -Urologist consult appreciated. c/w same treatment.laser treatment outpatient -continue home med, flomax 5) Glaucoma -stable -c/w Timolol 6) Macrocytic Anemia -stable -MCV 103.5 -B12 646 and folate 18.3 -will continue to monitor 7) DVT Prophylaxis -Pt walking around floor, encouraged to continue ambulation. -SCD -Lovenox hold due to pancytopenia Dispo: Potential discharge tomorrow. Will finish Abx today Vanco at night time.
[2017-07-30] MEDS: Benzocaine/Menthol (Cepacol) Lozenge PO SCH ×4 (04:39→21:03)
[2017-07-30] MEDS: Dorzolamide 2% Ophth Soln OU SCH ×2 (04:39→16:55)
[2017-07-30] MEDS: Promethazine 6.25 MG/5 ML CUP PO PRN (06:39)
[2017-07-30 08:54] LABS: BASO % 1.3 % (0.0-2.0); EOS % 1.3 % (0.0-4.0); HEMOGLOBIN 8.8 g/dL (12.0-18.0); LYMPH # 0.8 K/uL (1.0-4.3); LYMPH % 36.8 % (20.0-40.0); MEAN CELL VOLUME 103.3 fl (80.0-94.0); MEAN CORPUSCULAR HEMOGLOBIN 33.8 pg (27.0-31.0); MEAN CORPUSCULAR HGB CONC 32.7 g/dL (33.0-37.0); MEAN PLATELET VOLUME 8.6 fl (7.2-11.7); MONO # 0.2 K/uL (0.0-0.8); MONO % 10.3 % (0.0-10.0); NEUT % 50.3 % (50.0-75.0); NRBC % 0.2 % (0.0-0.0); RBC 2.59 Mil/uL (4.40-5.90); RED CELL DISTRIBUTION WIDTH 15.5 % (11.5-14.5)
[2017-07-30] MEDS: Albuterol-Ipratrop 3 mg / 0.5 (3 ml) UD INH PRN ×3 (12:30→21:44)
--- NOTE | 2017-07-30 14:34 | CP.PCM.PN ---
Subjective - Date & Time of Evaluation Date of Evaluation: 07/30/17 Time of Evaluation: 11:00 - Subjective Subjective: 61 y/o M evaluated and examined by bedside. Pt complains of non-productive cough that is constant and aggravated since yesterday. Pt also complains of bilateral costal chest pain with coughing. Pt has remained afebrile and tolerating PO. Last antibiotic dose was yesterday. Facial cellulitis lesion has improved and not painful currently. Objective - Vital Signs/Intake and Output Vital Signs (last 24 hours): Temp Pulse Resp BP Pulse Ox 99.3 F 88 20 129/80 97 07/30/17 09:26 07/30/17 12:30 07/30/17 09:26 07/30/17 09:26 07/30/17 09:26 - Medications Medications: Current Medications Acetaminophen (Tylenol 325mg Tab) 650 mg PO Q6 PRN PRN Reason: Pain, Mild (1-3) Last Admin: 07/30/17 12:26 Dose: 650 mg Albuterol/Ipratropium (Duoneb 3 Mg/0.5 Mg (3 Ml) Ud) 3 ml INH RQ4 PRN PRN Reason: Shortness of Breath Last Admin: 07/30/17 12:30 Dose: 3 ml Benzocaine/Menthol (Cepacol Sore Throat) 1 alem PO Q6 [facility] Last Admin: 07/30/17 10:09 Dose: 1 alem Dorzolamide HCl (Trusopt) 1 drop OU BID@0500,1700 [facility] Last Admin: 07/30/17 04:39 Dose: 1 drop Emollient Ointment (Vaseline Oint) 1 pkt TOP BID PRN PRN Reason: Dry skin Famotidine (Pepcid) 20 mg PO BID [facility] Last Admin: 07/30/17 08:40 Dose: 20 mg Vancomycin HCl 750 mg/ Sodium (Chloride) 250 mls @ 166.667 mls/hr IVPB Q12 [facility] PRN Reason: Protocol Last Admin: 07/30/17 08:40 Dose: Not Given Loratadine (Claritin) 10 mg PO DAILY [facility] Last Admin: 07/30/17 10:09 Dose: Not Given Prednisone (Prednisone Tab) 10 mg PO DAILY [facility] Last Admin: 07/30/17 08:40 Dose: 10 mg Promethazine HCl (Phenergan Syrup) 6.25 mg PO Q6 PRN PRN Reason: Cough Last Admin: 07/30/17 06:39 Dose: 6.25 mg Tamsulosin HCl (Flomax) 0.4 mg PO BID [facility] Last Admin: 07/30/17 08:40 Dose: 0.4 mg Timolol Maleate (Timoptic 0.5% Ophth Soln) 1 drop OU Q12@0500,1700 [facility] Last Admin: 07/30/17 04:39 Dose: 1 drop - Labs Labs: 07/30/17 08:00 07/29/17 05:25 - Constitutional Appears: Well, No Acute Distress - Head Exam Head Exam: ATRAUMATIC, NORMAL INSPECTION - Eye Exam Eye Exam: EOMI, Normal appearance - ENT Exam ENT Exam: Mucous Membranes Moist Additional comments: Posterior oropharynx: presence of post-nasal drip, no significant erythema or tonsilmegaly. - Respiratory Exam Respiratory Exam: Clear to Ausculation Bilateral, NORMAL BREATHING PATTERN - Cardiovascular Exam Cardiovascular Exam: REGULAR RHYTHM, +S1, +S2 - GI/Abdominal Exam GI & Abdominal Exam: Soft, Normal Bowel Sounds. absent: Guarding, Rigid, Tenderness - Extremities Exam Extremities Exam: Full ROM - Neurological Exam Neurological Exam: Alert, Awake, Oriented x3 - Psychiatric Exam Psychiatric exam: Normal Affect Assessment and Plan - Assessment and Plan (Free Text) Assessment: 61 y/o Male with PMH of leukopenia, neutropenia, glaucoma, relapsing polychondritis, BPH, DVT, and recurrent cellulitis is admitted for L face cellulitis that has been resolving and completing rehabilitation in TCU. Today, complaining of aggravating cough. 1. Cough - Most likey due to post-nasal drip. - PO Claritin daily, ordered. - Duoneb Q4H PRN. 2. Left, Cellulitis of the face, sialadenitis -Resolved -CT maxilofacial: left facial skin cellulitis, L submandibular and parotid sialadenitis -Vancomycin day #10 yesterday at night time. Flagyl and Azactam DC yesterday, Acyclovir stopped -Tylenol, Tramadol, percocet for pain -Vancomzcin through 7.8 -Zoster IGG positive, -VZV IgM <0.90 => Acyclovir discontinued. -ID consulted. 3. Pancytopenia - possible secondary to autoinmune disease( ESR >120, C react prot 86) - Blood cx no growth - Hemo-Onc Dr Samano consulted. Flow cytometry: no abnormal myeloid maturation, no increased blast population or lymphoproliferative disorder. CD4/CD8 ratio inverted - Bone marrow biopsy, f/u results. - GI consulted. - will consider Long Winder Tender consult on discharge. - Today, WBC 2.0-very low. - Tbo-Filgrastim ordered. 4. Relapsing Polychondritis - Long Winder Tender called Dr Mckeon covering Dr James Cosme and notified about patient hospitalization. states that patient is seen in the office with the diagnosis of Relapsing Polychondritis and recommends to c/w Prednisone 10 mg daily. -c/w Prednisone 10 mg PO daily 5. BPH -stable -Urologist consult appreciated. c/w same treatment.laser treatment outpatient -continue home med, flomax 6. Glaucoma -stable -c/w Timolol 7. Macrocytic Anemia -stable -MCV 103.5 -B12 646 and folate 18.3 -will continue to monitor 8. DVT Prophylaxis -Pt walking around floor, encouraged to continue ambulation. -SCD -Lovenox hold due to pancytopenia
[2017-07-31] MEDS: Benzocaine/Menthol (Cepacol) Lozenge PO SCH ×2 (04:00→09:00)
[2017-07-31] MEDS: Dorzolamide 2% Ophth Soln OU SCH (04:00)
[2017-07-31] MEDS: Promethazine 6.25 MG/5 ML CUP PO PRN (06:06)
[2017-07-31] MEDS: Albuterol-Ipratrop 3 mg / 0.5 (3 ml) UD INH PRN (08:09)
[2017-07-31 08:11] VITALS: BP 127/65; PULSE 101; TEMP 98.4; O2SAT 996
[2017-07-31 08:56] LABS: BASO # 0.1 K/uL (0.0-0.2); BASO % 0.6 % (0.0-2.0); EOS % 0.2 % (0.0-4.0); HEMOGLOBIN 8.9 g/dL (12.0-18.0); LYMPH # 1.1 K/uL (1.0-4.3); LYMPH % 9.8 % (20.0-40.0); MEAN CELL VOLUME 104.3 fl (80.0-94.0); MEAN CORPUSCULAR HEMOGLOBIN 33.9 pg (27.0-31.0); MEAN CORPUSCULAR HGB CONC 32.5 g/dL (33.0-37.0); MEAN PLATELET VOLUME 9.3 fl (7.2-11.7); MONO # 0.2 K/uL (0.0-0.8); MONO % 1.4 % (0.0-10.0); NEUT # 10.1 K/uL (1.8-7.0); NRBC % 0.1 % (0.0-0.0); RBC 2.62 Mil/uL (4.40-5.90); WHITE BLOOD COUNT 11.5 K/uL (4.8-10.8)
[2017-07-31 09:13] LABS: PLATELET COUNT 80 K/uL (130-400)
--- NOTE | 2017-07-31 10:04 | CP.PCM.PN ---
Subjective - Date & Time of Evaluation Date of Evaluation: 07/31/17 (`) Time of Evaluation: 09:55 - Subjective Subjective: Pt is afebrile in no distress. He had a bad cough and throat pain 2 days ago and the discharge was postponed. He is much better today . His wbc count was only 2.0 yesterday and he was given granix. His hgb was 9.6. He is being discharged today . he will come to infusion center on monday for the granix and procrit. Objective - Vital Signs/Intake and Output Vital Signs (last 24 hours): Temp Pulse Resp BP Pulse Ox 98.4 F 101 H 20 127/65 996 H 07/31/17 08:11 07/31/17 08:11 07/31/17 08:11 07/31/17 08:11 07/31/17 08:11 - Medications Medications: Current Medications Acetaminophen (Tylenol 325mg Tab) 650 mg PO Q6 PRN PRN Reason: Pain, Mild (1-3) Last Admin: 07/31/17 06:04 Dose: 650 mg Albuterol/Ipratropium (Duoneb 3 Mg/0.5 Mg (3 Ml) Ud) 3 ml INH RQ4 PRN PRN Reason: Shortness of Breath Last Admin: 07/31/17 08:09 Dose: 3 ml Benzocaine/Menthol (Cepacol Sore Throat) 1 alem PO Q6 [facility] Last Admin: 07/31/17 04:00 Dose: 1 alem Dorzolamide HCl (Trusopt) 1 drop OU BID@0500,1700 [facility] Last Admin: 07/31/17 04:00 Dose: 1 drop Emollient Ointment (Vaseline Oint) 1 pkt TOP BID PRN PRN Reason: Dry skin Famotidine (Pepcid) 20 mg PO BID [facility] Last Admin: 07/31/17 08:55 Dose: 20 mg Vancomycin HCl 750 mg/ Sodium (Chloride) 250 mls @ 166.667 mls/hr IVPB Q12 [facility]ASI PRN Reason: Protocol Last Admin: 07/31/17 08:54 Dose: Not Given Loratadine (Claritin) 10 mg PO DAILY [facility] Last Admin: 07/31/17 08:55 Dose: 10 mg Prednisone (Prednisone Tab) 10 mg PO DAILY [facility] Last Admin: 07/31/17 08:55 Dose: 10 mg Promethazine HCl (Phenergan Syrup) 6.25 mg PO Q6 PRN PRN Reason: Cough Last Admin: 07/31/17 06:06 Dose: 6.25 mg Tamsulosin HCl (Flomax) 0.4 mg PO BID [facility] Last Admin: 07/31/17 08:55 Dose: 0.4 mg Timolol Maleate (Timoptic 0.5% Ophth Soln) 1 drop OU Q12@0500,1700 [facility] Last Admin: 07/31/17 04:01 Dose: 1 drop - Labs Labs: 07/31/17 08:30 07/29/17 05:25
--- NOTE | 2017-07-31 10:44 | CP.PCM.DIS ---
<Maria Alejandra Hinton - Last Filed: 07/31/17 16:42> Provider - Provider Date of Admission: 07/25/17 21:22 Attending physician: Aaron Betancur MD Consults: Dr Samano Hemo-Onc Dr Cerna ID Dr Gonzales Urologist Dr Valentino HUMPHREY Time Spent in preparation of Discharge (in minutes): 30 Hospital Course - Lab Results Lab Results: Most Recent Lab Values WBC 11.5 K/uL (4.8-10.8) H D 07/31/17 08:30 RBC 2.62 Mil/uL (4.40-5.90) L 07/31/17 08:30 Hgb 8.9 g/dL (12.0-18.0) L 07/31/17 08:30 Hct 27.3 % (35.0-51.0) L 07/31/17 08:30 MCV 104.3 fl (80.0-94.0) H 07/31/17 08:30 MCH 33.9 pg (27.0-31.0) H 07/31/17 08:30 MCHC 32.5 g/dL (33.0-37.0) L 07/31/17 08:30 RDW 16.0 % (11.5-14.5) H 07/31/17 08:30 Plt Count 80 K/uL (130-400) L 07/31/17 08:30 MPV 9.3 fl (7.2-11.7) 07/31/17 08:30 Neut % (Auto) 88.0 % (50.0-75.0) H 07/31/17 08:30 Lymph % (Auto) 9.8 % (20.0-40.0) L 07/31/17 08:30 [place] % (Auto) 1.4 % (0.0-10.0) 07/31/17 08:30 Eos % (Auto) 0.2 % (0.0-4.0) 07/31/17 08:30 Baso % (Auto) 0.6 % (0.0-2.0) 07/31/17 08:30 Neut # 10.1 K/uL (1.8-7.0) H 07/31/17 08:30 Lymph # 1.1 K/uL (1.0-4.3) 07/31/17 08:30 [place] # 0.2 K/uL (0.0-0.8) 07/31/17 08:30 Eos # 0.0 K/uL (0.0-0.7) 07/31/17 08:30 Baso # 0.1 K/uL (0.0-0.2) 07/31/17 08:30 Neutrophils % (Manual) 84 % (42-75) H 07/26/17 06:51 Band Neutrophils % 8 % (0-2) H 07/26/17 06:51 Lymphocytes % (Manual) 7 % (20-50) L 07/26/17 06:51 Monocytes % (Manual) 1 % (0-10) 07/26/17 06:51 Toxic Granulation Present 07/26/17 06:51 Platelet Estimate Decreased (NORMAL) L 07/26/17 06:51 Hypochromasia (manual) Slight 07/26/17 06:51 Anisocytosis (manual) Slight 07/26/17 06:51 Macrocytosis (manual) Slight 07/26/17 06:51 Sodium 138 mmol/l (132-148) 07/29/17 05:25 Potassium 4.1 MMOL/L (3.6-5.0) 07/29/17 05:25 Chloride 104 mmol/L (98-107) 07/29/17 05:25 Carbon Dioxide 23 mmol/L (22-30) 07/29/17 05:25 Anion Gap 15 (10-20) 07/29/17 05:25 BUN 14 mg/dl (9-20) 07/29/17 05:25 Creatinine 0.7 mg/dl (0.8-1.5) L 07/29/17 05:25 Est GFR ( Amer) > 60 07/29/17 05:25 Est GFR (Non-Af Amer) > 60 07/29/17 05:25 Random Glucose 86 mg/dL (75-110) 07/29/17 05:25 Calcium 9.0 mg/dL (8.4-10.2) 07/29/17 05:25 Total Bilirubin 0.3 mg/dl (0.2-1.3) 07/26/17 06:51 AST 28 U/L (17-59) 07/26/17 06:51 ALT 34 U/L (21-72) 07/26/17 06:51 Alkaline Phosphatase 91 U/L (38-126) 07/26/17 06:51 Total Protein 7.2 G/DL (6.3-8.2) 07/26/17 06:51 Albumin 3.5 g/dL (3.5-5.0) 07/26/17 06:51 Globulin 3.7 gm/dL (2.2-3.9) 07/26/17 06:51 Albumin/Globulin Ratio 0.9 (1.0-2.1) L 07/26/17 06:51 Vancomycin Trough 7.8 ug/mL (5.0-10.0) 07/28/17 07:54 Influenza Typ A,B (EIA) Negative for flu a/b (NEGATIVE) 07/29/17 10:30 - Hospital Course Hospital Course: 61 yo,m,PMhx/o leukopenia, neutropenia, glaucoma, Relapsing Polychondritis, BPH , DVT, and recurrent cellulitis admitted for left side facial cellulitis. During hospitalization patient treated with Clindamycin IV for 2 days and abx were switched by ID to Vancomycin, Metronidazol and Aztreonam for 10 days. Acyclovir added to treatment and stopped after Zoster IGM was neg. Facial Cellulitis improved significantly after switch abx. Pt completed course of Abx in TCU. While on TCU patient was reporting sore throat, cough, postnasal drip, but remained afebrile, CXR neg, Flu test neg Dr Samano Hem-Billy consulted for pancytopenia, Granix treatment was given 4 dose during hositalization to keep WBC levels, last dose given yesterday. Procrit given. WBC today 11.5 today . Bone marrow biopsy pending results. Flow cytometry: no abnormal myeloid maturation, no increased blast population or lymphoproliferative disorder. CD4/CD8 ratio inverted. Patient will have follow up with dr Samano. Will come to infusion center on monday for the granix and procrit. ID Dr Cerna cleared pt after treatment with ABx for 10 days. Pedigree Tracer called Dr Mckeon covering Dr James Cosme and notified about patient hospitalization. states that patient is seen in the office with the diagnosis of Relapsing Polychondritis and recommends to c/w Prednisone [address] Gonzales Urologist consult appreciated: Will f/u patient for prostate laser treatment outpatient. GI consult appreciated:Dr Avelar:EGD normal.Gastric biopsy showed mild chronic gastritis. H.pylori neg. colonoscopy:internal hemorrhoids, diverticulosis Discharged patient with Famotidine BID. Meds eprescribed: Prednisone 10 mg daily , Loratadine 10 mg daily, Famotidine 20 mg BID Diagnosis 1. Cough -resolved -Claritin on discharged 2. Left, Cellulitis of the face, sialadenitis -Resolved -CT maxilofacial: left facial skin cellulitis, L submandibular and parotid sialadenitis 3. Pancytopenia -controlled - possible secondary to autoinmune disease( ESR >120, C react prot 86) -Filgrastim x 4 doses given 4. Relapsing Polychondritis -controlled -c/w Prednisone 10 mg PO daily 5. BPH -stable -Urologist consult appreciated. c/w same treatment.laser treatment outpatient -continue home med, flomax 6. Glaucoma -stable -c/w Timolol Discharge Exam - Head Exam Head Exam: ATRAUMATIC, NORMAL INSPECTION Additional comments: left cheek minimal scab - Eye Exam Eye Exam: Normal appearance - Neck Exam Neck exam: Normal Inspection - Respiratory Exam Respiratory Exam: Clear to PA & Lateral. absent: Rales, Rhonchi, Wheezes - Cardiovascular Exam Cardiovascular Exam: REGULAR RHYTHM, +S1 - GI/Abdominal Exam GI & Abdominal Exam: Normal Bowel Sounds, Soft. absent: Tenderness - Extremities Exam Extremities exam: normal capillary refill, normal inspection - Neurological Exam Neurological exam: Alert, Oriented x3 - Psychiatric Exam Psychiatric exam: Normal Affect, Normal Mood - Skin Skin Exam: Intact Discharge Plan - Discharge Medications Prescriptions: Famotidine [Pepcid] 20 mg PO BID 30 Days #60 tab Loratadine [Claritin] 10 mg PO DAILY 14 Days #14 tab predniSONE [predniSONE Tab] 10 mg PO DAILY 30 Days #30 tab - Follow Up Plan Condition: GOOD Disposition: HOME/ ROUTINE Instructions: Cellulitis (DC), Fall Prevention (DC) Additional Instructions: -Follow up with PMD Dr Betancur in 7 days -Follow up with Dr Dr Mckeon or Dr James Cosme Pedigree Tracer in 2 weeks. -Follow up with Dr Samano Hemo-Onc in [address] Joslyn Samano, to see her in the Infusion Center on Monday August 07, 2017. Referrals: Poli Samano MD [Staff Provider] - Aaron Betancur MD [Staff Provider] - <Aaron Betancur - Last Filed: 08/01/17 06:58> Provider - Provider Date of Admission: 07/25/17 21:22 Attending physician: Aaron Betancur MD Hospital Course - Lab Results Lab Results: Most Recent Lab Values WBC 11.5 K/uL (4.8-10.8) H D 07/31/17 08:30 RBC 2.62 Mil/uL (4.40-5.90) L 07/31/17 08:30 Hgb 8.9 g/dL (12.0-18.0) L 07/31/17 08:30 Hct 27.3 % (35.0-51.0) L 07/31/17 08:30 MCV 104.3 fl (80.0-94.0) H 07/31/17 08:30 MCH 33.9 pg (27.0-31.0) H 07/31/17 08:30 MCHC 32.5 g/dL (33.0-37.0) L 07/31/17 08:30 RDW 16.0 % (11.5-14.5) H 07/31/17 08:30 Plt Count 80 K/uL (130-400) L 07/31/17 08:30 MPV 9.3 fl (7.2-11.7) 07/31/17 08:30 Neut % (Auto) 88.0 % (50.0-75.0) H 07/31/17 08:30 Lymph % (Auto) 9.8 % (20.0-40.0) L 07/31/17 08:30 [place] % (Auto) 1.4 % (0.0-10.0) 07/31/17 08:30 Eos % (Auto) 0.2 % (0.0-4.0) 07/31/17 08:30 Baso % (Auto) 0.6 % (0.0-2.0) 07/31/17 08:30 Neut # 10.1 K/uL (1.8-7.0) H 07/31/17 08:30 Lymph # 1.1 K/uL (1.0-4.3) 07/31/17 08:30 [place] # 0.2 K/uL (0.0-0.8) 07/31/17 08:30 Eos # 0.0 K/uL (0.0-0.7) 07/31/17 08:30 Baso # 0.1 K/uL (0.0-0.2) 07/31/17 08:30 Neutrophils % (Manual) 68 % (42-75) 07/31/17 08:30 Band Neutrophils % 13 % (0-2) H* 07/31/17 08:30 Lymphocytes % (Manual) 14 % (20-50) L 07/31/17 08:30 Monocytes % (Manual) 3 % (0-10) 07/31/17 08:30 Myelocytes % 2 % (0-0) H 07/31/17 08:30 Toxic Granulation Present 07/26/17 06:51 Platelet Estimate Decreased (NORMAL) L 07/31/17 08:30 Hypochromasia (manual) Slight 07/26/17 06:51 Poikilocytosis (manual Slight 07/31/17 08:30 Anisocytosis (manual) Slight 07/31/17 08:30 Macrocytosis (manual) Slight 07/26/17 06:51 Spherocytes Slight 07/31/17 08:30 Tear Drop Cells Slight 07/31/17 08:30 Ovalocytes Slight 07/31/17 08:30 Sodium 138 mmol/l (132-148) 07/29/17 05:25 Potassium 4.1 MMOL/L (3.6-5.0) 07/29/17 05:25 Chloride 104 mmol/L (98-107) 07/29/17 05:25 Carbon Dioxide 23 mmol/L (22-30) 07/29/17 05:25 Anion Gap 15 (10-20) 07/29/17 05:25 BUN 14 mg/dl (9-20) 07/29/17 05:25 Creatinine 0.7 mg/dl (0.8-1.5) L 07/29/17 05:25 Est GFR ( Amer) > 60 07/29/17 05:25 Est GFR (Non-Af Amer) > 60 07/29/17 05:25 Random Glucose 86 mg/dL (75-110) 07/29/17 05:25 Calcium 9.0 mg/dL (8.4-10.2) 07/29/17 05:25 Total Bilirubin 0.3 mg/dl (0.2-1.3) 07/26/17 06:51 AST 28 U/L (17-59) 07/26/17 06:51 ALT 34 U/L (21-72) 07/26/17 06:51 Alkaline Phosphatase 91 U/L (38-126) 07/26/17 06:51 Total Protein 7.2 G/DL (6.3-8.2) 07/26/17 06:51 Albumin 3.5 g/dL (3.5-5.0) 07/26/17 06:51 Globulin 3.7 gm/dL (2.2-3.9) 07/26/17 06:51 Albumin/Globulin Ratio 0.9 (1.0-2.1) L 07/26/17 06:51 Vancomycin Trough 7.8 ug/mL (5.0-10.0) 07/28/17 07:54 Influenza Typ A,B (EIA) Negative for flu a/b (NEGATIVE) 07/29/17 10:30 Attending/Attestation - Attestation I have personally seen and examined this patient.: Yes I have fully participated in the care of the patient.: Yes I have reviewed all pertinent clinical information, including history, physical exam and plan: Yes
[2017-07-31 11:36] LABS: BANDS 13 % (0-2); LYMPHOCYTE 14 % (20-50); MONOCYTE 3 % (0-10); MYELOCYTE 2 % (0-0); NEUTROPHIL 68 % (42-75); TOTAL CELLS COUNTED 100
[2017-07-31 11:37] LABS: ANISOCYTOSIS SLIGHT; PLATELET ESTIMATE DECREASED (NORMAL)
[2017-07-31 11:38] LABS: OVALOCYTES SLIGHT; POIKILOCYTOSIS SLIGHT; SPHEROCYTES SLIGHT; TEARDROP CELLS SLIGHT
== END 2017-07-31 13:00 | disposition home or self-care (01) | DRG 603 ==
LOC: H.TCU 21:22
PROVIDERS: ADMIT Family Medicine; ATTEND Family Medicine
DX: L03.211 Cellulitis of face (principal); D61.818 Other pancytopenia; D53.9 Nutritional anemia, unspecified; D64.9 Anemia, unspecified; N40.0 Benign prostatic hyperplasia without lower urinary tract symptoms; Z82.49 Family history of ischemic heart disease and other diseases of the circulatory system; Z83.3 Family history of diabetes mellitus; Z87.01 Personal history of pneumonia (recurrent); Z87.891 Personal history of nicotine dependence; Z90.49 Acquired absence of other specified parts of digestive tract; M19.90 Unspecified osteoarthritis, unspecified site; J02.9 Acute pharyngitis, unspecified; R05 Cough; R09.82 Postnasal drip; M94.1 Relapsing polychondritis; H40.9 Unspecified glaucoma; K11.20 Sialoadenitis, unspecified; K29.50 Unspecified chronic gastritis without bleeding; K57.90 Diverticulosis of intestine, part unspecified, without perforation or abscess without bleeding; K64.8 Other hemorrhoids

== ENCOUNTER 2017-08-18 06:04 | Day surgery (SDC) | payer MEDICARE ==
[2017-08-16 09:26] VITALS: BMI 25.7
[2017-08-16 10:15] VITALS: RESP 20
[2017-08-18 07:15] LABS: BASO % 0.6 % (0.0-2.0); EOS % 0.3 % (0.0-4.0); HEMOGLOBIN 10.6 g/dL (12.0-18.0); LYMPH # 1.2 K/uL (1.0-4.3); LYMPH % 16.7 % (20.0-40.0); MEAN CELL VOLUME 100.9 fl (80.0-94.0); MEAN CORPUSCULAR HEMOGLOBIN 33.1 pg (27.0-31.0); MEAN CORPUSCULAR HGB CONC 32.8 g/dL (33.0-37.0); MONO # 0.1 K/uL (0.0-0.8); MONO % 1.3 % (0.0-10.0); NEUT # 5.8 K/uL (1.8-7.0); NEUT % 81.1 % (50.0-75.0); NRBC % 0.1 % (0.0-0.0); RBC 3.21 Mil/uL (4.40-5.90); RED CELL DISTRIBUTION WIDTH 17.6 % (11.5-14.5); WHITE BLOOD COUNT 7.1 K/uL (4.8-10.8)
[2017-08-18] MEDS ORDERED: Propofol 10 mg/ml Inj (20 ML) ONE (08:27)
[2017-08-18] MEDS ORDERED: ePHEDrine 50 mg/ml Inj ONE (08:27)
[2017-08-18] MEDS ORDERED: Succinylcholine 200 mg/10 ml Inj IV ONE (08:27)
[2017-08-18] MEDS ORDERED: Lidocaine 4% (Laryng-O-Jet) Kit MM ONE (08:27)
[2017-08-18] MEDS ORDERED: Midazolam 2 MG/2 ML VIAL ONE (08:27)
[2017-08-18] MEDS ORDERED: Lactated Ringer's 1,000 ML IV ONE (08:50)
[2017-08-18] MEDS ORDERED: Dexamethasone 4 mg/1 ml ONE (08:58)
[2017-08-18] MEDS ORDERED: HYDROmorphone 0.5 mg/0.5 ml ISec IVP PRN (09:55)
[2017-08-18] MEDS ORDERED: Lactated Ringer's 1,000 ML IV SCH (10:00)
[2017-08-18 14:39] VITALS: BP 141/83; PULSE 89; TEMP 98; O2SAT 97
--- NOTE | 2017-09-13 14:17 | OP ---
PROCEDURE DATE: 08/18/2017 PREOPERATIVE DIAGNOSIS: Symptomatic benign prostatic hypertrophy. POSTOPERATIVE DIAGNOSIS: Benign prostatic hypertrophy with bladder calculus. PROCEDURE: Procedure performed on the patient was cystoscopy with removal of bladder stone, followed by a GreenLight laser of the prostate. DESCRIPTION OF PROCEDURE: Under general anesthesia, the patient was placed on the operating table in the dorsal lithotomy position. The area of the groin was draped and prepped in a sterile manner. Using a laser scope, I entered into the bladder atraumatically to find that he has a bladder stone. So I then readjusted the instrumentation, I used the grasper and I was able to remove the calculus that was in the bladder. Once that was removed, it was sent for specimen analysis. I then went back and with the laser scope and using the laser fiber, I demarcated the distal portion of the resection and then began to laze the entire adenoma. Once the opening was significantly improved, then I removed the laser scope and and then number 22 three-way Brown catheter was inserted. CBI was begun prior to the patient leaving the operating room. Blood loss was less than 20 mL. Osito Gonzales MD
== END 2017-08-18 14:00 | disposition home or self-care (01) ==
LOC: H.OPSURG 06:04
PROVIDERS: ATTEND Urology
DX: N40.1 Benign prostatic hyperplasia with lower urinary tract symptoms (principal); N21.0 Calculus in bladder
CPT/HCPCS: 36415; 52648; 82355; 85025; J0330; J0696; J1100; J2001; J2250; J2405; J2704; J3010; J7120

== ENCOUNTER 2017-09-04 15:20 | Emergency (ER) | payer MEDICARE ==
[2017-09-04 15:20] VITALS: BMI 25.7
[2017-09-04 15:58] VITALS: RESP 18
[2017-09-04] MEDS ORDERED: Sodium Chloride 0.9% 1,000 ML IV STA (17:20)
--- NOTE | 2017-09-04 18:00 | ED PDOC ---
HPI: Abdomen Time Seen by Provider: 09/04/17 16:48 Chief Complaint (Nursing): Abdominal Pain Chief Complaint (Provider): Abdominal Pain History Per: Patient History/Exam Limitations: no limitations Onset/Duration Of Symptoms: Days (1x) Current Symptoms Are (Timing): Still Present Context: Food Quality Of Discomfort: "Pain" Associated Symptoms: Vomiting. denies: Fever, Chills, Diarrhea Additional Complaint(s): 62 year old male presents to the ED complaining of lower abdominal pain onset one day ago after he ate a heavy rich meal after dieting for a month. States he has had three episodes of non-bilious and non-bloody vomit. He has not taken any medications and states today he was scheduled for chemotherapy for his prostate cancer but he came to the ED stating to check my white blood cell. Feels shaky but denies diarrhea, chills, or fever. Denies URI symptoms, and black or bloody stool. PMD: Dr. Florian Past Medical History Reviewed: Historical Data, Nursing Documentation, Vital Signs Vital Signs: Last Vital Signs Temp 98.2 F 09/04/17 20:39 Pulse 70 09/04/17 20:39 Resp 18 09/04/17 20:39 BP 107/54 L 09/04/17 20:39 Pulse Ox 99 09/04/17 20:39 - Medical History PMH: Anxiety, Arthritis, Benign Prostatic Hyperplasia, Deep Vein Thrombosis (x3) , Pneumonia Denies: COPD, HTN, Hypothyroidism, Chronic Kidney Disease - Surgical History Surgical History: Cholecystectomy, Endoscopy, Hernia Repair (ventral) - Family History Family History: States: Unknown Family Hx - Social History Alcohol: None Drugs: Denies - Immunization History Hx Influenza Vaccination: Yes - Home Medications Home Medications: Ambulatory Orders Medication Instructions Recorded Tamsulosin [Flomax] 0.4 mg PO HS 07/25/17 Ciprofloxacin HCl [Cipro] 250 mg PO BID #14 tab 09/04/17 Dicyclomine [Bentyl] 20 mg PO BID PRN #30 tab 09/04/17 Dorzolamide 2%/Timolol 0.5% 1 drop EACHEYE Q12 09/04/17 [Cosopt 2%-0.5% Opht] predniSONE [predniSONE Tab] 10 mg PO DAILY 09/04/17 - Allergies Allergies/Adverse Reactions: Allergies Allergy/AdvReac Type Severity Reaction Status Date / Time aspirin Allergy RASH Verified 08/09/17 07:20 naproxen Allergy RASH Verified 08/09/17 07:20 Penicillins Allergy RASH Verified 08/09/17 07:20 Sulfa (Sulfonamide Allergy RASH Verified 08/09/17 07:20 Antibiotics) Review of Systems ROS Statement: Except As Marked, All Systems Reviewed And Found Negative (As per HPI, otherwise negative) Constitutional: Positive for: Other (Feels shaky ). Negative for: Fever, Chills Gastrointestinal: Positive for: Vomiting (three episodes ), Abdominal Pain. Negative for: Diarrhea, Other (black or bloody stool) Physical Exam - Reviewed Nursing Documentation Reviewed: Yes Vital Signs Reviewed: Yes - Physical Exam Appears: Positive for: Well, Non-toxic, No Acute Distress Head Exam: Positive for: ATRAUMATIC, NORMOCEPHALIC Skin: Positive for: Warm, Dry Eye Exam: Positive for: EOMI, PERRL ENT: Positive for: Pharynx Is (clear), Other (tacky mucous membranes) Neck: Positive for: Painless ROM, Supple Cardiovascular/Chest: Positive for: Regular Rate, Rhythm, Chest Non Tender. Negative for: Murmur Respiratory: Positive for: Decreased Breath Sounds. Negative for: Respiratory Distress Gastrointestinal/Abdominal: Positive for: Bowel Sounds, Soft, Tenderness ( suprapubic tenderness palpation). Negative for: Mass, Distended, Guarding, Rebound Back: Positive for: Normal Inspection. Negative for: Decreased ROM Extremity: Positive for: Normal ROM. Negative for: Deformity Lymphatic: Negative for: Adenopathy Neurologic/Psych: Positive for: Alert, Mood/Affect (mildly anxious affect). Negative for: Motor/Sensory Deficits - Laboratory Results Result Diagrams: 09/04/17 18:34 09/04/17 18:34 - ECG O2 Sat by Pulse Oximetry: 97 (RA) Pulse Ox Interpretation: Normal Medical Decision Making Medical Decision Making: Time: 17:19 Initial Impression: Abdominal pain, Vomiting Differential Diagnosis includes but is not limited to:Dyspepsia, Dehydration, Gastroenteritis, Colitis Initial Plan: -Venous Blood Gas Shock Panel --CMP --Lipase Stat --CBC --Bentyl 20mg --Normal Saline 1,000 mls/hr --Zofran Inj 8mg --Urinalysis --Reevaluation UA demonstrates leuks and RBCs. Luekopenia and anemia, but stable c/w previous and no neutopenia. No emergently significant lab abnormalities. DW pt fidnigns and plan of care. Stable for Dc. Documented by Mayda Mccray acting as a scribe for Lizz Kaur MD. All medical record entries made by the Scribe were at my direction and personally dictated by me. I have reviewed the chart and agree that the record accurately reflects my personal performance of the history, physical exam, medical decision making, and the department course for this patient. I have also personally directed, reviewed, and agree with the discharge instructions and disposition. Disposition - Clinical Impression Clinical Impression: Abdominal discomfort, UTI (urinary tract infection) Counseled Patient/Family Regarding: Studies Performed, Diagnosis, Need For Followup, Rx Given - Disposition Referrals: Aaron Betancur MD [Family Provider] - 09/05/17 (FOLLOW UP WITH DR RENO OR DR BETANCUR TOMORROW FOR REEVALUATION) Disposition: Routine/Home Disposition Time: 20:00 Condition: IMPROVED Prescriptions: Ciprofloxacin HCl [Cipro] 250 mg PO BID #14 tab Dicyclomine [Bentyl] 20 mg PO BID PRN #30 tab PRN Reason: abdominal pain Instructions: Urinary Tract Infection, Adult (DC), Stomach Ache and Stomach Upset Forms: [employer] (Croatian)
[2017-09-04 18:02] LABS: VENOUS BLOOD GAS BASE EXCESS 3.8 mmol/L (0.0-2.0); VENOUS BLOOD GAS PCO2 43 mmHg (40-60); VENOUS BLOOD GAS PO2 22 mm/Hg (30-55); VENOUS BLOOD PH 7.43 (7.32-7.43)
[2017-09-04 18:51] LABS: BASO % 0.4 % (0.0-2.0); EOS % 0.7 % (0.0-4.0); HEMOGLOBIN 9.4 g/dL (12.0-18.0); LYMPH # 0.8 K/uL (1.0-4.3); LYMPH % 26.5 % (20.0-40.0); MEAN CELL VOLUME 102.5 fl (80.0-94.0); MEAN CORPUSCULAR HEMOGLOBIN 33.9 pg (27.0-31.0); MEAN CORPUSCULAR HGB CONC 33.1 g/dL (33.0-37.0); MEAN PLATELET VOLUME 8.3 fl (7.2-11.7); MONO # 0.3 K/uL (0.0-0.8); NEUT # 1.9 K/uL (1.8-7.0); NEUT % 61.4 % (50.0-75.0); NRBC % 0.1 % (0.0-0.0); RBC 2.78 Mil/uL (4.40-5.90)
[2017-09-04 18:53] LABS: URINE BACTERIA RARE (<OCC); URINE BILIRUBIN NEGATIVE (NEGATIVE); URINE BLOOD LARGE (NEGATIVE); URINE CLARITY SLIGHTY-CLOUDY (Clear); URINE COLOR YELLOW (YELLOW); URINE GLUCOSE (UA) NEG (Normal); URINE LEUKOCYTE ESTERASE MOD Leu/uL (Negative); URINE PROTEIN 30 mg/dL (NEGATIVE); URINE UROBILINOGEN 0.2-1.0 mg/dL (0.2-1.0)
[2017-09-04 19:21] LABS: ALB/GLOB RATIO 0.9 (1.0-2.1); ALBUMIN 3.9 g/dL (3.5-5.0); ALT/SGPT 21 U/L (21-72); AST/SGOT 21 U/L (17-59); BLOOD UREA NITROGEN 17 mg/dl (9-20); CALCIUM 9.4 mg/dL (8.4-10.2); GFR AFRICAN-AMERICAN > 60; GFR NON-AFRICAN AMERICAN > 60; LIPASE 24 U/L (23-300)
[2017-09-04 20:39] VITALS: BP 107/54; PULSE 70; TEMP 98.2
[2017-09-05 15:14] VITALS: O2SAT 97
== END 2017-09-04 20:51 | disposition home or self-care (01) ==
LOC: H.ER 15:20
DX: N39.0 Urinary tract infection, site not specified (principal); R10.9 Unspecified abdominal pain; N40.0 Benign prostatic hyperplasia without lower urinary tract symptoms; Z86.718 Personal history of other venous thrombosis and embolism
CPT/HCPCS: 80053; 81003; 82803; 83690; 85025; 87040; 87086; 96374; 99282; J2405; J7040

== ENCOUNTER 2017-09-08 14:16 | Inpatient (IN) | payer MEDICARE ==
[2017-09-08 14:16] VITALS: BMI 25.7
[2017-09-08] MEDS ORDERED: Iohexol 240 (50 ml) PO ONE (15:04)
[2017-09-08] MEDS ORDERED: Sodium Chloride 0.9% 1,000 ML IV STA ×3 (15:05→21:43)
--- NOTE | 2017-09-08 15:18 | ED PDOC ---
HPI: Abdomen Time Seen by Provider: 09/08/17 14:58 Chief Complaint (Nursing): Weakness/Neurological Deficit Chief Complaint (Provider): Abdominal Pain/Generalized Weakness History Per: Patient History/Exam Limitations: no limitations Onset/Duration Of Symptoms: Intermittent Episodes, Other (x1 week) Outside of [place] travel?: No Current Symptoms Are (Timing): Still Present Location Of Pain/Discomfort: Other (lower abdominal pain) Quality Of Discomfort: Other (Bloating) Last Bowel Movement: Yesterday Additional Complaint(s): 62 year old male presents to ED with complaints of abdominal pain and generalized weakness x1 week and has a past medical history of prostate CA and repeated DVTs. Patient was seen in the ED x3 days ago and diagnosed with a UTI. Notes intermittent bloating pain and decreased appetite since then. (-) diarrhea , vomiting, melena, hematochezia, hematuria, or dysuria. States he had an episode yesterday where he was unable to urinate x18 hours and that is was resolved after a bowel movement. Localizes abdominal pain to the lower abdomen. Patient reports he presents to the ED today by recommendation of urologist he saw earlier today due to tachycarda and hypotension. PCP: [facility] Urologist: Dr. Gonzales Prostate CA: Dr. Joslyn Samano Past Medical History Reviewed: Historical Data, Nursing Documentation, Vital Signs Vital Signs: Last Vital Signs Temp 99.4 F 09/08/17 22:55 Pulse 102 H 09/08/17 22:55 Resp 20 09/08/17 22:55 BP 104/59 L 09/08/17 22:55 Pulse Ox 97 09/08/17 22:55 - Medical History PMH: Anxiety, Arthritis, Benign Prostatic Hyperplasia, Deep Vein Thrombosis (x3) , Pneumonia Denies: COPD, HTN, Hypothyroidism, Chronic Kidney Disease - Surgical History Surgical History: Cholecystectomy, Endoscopy, Hernia Repair (ventral) - Family History Family History: States: Unknown Family Hx - Social History Alcohol: None Drugs: Denies - Immunization History Hx Influenza Vaccination: Yes - Home Medications Home Medications: Ambulatory Orders Medication Instructions Recorded Tamsulosin [Flomax] 0.4 mg PO HS 07/25/17 Ciprofloxacin HCl [Cipro] 250 mg PO BID #14 tab 09/04/17 Dicyclomine [Bentyl] 20 mg PO BID PRN #30 tab 09/04/17 Dorzolamide 2%/Timolol 0.5% 1 drop EACHEYE Q12 09/04/17 [Cosopt 2%-0.5% Opht] predniSONE [predniSONE Tab] 10 mg PO DAILY 09/04/17 Methenam/Sod Phos/Mblue/Hyoscy 1 tab PO BID 09/08/17 [Urogesic-Blue Tablet] - Allergies Allergies/Adverse Reactions: Allergies Allergy/AdvReac Type Severity Reaction Status Date / Time aspirin Allergy RASH Verified 08/09/17 07:20 naproxen Allergy RASH Verified 08/09/17 07:20 Penicillins Allergy RASH Verified 08/09/17 07:20 Sulfa (Sulfonamide Allergy RASH Verified 08/09/17 07:20 Antibiotics) Review of Systems ROS Statement: Except As Marked, All Systems Reviewed And Found Negative Constitutional: Positive for: Weakness Gastrointestinal: Positive for: Abdominal Pain (lower abdominal pain). Negative for: Vomiting, Diarrhea, Melena, Hematochezia Genitourinary Male: Negative for: Dysuria, Hematuria Physical Exam - Reviewed Nursing Documentation Reviewed: Yes Vital Signs Reviewed: Yes - Physical Exam Appears: Positive for: Non-toxic, No Acute Distress Skin: Positive for: Warm, Dry, Pallor. Negative for: Normal Color Eye Exam: Positive for: EOMI, PERRL ENT: Positive for: Pharynx Is (clear). Negative for: Normal ENT Inspection ( mucous membranes are significantly dry) Neck: Positive for: Painless ROM, Supple Cardiovascular/Chest: Positive for: Regular Rate, Rhythm, Tachycardia Respiratory: Positive for: Normal Breath Sounds. Negative for: Respiratory Distress Gastrointestinal/Abdominal: Positive for: Soft, Tenderness (bilateral lower quadrant and suprapubic TTP). Negative for: Mass, Guarding, Rebound Back: Positive for: Normal Inspection. Negative for: Decreased ROM Extremity: Positive for: Normal ROM. Negative for: Deformity Lymphatic: Negative for: Adenopathy Neurologic/Psych: Positive for: Alert, Oriented. Negative for: Motor/Sensory Deficits - Laboratory Results Result Diagrams: 09/08/17 15:39 09/08/17 15:39 - ECG O2 Sat by Pulse Oximetry: 97 (RA) Pulse Ox Interpretation: Normal Medical Decision Making Medical Decision Makin Initial impression: abdominal pain, weakness DDx including but not limited to: dehydration, anemia, leukopenia, colitis, diverticulitis, UTI, sepsis Initial plan: * T&S * VBG * CTA A/P * Labs * Lipase * Magnesium * Phosphoate * PTT/PT * NS IV * Iohexol 50mL PO * BCx * UCx * UA * Re-eval Labs demonstrated pancytopenia, similar to previous with slightly worse anemia and thrombocytopenia. Also demonstrated hypochloremia hyponatremia and increase BUN c/w dehydration. UA demonstrates RBCs and WBCs. EXAM: CT Abdomen and Pelvis With Intravenous Contrast EXAM DATE/TIME: 09/08/2017 3:04 PM CLINICAL HISTORY: 62 years old, male; Pain and signs and symptoms; Nausea and vomiting; Abdominal pain; Generalized; Prior surgery; Surgery date: 6+ months; Surgery type: Cholecystectomy, hernia repair - ventral; Patient HX: Prostate ca. ; Additional info: Abd bloating and pain recent prostate SX. Sent phy. Doc. Sent pt's labs TECHNIQUE: Axial computed tomography images of the abdomen and pelvis with intravenous contrast. All CT scans at this facility use one or more dose reduction techniques, viz.: automated exposure control; ma/kV adjustment per patient size (including targeted exams where dose is matched to indication; i.e. head); or iterative reconstruction technique. Coronal and sagittal reformatted images were created and reviewed. CONTRAST: 90 mL of [id number] administered intravenously. COMPARISON: CT - ABD PELVIS PO IV CONTRAST 2014-09-05 00:31 FINDINGS: Lower thorax: The heart is mildly enlarged. There are coronary artery calcifications. There is a hiatal hernia. ABDOMEN: Liver: unremarkable Gallbladder and bile ducts: Gallbladder is absent. Common duct is mildly dilated. Pancreas: Pancreas is mildly atrophic. Spleen: Spleen is mildly enlarged. Adrenals: unremarkable Kidneys and ureters: Right kidney and ureter are unremarkable. There is a nonobstructing left renal stone. Left kidney is otherwise unremarkable. There is no pelvocaliectasis. There is mild dilatation of the mid portions of the left ureter. There are no left ureteral stones. Stomach and bowel: Stomach is incompletely distended which accentuates the gastric wall. There is a duodenal diverticulum. Rotation is normal. Small bowel is mildly distended with fluid and air. There is no obstruction. Ileocecal region is unremarkable. Appendix and terminal ileum are unremarkable. There is contrast throughout the colon. There is scattered diverticulosis. Appendix: See stomach and bowel PELVIS: Bladder: Bladder is only partially distended. Streak artifact from a right hip prosthesis limits evaluation of the bladder. Reproductive: The prostate is enlarged and diffusely heterogeneous. There is prominence of the seminal vesicles. ABDOMEN and PELVIS: Intraperitoneal space:There is no free air. There is no definite free fluid. Bones/joints: There is a right hip prosthesis with extensive streak artifact. There is severe degenerative changes at the left hip. Bony structures are osteopenic. There degenerative changes in the spine. Soft tissues: There is a small fat containing umbilical hernia. There is inflammation and edema in the left inguinal region and groin. Vasculature: There are vascular calcifications. Lymph nodes: There is para-aortic adenopathy. There is left iliac adenopathy and inflammation. There is inflammation and infiltrative change in the lower left retroperitoneum. There is inflammation and edema in the left psoas and iliacus muscles. IMPRESSION: Enlarged heterogeneous prostate with enlargement of seminal vesicles ; left inguinal and iliac adenopathy and lower retroperitoneal adenopathy, infectious/ inflammatory versus neoplastic; infiltrative/inflammatory changes in the lower left retroperitoneum , left psoas and iliacus muscles with probable reactive mid left ureterectasis; mild splenomegaly; diverticulosis, no definite CT findings of diverticulitis Additional nonemergent findings as described above. [facility], who advises further workup. Agrees with hospitalization for hydration as well. Pt with undifferentiated abdominal pain, pancytopenia, and abnormalities on CT warranting further evaluation. [facility]mond[facility] resident covering admissions for PMD. Scribe Attestation: Documented by Yoselin Gibson acting as a scribe for Lizz Kaur MD. Scribe Attestation: All medical record entries made by the Scribe were at my direction and personally dictated by me. I have reviewed the chart and agree that the record accurately reflects my personal performance of the history, physical exam, medical decision making, and the department course for this patient. I have also personally directed, reviewed, and agree with the discharge instructions and disposition. Disposition - Clinical Impression Clinical Impression: Pancytopenia, Dehydration, Abdominal pain - Disposition Disposition Time: 20:30 Condition: FAIR - Pt Status Changed To: Hospital Disposition Of: Observation - POA Present On Arrival: None
[2017-09-08 15:44] LABS: BASO % 0.7 % (0.0-2.0); EOS # 0.1 K/uL (0.0-0.7); HEMOGLOBIN 8.9 g/dL (12.0-18.0); LYMPH # 0.7 K/uL (1.0-4.3); MEAN CELL VOLUME 106.6 fl (80.0-94.0); MEAN CORPUSCULAR HEMOGLOBIN 34.8 pg (27.0-31.0); MEAN CORPUSCULAR HGB CONC 32.7 g/dL (33.0-37.0); MEAN PLATELET VOLUME 9.6 fl (7.2-11.7); MONO # 0.4 K/uL (0.0-0.8); MONO % 11.6 % (0.0-10.0); NEUT # 1.9 K/uL (1.8-7.0); NEUT % 63.7 % (50.0-75.0); NRBC % 0.1 % (0.0-0.0); RBC 2.56 Mil/uL (4.40-5.90); RED CELL DISTRIBUTION WIDTH 19.5 % (11.5-14.5)
[2017-09-08] MEDS ORDERED: Iohexol 240 (50 ml) ONE (15:47)
[2017-09-08 15:48] LABS: VENOUS BLOOD GAS BASE EXCESS -0.2 mmol/L (0.0-2.0); VENOUS BLOOD GAS PCO2 41 mmHg (40-60); VENOUS BLOOD GAS PO2 37 mm/Hg (30-55); VENOUS BLOOD PH 7.39 (7.32-7.43)
[2017-09-08 16:09] LABS: INR 1.4 (0.9-1.2); PARTIAL THROMBOPLASTIN TIME 30.8 Seconds (25.6-37.1); PROTHROMBIN TIME 15.5 Seconds (9.8-13.1)
[2017-09-08 17:03] LABS: ALB/GLOB RATIO 0.8 (1.0-2.1); ALBUMIN 3.7 g/dL (3.5-5.0); ALT/SGPT 50 U/L (21-72); AST/SGOT 53 U/L (17-59); BLOOD UREA NITROGEN 25 mg/dl (9-20); CALCIUM 9.4 mg/dL (8.4-10.2); GFR AFRICAN-AMERICAN > 60; GFR NON-AFRICAN AMERICAN > 60; LIPASE 45 U/L (23-300)
[2017-09-08 17:18] LABS: SQUAMOUS EPITHIAL < 1 /hpf (0-5); URINE BACTERIA OCC (<OCC); URINE BILIRUBIN NEGATIVE (NEGATIVE); URINE BLOOD MODERATE (NEGATIVE); URINE CLARITY CLOUDY (Clear); URINE COLOR BLUE (YELLOW); URINE GLUCOSE (UA) NEG (Normal); URINE HYALINE CAST 0-2 /hpf (0-2); URINE LEUKOCYTE ESTERASE MOD Leu/uL (Negative); URINE PROTEIN 100 mg/dL (NEGATIVE)
[2017-09-08] MEDS ORDERED: Iohexol 300 100 ML IJ ONE (17:33)
--- NOTE | 2017-09-08 20:55 | CT ---
EXAM: CT Abdomen and Pelvis With Intravenous Contrast EXAM DATE/TIME: 09/08/2017 3:04 PM CLINICAL HISTORY: 62 years old, male; Pain and signs and symptoms; Nausea and vomiting; Abdominal pain; Generalized; Prior surgery; Surgery date: 6+ months; Surgery type: Cholecystectomy, hernia repair -ventral; Patient HX: Prostate ca. ; Additional info: Abd bloating and pain recent prostate SX. Sent phy. Doc. Sent pt's labs TECHNIQUE: Axial computed tomography images of the abdomen and pelvis with intravenous contrast. All CT scans at this facility use one or more dose reduction techniques, viz.: automated exposure control; ma/kV adjustment per patient size (including targeted exams where dose is matched to indication; i.e. head); or iterative reconstruction technique. Coronal and sagittal reformatted images were created and reviewed. CONTRAST: 90 mL of [id number] administered intravenously. COMPARISON: CT - ABD PELVIS PO IV CONTRAST 2014-09-05 00:31 FINDINGS: Lower thorax: The heart is mildly enlarged. There are coronary artery calcifications. There is a hiatal hernia. ABDOMEN: Liver: unremarkable Gallbladder and bile ducts: Gallbladder is absent. Common duct is mildly dilated. Pancreas: Pancreas is mildly atrophic. Spleen: Spleen is mildly enlarged. Adrenals: unremarkable Kidneys and ureters: Right kidney and ureter are unremarkable. There is a nonobstructing left renal stone. Left kidney is otherwise unremarkable. There is no pelvocaliectasis. There is mild dilatation of the mid portions of the left ureter. There are no left ureteral stones. Stomach and bowel: Stomach is incompletely distended which accentuates the gastric wall. There is a duodenal diverticulum. Rotation is normal. Small bowel is mildly distended with fluid and air. There is no obstruction. Ileocecal region is unremarkable. Appendix and terminal ileum are unremarkable. There is contrast throughout the colon. There is scattered diverticulosis. Appendix: See stomach and bowel PELVIS: Bladder: Bladder is only partially distended. Streak artifact from a right hip prosthesis limits evaluation of the bladder. Reproductive: The prostate is enlarged and diffusely heterogeneous. There is prominence of the seminal vesicles. ABDOMEN and PELVIS: Intraperitoneal space:There is no free air. There is no definite free fluid. Bones/joints: There is a right hip prosthesis with extensive streak artifact. There is severe degenerative changes at the left hip. Bony structures are osteopenic. There degenerative changes in the spine. Soft tissues: There is a small fat containing umbilical hernia. There is inflammation and edema in the left inguinal region and groin. Vasculature: There are vascular calcifications. Lymph nodes: There is para-aortic adenopathy. There is left iliac adenopathy and inflammation. There is inflammation and infiltrative change in the lower left retroperitoneum. There is inflammation and edema in the left psoas and iliacus muscles. IMPRESSION: Enlarged heterogeneous prostate with enlargement of seminal vesicles; left inguinal and iliac adenopathy and lower retroperitoneal adenopathy, infectious/inflammatory versus neoplastic; infiltrative/inflammatory changes in the lower left retroperitoneum, left psoas and iliacus muscles with probable reactive mid left ureterectasis; mild splenomegaly; diverticulosis, no definite CT findings of diverticulitis Additional nonemergent findings as described above.
--- NOTE | 2017-09-08 22:06 | CP.PCM.HP ---
History of Present Illness - History of Present Illness History of Present Illness: "the lower part of my stomach has been hurting bad all this week" 62 y/o male, well known to our service, with PMHx remarkable for pancytopenia, BPH, Wegeners, and DVTx3 presented to ED from specialists office for evaluation of hypotension/tachycardia and suprapubic pain. Pt reports he was having lower abdominal pain since Monday of this week. Denies inciting event and reports he was in his usual state of health prior to symptom onset. The pain orginally presented as 4-5/10, located in the suprapubic region without any radiation. He went to [facility] on Monday for evaluation and was discharged shortly after. He reports the pain worsened during the week, and he started to get nausea with vomiting two days ago. He reports approx 4-5 episodes of NBNB emesis daily, last episode being around 18:[address] scan. He has been drinking green tea intermittently for hydration, and little or not water intake. The pain worsened today to almost 9/10. Pain is associated with generalized weakness. He went to his urologists office, whom recorded hypotension and tachycardia at his office and sent him to the ED for evaluation. He denies any fever/chills, headaches, changes in vision, CP/SOB/Palpitations, D/C, numbness/ tingling. PMD: Dr. Ahmet Gordon Uro: Nahed (last visit today) Heme: Dr. Channing Samano (last visit 1 week ago for Neupogen inj) PMHx: panycytopenia, Anxiety, Arthritis, Benign Prostatic Hyperplasia, Wegeners , DVT (x3) Meds: Flomax 0.8 at night, eye drops, Prednisone 10mg QD ALL: aspirin, naproxen, penicillins, sulfa drugs (rxn is RASH for all allergies) PSurgHx: hernia repair, THR, cholecystectomy, prostate surgery 3 weeks ago FamilyHX: denies family hx of CA, PA, Stroke, CAD, DM SocialHx: Denies tobacco, ETOH, drug use Next of kin: brother, Danielito Valerio [phone] Code Status: full code ED COURSE: Vitals on Presentation: T: 98.7 F, HR 117, BP 95/56, RR 16, POX 97% RA Labs CBC: panycytopenia, macrocytosis CMP: hyponatremia, elevated BUN/Cr: 25/1.2, elevated alk phos UA: mod LE, 56 WBCs, elevated RBCs VBG: pH 7.39, lactate 2.0 Lipase: wnl Imaging Abd/pelvis CT Meds 2L NS bolus Zofran 2mg Morphine x 2 Present on Admission - Present on Admission Any Indicators Present on Admission: Yes History of DVT/PE: Yes History of Uncontrolled Diabetes: No Review of Systems - Constitutional Constitutional: Weakness. absent: As Per HPI, Anorexia, Chills, Daytime Sleepiness, Excessive Sweating, Fatigue, Fever, Frequent Falls, Headache, Increased Appetite, Lethargy, Malaise, Night Sweats, Snoring, Sleep Apnea, Weight Gain, Weight Loss, Other - EENT Eyes: absent: As Per HPI, Blind Spots, Blurred Vision, Change in Vision, Decreased Night Vision, Diplopia, Discharge, Dry Eye, Exophthalmos, Floaters, Irritation, Itchy Eyes, Loss of Peripheral Vision, Pain, Photophobia, Requires Corrective Lenses, Sees Flashes, Spots in Vision, Tunnel Vision, Other Visual Disturbances, Loss of Vision, Other Ears: absent: As Per HPI, Decreased Hearing, Ear Discharge, Ear Pain, Tinnitus, Abnormal Hearing, Disequilibrium, Dizziness, Other Nose/Mouth/Throat: absent: As Per HPI, Epistaxis, Nasal Congestion, Nasal Discharge, Nasal Obstruction, Nasal Trauma, Nose Pain, Post Nasal Drip, Sinus Pain, Sinus Pressure, Bleeding Gums, Change in Voice, Dental Pain, Dry Mouth, Dysphagia, Halitosis, Hoarsness, Lip Swelling, Mouth Lesions, Mouth Pain, Odynophagia, Sore Throat, Throat Swelling, Tongue Swelling, Facial Pain, Neck Pain, Neck Mass, Other - Cardiovascular Cardiovascular: absent: As Per HPI, Acrocyanosis, Chest Pain, Chest Pain at Rest , Chest Pain with Activity, Claudication, Diaphoresis, Dyspnea, Dyspnea on Exertion, Edema, Irregular Heart Rhythm, Pain Radiating to Arm/Neck/Jaw, Leg Edema, Leg Ulcers, Lightheadedness, Orthopnea, Palpitations, Paroxysmal Nocturnal Dyspnea, Pedal Edema, Radiating Pain, Rapid Heart Rate, Slow Heart Rate, Syncope, Other - Respiratory Respiratory: absent: As Per HPI, Cough, Dyspnea, Hemoptysis, Dyspnea on Exertion , Wheezing, Snoring, Stridor, Pain on Inspiration, Chest Congestion, Excessive Mucous Production, Change in Mucous Color, Pain with Coughing, Other - Gastrointestinal Gastrointestinal: Abdominal Pain, Nausea, Vomiting. absent: As Per HPI, Belching, Bloating, Change in Bowel Habits, Change in Stool Character, Coffee Ground Emesis, Constipation, Cramping, Diarrhea, Dyspepsia, Dysphagia, Early Satiety, Excessive Flatus, Fecal Incontinence, Heartburn, Hematemesis, Hematochezia, Loose Stools, Melena, Odynophagia, Temesmus, Other - Genitourinary Genitourinary: Urinary Frequency. absent: As Per HPI, Change in Urinary Stream , Difficulty Urinating, Dysuria, Flank Pain, Hematuria, Pyuria, Nocturia, Urinary Incontinence, Urinary Hesitance, Urinary Urgency, Voiding Freq/Small Amts, Freq UTI, Hx Renal/Bladder Calculi, Hx /Renal Surgery, Bladder Distension, Other - Musculoskeletal Musculoskeletal: absent: As Per HPI, Abnormal Gait, Arthralgias, Atrophy, Back Pain, Deformity, Joint Swelling, Limited Range of Motion, Loss of Height, Muscle Cramps, Muscle Weakness, Myalgias, Neck Pain, Numbness, Radiating Pain into Limb, Stiffness, Tingling, Other - Integumentary Integumentary: absent: As Per HPI, Acne, Alopecia, Bleeding Lesions, Change in Hair, Change in Nails, Change in Pigmentation, Changing Lesions, Dry Skin, Erythema, Furuncle, Hirsutism, Lesions, New Lesions, Non-Healing Lesions, Photosensitivity, Pruritus, Rash, Skin Pain, Skin Ulcer, Sores, Striae, Swelling , Unusual Bruising, Wounds, Jaundice, Other - Neurological Neurological: absent: As Per HPI, Abnormal Gait, Abnormal Hearing, Abnormal Movements, Abnormal Speech, Behavioral Changes, Burning Sensations, Confusion, Convulsions, Disequilibrium, Dizziness, Numbness, Focal Weakness, Frequent Falls , Headaches, Lack of Coordination, Loss of Vision, Memory Loss, Paresthesias, Radicular Pain, Restless Legs, Sensory Deficit, Syncope, Tingling, Tremor, Vertigo, Weakness, Other Visual Disturbances, Other Past Patient History - Infectious Disease Hx of Infectious Diseases: None - Tetanus Immunizations Tetanus Immunization: Unknown - Past Medical History & Family History Past Medical History?: Yes - Past Social History Smoking Status: Never Smoked Alcohol: None Drugs: Denies Home Situation {Lives}: With Family - CARDIAC Hx Hypertension: No - PULMONARY Hx Chronic Obstructive Pulmonary Disease (COPD): No Hx Pneumonia: Yes - HEENT Hx HEENT Problems: Yes Hx Deafness: No Hx Glaucoma: Yes Other/Comment: TMJ - RENAL Hx Chronic Kidney Disease: No - ENDOCRINE/METABOLIC Hx Hypothyroidism: No - INTEGUMENTARY Hx Dermatological Problems: No Hx Cellulitis: Yes (facial) Other/Comment: facial cellulitis x 2 - MUSCULOSKELETAL/RHEUMATOLOGICAL Hx Arthritis: Yes - GENITOURINARY/GYNECOLOGICAL Hx Genitourinary Disorders: Yes Hx Bladder Cancer: No Hx Bladder Stone: No Hx Hematuria: No Hx Incontinence: No Hx Prostate Cancer: No Hx Prostate Problems: Yes - PSYCHIATRIC Hx Anxiety: Yes - SURGICAL HISTORY Hx Cholecystectomy: Yes - ANESTHESIA Hx Anesthesia: Yes Hx Anesthesia Reactions: No Hx Malignant Hyperthermia: No Meds Allergies/Adverse Reactions: Allergies Allergy/AdvReac Type Severity Reaction Status Date / Time aspirin Allergy RASH Verified 08/09/17 07:20 naproxen Allergy RASH Verified 08/09/17 07:20 Penicillins Allergy RASH Verified 08/09/17 07:20 Sulfa (Sulfonamide Allergy RASH Verified 08/09/17 07:20 Antibiotics) Physical Exam - Constitutional Appears: Non-toxic, No Acute Distress - Head Exam Head Exam: ATRAUMATIC, NORMOCEPHALIC - Eye Exam Eye Exam: EOMI, Normal appearance, PERRL. absent: Conjunctival injection, Nystagmus, Scleral icterus Pupil Exam: NORMAL ACCOMODATION, PERRL - ENT Exam ENT Exam: Mucous Membranes Dry. absent: Mucous Membranes Moist, Normal Exam - Neck Exam Neck exam: Positive for: Full Rom, Normal Inspection. Negative for: Lymphadenopathy, Tenderness - Respiratory Exam Respiratory Exam: Clear to Auscultation Bilateral, NORMAL BREATHING PATTERN. absent: Rales, Rhonchi, Wheezes, Respiratory Distress - Cardiovascular Exam Cardiovascular Exam: Tachycardia, RRR, +S1, +S2. absent: Gallop, JVD, Rubs, Systolic Murmur - GI/Abdominal Exam GI & Abdominal Exam: Guarding (voluntary), Normal Bowel Sounds, Soft, Tenderness (suprapubically ). absent: Distended, Firm, Rebound, Rigid - Extremities Exam Extremities exam: Positive for: full ROM, normal inspection, pedal pulses present. Negative for: calf tenderness, normal capillary refill (cap refill approx 3s ), pedal edema, tenderness - Back Exam Back exam: absent: CVA tenderness (L), CVA tenderness (R) - Neurological Exam Neurological exam: Alert, CN II-XII Intact, Normal Gait, Oriented x3, Reflexes Normal - Psychiatric Exam Psychiatric exam: Normal Affect, Normal Mood - Skin Skin Exam: Dry, Intact, Pallor, Warm Results - Vital Signs Recent Vital Signs: Last Vital Signs Temp 98.7 F 09/08/17 14:39 Pulse 92 H 09/08/17 21:44 Resp 16 09/08/17 21:44 BP 107/44 L 09/08/17 21:44 Pulse Ox 97 09/08/17 20:57 - Labs Result Diagrams: 09/08/17 15:39 09/08/17 15:39 Labs: Laboratory Results - last 24 hr 09/08/17 09/08/17 09/08/17 15:39 15:39 15:44 WBC 3.0 L RBC 2.56 L Hgb 8.9 L Hct 27.3 L MCV 106.6 H D MCH 34.8 H MCHC 32.7 L RDW 19.5 H Plt Count 88 L MPV 9.6 Neut % (Auto) 63.7 Lymph % (Auto) 22.0 [place] % (Auto) 11.6 H Eos % (Auto) 2.0 Baso % (Auto) 0.7 Neut # (Auto) 1.9 Lymph # (Auto) 0.7 L [place] # (Auto) 0.4 Eos # (Auto) 0.1 Baso # (Auto) 0.0 PT INR APTT pO2 37 VBG pH 7.39 VBG pCO2 41 VBG HCO3 24.0 VBG Total CO2 26.1 VBG O2 Sat (Calc) 68.5 H VBG Base Excess -0.2 L VBG Potassium 4.4 Glucose 117 H Lactate 2.0 FiO2 21.0 Sodium 130 L 127.0 L Potassium 4.5 Chloride 97 L 99.0 Carbon Dioxide 19 L Anion Gap 19 BUN 25 H Creatinine 1.2 Est GFR ( Amer) > 60 Est GFR (Non-Af Amer) > 60 Random Glucose 118 H Calcium 9.4 Phosphorus 4.1 Magnesium 1.8 Total Bilirubin 0.9 AST 53 ALT 50 Alkaline Phosphatase 226 H D Total Protein 8.4 H Albumin 3.7 Globulin 4.7 H Albumin/Globulin Ratio 0.8 L Lipase 45 Venous Blood Potassium 4.4 Urine Color Urine Clarity Urine pH Ur Specific [place] Urine Protein Urine Glucose (UA) Urine Ketones Urine Blood Urine Nitrate Urine Bilirubin Urine Urobilinogen Ur Leukocyte Esterase Urine RBC (Auto) Urine Microscopic WBC Ur Squamous Epith Cells Urine Bacteria Hyaline Casts Blood Type Antibody Screen BBK History Checked 09/08/17 09/08/17 09/08/17 15:45 15:47 16:42 WBC RBC Hgb Hct MCV MCH MCHC RDW Plt Count MPV Neut % (Auto) Lymph % (Auto) [place] % (Auto) Eos % (Auto) Baso % (Auto) Neut # (Auto) Lymph # (Auto) [place] # (Auto) Eos # (Auto) Baso # (Auto) PT 15.5 H INR 1.4 H APTT 30.8 pO2 VBG pH VBG pCO2 VBG HCO3 VBG Total CO2 VBG O2 Sat (Calc) VBG Base Excess VBG Potassium Glucose Lactate FiO2 Sodium Potassium Chloride Carbon Dioxide Anion Gap BUN Creatinine Est GFR ( Amer) Est GFR (Non-Af Amer) Random Glucose Calcium Phosphorus Magnesium Total Bilirubin AST ALT Alkaline Phosphatase Total Protein Albumin Globulin Albumin/Globulin Ratio Lipase Venous Blood Potassium Urine Color Blue Urine Clarity Cloudy Urine pH 5.0 Ur Specific [place] 1.026 Urine Protein 100 Urine Glucose (UA) Neg Urine Ketones Negative Urine Blood Moderate Urine Nitrate Negative Urine Bilirubin Negative Urine Urobilinogen 4.0 Ur Leukocyte Esterase Mod Urine RBC (Auto) 28 H Urine Microscopic WBC 56 H Ur Squamous Epith Cells < 1 Urine Bacteria Occ H Hyaline Casts 0-2 Blood Type O POSITIVE Antibody Screen Negative BBK History Checked Patient has bt Assessment & Plan - Assessment and Plan (Free Text) Assessment: 62 y/o male with PMHx of BPH, pancytopenia, Wegeners, DVTx3 admitted for dehydration with acute cystitis Plan 1) Acute Cystitis in immunocompromised patient -qSOFA: 1 -UA/exam consistent with cystitis -2L NS IV bolus -c/w NS @ 100 mls/hr -monitor vitals -recheck AM labs -IV Levofloxacin 750mg Q24H started -pain control, 1gm Tylenol mild pain, Toradol 15mg IV moderate pain, 2mg Morphine Q6H prn severe pain -Zofran PRN nausea -urine culture pending 2) Dehydration -2L NS bolus -NS @ 100mls/hr -regular diet -recheck AM BMP 3) Pancytopenia -last seen by Channing Samano 1 week ago for Neupogen injection -skipped this weeks appt 2/2 to illness and abdominal pain -consider heme consults as needed 4) Wegeners Granulomatosis -stable -c/w prednisone 10mg QD 5) BPH -stable -c/w home meds as ordered (Flomax) 6) Diet -regular diet 7) Prophylaxis -thrombocytopenic @ 88 -SCDs/ambulation
[2017-09-08] MEDS ORDERED: Ciprofloxacin 400mg/200ml D5W 400 MG/200 ML BAG IVPB SCH (22:15)
[2017-09-09] MEDS: levoFLOXacin 750 mg in D5W 750 MG/150 ML BAG IVPB SCH ×2 (06:29→08:59)
[2017-09-09 07:06] LABS: HEMOGLOBIN 7.1 g/dL (12.0-18.0); MEAN CELL VOLUME 102.6 fl (80.0-94.0); MEAN CORPUSCULAR HEMOGLOBIN 34.6 pg (27.0-31.0); MEAN CORPUSCULAR HGB CONC 33.7 g/dL (33.0-37.0); RBC 2.04 Mil/uL (4.40-5.90); RED CELL DISTRIBUTION WIDTH 18.5 % (11.5-14.5); WHITE BLOOD COUNT 2.6 K/uL (4.8-10.8)
[2017-09-09 07:38] LABS: ALB/GLOB RATIO 0.8 (1.0-2.1); ALT/SGPT 52 U/L (21-72); AST/SGOT 43 U/L (17-59); BLOOD UREA NITROGEN 17 mg/dl (9-20); CALCIUM 8.6 mg/dL (8.4-10.2); GFR AFRICAN-AMERICAN > 60; GFR NON-AFRICAN AMERICAN > 60
[2017-09-09] MEDS ORDERED: HYOSCY PO SCH (09:00)
[2017-09-09] MEDS ORDERED: SOD PHOS PO SCH (09:00)
[2017-09-09] MEDS ORDERED: [UNRECOGNIZED DRUG - OTHER] PO SCH (09:00)
[2017-09-09] MEDS: Dorzolamide 2% Ophth Soln OU SCH ×2 (09:22→21:55)
--- NOTE | 2017-09-09 14:31 | CP.PCM.PN ---
Subjective - Date & Time of Evaluation Date of Evaluation: 09/09/17 Time of Evaluation: 10:00 - Subjective Subjective: Pt seen and examined at the bedside this morning. Seen sitting in chair comfortably. Pt states that he is still having abdominal pain but it is controlled. States he is feeling better than on admission. Has occasional dysuria. Denies fever, chills, n/v/d, flank pain. Tolerating diet. Ambulating. Objective - Vital Signs/Intake and Output Vital Signs (last 24 hours): Temp Pulse Resp BP Pulse Ox 99.5 F 104 H 20 106/67 95 09/09/17 07:52 09/09/17 07:52 09/09/17 07:52 09/09/17 07:52 09/09/17 07:52 - Medications Medications: Current Medications Acetaminophen (Tylenol 325mg Tab) 975 mg PO Q6 PRN PRN Reason: Pain, Mild (1-3) Dorzolamide HCl (Trusopt) 1 drop OU Q12 [facility] Last Admin: 09/09/17 09:22 Dose: 1 drop Home Med (Methenam/Sod Phos/Mblue/Hyoscy [Urogesic-Blue Tablet]) 1 tab PO BID [facility] Levofloxacin/Dextrose (Levaquin 750mg) 750 mg in 150 mls @ 100 mls/hr IVPB DAILY [facility] PRN Reason: Protocol Last Admin: 09/09/17 08:59 Dose: Not Given Ketorolac Tromethamine (Toradol) 15 mg IVP Q6 PRN PRN Reason: Pain, moderate (4-7) Morphine Sulfate (Morphine) 2 mg IVP Q4 PRN PRN Reason: Pain, severe (8-10) Ondansetron HCl (Zofran Inj) 4 mg IVP Q6 PRN PRN Reason: Nausea/Vomiting Prednisone (Prednisone Tab) 10 mg PO DAILY [facility] Last Admin: 09/09/17 09:21 Dose: 10 mg Tamsulosin HCl (Flomax) 0.4 mg PO HS [facility] Tamsulosin HCl (Flomax) 0.4 mg PO DAILY [facility] Last Admin: 09/09/17 10:01 Dose: 0.4 mg Timolol Maleate (Timoptic 0.5% Ophth Soln) 1 drop OU Q12 [facility] Last Admin: 09/09/17 09:22 Dose: 1 drop - Labs Labs: 09/09/17 05:20 09/09/17 05:20 PT 15.5 Seconds (9.8-13.1) H 09/08/17 15:47 INR 1.4 (0.9-1.2) H 09/08/17 15:47 APTT 30.8 Seconds (25.6-37.1) 09/08/17 15:47 - Constitutional Appears: Well, Non-toxic, No Acute Distress - ENT Exam ENT Exam: Mucous Membranes Moist - Respiratory Exam Respiratory Exam: Clear to Ausculation Bilateral. absent: Rales, Wheezes - Cardiovascular Exam Cardiovascular Exam: REGULAR RHYTHM, +S1, +S2 - GI/Abdominal Exam GI & Abdominal Exam: Soft, Hyperactive Bowel Sounds. absent: Distended, Guarding, Rigid, Tenderness Additional comments: No suprapubic tenderness - Extremities Exam Extremities Exam: Normal Inspection. absent: Pedal Edema - Neurological Exam Neurological Exam: Alert, Awake, Normal Gait - Psychiatric Exam Psychiatric exam: Normal Affect Assessment and Plan - Assessment and Plan (Free Text) Assessment: 62 y/o male with PMHx of BPH, pancytopenia, Wegeners, DVTx3 admitted for dehydration with acute cystitis Plan 1) Acute Cystitis in immunocompromised patient -Symptoms improved from yesterday -Hemodynamically stable, Afebrile -+ UA, UCx no growth x 24hrs - c/w IV Levofloxacin 750mg Q24H -Pain Scale: 1gm Tylenol mild pain, Toradol 15mg IV moderate pain, 2mg Morphine Q6H prn severe pain -Zofran PRN nausea -BCx-pending -ID consulted 2) Dehydration, resolved -s/p 2L NS bolus -c/w NS @ 100mls/hr -regular diet - BUN wnl today 3) Pancytopenia -Spoke with Heme/Onc- 2 units of PRBC and Granix x 1 to be transfused today -Heme/Onc on board -f/u am cbc 4) Anemia -Hg 7.1 today (8.1) -Will transfuse 2 units today -f/u am cbc 4) Wegeners Granulomatosis -stable -c/w prednisone 10mg QD 5) BPH -stable -c/w home meds as ordered (Flomax 0.4mg daily) 6) Diet -regular diet 7) Prophylaxis -thrombocytopenic @ 88 -SCDs/ambulation
--- NOTE | 2017-09-09 19:33 | CP.PCM.PN ---
Subjective - Date & Time of Evaluation Date of Evaluation: 09/09/17 Time of Evaluation: 19:19 - Subjective Subjective: Aliya is a 62 yrs old male who is well known to me for many years for chronic neutropenia. He had a bone marrow done but it did not show any pathology other than the neutropenisa. Pt wqas doing ok unless he needed a surgical proceedure or had a infection in which case I would give him a Neupogen and his count would be up the next day. 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 @ weeks ago he slowly started getting anemic, and he was found to have some blood in the Urine. He had an enlarged prostate and about 3 wwks ago had a surgery fotr the same. He was doing well after that and his hgb was also quite stable. Today he had abdominal pain and went to see his urologist who told im that he was slightly hypotensive and tachycardic and was asked to go te ER from where he was admitted. He was started on antibiotics, His cbc in the er was 2.6 which close to his normal, and his hgb was 7.1 wuith slight thrombocytopenia. . No gross bleeding from any site., but the urine had moderate amount of blood in it Objective - Vital Signs/Intake and Output Vital Signs (last 24 hours): Temp Pulse Resp BP Pulse Ox 97.8 F 81 81 H 116/69 97 09/09/17 19:02 09/09/17 19:02 09/09/17 19:02 09/09/17 19:02 09/09/17 19:02 - Medications Medications: Current Medications Acetaminophen (Tylenol 325mg Tab) 975 mg PO Q6 PRN PRN Reason: Pain, Mild (1-3) Dorzolamide HCl (Trusopt) 1 drop OU Q12 [facility] Last Admin: 09/09/17 09:22 Dose: 1 drop Home Med (Methenam/Sod Phos/Mblue/Hyoscy [Urogesic-Blue Tablet]) 1 tab PO BID [facility] Levofloxacin/Dextrose (Levaquin 750mg) 750 mg in 150 mls @ 100 mls/hr IVPB DAILY [facility] PRN Reason: Protocol Last Admin: 09/09/17 08:59 Dose: Not Given Ketorolac Tromethamine (Toradol) 15 mg IVP Q6 PRN PRN Reason: Pain, moderate (4-7) Morphine Sulfate (Morphine) 2 mg IVP Q4 PRN PRN Reason: Pain, severe (8-10) Ondansetron HCl (Zofran Inj) 4 mg IVP Q6 PRN PRN Reason: Nausea/Vomiting Prednisone (Prednisone Tab) 10 mg PO DAILY [facility] Last Admin: 09/09/17 09:21 Dose: 10 mg Tamsulosin HCl (Flomax) 0.4 mg PO HS [facility] Timolol Maleate (Timoptic 0.5% Ophth Soln) 1 drop OU Q12 [facility] Last Admin: 09/09/17 09:22 Dose: 1 drop - Labs Labs: 09/09/17 05:20 09/09/17 05:20 PT 15.5 Seconds (9.8-13.1) H 09/08/17 15:47 INR 1.4 (0.9-1.2) H 09/08/17 15:47 APTT 30.8 Seconds (25.6-37.1) 09/08/17 15:47 - Additional Findings Additional findings: Physical exam; Alert, well oriented in no acute distress Neck; supple,no adenopathy chest; Clear. no rales or rhonchi Heart; RSR, florencio murmur Abd some tenderness in the suprapubic area. Assessment and Plan - Assessment and Plan (Free Text) Assessment: Impression; Urinary tract infection Pancytopenia, Plan: Plan Pt is already on antibiotics, Will transfuse 2 units of blood and start him on granix today. [place] monitor cbc
[2017-09-09] MEDS ORDERED: levoFLOXacin 750 mg in D5W 750 MG/150 ML BAG IVPB SCH (23:12)
[2017-09-09 23:49] VITALS: O2SAT 98
[2017-09-10 07:44] VITALS: BP 97/61; PULSE 86; RESP 18; TEMP 97.7
[2017-09-10] MEDS: levoFLOXacin 750 mg in D5W 750 MG/150 ML BAG IVPB SCH (08:19)
[2017-09-10] MEDS: Dorzolamide 2% Ophth Soln OU SCH (08:19)
[2017-09-10 08:26] LABS: BLOOD UREA NITROGEN 18 mg/dl (9-20); CALCIUM 9.5 mg/dL (8.4-10.2); GFR AFRICAN-AMERICAN > 60; GFR NON-AFRICAN AMERICAN > 60
[2017-09-10 08:27] LABS: BASO % 0.3 % (0.0-2.0); EOS # 0.1 K/uL (0.0-0.7); EOS % 0.4 % (0.0-4.0); HEMOGLOBIN 8.2 g/dL (12.0-18.0); LYMPH # 0.9 K/uL (1.0-4.3); LYMPH % 7.3 % (20.0-40.0); MEAN CORPUSCULAR HEMOGLOBIN 33.2 pg (27.0-31.0); MEAN CORPUSCULAR HGB CONC 32.9 g/dL (33.0-37.0); MEAN PLATELET VOLUME 9.2 fl (7.2-11.7); MONO # 0.4 K/uL (0.0-0.8); MONO % 3.3 % (0.0-10.0); NEUT # 11.4 K/uL (1.8-7.0); NEUT % 88.7 % (50.0-75.0); NRBC % 0.1 % (0.0-0.0); PLATELET COUNT 80 K/uL (130-400); RBC 2.47 Mil/uL (4.40-5.90); RED CELL DISTRIBUTION WIDTH 19.2 % (11.5-14.5); WHITE BLOOD COUNT 12.8 K/uL (4.8-10.8)
[2017-09-10 10:34] LABS: BANDS 8 % (0-2); LYMPHOCYTE 3 % (20-50); MONOCYTE 6 % (0-10); NEUTROPHIL 83 % (42-75); PLATELET ESTIMATE DECREASED (NORMAL); TOTAL CELLS COUNTED 100
[2017-09-10 10:35] LABS: ANISOCYTOSIS SLIGHT; OVALOCYTES MODERATE
[2017-09-10 10:36] LABS: GIANT PLATELETS PRESENT
--- NOTE | 2017-09-10 11:11 | CP.PCM.PN ---
Objective - Vital Signs/Intake and Output Vital Signs (last 24 hours): Temp Pulse Resp BP Pulse Ox 97.7 F 86 18 97/61 L 98 09/10/17 07:43 09/10/17 07:43 09/10/17 07:43 09/10/17 07:43 09/10/17 07:43 Intake and Output: 09/10/17 09/10/17 06:59 18:59 Intake Total 796 Output Total 200 Balance 596 - Medications Medications: Current Medications Acetaminophen (Tylenol 325mg Tab) 975 mg PO Q6 PRN PRN Reason: Pain, Mild (1-3) Dorzolamide HCl (Trusopt) 1 drop OU Q12 [facility] Last Admin: 09/10/17 08:19 Dose: 1 drop Home Med (Methenam/Sod Phos/Mblue/Hyoscy [Urogesic-Blue Tablet]) 1 tab PO BID [facility] Levofloxacin/Dextrose (Levaquin 750mg) 750 mg in 150 mls @ 100 mls/hr IVPB DAILY [facility] PRN Reason: Protocol Last Admin: 09/10/17 08:19 Dose: 100 mls/hr Ketorolac Tromethamine (Toradol) 15 mg IVP Q6 PRN PRN Reason: Pain, moderate (4-7) Morphine Sulfate (Morphine) 2 mg IVP Q4 PRN PRN Reason: Pain, severe (8-10) Ondansetron HCl (Zofran Inj) 4 mg IVP Q6 PRN PRN Reason: Nausea/Vomiting Prednisone (Prednisone Tab) 10 mg PO DAILY [facility] Last Admin: 09/10/17 08:19 Dose: 10 mg Tamsulosin HCl (Flomax) 0.4 mg PO HS [facility] Last Admin: 09/09/17 21:56 Dose: 0.4 mg Timolol Maleate (Timoptic 0.5% Ophth Soln) 1 drop OU Q12 [facility] Last Admin: 09/10/17 08:19 Dose: 1 drop - Labs Labs: 09/10/17 06:30 09/10/17 06:30 PT 15.5 Seconds (9.8-13.1) H 09/08/17 15:47 INR 1.4 (0.9-1.2) H 09/08/17 15:47 APTT 30.8 Seconds (25.6-37.1) 09/08/17 15:47
--- NOTE | 2017-09-10 16:04 | CP.PCM.DIS ---
Provider - Provider Date of Admission: 09/09/17 14:42 Attending physician: Aaron Betancur MD Primary care physician: Dr. Betancur Consults: Heme/onc- Dr. Joslyn Samano Time Spent in preparation of Discharge (in minutes): 35 Diagnosis - Discharge Diagnosis (1) Acute cystitis Status: Acute Comment: Pt is s/p IV levofloxacin; and to continue PO ciprofloxacin 500 mg BID x 7 days at discharge. Pt's urologist Dr. Gonzales aware. (2) Pancytopenia Status: Chronic Comment: Conference Service Coordinator/Oncologist Dr. Joslyn Samano was consulted; as per her recommendations, pt received 2U PRBC and 1 dose Granix. WBC count improved from 2.6 to 12.8; and H/H from 7.1/21 to 8.2/24. Hospital Course - Lab Results Lab Results: Micro Results 09/08/17 15:30 Blood-Venous S.aureus & Coag-Neg Staph PNA FISH - Final 09/08/17 15:30 Blood-Venous Blood Culture - Preliminary Gram Positive Cocci 09/08/17 15:30 Blood-Venous Gram Stain - Final 09/08/17 16:42 Urine,Clean Catch Urine Culture - Final No Growth (<1,000 CFU/ML) Most Recent Lab Values WBC 12.8 K/uL (4.8-10.8) H D 09/10/17 06:30 RBC 2.47 Mil/uL (4.40-5.90) L 09/10/17 06:30 Hgb 8.2 g/dL (12.0-18.0) L 09/10/17 06:30 Hct 24.9 % (35.0-51.0) L 09/10/17 06:30 MCV 101.0 fl (80.0-94.0) H 09/10/17 06:30 MCH 33.2 pg (27.0-31.0) H 09/10/17 06:30 MCHC 32.9 g/dL (33.0-37.0) L 09/10/17 06:30 RDW 19.2 % (11.5-14.5) H 09/10/17 06:30 Plt Count 80 K/uL (130-400) L 09/10/17 06:30 MPV 9.2 fl (7.2-11.7) 09/10/17 06:30 Neut % (Auto) 88.7 % (50.0-75.0) H 09/10/17 06:30 Lymph % (Auto) 7.3 % (20.0-40.0) L 09/10/17 06:30 Buchanan % (Auto) 3.3 % (0.0-10.0) 09/10/17 06:30 Eos % (Auto) 0.4 % (0.0-4.0) 09/10/17 06:30 Baso % (Auto) 0.3 % (0.0-2.0) 09/10/17 06:30 Neut # (Auto) 11.4 K/uL (1.8-7.0) H 09/10/17 06:30 Lymph # (Auto) 0.9 K/uL (1.0-4.3) L 09/10/17 06:30 Buchanan # (Auto) 0.4 K/uL (0.0-0.8) 09/10/17 06:30 Eos # (Auto) 0.1 K/uL (0.0-0.7) 09/10/17 06:30 Baso # (Auto) 0.0 K/uL (0.0-0.2) 09/10/17 06:30 Neutrophils % (Manual) 83 % (42-75) H 09/10/17 06:30 Band Neutrophils % 8 % (0-2) H 09/10/17 06:30 Lymphocytes % (Manual) 3 % (20-50) L 09/10/17 06:30 Monocytes % (Manual) 6 % (0-10) 09/10/17 06:30 Platelet Estimate Decreased (NORMAL) L 09/10/17 06:30 Giant Platelets Present 09/10/17 06:30 Anisocytosis (manual) Slight 09/10/17 06:30 Macrocytosis (manual) Slight 09/10/17 06:30 Ovalocytes Moderate 09/10/17 06:30 PT 15.5 Seconds (9.8-13.1) H 09/08/17 15:47 INR 1.4 (0.9-1.2) H 09/08/17 15:47 APTT 30.8 Seconds (25.6-37.1) 09/08/17 15:47 pO2 37 mm/Hg (30-55) 09/08/17 15:44 VBG pH 7.39 (7.32-7.43) 09/08/17 15:44 VBG pCO2 41 mmHg (40-60) 09/08/17 15:44 VBG HCO3 24.0 mmol/L 09/08/17 15:44 VBG Total CO2 26.1 mmol/L (22-28) 09/08/17 15:44 VBG O2 Sat (Calc) 68.5 % (40-65) H 09/08/17 15:44 VBG Base Excess -0.2 mmol/L (0.0-2.0) L 09/08/17 15:44 VBG Potassium 4.4 mmol/L (3.6-5.2) 09/08/17 15:44 Sodium 127.0 mmol/L (132-148) L 09/08/17 15:44 Chloride 99.0 mmol/L (98-107) 09/08/17 15:44 Glucose 117 mg/dL (75-110) H 09/08/17 15:44 Lactate 2.0 mmol/L (0.7-2.1) 09/08/17 15:44 FiO2 21.0 % 09/08/17 15:44 Sodium 138 mmol/l (132-148) 09/10/17 06:30 Potassium 4.0 MMOL/L (3.6-5.0) 09/10/17 06:30 Chloride 101 mmol/L (98-107) 09/10/17 06:30 Carbon Dioxide 22 mmol/L (22-30) 09/10/17 06:30 Anion Gap 19 (10-20) 09/10/17 06:30 BUN 18 mg/dl (9-20) 09/10/17 06:30 Creatinine 1.0 mg/dl (0.8-1.5) 09/10/17 06:30 Est GFR ( Amer) > 60 09/10/17 06:30 Est GFR (Non-Af Amer) > 60 09/10/17 06:30 Random Glucose 97 mg/dL (75-110) 09/10/17 06:30 Calcium 9.5 mg/dL (8.4-10.2) 09/10/17 06:30 Phosphorus 4.1 mg/dl (2.5-4.5) 09/08/17 15:39 Magnesium 1.8 MG/DL (1.6-2.3) 09/08/17 15:39 Total Bilirubin 0.9 mg/dl (0.2-1.3) 09/09/17 05:20 AST 43 U/L (17-59) 09/09/17 05:20 ALT 52 U/L (21-72) 09/09/17 05:20 Alkaline Phosphatase 198 U/L (38-126) H 09/09/17 05:20 Total Protein 7.0 G/DL (6.3-8.2) 09/09/17 05:20 Albumin 3.0 g/dL (3.5-5.0) L 09/09/17 05:20 Globulin 4.0 gm/dL (2.2-3.9) H 09/09/17 05:20 Albumin/Globulin Ratio 0.8 (1.0-2.1) L 09/09/17 05:20 Lipase 45 U/L (23-300) 09/08/17 15:39 Venous Blood Potassium 4.4 mmol/L (3.6-5.2) 09/08/17 15:44 Urine Color Blue (YELLOW) 09/08/17 16:42 Urine Clarity Cloudy (Clear) 09/08/17 16:42 Urine pH 5.0 (5.0-8.0) 09/08/17 16:42 Ur Specific [place] 1.026 (1.003-1.030) 09/08/17 16:42 Urine Protein 100 mg/dL (NEGATIVE) 09/08/17 16:42 Urine Glucose (UA) Neg mg/dL (Normal) 09/08/17 16:42 Urine Ketones Negative mg/dL (NEGATIVE) 09/08/17 16:42 Urine Blood Moderate (NEGATIVE) 09/08/17 16:42 Urine Nitrate Negative (NEGATIVE) 09/08/17 16:42 Urine Bilirubin Negative (NEGATIVE) 09/08/17 16:42 Urine Urobilinogen 4.0 mg/dL (0.2-1.0) 03 16:42 Ur Leukocyte Esterase Mod Maru/uL (Negative) 09/08/17 16:42 Urine RBC (Auto) 28 /hpf (0-3) H 09/08/17 16:42 Urine Microscopic WBC 56 /hpf (0-5) H 09/08/17 16:42 Ur Squamous Epith Cells < 1 /hpf (0-5) 09/08/17 16:42 Urine Bacteria Occ (<OCC) H 09/08/17 16:42 Hyaline Casts 0-2 /hpf (0-2) 09/08/17 16:42 Blood Type O POSITIVE 09/09/17 15:32 Antibody Screen Negative 09/09/17 15:32 Crossmatch See Detail 09/09/17 15:32 BBK History Checked Patient has bt 09/09/17 15:32 - Hospital Course Hospital Course: David Valerio is a 62 yo M with PMH pancytopenia, BPH, Wegeners, DVTs, who was admitted due to acute cystitis and was found to be neutropenic. During his admission, he received 2U PRBC and 1 dose of granix, which improved his neutropenia and H/H. He also received IV levofloxacin, and was discharged with a course of oral Cirpofloxacin for 7 days. This morning, he was in good spirits , not in acute distress, and stated that his suprapubic discomfort had resolved. Discharge Exam - Head Exam Head Exam: ATRAUMATIC, NORMOCEPHALIC - Eye Exam Eye Exam: Normal appearance - ENT Exam ENT Exam: Mucous Membranes Moist - Respiratory Exam Respiratory Exam: Clear to PA & Lateral, NORMAL BREATHING PATTERN. absent: Respiratory Distress - Cardiovascular Exam Cardiovascular Exam: REGULAR RHYTHM, +S1, +S2 - GI/Abdominal Exam GI & Abdominal Exam: Normal Bowel Sounds. absent: Distended, Soft, Tenderness - Extremities Exam Extremities exam: normal capillary refill Additional comments: no calf tenderness - Neurological Exam Neurological exam: Alert, Oriented x3 - Skin Skin Exam: Dry, Warm Discharge Plan - Discharge Medications Prescriptions: Ciprofloxacin HCl [Cipro] 500 mg PO BID #14 tab - Follow Up Plan Condition: STABLE Disposition: HOME/ ROUTINE Patient education suggested?: Yes Instructions: Urinary Tract Infection, Adult (DC) Additional Instructions: Please follow up with Dr. Gonzales/Dr. Betancur in 1 week. Please take course of antibiotics as prescribed and sent to your pharmacy. Return to ED if symptoms worsen/return. Referrals: Osito Gonzales MD [Medical Doctor] - Aaron Betancur MD [Family Provider] -
== END 2017-09-10 15:13 | disposition home or self-care (01) | DRG 690 ==
LOC: H.ER 14:16 → H.ERHOLD 21:08 → H.MEDSURG1 22:31 → OBSVTOIN 09-09 14:42
PROVIDERS: ADMIT Family Medicine; ATTEND Family Medicine
PROC: 30233N1 Transfusion of Nonautologous Red Blood Cells into Peripheral Vein, Percutaneous Approach (ICD-10-PCS; principal; 2017-09-09)
DX: N30.01 Acute cystitis with hematuria (principal); D61.818 Other pancytopenia; M31.30 Wegener's granulomatosis without renal involvement; D69.6 Thrombocytopenia, unspecified; E86.0 Dehydration; M94.1 Relapsing polychondritis; B95.4 Other streptococcus as the cause of diseases classified elsewhere; N40.0 Benign prostatic hyperplasia without lower urinary tract symptoms; K57.90 Diverticulosis of intestine, part unspecified, without perforation or abscess without bleeding; F41.9 Anxiety disorder, unspecified; Z86.718 Personal history of other venous thrombosis and embolism; Z85.46 Personal history of malignant neoplasm of prostate; Z87.01 Personal history of pneumonia (recurrent); Z90.49 Acquired absence of other specified parts of digestive tract; Z88.6 Allergy status to analgesic agent; Z88.0 Allergy status to penicillin; Z88.2 Allergy status to sulfonamides

== ENCOUNTER 2017-10-10 12:37 | Emergency (ER) | payer MEDICARE ==
[2017-10-10 12:38] VITALS: BMI 26.7
[2017-10-10 12:59] VITALS: BP 117/62; PULSE 80; RESP 16; TEMP 98.4; O2SAT 100
--- NOTE | 2017-10-10 13:39 | ED PDOC ---
HPI: Dental Pain/Injury Time Seen by Provider: 10/10/17 13:30 Chief Complaint (Nursing): Dental Pain Chief Complaint (Provider): Dental Pain History Per: Patient History/Exam Limitations: no limitations Onset/Duration Of Symptoms: Days (x1) Current Symptoms Are (Timing): Still Present Additional Complaint(s): David Valerio is a 62 year old male with a past medical history of cardiac disorders, cellulitis, and musculoskeletal disorders, who is presenting to the ER with complaints of gum and jaw pain, with associated neck pain and left jaw swelling, onset yesterday. Patient states that he has regular blood drawn due to low white blood cells, and reports a recent eye infection. He states that he was going to visit a dentist but the pain was worsening, which prompted his ED visit. Patient offers no other medical complaints at this time. PMD: Aaron Betancur Past Medical History Reviewed: Historical Data, Nursing Documentation, Vital Signs Vital Signs: Last Vital Signs Temp 98.4 F 10/10/17 12:55 Pulse 80 10/10/17 12:55 Resp 16 10/10/17 12:55 BP 117/62 10/10/17 12:55 Pulse Ox 100 10/10/17 12:55 - Medical History PMH: Anxiety, Arthritis, Benign Prostatic Hyperplasia, Deep Vein Thrombosis (x3) , Pneumonia Denies: COPD, HTN, Hypothyroidism, Chronic Kidney Disease - Surgical History Surgical History: Cholecystectomy, Endoscopy, Hernia Repair (ventral) - Family History Family History: States: Unknown Family Hx - Immunization History Hx Influenza Vaccination: Yes - Home Medications Home Medications: Ambulatory Orders Medication Instructions Recorded Tamsulosin [Flomax] 0.4 mg PO HS 07/25/17 Dicyclomine [Bentyl] 20 mg PO BID PRN #30 tab 09/04/17 predniSONE [predniSONE Tab] 10 mg PO DAILY 09/04/17 Met[place]am/Sod Phos/Mblue/Hyoscy 1 tab PO BID PRN 09/08/17 [Urogesic-Blue Tablet] Multivitamin [Daily She] 1 tab PO DAILY 10/02/17 Acetaminophen with Codeine 1 - 2 tab PO QID #20 tablet 10/10/17 [Tylenol with Codeine #3 Tablet] Clindamycin [Cleocin] 300 mg PO QID #40 cap 10/10/17 - Allergies Allergies/Adverse Reactions: Allergies Allergy/AdvReac Type Severity Reaction Status Date / Time aspirin Allergy RASH Verified 09/18/17 07:31 naproxen Allergy RASH Verified 09/18/17 07:31 Penicillins Allergy RASH Verified 09/18/17 07:31 Sulfa (Sulfonamide Allergy RASH Verified 09/18/17 07:31 Antibiotics) Review of Systems ROS Statement: Except As Marked, All Systems Reviewed And Found Negative ENT: Positive for: Other (gum and jaw pain, left jaw swelling) Musculoskeletal: Positive for: Neck Pain Physical Exam - Reviewed Nursing Documentation Reviewed: Yes Vital Signs Reviewed: Yes - Physical Exam Appears: Positive for: Non-toxic, No Acute Distress Head Exam: Positive for: ATRAUMATIC, NORMAL INSPECTION, NORMOCEPHALIC Skin: Positive for: Normal Color Eye Exam: Positive for: Normal appearance ENT: Positive for: Other (poor dentition, (+) periodontal disease, teeth: 19, missing, top; 16, 15, 14, 13 missing, (+) gingiva disturbed at 18) Neck: Positive for: Normal Extremity: Positive for: Normal ROM. Negative for: Deformity, Swelling Neurologic/Psych: Positive for: Alert, Oriented. Negative for: Motor/Sensory Deficits - ECG O2 Sat by Pulse Oximetry: 100 (RA) Pulse Ox Interpretation: Normal Medical Decision Making Medical Decision Making: Time: 13:40 Plan: Tooth ache; no abscess. Will tx for pain and rx abx prior to referral to his private dentist (appt tomorrow) --Tylenol/Codeine 2 tab PO Scribe Attestation: Documented by Melinda Marx, acting as a scribe for Reggie Mora PA-C Provider Scribe Attestation: All medical record entries made by the Scribe were at my direction and personally dictated by me. I have reviewed the chart and agree that the record accurately reflects my personal performance of the history, physical exam, medical decision making, and the department course for this patient. I have also personally directed, reviewed, and agree with the discharge instructions and disposition. Disposition - Clinical Impression Clinical Impression: Toothache, Dental caries Doctor Will See Patient In The: Office Counseled Patient/Family Regarding: Diagnosis, Need For Followup, Rx Given - Disposition Disposition Time: 13:55 Condition: GOOD Additional Instructions: Follow up with your private dentist in the morning Prescriptions: Acetaminophen with Codeine [Tylenol with Codeine #3 Tablet] 1 - 2 tab PO QID # 20 tablet Clindamycin [Cleocin] 300 mg PO QID #40 cap Instructions: Tooth Decay, Adult, Tooth Decay, Adult (DC), Dental Pain (DC) Forms: [employer] (Croatian)
[2017-10-10] MEDS ORDERED: Acetaminophen-Codeine 300/30 mg Tab PO STA (13:40)
[2017-10-10] MEDS ORDERED: Acetaminophen-Codeine 300/30 mg Tab ONE ×2 (13:46→13:48)
== END 2017-10-10 14:25 | disposition home or self-care (01) ==
LOC: H.ER 12:37
DX: K08.89 Other specified disorders of teeth and supporting structures (principal); K02.9 Dental caries, unspecified; N40.0 Benign prostatic hyperplasia without lower urinary tract symptoms; Z86.718 Personal history of other venous thrombosis and embolism; Z88.0 Allergy status to penicillin

== ENCOUNTER 2018-01-14 09:05 | Emergency (ER) | payer MEDICARE ==
[2018-01-14 09:10] VITALS: O2SAT 97
[2018-01-14 09:11] VITALS: BMI 26.4
--- NOTE | 2018-01-14 09:49 | ED PDOC ---
HPI: CCC, URI, Sore Throat Time Seen by Provider: 01/14/18 09:18 Chief Complaint (Nursing): ENT Problem Chief Complaint (Provider): Sore throat History Per: Patient History/Exam Limitations: no limitations Additional Complaint(s): Pt reports sore throat and painful swallowing X 3 days, was evaluated at [facility] yesterday for possible pneumonia, CXR negative. Pt on day 7 of Clindamycin prescribed to him for "swollen glands". Denies fever, difficulty swallowing, SOB, CP, cough. Pt also requesting blood work, has h/o low WBC and Hb, follows up with Dr. Samano every Monday. Pt has appt with Dr. Gannon (ENT) already scheduled for this week. Past Medical History Reviewed: Nursing Documentation, Vital Signs Vital Signs: Last Vital Signs Temp 99.5 F 01/14/18 09:10 Pulse 96 H 01/14/18 09:10 Resp BP 119/68 01/14/18 09:10 Pulse Ox 97 01/14/18 10:36 - Medical History PMH: Anxiety, Arthritis, Benign Prostatic Hyperplasia, Bronchitis, Deep Vein Thrombosis (x3), Gall Bladder Disease, Pneumonia Denies: COPD, HTN, Hypothyroidism, Chronic Kidney Disease - Surgical History Surgical History: Cholecystectomy, Endoscopy, Hernia Repair (ventral) - Family History Family History: States: Unknown Family Hx - Social History Current smoker - smoking cessation education provided: No Alcohol: None - Immunization History Hx Influenza Vaccination: Yes Hx Pneumococcal Vaccination: Yes - Home Medications Home Medications: Ambulatory Orders Medication Instructions Recorded Tamsulosin [Flomax] 0.4 mg PO HS 07/25/17 predniSONE [predniSONE Tab] 10 mg PO DAILY 09/04/17 Multivitamin [Daily She] 1 tab PO DAILY 10/02/17 Azithromycin [Zithromax] 500 mg PO DAILY #3 tab 01/14/18 - Allergies Allergies/Adverse Reactions: Allergies Allergy/AdvReac Type Severity Reaction Status Date / Time aspirin Allergy RASH Verified 01/14/18 09:21 naproxen Allergy RASH Verified 01/14/18 09:21 Penicillins Allergy RASH Verified 01/14/18 09:21 Sulfa (Sulfonamide Allergy RASH Verified 01/14/18 09:21 Antibiotics) Review of Systems Constitutional: Negative for: Fever, Chills ENT: Positive for: Throat Pain. Negative for: Ear Pain, Ear Discharge, Nose Pain, Nose Discharge, Nose Congestion, Mouth Pain, Mouth Swelling, Throat Swelling Cardiovascular: Negative for: Chest Pain Respiratory: Negative for: Cough, Shortness of Breath Gastrointestinal: Negative for: Vomiting, Abdominal Pain, Diarrhea Skin: Negative for: Rash, Lesions Neurological: Negative for: Headache, Dizziness Physical Exam - Reviewed Nursing Documentation Reviewed: Yes Vital Signs Reviewed: Yes - Physical Exam Appears: Positive for: Well, No Acute Distress (Speaking full sentences) Head Exam: Positive for: ATRAUMATIC, NORMAL INSPECTION Skin: Positive for: Normal Color, Warm, Dry Eye Exam: Positive for: Normal appearance, EOMI, PERRL ENT: Positive for: Pharynx Is (Clear). Negative for: Sinus Pain/Drainage, Nasal Congestion, Pharyngeal Erythema, Tonsillar Exudate, Tonsillar Swelling Neck: Positive for: Normal, Painless ROM, Supple Cardiovascular/Chest: Positive for: Regular Rate, Rhythm Respiratory: Positive for: Normal Breath Sounds Extremity: Positive for: Normal ROM Neurologic/Psych: Positive for: Alert, Oriented - Laboratory Results Result Diagrams: 01/14/18 10:00 - ECG O2 Sat by Pulse Oximetry: 97 Medical Decision Making Medical Decision Makin yo male with sore throat. - CBC - rapid Strep Will give pt copy of lab result to take to Dr. Samano. Disposition - Clinical Impression Clinical Impression: Sore throat - Patient ED Disposition Is Patient to be Admitted: No - Disposition Disposition: Routine/Home Disposition Time: 10:35 Condition: STABLE Additional Instructions: DISCONTINUE CLINDAMYCIN. FOLLOW-UP WITH PMD WITHIN 2 DAYS FOR REEVALUATION. KEEP APPT WITH ENT SCHEDULED. Prescriptions: Azithromycin [Zithromax] 500 mg PO DAILY #3 tab Instructions: Sore Throat in Adults Forms: [employer] (Malaysian)
[2018-01-14 10:21] LABS: BASO % 0.3 % (0.0-2.0); EOS % 0.4 % (0.0-4.0); HEMOGLOBIN 9.1 g/dL (12.0-18.0); LYMPH # 0.4 K/uL (1.0-4.3); LYMPH % 11.5 % (20.0-40.0); MEAN CORPUSCULAR HEMOGLOBIN 36.9 pg (27.0-31.0); MEAN CORPUSCULAR HGB CONC 33.9 g/dL (33.0-37.0); MONO # 0.3 K/uL (0.0-0.8); MONO % 9.1 % (0.0-10.0); NEUT # 2.6 K/uL (1.8-7.0); NEUT % 78.7 % (50.0-75.0); NRBC % 0.1 % (0.0-0.0); RBC 2.48 Mil/uL (4.40-5.90); RED CELL DISTRIBUTION WIDTH 12.9 % (11.5-14.5); WHITE BLOOD COUNT 3.3 K/uL (4.8-10.8)
[2018-01-14 12:09] VITALS: BP 123/69; PULSE 80; RESP 16; TEMP 97.5
== END 2018-01-14 12:08 | disposition home or self-care (01) ==
LOC: H.ER 09:05
DX: J02.9 Acute pharyngitis, unspecified (principal); Z87.891 Personal history of nicotine dependence

== ENCOUNTER 2018-02-01 02:18 | Emergency (ER) | payer MEDICARE ==
[2018-02-01 02:18] VITALS: BMI 26.4
[2018-02-01 02:27] VITALS: TEMP 98.6; O2SAT 98
--- NOTE | 2018-02-01 02:40 | ED PDOC ---
HPI: Abdomen Time Seen by Provider: 02/01/18 02:21 Chief Complaint (Nursing): Abdominal Pain Chief Complaint (Provider): Abdominal Pain History Per: Patient History/Exam Limitations: no limitations Onset/Duration Of Symptoms: Days (x1) Location Of Pain/Discomfort: RUQ, RLQ Associated Symptoms: Nausea. denies: Fever, Vomiting, Diarrhea Additional Complaint(s): David Valerio is a 62 year old male with a past medical history of neutropenia, arthritis, anxiety, and DVT who is presenting to the Ed with complaints of right sided, intermittent abdominal pain onset 1 day ago. Patient states that he was doing abdominal exercises including sit-ups day before onset. He complains of nausea, but denies any vomiting, fevers, or diarrhea. PMD: Lewis Avelar Past Medical History Reviewed: Historical Data, Nursing Documentation, Vital Signs Vital Signs: Last Vital Signs Temp 98.6 F 02/01/18 02:24 Pulse 85 02/01/18 04:54 Resp 18 02/01/18 04:54 BP 134/86 02/01/18 04:54 Pulse Ox 98 02/01/18 04:54 - Medical History PMH: Anxiety, Arthritis, Benign Prostatic Hyperplasia, Bronchitis, Deep Vein Thrombosis (x3), Gall Bladder Disease, Pneumonia Denies: COPD, HTN, Hypothyroidism, Chronic Kidney Disease - Surgical History Surgical History: Cholecystectomy, Endoscopy, Hernia Repair (ventral) Other surgeries: prostate surgery - Family History Family History: States: Unknown Family Hx - Social History Current smoker - smoking cessation education provided: No Alcohol: Social Drugs: Denies - Immunization History Hx Influenza Vaccination: Yes Hx Pneumococcal Vaccination: Yes - Home Medications Home Medications: Ambulatory Orders Medication Instructions Recorded Tamsulosin [Flomax] 0.4 mg PO HS 07/25/17 predniSONE [predniSONE Tab] 10 mg PO DAILY 09/04/17 Multivitamin [Daily She] 1 tab PO DAILY 10/02/17 Azithromycin [Zithromax] 500 mg PO DAILY #3 tab 01/14/18 - Allergies Allergies/Adverse Reactions: Allergies Allergy/AdvReac Type Severity Reaction Status Date / Time aspirin Allergy RASH Verified 01/14/18 09:21 naproxen Allergy RASH Verified 01/14/18 09:21 Penicillins Allergy RASH Verified 01/14/18 09:21 Sulfa (Sulfonamide Allergy RASH Verified 07/15/18 09:21 Antibiotics) Review of Systems ROS Statement: Except As Marked, All Systems Reviewed And Found Negative Constitutional: Negative for: Fever Gastrointestinal: Positive for: Nausea, Abdominal Pain. Negative for: Vomiting , Diarrhea Physical Exam - Reviewed Nursing Documentation Reviewed: Yes Vital Signs Reviewed: Yes - Physical Exam Appears: Positive for: Well, Non-toxic, No Acute Distress Head Exam: Positive for: ATRAUMATIC, NORMAL INSPECTION, NORMOCEPHALIC Skin: Positive for: Normal Color, Warm, DRY Eye Exam: Positive for: EOMI, Normal appearance, PERRL ENT: Positive for: Normal ENT Inspection Neck: Positive for: Normal, Painless ROM Cardiovascular/Chest: Positive for: Regular Rate, Rhythm. Negative for: Murmur Respiratory: Positive for: Normal Breath Sounds. Negative for: Respiratory Distress Gastrointestinal/Abdominal: Positive for: Normal Exam, Soft. Negative for: Tenderness Back: Positive for: Normal Inspection. Negative for: L CVA Tenderness, R CVA Tenderness, Vertebral Tenderness Extremity: Positive for: Normal ROM. Negative for: Deformity, Swelling Neurologic/Psych: Positive for: Alert, Oriented. Negative for: Motor/Sensory Deficits - Laboratory Results Result Diagrams: 02/01/18 02:45 02/01/18 02:45 - ECG O2 Sat by Pulse Oximetry: 98 (RA) Pulse Ox Interpretation: Normal Medical Decision Making Medical Decision Making: Time: 2:28 Impression: 62 year old male with non-specific abdominal pain Plan: --CMP --Lipase --ED Urine Dipstick --CBC --Urinalysis --CT Abd/Pelvis CT Abd/Pelvis: FINDINGS: Lower thorax: No acute findings. Mild distal esophageal thickening observed ABDOMEN: Liver: Normal. No mass. Gallbladder and bile ducts: Prior cholecystectomy. No ductal dilation. Pancreas: Normal. No ductal dilation. Spleen: Bordeline splenomegaly. Adrenals: Normal. No mass. Kidneys and ureters: Mild right hydronephrosis and proximal right hydroureter without definite distal calculi. Left renal calculus measuring 3 mm in the mid to lower pole noted Stomach and bowel: Duodenal diverticulum noted No obstruction. No mucosal thickening. Colonic diverticulosis Appendix: No evidence of appendicitis. PELVIS: Bladder: Unremarkable as visualized. Reproductive: Unremarkable as visualized. Intraperitoneal space: Normal. No free air. No significant fluid collection. Bones/joints: No acute fracture. No dislocation. Right hip prosthesis noted. Severe degenerative changes in the left hip. Degenerative changes in the thoracolumbar spine Soft tissues: Unremarkable. Vasculature: Atherosclerosis No abdominal aortic aneurysm. Lymph nodes: Normal. No enlarged lymph nodes. IMPRESSION: Presumed recently passed right renal/referral calculus with mild right hydroureteronephrosis 3 mm nonobstructing left renal calculus Colonic diverticulosis without diverticulitis Borderline splenomegaly 4:57 Patient reports a significant improvement in symptoms. Upon provider reevaluation patient is feeling better, is medically stable, and requires no further treatment in the ED at this time. Patient will be discharged. Counseling was provided and all questions were answered regarding diagnosis and need for follow up with Dr. Gonzales, urologist. There is agreement to discharge plan. Return if symptoms persist or worsen. Scribe Attestation: Documented by, Melinda Marx acting as a scribe for Von Ferro MD. Provider Scribe Attestation: All medical record entries made by the Scribe were at my direction and personally dictated by me. I have reviewed the chart and agree that the record accurately reflects my personal performance of the history, physical exam, medical decision making, and the department course for this patient. I have also personally directed, reviewed, and agree with the discharge instructions and disposition. Disposition - Clinical Impression Clinical Impression: Ureteral calculus - Patient ED Disposition Is Patient to be Admitted: No - Disposition Referrals: Osito Gonzales MD [Medical Doctor] - Lewis Avelar MD [Primary Care Provider] - Disposition: Routine/Home Disposition Time: 05:00 Condition: IMPROVED Instructions: Kidney Stones in Adults Forms: [employer] (Romansh)
[2018-02-01 03:11] LABS: BASO % 0.4 % (0.0-2.0); EOS % 0.7 % (0.0-4.0); LYMPH # 1.2 K/uL (1.0-4.3); LYMPH % 29.9 % (20.0-40.0); MEAN CELL VOLUME 109.4 fl (80.0-94.0); MEAN CORPUSCULAR HEMOGLOBIN 36.4 pg (27.0-31.0); MEAN CORPUSCULAR HGB CONC 33.2 g/dL (33.0-37.0); MEAN PLATELET VOLUME 8.9 fl (7.2-11.7); MONO # 0.2 K/uL (0.0-0.8); MONO % 4.4 % (0.0-10.0); NEUT # 2.5 K/uL (1.8-7.0); NEUT % 64.6 % (50.0-75.0); NRBC % 0.2 % (0.0-0.0); RBC 2.76 Mil/uL (4.40-5.90); RED CELL DISTRIBUTION WIDTH 13.4 % (11.5-14.5); WHITE BLOOD COUNT 3.9 K/uL (4.8-10.8)
[2018-02-01 03:20] LABS: ALBUMIN 4.2 g/dL (3.5-5.0); ALT/SGPT 18 U/L (21-72); AST/SGOT 20 U/L (17-59); BLOOD UREA NITROGEN 28 mg/dl (9-20); CALCIUM 9.6 mg/dL (8.4-10.2); GFR AFRICAN-AMERICAN > 60; GFR NON-AFRICAN AMERICAN > 60; LIPASE 59 U/L (23-300)
[2018-02-01 03:33] LABS: SQUAMOUS EPITHIAL < 1 /hpf (0-5); URINE BILIRUBIN NEGATIVE (NEGATIVE); URINE BLOOD LARGE (NEGATIVE); URINE CLARITY CLEAR (Clear); URINE COLOR YELLOW (YELLOW); URINE GLUCOSE (UA) NEG (Normal); URINE LEUKOCYTE ESTERASE NEG Leu/uL (Negative); URINE PROTEIN 30 mg/dL (NEGATIVE); URINE UROBILINOGEN 0.2-1.0 mg/dL (0.2-1.0)
[2018-02-01 04:56] VITALS: BP 134/86; PULSE 85; RESP 18
--- NOTE | 2018-02-01 11:13 | CT ---
Date of service: 02/01/2018 PROCEDURE: CT Abdomen and Pelvis without intravenous contrast HISTORY: Right upper quadrant pain, renal polyp. COMPARISON: 09/08/2017. TECHNIQUE: Unenhanced study. Neither oral nor intravenous contrast administered. Radiation dose: Total exam DLP = mGy-cm. This CT exam was performed using one or more of the following dose reduction techniques: Automated exposure control, adjustment of the mA and/or kV according to patient size, and/or use of iterative reconstruction technique. FINDINGS: LOWER THORAX: Unremarkable. LIVER: Unremarkable. No gross lesion or ductal dilatation. GALLBLADDER AND BILE DUCTS: Status post cholecystectomy. No abnormality is seen in the gallbladder fossa. PANCREAS: Unremarkable. No gross lesion or ductal dilatation. SPLEEN: Unremarkable. ADRENALS: Unremarkable. No mass. KIDNEYS AND URETERS: Edematous right kidney. Right hydronephrosis and hydroureter without evidence of obstructing calculus disease. Nonobstructing 2 mm lower pole calculus on the left. VASCULATURE: Unremarkable. No aortic aneurysm. BOWEL: Constipation without fecal impaction or obstruction. APPENDIX: Unremarkable. Normal appendix. PERITONEUM: Unremarkable. No free fluid. No free air. LYMPH NODES: Unremarkable. No enlarged lymph nodes. BLADDER: Unremarkable. REPRODUCTIVE: Unremarkable. BONES: No acute fracture. OTHER FINDINGS: None. IMPRESSION: Right hydronephrosis and hydroureter. The findings likely reflect recently passed calculus. There are no bladder calculi apparent on the current study. Concordant results (preliminary interpretation) provided by [facility]. Procedure Completed: 03:08. Preliminary ([facility]) Report: Dictated and Authenticated: 04:19. Final Interpretation: 11:11.
[2018-02-01] MEDS ORDERED: Morphine 4 MG/ML VIAL ONE (14:10)
== END 2018-02-01 04:54 | disposition home or self-care (01) ==
LOC: H.ER 02:18
DX: N20.1 Calculus of ureter (principal); K57.30 Diverticulosis of large intestine without perforation or abscess without bleeding; Z88.0 Allergy status to penicillin

== ENCOUNTER 2018-02-01 12:00 | Emergency (ER) | payer MEDICARE ==
[2018-02-01 12:00] VITALS: BMI 26.4
--- NOTE | 2018-02-01 13:32 | ED PDOC ---
HPI: Abdomen Time Seen by Provider: 02/01/18 12:10 Chief Complaint (Nursing): Abdominal Pain Chief Complaint (Provider): Abdominal Pain History Per: Patient History/Exam Limitations: no limitations Onset/Duration Of Symptoms: Persistent Location Of Pain/Discomfort: RUQ, RLQ Associated Symptoms: Vomiting. denies: Fever, Diarrhea Additional Complaint(s): 62 years old male presents for evaluation of right sided abdominal pain associated with multiple episodes of vomiting. Patient was discharge from this ED earlier today but pain persisted. He states he vomits every time he eats. Patient reports taking Tylenol for pain with no relief. Patient denies any fever or diarrhea. during stay in the ER pt did not vomit at all, but continually requesting narcotic pain meds. PMD: Lewis Covarrubias Past Medical History Reviewed: Historical Data, Nursing Documentation, Vital Signs Vital Signs: Last Vital Signs Temp 97.8 F 02/01/18 18:44 Pulse 79 02/01/18 18:44 Resp 18 02/01/18 18:44 BP 132/74 02/01/18 18:44 Pulse Ox 100 02/01/18 18:44 - Medical History PMH: Anxiety, Arthritis, Benign Prostatic Hyperplasia, Bronchitis, Deep Vein Thrombosis (x3), Gall Bladder Disease, Pneumonia Denies: COPD, HTN, Hypothyroidism, Chronic Kidney Disease - Surgical History Surgical History: Cholecystectomy, Endoscopy, Hernia Repair (ventral) Other surgeries: Prostate and hip surgery - Family History Family History: States: Unknown Family Hx - Social History Current smoker - smoking cessation education provided: No Alcohol: None Drugs: Denies - Immunization History Hx Influenza Vaccination: Yes Hx Pneumococcal Vaccination: Yes - Home Medications Home Medications: Ambulatory Orders Medication Instructions Recorded Tamsulosin [Flomax] 0.4 mg PO HS 07/25/17 predniSONE [predniSONE Tab] 10 mg PO DAILY 09/04/17 Multivitamin [Daily She] 1 tab PO DAILY 10/02/17 Azithromycin [Zithromax] 500 mg PO DAILY #3 tab 01/14/18 - Allergies Allergies/Adverse Reactions: Allergies Allergy/AdvReac Type Severity Reaction Status Date / Time aspirin Allergy RASH Verified 02/01/18 12:28 naproxen Allergy RASH Verified 02/01/18 12:28 Penicillins Allergy RASH Verified 02/01/18 12:28 Sulfa (Sulfonamide Allergy RASH Verified 02/01/18 12:28 Antibiotics) Review of Systems ROS Statement: Except As Marked, All Systems Reviewed And Found Negative Constitutional: Negative for: Fever Gastrointestinal: Positive for: Vomiting, Abdominal Pain (Right sided). Negative for: Diarrhea Physical Exam - Reviewed Nursing Documentation Reviewed: Yes Vital Signs Reviewed: Yes - Physical Exam Appears: Positive for: Non-toxic, No Acute Distress Skin: Positive for: Normal Color, Warm, Dry Eye Exam: Positive for: Normal appearance ENT: Positive for: Normal ENT Inspection Neck: Positive for: Normal Cardiovascular/Chest: Positive for: Regular Rate, Rhythm. Negative for: Murmur Respiratory: Positive for: Normal Breath Sounds. Negative for: Wheezing, Respiratory Distress Gastrointestinal/Abdominal: Positive for: Tenderness (mild right lower pain) Extremity: Positive for: Normal ROM Neurologic/Psych: Positive for: Alert, Oriented (x3) - Laboratory Results Result Diagrams: 02/01/18 14:00 02/01/18 14:00 - ECG O2 Sat by Pulse Oximetry: 97 (RA) Pulse Ox Interpretation: Normal Medical Decision Making Medical Decision Making: Time: 1300 Initial Impression: vomiting, demanding narcotics. normal exam. Initial Plan: --CMP --Lipase --CBC pt sleeping at every time i go to reevaluated the pt. pt appears comfortable and in no distress. instructed pt to follow up as an outpatient ----- Scribe Attestation: Documented by Liliya Moeller, acting as a scribe for Oscar Erazo MD. Provider Scribe Attestation: All medical record entries made by the Scribe were at my direction and personally dictated by me. I have reviewed the chart and agree that the record accurately reflects my personal performance of the history, physical exam, medical decision making, and the department course for this patient. I have also personally directed, reviewed, and agree with the discharge instructions and disposition. Time: 1755 -- Chronic anemia is noted on labs. CT scan viewed from yesterday's visit. -- At this time, patient reports of feeling better. Patient is stable for discharge and instructed to follow up with PMD within 1-2 days without fail. Scribe Attestation: Documented by Tri Tello acting as a scribe for Vincent Cano MD. Provider Scribe Attestation: All medical record entries made by the Scribe were at my direction and personally dictated by me. I have reviewed the chart and agree that the record accurately reflects my personal performance of the history, physical exam, medical decision making, and the department course for this patient. I have also personally directed, reviewed, and agree with the discharge instructions and disposition. Disposition - Clinical Impression Clinical Impression: Abdominal pain - Patient ED Disposition Is Patient to be Admitted: No Counseled Patient/Family Regarding: Studies Performed, Diagnosis, Need For Followup - Disposition Disposition: Routine/Home Disposition Time: 18:40 Condition: IMPROVED Additional Instructions: follow up with your doctor dr covarrubias in 1-2 days return to the ED with any worsening or concerning symptoms Instructions: Nausea and Vomiting, Adult (DC) Forms: [employer] (Azeri)
[2018-02-01] MEDS: Morphine 4 MG/ML VIAL IV ONE ×2 (14:13→17:09)
[2018-02-01 14:22] LABS: BASO % 0.7 % (0.0-2.0); EOS % 0.5 % (0.0-4.0); HEMOGLOBIN 10.1 g/dL (12.0-18.0); LYMPH # 0.9 K/uL (1.0-4.3); LYMPH % 22.3 % (20.0-40.0); MEAN CELL VOLUME 108.3 fl (80.0-94.0); MEAN CORPUSCULAR HEMOGLOBIN 36.2 pg (27.0-31.0); MEAN CORPUSCULAR HGB CONC 33.5 g/dL (33.0-37.0); MEAN PLATELET VOLUME 9.3 fl (7.2-11.7); MONO # 0.2 K/uL (0.0-0.8); MONO % 6.2 % (0.0-10.0); NEUT # 2.8 K/uL (1.8-7.0); NEUT % 70.3 % (50.0-75.0); NRBC % 0.2 % (0.0-0.0); RBC 2.79 Mil/uL (4.40-5.90); RED CELL DISTRIBUTION WIDTH 13.2 % (11.5-14.5)
[2018-02-01 14:40] LABS: ALB/GLOB RATIO 1.1 (1.0-2.1); ALBUMIN 4.3 g/dL (3.5-5.0); ALT/SGPT 22 U/L (21-72); AST/SGOT 22 U/L (17-59); BLOOD UREA NITROGEN 26 mg/dl (9-20); CALCIUM 9.7 mg/dL (8.4-10.2); GFR AFRICAN-AMERICAN > 60; GFR NON-AFRICAN AMERICAN 51; LIPASE 35 U/L (23-300)
[2018-02-01] MEDS ORDERED: Morphine 4 MG/ML VIAL ONE (17:01)
[2018-02-01 18:45] VITALS: BP 132/74; PULSE 79; RESP 18; TEMP 97.8
[2018-02-03 22:19] VITALS: O2SAT 97
== END 2018-02-01 18:44 | disposition home or self-care (01) ==
LOC: H.ER 12:00
DX: D64.9 Anemia, unspecified (principal); N40.0 Benign prostatic hyperplasia without lower urinary tract symptoms; Z86.718 Personal history of other venous thrombosis and embolism; Z88.0 Allergy status to penicillin; F41.9 Anxiety disorder, unspecified
CPT/HCPCS: 80053; 83690; 85025; 96374; 96376; 99283; J2270

== ENCOUNTER 2018-03-05 08:14 | Emergency (ER) | payer MEDICARE ==
[2018-03-05 08:14] VITALS: BMI 27.1
--- NOTE | 2018-03-05 08:38 | ED PDOC ---
Lower Extremity Pain/Injury Time Seen by Provider: 03/05/18 08:16 Chief Complaint (Nursing): Lower Extremity Problem/Injury Chief Complaint (Provider): Foot pain History Per: Patient History/Exam Limitations: no limitations Onset/Duration Of Symptoms: Days (3) Additional Complaint(s): Pt. with foot pain left for 3 days. States redness and pain present. No bug bite, injury, or anything different. No numbness, tingles. Only on the top of his foot. No weakness, chest pain, calf pain, ankle pain, dyspnea, long distance travel, hormone use. Past Medical History Reviewed: Nursing Documentation, Vital Signs Vital Signs: Last Vital Signs Temp 98.4 F 03/05/18 08:23 Pulse 86 03/05/18 08:23 Resp 18 03/05/18 08:23 BP 106/62 03/05/18 08:23 Pulse Ox 99 03/05/18 08:23 - Medical History PMH: Anxiety, Arthritis, Benign Prostatic Hyperplasia, Bronchitis, Gall Bladder Disease, Pneumonia Denies: COPD, HTN, Hypothyroidism, Chronic Kidney Disease - Surgical History Surgical History: Cholecystectomy, Endoscopy, Hernia Repair (ventral) - Family History Family History: States: Unknown Family Hx - Social History Alcohol: None Drugs: Denies - Immunization History Hx Influenza Vaccination: Yes Hx Pneumococcal Vaccination: Yes - Home Medications Home Medications: Ambulatory Orders Medication Instructions Recorded Tamsulosin [Flomax] 0.4 mg PO HS 07/25/17 predniSONE [predniSONE Tab] 10 mg PO DAILY 09/04/17 Multivitamin [Daily She] 1 tab PO DAILY 10/02/17 Acetaminophen [Tylenol Arthritis] 650 mg PO TID PRN 5 Days 03/05/18 Clindamycin [Cleocin] 300 mg PO QID 7 Days cap 03/05/18 - Allergies Allergies/Adverse Reactions: Allergies Allergy/AdvReac Type Severity Reaction Status Date / Time aspirin Allergy RASH Verified 02/12/18 08:10 naproxen Allergy RASH Verified 02/12/18 08:10 Penicillins Allergy RASH Verified 02/12/18 08:10 Sulfa (Sulfonamide Allergy RASH Verified 02/12/18 08:10 Antibiotics) Review of Systems ROS Statement: Except As Marked, All Systems Reviewed And Found Negative Musculoskeletal: Positive for: Foot Pain Physical Exam - Reviewed Nursing Documentation Reviewed: Yes Vital Signs Reviewed: Yes - Physical Exam Appears: Positive for: Non-toxic, No Acute Distress Head Exam: Positive for: ATRAUMATIC, NORMAL INSPECTION, NORMOCEPHALIC Skin: Positive for: Normal Color, Warm, DRY Neck: Positive for: Normal, Painless ROM Cardiovascular/Chest: Positive for: Regular Rate, Rhythm Respiratory: Positive for: CNT, Normal Breath Sounds Pulses-Dorsalis Pedis (L): 2+ Pulses-Dorsalis Pedis (R): 2+ Pulses-Post. Tibialis (L): 2+ Pulses-Post. Tibialis (R): 2+ Back: Positive for: Normal Inspection. Negative for: L CVA Tenderness, R CVA Tenderness Extremity: Positive for: Normal ROM, Tenderness (L foot dorsal with swelling, erythema in 3cm diameter; tender mild; Has full ROM; Ambulated to and in the ER ; no calf tenderness or swelling.) Neurologic/Psych: Positive for: Alert, Oriented - ECG O2 Sat by Pulse Oximetry: 99 Pulse Ox Interpretation: Normal - Radiology X-Ray: Read By Radiologist X-Ray Interpretation: No Acute Disease - Progress ED Course And Treament: 929: No fx. AAOx3. Pain free. Tolerated po and ambulated. Will rx clinda. Disposition - Clinical Impression Clinical Impression: Cellulitis - Patient ED Disposition Is Patient to be Admitted: No - Disposition Referrals: Lewis Avelar MD [Primary Care Provider] - 03/06/18 Disposition: Routine/Home Disposition Time: 09:31 Condition: STABLE Additional Instructions: Return if not better in 3 days. Prescriptions: Acetaminophen [Tylenol Arthritis] 650 mg PO TID PRN 5 Days PRN Reason: Pain, Moderate (4-7) Clindamycin [Cleocin] 300 mg PO QID 7 Days cap Instructions: Cellulitis (Skin Infection), Adult (DC)
--- NOTE | 2018-03-05 09:13 | RAD ---
Date of service: 03/05/2018 PROCEDURE: Left Foot Radiographs. HISTORY: pain COMPARISON: None. FINDINGS: BONES: Three views of the left foot were performed for left foot pain. No fracture is seen. No lytic process is noted. No periosteal reaction is identified. No erosions are noted. Mild degenerative changes are noted. No significant soft tissue swelling is seen. Subtalar joint is unremarkable. No abnormal widening of the proximal 1st and 2nd tarsal metatarsal joint is seen. JOINTS: Very mild degenerative changes. SOFT TISSUES: Minimal nonspecific possible soft tissue swelling along the dorsum of the foot. OTHER FINDINGS: None. IMPRESSION: No fracture.
[2018-03-05 09:58] VITALS: BP 110/76; PULSE 80; RESP 19; TEMP 96.6; O2SAT 98
== END 2018-03-05 09:58 | disposition home or self-care (01) ==
LOC: H.ER 08:14
DX: L03.116 Cellulitis of left lower limb (principal); Z88.0 Allergy status to penicillin

== ENCOUNTER 2018-03-10 20:13 | Inpatient (IN) | payer MEDICARE ==
[2018-03-10 20:13] VITALS: BMI 25.9
--- NOTE | 2018-03-10 20:54 | ED PDOC ---
Lower Extremity Pain/Injury Time Seen by Provider: 03/10/18 20:44 Chief Complaint (Nursing): Lower Extremity Problem/Injury Chief Complaint (Provider): Left leg swelling History Per: Patient History/Exam Limitations: no limitations Onset/Duration Of Symptoms: Days (1 week) Additional Complaint(s): Pt. with left foot swelling, seen approx 1 week ago for it. Dx with cellulitis and dc with clinda. Pt. states he is taking antibiotics but redness has spread , swelling in increased so he came to the ER. No numbness, tingles, weakness, calf pain, dyspnea, chest pain. No fever. PCP: Dr. Lewis Avelar and Dr. Pedraza. Past Medical History Reviewed: Nursing Documentation, Vital Signs Vital Signs: Last Vital Signs Temp 99 F 03/10/18 20:24 Pulse 92 H 03/10/18 20:24 Resp 18 03/10/18 20:24 BP 122/78 03/10/18 20:24 Pulse Ox 98 03/10/18 20:24 - Medical History PMH: Anxiety, Arthritis, Benign Prostatic Hyperplasia, Bronchitis, Deep Vein Thrombosis (x3), Gall Bladder Disease, Pneumonia Denies: COPD, HTN, Hypothyroidism, Chronic Kidney Disease - Surgical History Surgical History: Cholecystectomy, Endoscopy, Hernia Repair (ventral) - Family History Family History: States: Unknown Family Hx - Immunization History Hx Influenza Vaccination: Yes Hx Pneumococcal Vaccination: Yes - Home Medications Home Medications: Ambulatory Orders Medication Instructions Recorded Tamsulosin [Flomax] 0.4 mg PO HS 07/25/17 Multivitamin [Daily She] 1 tab PO DAILY 10/02/17 Clindamycin [Cleocin] 300 mg PO Q6 03/06/18 - Allergies Allergies/Adverse Reactions: Allergies Allergy/AdvReac Type Severity Reaction Status Date / Time aspirin Allergy RASH Verified 03/10/18 20:24 naproxen Allergy RASH Verified 03/10/18 20:24 Penicillins Allergy RASH Verified 03/10/18 20:24 Sulfa (Sulfonamide Allergy RASH Verified 03/10/18 20:24 Antibiotics) Review of Systems ROS Statement: Except As Marked, All Systems Reviewed And Found Negative Musculoskeletal: Positive for: Leg Pain, Foot Pain Skin: Positive for: Rash Physical Exam - Reviewed Nursing Documentation Reviewed: Yes Vital Signs Reviewed: Yes - Physical Exam Appears: Positive for: Non-toxic, No Acute Distress Head Exam: Positive for: ATRAUMATIC, NORMAL INSPECTION, NORMOCEPHALIC Skin: Positive for: Normal Color, Warm, DRY Eye Exam: Positive for: EOMI, Normal appearance, PERRL ENT: Positive for: Normal ENT Inspection Neck: Positive for: Normal, Painless ROM Cardiovascular/Chest: Positive for: Regular Rate, Rhythm Respiratory: Positive for: CNT, Normal Breath Sounds Gastrointestinal/Abdominal: Positive for: Normal Exam, Soft. Negative for: Tenderness Back: Positive for: Normal Inspection. Negative for: L CVA Tenderness, R CVA Tenderness Extremity: Positive for: Normal ROM, Tenderness (swelling and tender left foot and benson lower: erythema dorsal foot and lower benson; no induration, no fluctuance.; left leg medial below knee with erythema, nontender, no induration , no fluctuance.) Neurologic/Psych: Positive for: Alert, Oriented - Laboratory Results Result Diagrams: 03/10/18 21:25 03/10/18 21:25 Interpretation Of Abn Labs: no acute - ECG ECG: Positive for: Interpreted By Me, Viewed By Me ECG Rhythm: Positive for: Sinus Rhythm (with PVC) O2 Sat by Pulse Oximetry: 98 Pulse Ox Interpretation: Normal - Progress ED Course And Treament: 2333: Spoke with [facility] resident who admits for Dr. Pedraza. Will admit medsurg. Pt. stable. AAOx3. Disposition - Clinical Impression Clinical Impression: Cellulitis, Failure of outpatient treatment - Patient ED Disposition Is Patient to be Admitted: Yes Counseled Patient/Family Regarding: Studies Performed, Diagnosis - Disposition Disposition Time: 22:34 Condition: FAIR - Pt Status Changed To: Hospital Disposition Of: Inpatient - Admit Certification Admit to Inpatient:: After my assessment, the patient will require hospitalization for at least two midnights. This is because of the severity of symptoms shown, intensity of services needed, and/or the medical risk in this patient being treated as an outpatient. - POA Present On Arrival: None
[2018-03-10] MEDS ORDERED: Sodium Chloride 0.9% 1,000 ML IV SCH (21:00)
[2018-03-10] MEDS ORDERED: Vancomycin 1 g Inj ONE (21:18)
[2018-03-10 21:35] LABS: BASO % 1.2 % (0.0-2.0); HEMOGLOBIN 8.7 g/dL (12.0-18.0); LYMPH # 1.1 K/uL (1.0-4.3); LYMPH % 42.5 % (20.0-40.0); MEAN CELL VOLUME 104.8 fl (80.0-94.0); MEAN CORPUSCULAR HEMOGLOBIN 34.9 pg (27.0-31.0); MEAN CORPUSCULAR HGB CONC 33.3 g/dL (33.0-37.0); MEAN PLATELET VOLUME 8.7 fl (7.2-11.7); MONO # 0.3 K/uL (0.0-0.8); MONO % 13.2 % (0.0-10.0); NEUT % 41.1 % (50.0-75.0); RBC 2.49 Mil/uL (4.40-5.90); RED CELL DISTRIBUTION WIDTH 17.2 % (11.5-14.5); WHITE BLOOD COUNT 2.6 K/uL (4.8-10.8)
[2018-03-10 21:44] LABS: ALB/GLOB RATIO 1.1 (1.0-2.1); ALBUMIN 3.8 g/dL (3.5-5.0); ALT/SGPT 21 U/L (21-72); AST/SGOT 20 U/L (17-59); BLOOD UREA NITROGEN 20 mg/dl (9-20); CALCIUM 9.2 mg/dL (8.4-10.2); GFR NON-AFRICAN AMERICAN > 60
[2018-03-10 21:45] LABS: VENOUS BLOOD GAS BASE EXCESS 3.4 mmol/L (0.0-2.0); VENOUS BLOOD GAS PCO2 50 mmHg (40-60); VENOUS BLOOD GAS PO2 16 mm/Hg (30-55); VENOUS BLOOD PH 7.38 (7.32-7.43)
[2018-03-10 21:51] LABS: INR 1.1; PROTHROMBIN TIME 11.8 Seconds (9.8-13.1)
[2018-03-10 21:54] LABS: PARTIAL THROMBOPLASTIN TIME 31.1 Seconds (25.6-37.1)
[2018-03-10 23:34] LABS: SQUAMOUS EPITHIAL < 1 /hpf (0-5); URINE BILIRUBIN NEGATIVE (NEGATIVE); URINE BLOOD MODERATE (NEGATIVE); URINE CLARITY SLIGHTY-CLOUDY (Clear); URINE COLOR YELLOW (YELLOW); URINE GLUCOSE (UA) NEG (Normal); URINE LEUKOCYTE ESTERASE NEG Leu/uL (Negative); URINE PROTEIN NEGATIVE (NEGATIVE); URINE UROBILINOGEN 0.2-1.0 mg/dL (0.2-1.0)
--- NOTE | 2018-03-11 00:20 | CP.PCM.HP ---
<J Carlos Castro - Last Filed: 03/11/18 02:49> History of Present Illness - History of Present Illness History of Present Illness: 62 y/o m presented to ED due to worsening L foot redness and swelling that began 10 days ago. Pt visited this ED also 1 week ago with same issue and was discharged on PO Clindamycin. Pt reports L foot redness and swelling has extended despite PO antibiotics. Pt reports L lower leg pain that is tolerable. Pt denies fever, chills, nausea, vomiting, chest pain, SOB, abdominal pain, N/V or diarrhea. -Meds: Flomax 0.8 at night, eye drops, Prednisone 10mg QD -Allergies: aspirin, naproxen, penicillins, sulfa drugs (Rxn is RASH for all allergies) -PMD: Dr. Ahmet Gordon. Uro: Caccace Heme: Dr. Channing Samano -PMHx: Panycytopenia, Anxiety, Arthritis, Benign Prostatic Hyperplasia, Wegeners , DVT (x3) -PSHx: Hernia repair, THR, cholecystectomy, prostate surgery 3 weeks ago -FHx: denies family hx of CA, [place], Stroke, CAD, DM -SocialHx: Denies tobacco, ETOH, drug use -Next of kin: brother, Danielito Valerio [phone] At ED: -Vancomycin IV 1x dose given -US Doppler L lower leg ordered -CBC w/ pancytopenia; CMP unremarkable. Present on Admission - Present on Admission Any Indicators Present on Admission: No History of DVT/PE: Yes Review of Systems - Constitutional Constitutional: absent: Chills, Fever - EENT Nose/Mouth/Throat: absent: Nasal Congestion, Nasal Discharge, Sore Throat, Neck Pain - Cardiovascular Cardiovascular: absent: Chest Pain, Orthopnea, Palpitations - Respiratory Respiratory: absent: Cough, Dyspnea, Hemoptysis - Gastrointestinal Gastrointestinal: absent: Abdominal Pain, Change in Stool Character, Coffee Ground Emesis - Genitourinary Genitourinary: absent: Dysuria, Hematuria, Pyuria, Nocturia - Integumentary Integumentary: Rash, Swelling Past Patient History - Infectious Disease Hx of Infectious Diseases: None - Tetanus Immunizations Tetanus Immunization: Unknown - Past Medical History & Family History Past Medical History?: Yes - Past Social History Smoking Status: Former Smoker - CARDIAC Hx Hypertension: No - PULMONARY Hx Bronchitis: Yes Hx Chronic Obstructive Pulmonary Disease (COPD): No Hx Pneumonia: Yes - HEENT Hx HEENT Problems: Yes Hx Glaucoma: Yes Other/Comment: TMJ - RENAL Hx Chronic Kidney Disease: No - ENDOCRINE/METABOLIC Hx Hypothyroidism: No - INTEGUMENTARY Hx Cellulitis: Yes (facial) Other/Comment: facial cellulitis x 2 - MUSCULOSKELETAL/RHEUMATOLOGICAL Hx Arthritis: Yes - GASTROINTESTINAL Hx Gall Bladder Disease: Yes - GENITOURINARY/GYNECOLOGICAL Hx Genitourinary Disorders: Yes Hx Prostate Problems: Yes - PSYCHIATRIC Hx Anxiety: Yes - SURGICAL HISTORY Hx Cholecystectomy: Yes - ANESTHESIA Hx Anesthesia: Yes Hx Anesthesia Reactions: No Hx Malignant Hyperthermia: No Meds Allergies/Adverse Reactions: Allergies Allergy/AdvReac Type Severity Reaction Status Date / Time aspirin Allergy RASH Verified 03/10/18 20:24 naproxen Allergy RASH Verified 03/10/18 20:24 Penicillins Allergy RASH Verified 03/10/18 20:24 Sulfa (Sulfonamide Allergy RASH Verified 03/10/18 20:24 Antibiotics) Physical Exam - Constitutional Appears: No Acute Distress - Head Exam Head Exam: NORMAL INSPECTION - Eye Exam Eye Exam: EOMI - ENT Exam ENT Exam: Mucous Membranes Moist - Neck Exam Neck exam: Positive for: Meningismus - Respiratory Exam Respiratory Exam: NORMAL BREATHING PATTERN. absent: Rhonchi, Wheezes - Cardiovascular Exam Cardiovascular Exam: +S1, +S2 - GI/Abdominal Exam GI & Abdominal Exam: Soft. absent: Distended, Guarding, Hernia, Rebound, Tenderness - Extremities Exam Extremities exam: Positive for: calf tenderness, full ROM Additional comments: Presence of eryhema and swelling over dorsum of L foot, lower pre-tibial area an dmedial ankle area. - Neurological Exam Neurological exam: Alert, Oriented x3 Results - Vital Signs Recent Vital Signs: Last Vital Signs Temp 99 F 03/10/18 20:24 Pulse 92 H 03/10/18 20:24 Resp 18 03/10/18 20:24 BP 122/78 03/10/18 20:24 Pulse Ox 98 03/10/18 23:43 - Labs Result Diagrams: 03/10/18 21:25 03/10/18 21:25 Labs: Laboratory Results - last 24 hr 03/10/18 03/10/18 03/10/18 21:25 21:25 21:25 WBC 2.6 L RBC 2.49 L Hgb 8.7 L Hct 26.1 L MCV 104.8 H MCH 34.9 H MCHC 33.3 RDW 17.2 H Plt Count 97 L MPV 8.7 Neut % (Auto) 41.1 L Lymph % (Auto) 42.5 H Rin[place] % (Auto) 13.2 H Eos % (Auto) 2.0 Baso % (Auto) 1.2 Neut # (Auto) 1.0 L Lymph # (Auto) 1.1 Rincon # (Auto) 0.3 Eos # (Auto) 0.0 Baso # (Auto) 0.0 PT 11.8 INR 1.1 APTT 31.1 pO2 VBG pH VBG pCO2 VBG HCO3 VBG Total CO2 VBG O2 Sat (Calc) VBG Base Excess VBG Potassium Glucose Lactate FiO2 Sodium 135 Potassium 4.5 Chloride 101 Carbon Dioxide 27 Anion Gap 12 BUN 20 Creatinine 1.0 Est GFR ( Amer) > 60 Est GFR (Non-Af Amer) > 60 Random Glucose 104 Calcium 9.2 Phosphorus 3.5 Magnesium 1.8 Total Bilirubin 0.2 AST 20 ALT 21 Alkaline Phosphatase 103 Total Protein 7.5 Albumin 3.8 Globulin 3.6 Albumin/Globulin Ratio 1.1 Venous Blood Potassium Urine Color Urine Clarity Urine pH Ur Specific [place] Urine Protein Urine Glucose (UA) Urine Ketones Urine Blood Urine Nitrate Urine Bilirubin Urine Urobilinogen Ur Leukocyte Esterase Urine RBC (Auto) Urine Microscopic WBC Ur Squamous Epith Cells 03/10/18 03/10/18 21:41 23:20 WBC RBC Hgb Hct MCV MCH MCHC RDW Plt Count MPV Neut % (Auto) Lymph % (Auto) Rincon % (Auto) Eos % (Auto) Baso % (Auto) Neut # (Auto) Lymph # (Auto) Rincon # (Auto) Eos # (Auto) Baso # (Auto) PT INR APTT pO2 16 L VBG pH 7.38 VBG pCO2 50 VBG HCO3 25.5 VBG Total CO2 31.1 H VBG O2 Sat (Calc) 29.3 L VBG Base Excess 3.4 H VBG Potassium 4.8 Glucose 100 Lactate 0.9 FiO2 21.0 Sodium 133.0 Potassium Chloride 102.0 Carbon Dioxide Anion Gap BUN Creatinine Est GFR ( Amer) Est GFR (Non-Af Amer) Random Glucose Calcium Phosphorus Magnesium Total Bilirubin AST ALT Alkaline Phosphatase Total Protein Albumin Globulin Albumin/Globulin Ratio Venous Blood Potassium 4.8 Urine Color Yellow Urine Clarity Slighty-cloudy Urine pH 6.0 Ur Specific [place] 1.016 Urine Protein Negative Urine Glucose (UA) Neg Urine Ketones Negative Urine Blood Moderate Urine Nitrate Negative Urine Bilirubin Negative Urine Urobilinogen 0.2-1.0 Ur Leukocyte Esterase Neg Urine RBC (Auto) 17 H Urine Microscopic WBC 1 Ur Squamous Epith Cells < 1 Assessment & Plan - Assessment and Plan (Free Text) Assessment: 62 y/o M with a PMHx of BPH, pancytopenia, DVTx3 admitted for management of Left lower leg cellulitis. 1. Cellulitis of left lower leg. -IV Vancomycin and Ceftriaxone -F/U US doppler of left leg -Tylenol for fever -Ibuprofen for pain. -F/U CBC and BMP tomorrow. -F/U Blood Cx. 2. Pancytopenia -F/U CBC tomorrow. -Consider Hematology (Dr Samano) consult if needed. 3. Wegeners Granulomatosis -stable 4. BPH -stable -c/w home meds as ordered (Flomax) 5.Diet -regular diet 6.BPH -Continue with Flomax 7.DVT Prophylaxis -SCDs for now. -No Lovenox due to thrombocytopenia. - Date & Time Date: 03/11/18 Time: 00:25 <Jermaine Cali - Last Filed: 03/11/18 06:56> History of Present Illness - History of Present Illness History of Present Illness: Pt seen and examined at bedside with Resident, agree with assessment and plan as per resident. PT with recent treatment of cellulitis with po clindamycin and who now comes in with worsening cellulitis. Pt plan and treatment goals discussed with resident. Results - Vital Signs Recent Vital Signs: Last Vital Signs Temp 97.4 F L 03/11/18 03:13 Pulse 70 03/11/18 03:13 Resp 20 03/11/18 03:13 BP 119/59 L 03/11/18 03:13 Pulse Ox 99 03/11/18 03:13 - Labs Result Diagrams: 03/10/18 21:25 03/10/18 21:25 Labs: Laboratory Results - last 24 hr 03/10/18 03/10/18 03/10/18 21:25 21:25 21:25 WBC 2.6 L RBC 2.49 L Hgb 8.7 L Hct 26.1 L MCV 104.8 H MCH 34.9 H MCHC 33.3 RDW 17.2 H Plt Count 97 L MPV 8.7 Neut % (Auto) 41.1 L Lymph % (Auto) 42.5 H [place] % (Auto) 13.2 H Eos % (Auto) 2.0 Baso % (Auto) 1.2 Neut # (Auto) 1.0 L Lymph # (Auto) 1.1 R[place] # (Auto) 0.3 Eos # (Auto) 0.0 Baso # (Auto) 0.0 PT 11.8 INR 1.1 APTT 31.1 pO2 VBG pH VBG pCO2 VBG HCO3 VBG Total CO2 VBG O2 Sat (Calc) VBG Base Excess VBG Potassium Glucose Lactate FiO2 Sodium 135 Potassium 4.5 Chloride 101 Carbon Dioxide 27 Anion Gap 12 BUN 20 Creatinine 1.0 Est GFR ( Amer) > 60 Est GFR (Non-Af Amer) > 60 Random Glucose 104 Calcium 9.2 Phosphorus 3.5 Magnesium 1.8 Total Bilirubin 0.2 AST 20 ALT 21 Alkaline Phosphatase 103 Total Protein 7.5 Albumin 3.8 Globulin 3.6 Albumin/Globulin Ratio 1.1 Venous Blood Potassium Urine Color Urine Clarity Urine pH Ur Specific [place] Urine Protein Urine Glucose (UA) Urine Ketones Urine Blood Urine Nitrate Urine Bilirubin Urine Urobilinogen Ur Leukocyte Esterase Urine RBC (Auto) Urine Microscopic WBC Ur Squamous Epith Cells 03/10/18 03/10/18 21:41 23:20 WBC RBC Hgb Hct MCV MCH MCHC RDW Plt Count MPV Neut % (Auto) Lymph % (Auto) [place] % (Auto) Eos % (Auto) Baso % (Auto) Neut # (Auto) Lymph # (Auto) [place] # (Auto) Eos # (Auto) Baso # (Auto) PT INR APTT pO2 16 L VBG pH 7.38 VBG pCO2 50 VBG HCO3 25.5 VBG Total CO2 31.1 H VBG O2 Sat (Calc) 29.3 L VBG Base Excess 3.4 H VBG Potassium 4.8 Glucose 100 Lactate 0.9 FiO2 21.0 Sodium 133.0 Potassium Chloride 102.0 Carbon Dioxide Anion Gap BUN Creatinine Est GFR ( Amer) Est GFR (Non-Af Amer) Random Glucose Calcium Phosphorus Magnesium Total Bilirubin AST ALT Alkaline Phosphatase Total Protein Albumin Globulin Albumin/Globulin Ratio Venous Blood Potassium 4.8 Urine Color Yellow Urine Clarity Slighty-cloudy Urine pH 6.0 Ur Specific [place] 1.016 Urine Protein Negative Urine Glucose (UA) Neg Urine Ketones Negative Urine Blood Moderate Urine Nitrate Negative Urine Bilirubin Negative Urine Urobilinogen 0.2-1.0 Ur Leukocyte Esterase Neg Urine RBC (Auto) 17 H Urine Microscopic WBC 1 Ur Squamous Epith Cells < 1
[2018-03-11] MEDS ORDERED: cefTRIAXone (Rocephin) 1 gm Inj ONE ×2 (01:58→02:01)
[2018-03-11 07:03] LABS: BASO % 1.3 % (0.0-2.0); EOS % 3.5 % (0.0-4.0); HEMOGLOBIN 7.9 g/dL (12.0-18.0); LYMPH # 0.7 K/uL (1.0-4.3); LYMPH % 49.7 % (20.0-40.0); MEAN CELL VOLUME 104.7 fl (80.0-94.0); MEAN CORPUSCULAR HEMOGLOBIN 35.4 pg (27.0-31.0); MEAN CORPUSCULAR HGB CONC 33.8 g/dL (33.0-37.0); MONO # 0.3 K/uL (0.0-0.8); MONO % 19.1 % (0.0-10.0); NEUT # 0.4 K/uL (1.8-7.0); NEUT % 26.4 % (50.0-75.0); NRBC % 0.1 % (0.0-0.0); RBC 2.23 Mil/uL (4.40-5.90); RED CELL DISTRIBUTION WIDTH 16.9 % (11.5-14.5)
[2018-03-11 07:10] LABS: BLOOD UREA NITROGEN 17 mg/dl (9-20); CALCIUM 8.9 mg/dL (8.4-10.2); GFR NON-AFRICAN AMERICAN > 60
[2018-03-11 07:14] LABS: WHITE BLOOD COUNT 1.3 K/uL (4.8-10.8)
--- NOTE | 2018-03-11 08:15 | CARD ---
APPROVED REPORT Date of service: 03/10/2018 EKG Measurement Heart [id number] <Conclusion> Sinus rhythm with occasional premature ventricular complexes and premature atrial complexes Otherwise normal ECG
[2018-03-11] MEDS: Timolol 0.25% Ophth SOLN OU SCH ×2 (09:53→16:01)
[2018-03-11] MEDS: Dorzolamide 2% Ophth Soln OU SCH ×3 (09:54→16:02)
--- NOTE | 2018-03-11 13:27 | US ---
Date of service: 03/10/2018 PROCEDURE: Bilateral lower extremity venous duplex Doppler. HISTORY: r/o dvt COMPARISON: Comparison made with prior bilateral lower extremity venous Doppler exam 03/20/2017 TECHNIQUE: Bilateral common femoral, superficial femoral, popliteal and posterior tibial veins were evaluated. Flow was assessed with color Doppler, compressibility, assessment of phasic flow and augmentation response. FINDINGS: COMMON FEMORAL VEIN: Right CFV: Unremarkable. Left CFV: Unremarkable. SUPERFICIAL FEMORAL VEIN: Right SFV: Unremarkable. Left SFV: Unremarkable. POPLITEAL VEIN: Right Popliteal: Unremarkable. Left Popliteal: Unremarkable. POSTERIOR TIBIAL VEIN: Right PTV: Unremarkable. Left PTV: Unremarkable. OTHER FINDINGS: None. IMPRESSION: No evidence of deep venous thrombosis.
[2018-03-11] MEDS ORDERED: Epoetin Alfa 40000 UNIT/ml Inj SC ONE (16:27)
[2018-03-11] MEDS: Bacitracin OINT 15GM TOP SCH (17:48)
--- NOTE | 2018-03-11 22:02 | CP.PCM.PN ---
Subjective - Subjective Subjective: R neck, R jaw , L foot pain Objective - Vital Signs/Intake and Output Vital Signs (last 24 hours): Temp Pulse Resp BP Pulse Ox 98.3 F 83 20 129/74 95 03/11/18 16:16 03/11/18 16:16 03/11/18 16:16 03/11/18 16:16 03/11/18 16:16 - Medications Medications: Current Medications Acetaminophen (Tylenol 325mg Tab) 975 mg PO ONCE PRN PRN Reason: Fever >100.4 F Last Admin: 03/10/18 21:14 Dose: 975 mg Bacitracin (Bacitracin Oint) 1 applic TOP TID [facility] Last Admin: 03/11/18 17:48 Dose: 1 applic Dorzolamide HCl (Trusopt) 1 drop OU TID [facility] Last Admin: 03/11/18 16:02 Dose: 1 drop Ceftriaxone Sodium 1 gm/ (Sodium Chloride) 100 mls @ 100 mls/hr IVPB DAILY [facility] PRN Reason: Protocol Last Admin: 03/11/18 02:06 Dose: 100 mls/hr Vancomycin HCl 1,250 mg/ (Sodium Chloride) 250 mls @ 166.667 mls/hr IVPB Q12@ 0900,2100 [facility] PRN Reason: Protocol Last Admin: 03/11/18 21:40 Dose: 166.667 mls/hr Ibuprofen (Motrin Tab) 600 mg PO Q6 PRN PRN Reason: Pain, moderate (4-7) Last Admin: 03/11/18 15:29 Dose: 600 mg Tamsulosin HCl (Flomax) 0.4 mg PO HS [facility] Last Admin: 03/11/18 21:40 Dose: 0.4 mg Timolol Maleate (Timoptic 0.25% Ophth Soln) 1 drop OU BID [facility] Last Admin: 03/11/18 16:01 Dose: 1 drop - Labs Labs: 03/11/18 05:30 03/11/18 05:30 PT 11.8 Seconds (9.8-13.1) 03/10/18 21:25 INR 1.1 03/10/18 21:25 APTT 31.1 Seconds (25.6-37.1) 03/10/18 21:25 - Constitutional Appears: No Acute Distress - Head Exam Head Exam: NORMAL INSPECTION - Eye Exam Eye Exam: PERRL - ENT Exam Additional comments: tenderness , swelling R jaw - Neck Exam Neck Exam: Tenderness (R neck) - Respiratory Exam Respiratory Exam: Clear to Ausculation Bilateral - Cardiovascular Exam Cardiovascular Exam: REGULAR RHYTHM - GI/Abdominal Exam GI & Abdominal Exam: Soft, Normal Bowel Sounds - Extremities Exam Extremities Exam: Tenderness (redness ,swelling distal L leg dorsum L foot) - Back Exam Back Exam: NORMAL INSPECTION - Neurological Exam Neurological Exam: Alert, CN II-XII Intact, Oriented x3 Additional comments: no focal motor sensory deficit - Psychiatric Exam Psychiatric exam: Normal Affect - Skin Skin Exam: Warm Assessment and Plan (1) Cellulitis of left foot Status: Acute (2) Pancytopenia Status: Acute (3) Hx of Jayjay's granulomatosis Status: Chronic (4) Hx of deep venous thrombosis Assessment & Plan: Dopler L/E neg Status: Inactive (5) BPH (benign prostatic hyperplasia) Status: Chronic (6) Jaw swelling Status: Acute - Assessment and Plan (Free Text) Plan: Vanco, Rocephin (was started on Rocehin with no allergic reaction ), Granix , Epogen as per [place] philatelic consultant for treatment of Pancitopenia, neutropenic precautions, f/u CBC am, Patient refused Cervical and X rays facial bones, continue rest of Tx, f/u Hematology, ID consult
[2018-03-12 05:56] LABS: BASO % 0.2 % (0.0-2.0); EOS # 0.1 K/uL (0.0-0.7); EOS % 0.4 % (0.0-4.0); HEMOGLOBIN 8.6 g/dL (12.0-18.0); LYMPH % 5.7 % (20.0-40.0); MEAN CELL VOLUME 105.3 fl (80.0-94.0); MEAN CORPUSCULAR HEMOGLOBIN 35.2 pg (27.0-31.0); MEAN CORPUSCULAR HGB CONC 33.4 g/dL (33.0-37.0); MEAN PLATELET VOLUME 8.4 fl (7.2-11.7); MONO # 0.1 K/uL (0.0-0.8); MONO % 0.4 % (0.0-10.0); NEUT # 16.2 K/uL (1.8-7.0); NEUT % 93.3 % (50.0-75.0); PLATELET COUNT 84 K/uL (130-400); RBC 2.44 Mil/uL (4.40-5.90); RED CELL DISTRIBUTION WIDTH 16.8 % (11.5-14.5); WHITE BLOOD COUNT 17.3 K/uL (4.8-10.8)
[2018-03-12 06:19] LABS: LDL CHOLESTEROL 54 mg/dL (0-129)
[2018-03-12 06:21] LABS: T4 4.59 ug/dl (5.5-11.0)
[2018-03-12 06:29] LABS: ALB/GLOB RATIO 0.9 (1.0-2.1); ALBUMIN 3.4 g/dL (3.5-5.0); ALT/SGPT 21 U/L (21-72); AST/SGOT 15 U/L (17-59); BLOOD UREA NITROGEN 13 mg/dl (9-20); CALCIUM 9.3 mg/dL (8.4-10.2); GFR NON-AFRICAN AMERICAN > 60; HDL CHOLESTEROL 32 MG/DL (30-70)
[2018-03-12] MEDS: Bacitracin OINT 15GM TOP SCH ×3 (08:28→16:04)
[2018-03-12] MEDS: Dorzolamide 2% Ophth Soln OU SCH ×3 (08:28→16:04)
[2018-03-12] MEDS: Timolol 0.25% Ophth SOLN OU SCH ×2 (08:28→16:04)
[2018-03-12 10:16] LABS: ANISOCYTOSIS SLIGHT; BANDS 5 % (0-2); EOSINOPHIL 1 % (0-7); LYMPHOCYTE 10 % (20-50); MONOCYTE 2 % (0-10); NEUTROPHIL 82 % (42-75); PLATELET ESTIMATE DECREASED (NORMAL); TOTAL CELLS COUNTED 100
[2018-03-12 10:17] LABS: HYPOCHROMIC MODERATE; POLYCHROMIC SLIGHT
--- NOTE | 2018-03-12 10:46 | CP.PCM.CON ---
History of Present Illness - History of Present Illness History of Present Illness: This is a 62 yrs old male whom i have known for a few years. He had initially presented with leukopenia only, and would receive granix for an infection. and would respond right away to the same. Recently he has needed the injection more frequently. His Hgb also dropped, and the would receive procrit as needed. 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 He was started on po clindamycin without much improvement. His WBC was 1.3, hgb 7.5 and platelets were 97. He was started on Granix, and Procrit and his WBC 17.4 today and Hgb was 9.5gms. Platelets are still low.. His leg looks a little better. He has a past h/o anxiety, arthritis,BPH, and DVT Surgical history; herniorrhaphy,THR, and cholecystectomy. Past Patient History - Infectious Disease Hx of Infectious Diseases: None - Tetanus Immunizations Tetanus Immunization: Unknown - Past Medical History & Family History Past Medical History?: Yes - Past Social History Smoking Status: Former Smoker - CARDIAC Hx Hypertension: No - PULMONARY Hx Bronchitis: Yes Hx Chronic Obstructive Pulmonary Disease (COPD): No Hx Pneumonia: Yes - HEENT Hx HEENT Problems: Yes Hx Glaucoma: Yes Other/Comment: TMJ - RENAL Hx Chronic Kidney Disease: No - ENDOCRINE/METABOLIC Hx Hypothyroidism: No - INTEGUMENTARY Hx Cellulitis: Yes (facial) Other/Comment: facial cellulitis x 2 - MUSCULOSKELETAL/RHEUMATOLOGICAL Hx Arthritis: Yes - GASTROINTESTINAL Hx Gall Bladder Disease: Yes - GENITOURINARY/GYNECOLOGICAL Hx Genitourinary Disorders: Yes Hx Prostate Problems: Yes - PSYCHIATRIC Hx Anxiety: Yes - SURGICAL HISTORY Hx Cholecystectomy: Yes - ANESTHESIA Hx Anesthesia: Yes Hx Anesthesia Reactions: No Hx Malignant Hyperthermia: No Meds Allergies/Adverse Reactions: Allergies Allergy/AdvReac Type Severity Reaction Status Date / Time aspirin Allergy RASH Verified 03/10/18 20:24 naproxen Allergy RASH Verified 03/10/18 20:24 Penicillins Allergy RASH Verified 03/10/18 20:24 Sulfa (Sulfonamide Allergy RASH Verified 03/10/18 20:24 Antibiotics) - Medications Medications: Current Medications Acetaminophen (Tylenol 325mg Tab) 975 mg PO ONCE PRN PRN Reason: Fever >100.4 F Last Admin: 03/10/18 21:14 Dose: 975 mg Bacitracin (Bacitracin Oint) 1 applic TOP TID [facility] Last Admin: 03/12/18 08:28 Dose: 1 applic Dorzolamide HCl (Trusopt) 1 drop OU TID [facility] Last Admin: 03/12/18 08:28 Dose: 1 drop Ceftriaxone Sodium 1 gm/ (Sodium Chloride) 100 mls @ 100 mls/hr IVPB DAILY [facility] PRN Reason: Protocol Last Admin: 03/12/18 10:31 Dose: 100 mls/hr Vancomycin HCl 1,250 mg/ (Sodium Chloride) 250 mls @ 166.667 mls/hr IVPB Q12@ 0900,2100 [facility] PRN Reason: Protocol Last Admin: 03/12/18 08:28 Dose: 166.667 mls/hr Ibuprofen (Motrin Tab) 600 mg PO Q6 PRN PRN Reason: Pain, moderate (4-7) Last Admin: 03/12/18 01:35 Dose: 600 mg Tamsulosin HCl (Flomax) 0.4 mg PO HS [facility] Last Admin: 03/11/18 21:40 Dose: 0.4 mg Timolol Maleate (Timoptic 0.25% Ophth Soln) 1 drop OU BID [facility] Last Admin: 03/12/18 08:28 Dose: 1 drop Physical Exam - Additional Findings Additional findings: Physical exam; Alert,well oriented, in no acute distress neck; supple, no adenopathy Chest; Clear, no rales or rhonchi Heart; RSRT, no murmur Abd; Soft,no mass, no h/s megaly Results - Vital Signs Recent Vital Signs: Last Vital Signs Temp 98.1 F 03/12/18 07:46 Pulse 89 03/12/18 07:46 Resp 19 03/12/18 07:46 BP 119/72 03/12/18 07:46 Pulse Ox 97 03/12/18 07:46 - Labs Result Diagrams: 03/12/18 05:20 03/12/18 05:20 Labs: Laboratory Results - last 24 hr 03/12/18 03/12/18 05:20 05:20 WBC 17.3 H D RBC 2.44 L Hgb 8.6 L Hct 25.7 L MCV 105.3 H MCH 35.2 H MCHC 33.4 RDW 16.8 H Plt Count 84 L MPV 8.4 Neut % (Auto) 93.3 H Lymph % (Auto) 5.7 L [place] % (Auto) 0.4 Eos % (Auto) 0.4 Baso % (Auto) 0.2 Neut # (Auto) 16.2 H Lymph # (Auto) 1.0 [place] # (Auto) 0.1 Eos # (Auto) 0.1 Baso # (Auto) 0.0 Neutrophils % (Manual) 82 H Band Neutrophils % 5 H Lymphocytes % (Manual) 10 L Monocytes % (Manual) 2 Eosinophils % (Manual) 1 Platelet Estimate Decreased L Polychromasia Slight Hypochromasia (manual) Moderate Anisocytosis (manual) Slight Macrocytosis (manual) Marked Sodium 137 Potassium 4.3 Chloride 107 Carbon Dioxide 24 Anion Gap 10 BUN 13 Creatinine 1.0 Est GFR ( Amer) > 60 Est GFR (Non-Af Amer) > 60 Random Glucose 85 Calcium 9.3 Phosphorus 3.4 Magnesium 1.7 Total Bilirubin 0.2 AST 15 L D ALT 21 Alkaline Phosphatase 98 Total Protein 7.1 Albumin 3.4 L Globulin 3.7 Albumin/Globulin Ratio 0.9 L Triglycerides 71 D Cholesterol 108 LDL Cholesterol Direct 54 HDL Cholesterol 32 Thyroxine (T4) 4.59 L TSH 3rd Generation 2.35 Assessment & Plan - Assessment and Plan (Free Text) Assessment: Impression; 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 Plan: Plan; Will give him 1 dose of granix and one dose of procrit. Will monitor CBC. - Date & Time Date: 03/12/18 Time: 11:36
--- NOTE | 2018-03-12 11:08 | CP.PCM.CON ---
History of Present Illness - History of Present Illness History of Present Illness: 62 y/o m presented to ED due to worsening L foot redness and swelling that began 10 days ago. Pt visited this ED also 1 week ago with same issue and was discharged on PO Clindamycin. Despite this left foot swelling and redness are worse Started on Vanco Rocephin also c/o swelling around upper right molars -PMHx: ? MDS , Anxiety, Arthritis, Benign Prostatic Hyperplasia, [place], DVT (x3) -PSHx: Hernia repair, THR, cholecystectomy, prostate surgery 3 weeks ago -FHx: denies family hx of [place], [place], Stroke, CAD, DM -SocialHx: Denies tobacco, ETOH, drug use -Next of kin: brother, Danielito Valerio [phone] Review of Systems - Constitutional Constitutional: As Per HPI, Anorexia - EENT Eyes: absent: As Per HPI, Blind Spots, Blurred Vision, Change in Vision, Decreased Night Vision, Diplopia, Discharge, Dry Eye, Exophthalmos, Floaters, Irritation, Itchy Eyes, Loss of Peripheral Vision, Pain, Photophobia, Requires Corrective Lenses, Sees Flashes, Spots in Vision, Tunnel Vision, Other Visual Disturbances, Loss of Vision, Other Ears: absent: As Per HPI, Decreased Hearing, Ear Discharge, Ear Pain, Tinnitus, Abnormal Hearing, Disequilibrium, Dizziness, Other Nose/Mouth/Throat: absent: As Per HPI, Epistaxis, Nasal Congestion, Nasal Discharge, Nasal Obstruction, Nasal Trauma, Nose Pain, Post Nasal Drip, Sinus Pain, Sinus Pressure, Bleeding Gums, Change in Voice, Dental Pain, Dry Mouth, Dysphagia, Halitosis, Hoarsness, Lip Swelling, Mouth Lesions, Mouth Pain, Odynophagia, Sore Throat, Throat Swelling, Tongue Swelling, Facial Pain, Neck Pain, Neck Mass, Other - Cardiovascular Cardiovascular: absent: As Per HPI, Acrocyanosis, Chest Pain, Chest Pain at Rest , Chest Pain with Activity, Claudication, Diaphoresis, Dyspnea, Dyspnea on Exertion, Edema, Irregular Heart Rhythm, Pain Radiating to Arm/Neck/Jaw, Leg Edema, Leg Ulcers, Lightheadedness, Orthopnea, Palpitations, Paroxysmal Nocturnal Dyspnea, Pedal Edema, Radiating Pain, Rapid Heart Rate, Slow Heart Rate, Syncope, Other - Respiratory Respiratory: absent: As Per HPI, Cough, Dyspnea, Hemoptysis, Dyspnea on Exertion , Wheezing, Snoring, Stridor, Pain on Inspiration, Chest Congestion, Excessive Mucous Production, Change in Mucous Color, Pain with Coughing, Other - Gastrointestinal Gastrointestinal: absent: As Per HPI, Abdominal Pain, Belching, Bloating, Change in Bowel Habits, Change in Stool Character, Coffee Ground Emesis, Constipation, Cramping, Diarrhea, Dyspepsia, Dysphagia, Early Satiety, Excessive Flatus, Fecal Incontinence, Heartburn, Hematemesis, Hematochezia, Loose Stools, Melena, Nausea, Odynophagia, Temesmus, Vomiting, Other - Genitourinary Genitourinary: absent: As Per HPI, Change in Urinary Stream, Difficulty Urinating, Dysuria, Flank Pain, Hematuria, Pyuria, Nocturia, Urinary Incontinence, Urinary Frequency, Urinary Hesitance, Urinary Urgency, Voiding Freq/Small Amts, Freq UTI, Hx Renal/Bladder Calculi, Hx /Renal Surgery, Bladder Distension, Other - Musculoskeletal Musculoskeletal: absent: As Per HPI, Abnormal Gait, Arthralgias, Atrophy, Back Pain, Deformity, Joint Swelling, Limited Range of Motion, Loss of Height, Muscle Cramps, Muscle Weakness, Myalgias, Neck Pain, Numbness, Radiating Pain into Limb, Stiffness, Tingling, Other - Integumentary Integumentary: As Per HPI, Skin Pain, Wounds - Neurological Neurological: absent: As Per HPI, Abnormal Gait, Abnormal Hearing, Abnormal Movements, Abnormal Speech, Behavioral Changes, Burning Sensations, Confusion, Convulsions, Disequilibrium, Dizziness, Numbness, Focal Weakness, Frequent Falls , Headaches, Lack of Coordination, Loss of Vision, Memory Loss, Paresthesias, Radicular Pain, Restless Legs, Sensory Deficit, Syncope, Tingling, Tremor, Vertigo, Weakness, Other Visual Disturbances, Other - Psychiatric Psychiatric: absent: As Per HPI, Abnormal Sleep Pattern, Anhedonia, Anxiety, Auditory Hallucinations, Behavioral Changes, Change in Appetite, Change in Libido, Confusion, Depression, Difficulty Concentrating, Hallucinations, Homicidal Ideation, Hopelessness, Irritability, Memory Loss, Mood Swings, Panic Attacks, Paranoia, Suicidal Ideation, Visual Hallucinations, Tactile Hallucinations, Other - Endocrine Endocrine: absent: As Per HPI, Change in Body Appearance, Change in Libido, Cold Intolorance, Deepening of Voice, Excessive Sweating, Fatigue, Flushing, Heat Intolorance, Increase in Ring/Shoe/Hat Size, Palpitations, Polydipsia, Polyphagia, Polyuria, Other - Hematologic/Lymphatic Hematologic: absent: As Per HPI, Easy Bleeding, Easy Bruising, Lymphadenopathy, Other Past Patient History - Infectious Disease Hx of Infectious Diseases: None - Tetanus Immunizations Tetanus Immunization: Unknown - Past Medical History & Family History Past Medical History?: Yes - Past Social History Smoking Status: Former Smoker - CARDIAC Hx Hypertension: No - PULMONARY Hx Bronchitis: Yes Hx Chronic Obstructive Pulmonary Disease (COPD): No Hx Pneumonia: Yes - HEENT Hx HEENT Problems: Yes Hx Glaucoma: Yes Other/Comment: TMJ - RENAL Hx Chronic Kidney Disease: No - ENDOCRINE/METABOLIC Hx Hypothyroidism: No - INTEGUMENTARY Hx Cellulitis: Yes (facial) Other/Comment: facial cellulitis x 2 - MUSCULOSKELETAL/RHEUMATOLOGICAL Hx Arthritis: Yes - GASTROINTESTINAL Hx Gall Bladder Disease: Yes - GENITOURINARY/GYNECOLOGICAL Hx Genitourinary Disorders: Yes Hx Prostate Problems: Yes - PSYCHIATRIC Hx Anxiety: Yes - SURGICAL HISTORY Hx Cholecystectomy: Yes - ANESTHESIA Hx Anesthesia: Yes Hx Anesthesia Reactions: No Hx Malignant Hyperthermia: No Meds Allergies/Adverse Reactions: Allergies Allergy/AdvReac Type Severity Reaction Status Date / Time aspirin Allergy RASH Verified 03/10/18 20:24 naproxen Allergy RASH Verified 03/10/18 20:24 Penicillins Allergy RASH Verified 03/10/18 20:24 Sulfa (Sulfonamide Allergy RASH Verified 03/10/18 20:24 Antibiotics) - Medications Medications: Current Medications Acetaminophen (Tylenol 325mg Tab) 975 mg PO ONCE PRN PRN Reason: Fever >100.4 F Last Admin: 03/10/18 21:14 Dose: 975 mg Bacitracin (Bacitracin Oint) 1 applic TOP TID [facility] Last Admin: 03/12/18 08:28 Dose: 1 applic Dorzolamide HCl (Trusopt) 1 drop OU TID [facility] Last Admin: 03/12/18 08:28 Dose: 1 drop Ceftriaxone Sodium 1 gm/ (Sodium Chloride) 100 mls @ 100 mls/hr IVPB DAILY [facility] PRN Reason: Protocol Last Admin: 03/12/18 10:31 Dose: 100 mls/hr Vancomycin HCl 1,250 mg/ (Sodium Chloride) 250 mls @ 166.667 mls/hr IVPB Q12@ 0900,2100 [facility] PRN Reason: Protocol Last Admin: 03/12/18 08:28 Dose: 166.667 mls/hr Ibuprofen (Motrin Tab) 600 mg PO Q6 PRN PRN Reason: Pain, moderate (4-7) Last Admin: 03/12/18 01:35 Dose: 600 mg Tamsulosin HCl (Flomax) 0.4 mg PO HS [facility] Last Admin: 03/11/18 21:40 Dose: 0.4 mg Timolol Maleate (Timoptic 0.25% Ophth Soln) 1 drop OU BID [facility] Last Admin: 03/12/18 08:28 Dose: 1 drop Physical Exam - Constitutional Appears: Non-toxic, No Acute Distress, Chronically Ill - Head Exam Head Exam: NORMOCEPHALIC - Eye Exam Eye Exam: PERRL. absent: Scleral icterus - ENT Exam ENT Exam: Mucous Membranes Dry, Normal External Ear Exam Additional comments: + tenderness right upper jaw region no visible lesions - Neck Exam Neck exam: Negative for: Lymphadenopathy - Respiratory Exam Respiratory Exam: Decreased Breath Sounds, Clear to Auscultation Bilateral - Cardiovascular Exam Cardiovascular Exam: REGULAR RHYTHM, +S1, +S2 - GI/Abdominal Exam GI & Abdominal Exam: Diminished Bowel Sounds, Soft. absent: Tenderness - Rectal Exam Rectal Exam: Deferred - Exam Exam: NORMAL INSPECTION - Extremities Exam Extremities exam: Positive for: pedal edema, tenderness, pedal pulses present. Negative for: calf tenderness Additional comments: redness over dorsum left foot - Back Exam Back exam: absent: CVA tenderness (L), CVA tenderness (R) - Neurological Exam Neurological exam: Alert, CN II-XII Intact, Oriented x3, Reflexes Normal - Psychiatric Exam Psychiatric exam: Depressed - Skin Skin Exam: Dry, Intact Results - Vital Signs Recent Vital Signs: Last Vital Signs Temp 98.1 F 03/12/18 07:46 Pulse 89 03/12/18 07:46 Resp 19 03/12/18 07:46 BP 119/72 03/12/18 07:46 Pulse Ox 97 03/12/18 07:46 - Labs Result Diagrams: 03/12/18 05:20 03/12/18 05:20 Labs: Laboratory Results - last 24 hr 09/10/18 09/10/18 05:20 05:20 WBC 17.3 H D RBC 2.44 L Hgb 8.6 L Hct 25.7 L MCV 105.3 H MCH 35.2 H MCHC 33.4 RDW 16.8 H Plt Count 84 L MPV 8.4 Neut % (Auto) 93.3 H Lymph % (Auto) 5.7 L [place] % (Auto) 0.4 Eos % (Auto) 0.4 Baso % (Auto) 0.2 Neut # (Auto) 16.2 H Lymph # (Auto) 1.0 [place] # (Auto) 0.1 Eos # (Auto) 0.1 Baso # (Auto) 0.0 Neutrophils % (Manual) 82 H Band Neutrophils % 5 H Lymphocytes % (Manual) 10 L Monocytes % (Manual) 2 Eosinophils % (Manual) 1 Platelet Estimate Decreased L Polychromasia Slight Hypochromasia (manual) Moderate Anisocytosis (manual) Slight Macrocytosis (manual) Marked Sodium 137 Potassium 4.3 Chloride 107 Carbon Dioxide 24 Anion Gap 10 BUN 13 Creatinine 1.0 Est GFR ( Amer) > 60 Est GFR (Non-Af Amer) > 60 Random Glucose 85 Calcium 9.3 Phosphorus 3.4 Magnesium 1.7 Total Bilirubin 0.2 AST 15 L D ALT 21 Alkaline Phosphatase 98 Total Protein 7.1 Albumin 3.4 L Globulin 3.7 Albumin/Globulin Ratio 0.9 L Triglycerides 71 D Cholesterol 108 LDL Cholesterol Direct 54 HDL Cholesterol 32 Thyroxine (T4) 4.59 L TSH 3rd Generation 2.35 Assessment & Plan - Assessment and Plan (Free Text) Assessment: 62 yo male with hx of pancytopenia- ? MDS admitted with worsening cellulitis left foot and painful upper jaw Heme eval in progress may need dental eval- r/o periodontal infection, r/o myeloproliferative infiltration Cont IV antibiotics as ordered
--- NOTE | 2018-03-12 15:23 | CT ---
Date of service: 03/12/2018 PROCEDURE: CT MAXILLOFACIAL BONES WITHOUT CONTRAST HISTORY: Rt jaw swelling COMPARISON: Facial CT with contrast 07/16/2017. TECHNIQUE: Contiguous axial CT images of the maxillofacial bones were obtained. Coronal and sagittal reformats were generated. Radiation dose: Total exam DLP = 730.88 mGy-cm. This CT exam was performed using one or more of the following dose reduction techniques: Automated exposure control, adjustment of the mA and/or kV according to patient size, and/or use of iterative reconstruction technique. FINDINGS: NASAL BONES: Unremarkable. ORBITS: Unremarkable. PARANASAL SINUSES/ MASTOIDS: Moderate right sphenoid sinusitis. Minimal right maxillary mucosal inflammatory change. MAXILLA: The basilar is nearly completely edentulous. No suspicious destructive bony changes or fracture identified. MANDIBLE/ TEMPOROMANDIBULAR JOINTS: The right side of the mandible is nearly completely edentulous. Local soft tissue edema appears mild to moderate at the superficial and deep subcutaneous fat and extends into the stock hanger space posterior to the right maxillary sinus somewhat without bony erosive changes related. Etiology unclear. No definite abscess identified. Artifacts from dental hardware obscure the evaluation somewhat. Prior left cheek/mandibular soft tissue reactive changes appear to have resolved. SKULL BASE: Unremarkable. TEMPORAL BONES: Middle ears and mastoid grossly unremarkable. OTHER FINDINGS: None. IMPRESSION: Inferior right cheek and mandibular soft tissue edema is appreciate without abscess or emphysematous change. No retained radiodense foreign body is identified. No obvious dental look related abscess at the side of the maxilla or mandible in the etiology of this finding is unclear. Edema extends into the stock hanger space minimally. Data Entry Manager space infections are usually a function of dental related infection. Clinically correlate further as none is appreciated by standard CT criteria. Resolution of prior left mandibular/cheek soft tissue reactive changes/cellulitis.
[2018-03-13] MEDS: Timolol 0.25% Ophth SOLN OU SCH ×2 (08:18→16:18)
[2018-03-13] MEDS: Dorzolamide 2% Ophth Soln OU SCH ×3 (08:18→16:18)
[2018-03-13] MEDS: Bacitracin OINT 15GM TOP SCH ×3 (08:18→16:18)
--- NOTE | 2018-03-13 10:06 | CP.PCM.PN ---
Subjective - Date & Time of Evaluation Date of Evaluation: 03/13/18 Time of Evaluation: 09:41 - Subjective Subjective: Pt's right foot is much better,but the face is still swollen.. No ct scan evidence of a mass .or abscess. swelling is of the cheek, In the past he has had this kind of a swelling under his eye and he was gien some prednisone and it had resoled. Pt claims that he was told by his rheumatoogist to only use steroids fo eye swelling. Objective - Vital Signs/Intake and Output Vital Signs (last 24 hours): Temp Pulse Resp BP Pulse Ox 98.4 F 91 H 19 113/67 96 03/13/18 07:39 03/13/18 07:39 03/13/18 07:39 03/13/18 07:39 03/13/18 07:39 - Medications Medications: Current Medications Acetaminophen (Tylenol 325mg Tab) 975 mg PO ONCE PRN PRN Reason: Fever >100.4 F Last Admin: 03/10/18 21:14 Dose: 975 mg Bacitracin (Bacitracin Oint) 1 applic TOP TID [facility] Last Admin: 03/13/18 08:18 Dose: 1 applic Dorzolamide HCl (Trusopt) 1 drop OU TID [facility] Last Admin: 03/13/18 08:18 Dose: 1 drop Ceftriaxone Sodium 1 gm/ (Sodium Chloride) 100 mls @ 100 mls/hr IVPB DAILY [facility] PRN Reason: Protocol Last Admin: 03/13/18 08:18 Dose: 100 mls/hr Vancomycin HCl 1,250 mg/ (Sodium Chloride) 250 mls @ 166.667 mls/hr IVPB Q12@ 0900,2100 [facility] PRN Reason: Protocol Last Admin: 03/12/18 22:05 Dose: 166.667 mls/hr Ibuprofen (Motrin Tab) 600 mg PO Q6 PRN PRN Reason: Pain, moderate (4-7) Last Admin: 03/13/18 04:01 Dose: 600 mg Morphine Sulfate (Morphine) 2 mg IVP Q4 PRN PRN Reason: Pain, moderate (4-7) Last Admin: 03/13/18 02:21 Dose: 2 mg Tamsulosin HCl (Flomax) 0.4 mg PO [facility] Last Admin: 03/12/18 21:36 Dose: 0.4 mg Timolol Maleate (Timoptic 0.25% Ophth Soln) 1 drop OU BID [facility] Last Admin: 03/13/18 08:18 Dose: 1 drop - Labs Labs: 03/12/18 05:20 03/12/18 05:20 PT 11.8 Seconds (9.8-13.1) 03/10/18 21:25 INR 1.1 03/10/18 21:25 APTT 31.1 Seconds (25.6-37.1) 03/10/18 21:25
[2018-03-13 10:40] LABS: BASO % 0.6 % (0.0-2.0); HEMOGLOBIN 8.6 g/dL (12.0-18.0); LYMPH # 0.8 K/uL (1.0-4.3); LYMPH % 19.1 % (20.0-40.0); MEAN CELL VOLUME 105.5 fl (80.0-94.0); MEAN CORPUSCULAR HEMOGLOBIN 35.4 pg (27.0-31.0); MEAN CORPUSCULAR HGB CONC 33.5 g/dL (33.0-37.0); MEAN PLATELET VOLUME 8.3 fl (7.2-11.7); MONO # 0.2 K/uL (0.0-0.8); MONO % 5.1 % (0.0-10.0); NEUT # 3.2 K/uL (1.8-7.0); NEUT % 74.2 % (50.0-75.0); NRBC % 0.1 % (0.0-0.0); RBC 2.43 Mil/uL (4.40-5.90); RED CELL DISTRIBUTION WIDTH 17.3 % (11.5-14.5); WHITE BLOOD COUNT 4.3 K/uL (4.8-10.8)
--- NOTE | 2018-03-13 15:29 | CP.PCM.PN ---
Subjective - Date & Time of Evaluation Date of Evaluation: 03/13/18 Time of Evaluation: 11:20 - Subjective Subjective: F/U L foot Cellulitis. R Jaw swelling with pain, great difficulty to eat, minimal pain L foot Objective - Vital Signs/Intake and Output Vital Signs (last 24 hours): Temp Pulse Resp BP Pulse Ox 98.4 F 91 H 19 113/67 96 03/13/18 07:39 03/13/18 07:39 03/13/18 07:39 03/13/18 07:39 03/13/18 07:39 - Medications Medications: Current Medications Acetaminophen (Tylenol 325mg Tab) 975 mg PO ONCE PRN PRN Reason: Fever >100.4 F Last Admin: 03/10/18 21:14 Dose: 975 mg Bacitracin (Bacitracin Oint) 1 applic TOP TID [facility] Last Admin: 03/13/18 12:14 Dose: 1 applic Docusate Sodium (Colace) 100 mg PO BID [facility] Dorzolamide HCl (Trusopt) 1 drop OU TID [facility] Last Admin: 03/13/18 12:14 Dose: 1 drop Ceftriaxone Sodium 1 gm/ (Sodium Chloride) 100 mls @ 100 mls/hr IVPB DAILY [facility] PRN Reason: Protocol Last Admin: 03/13/18 08:18 Dose: 100 mls/hr Vancomycin HCl 1,250 mg/ (Sodium Chloride) 250 mls @ 166.667 mls/hr IVPB Q12@ 0900,2100 [facility] PRN Reason: Protocol Last Admin: 03/13/18 10:50 Dose: 166.667 mls/hr Ibuprofen (Motrin Tab) 600 mg PO Q6 PRN PRN Reason: Pain, moderate (4-7) Last Admin: 03/13/18 11:51 Dose: 600 mg Morphine Sulfate (Morphine) 2 mg IVP Q4 PRN PRN Reason: Pain, moderate (4-7) Last Admin: 03/13/18 02:21 Dose: 2 mg Tamsulosin HCl (Flomax) 0.4 mg PO [facility] Last Admin: 03/12/18 21:36 Dose: 0.4 mg Timolol Maleate (Timoptic 0.25% Ophth Soln) 1 drop OU BID [facility] Last Admin: 03/13/18 08:18 Dose: 1 drop - Labs Labs: 03/13/18 09:07 09/10/18 05:20 PT 11.8 Seconds (9.8-13.1) 03/10/18 21:25 INR 1.1 03/10/18 21:25 APTT 31.1 Seconds (25.6-37.1) 03/10/18 21:25 - Constitutional Appears: No Acute Distress - Head Exam Head Exam: NORMAL INSPECTION - Eye Exam Eye Exam: PERRL - ENT Exam Additional comments: Tenderness, swelling R jaw, unable to examine mouth and throat due to R side tenderness - Neck Exam Neck Exam: Tenderness (R neck) - Respiratory Exam Respiratory Exam: Clear to Ausculation Bilateral - Cardiovascular Exam Cardiovascular Exam: REGULAR RHYTHM - GI/Abdominal Exam GI & Abdominal Exam: Soft, Normal Bowel Sounds - Extremities Exam Extremities Exam: Tenderness (decreased redness and sweeling distal L leg / dorsum L foot) - Back Exam Back Exam: NORMAL INSPECTION - Neurological Exam Neurological Exam: Alert, CN II-XII Intact, Oriented x3 Additional comments: No focal motor/sensory deficit - Psychiatric Exam Psychiatric exam: Normal Affect - Skin Skin Exam: Warm Assessment and Plan (1) Cellulitis of left foot Status: Acute (2) Pancytopenia Status: Acute (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
--- NOTE | 2018-03-13 19:33 | CP.PCM.PN ---
Subjective - Date & Time of Evaluation Date of Evaluation: 03/13/18 Time of Evaluation: 19:27 - Subjective Subjective: see below Objective - Vital Signs/Intake and Output Vital Signs (last 24 hours): Temp Pulse Resp BP Pulse Ox 97.9 F 72 18 109/58 L 98 03/13/18 16:22 03/13/18 16:22 03/13/18 16:22 03/13/18 16:22 03/13/18 16:22 - Medications Medications: Current Medications Acetaminophen (Tylenol 325mg Tab) 975 mg PO ONCE PRN PRN Reason: Fever >100.4 F Last Admin: 03/10/18 21:14 Dose: 975 mg Bacitracin (Bacitracin Oint) 1 applic TOP TID [facility] Last Admin: 03/13/18 16:18 Dose: 1 applic Docusate Sodium (Colace) 100 mg PO BID [facility] Last Admin: 03/13/18 16:18 Dose: 100 mg Dorzolamide HCl (Trusopt) 1 drop OU TID [facility] Last Admin: 03/13/18 16:18 Dose: 1 drop Ceftriaxone Sodium 1 gm/ (Sodium Chloride) 100 mls @ 100 mls/hr IVPB DAILY [facility] PRN Reason: Protocol Last Admin: 03/13/18 08:18 Dose: 100 mls/hr Vancomycin HCl 1,250 mg/ (Sodium Chloride) 250 mls @ 166.667 mls/hr IVPB Q12@ 0900,2100 [facility] PRN Reason: Protocol Last Admin: 03/13/18 10:50 Dose: 166.667 mls/hr Ibuprofen (Motrin Tab) 600 mg PO Q6 PRN PRN Reason: Pain, moderate (4-7) Last Admin: 03/13/18 17:53 Dose: 600 mg Morphine Sulfate (Morphine) 2 mg IVP Q4 PRN PRN Reason: Pain, moderate (4-7) Last Admin: 03/13/18 02:21 Dose: 2 mg Tamsulosin HCl (Flomax) 0.4 mg PO [facility] Last Admin: 03/12/18 21:36 Dose: 0.4 mg Timolol Maleate (Timoptic 0.25% Ophth Soln) 1 drop OU BID [facility] Last Admin: 03/13/18 16:18 Dose: 1 drop - Labs Labs: 03/13/18 09:07 03/12/18 05:20 PT 11.8 Seconds (9.8-13.1) 03/10/18 21:25 INR 1.1 03/10/18 21:25 APTT 31.1 Seconds (25.6-37.1) 03/10/18 21:25 Assessment and Plan - Assessment and Plan (Free Text) Assessment: ENT Consult Note Chief Complaint jaw pain HPI 62 y/o male known to me with MDS and multiple recurrent infection was admitted the other day with foot cellulitis and then developed right jaw/facial swelling and pain. No problems swallowing, but it hurts to chew Past Medical History MDS Allergies PCN, Sulfa, NSAIDs Exam awake, alert, comfortable voice/speech normal +ve trismus; no FOM swelling; right parotid duct with clear saliva single diseased right upper molar no soft palate swelling or asymmetry neck soft, no swelling or tenderness, trachea midline right face over the malar region mildly swollen and tender CT maxillofacial without contrast: no abscess; sinuses clear Impression Right facial swelling, ? unclear etiology. Recommend patient needs DENTAL evaluation BERNADETTE he would benefit from short course of steroids; Decadron ordered x24 hours i spoke with Dr. Maxwell and will add Clindamycin to cover anaerobes / oral cavity pathogens soft diet if no better in [address] Maxillofacial with contrast
[2018-03-13] MEDS ORDERED: Dexamethasone 10 MG in Sodium Chloride 0.9% 50 ML IVPB SCH ×2 (19:39→21:00)
[2018-03-13] MEDS ORDERED: Clindamycin 600mg/50ml D5W 300 MG/25 ML VIAL IVPB SCH (19:47)
[2018-03-13] MEDS ORDERED: Clindamycin 600mg/50ml D5W 600 MG/50 ML VIAL IVPB SCH (21:00)
[2018-03-14] MEDS: Clindamycin 600mg/50ml D5W 600 MG/50 ML VIAL IVPB SCH ×2 (05:17→14:00)
[2018-03-14 06:31] LABS: HEMOGLOBIN 8.8 g/dL (12.0-18.0); MEAN CELL VOLUME 105.4 fl (80.0-94.0); MEAN CORPUSCULAR HEMOGLOBIN 35.5 pg (27.0-31.0); MEAN CORPUSCULAR HGB CONC 33.6 g/dL (33.0-37.0); RBC 2.49 Mil/uL (4.40-5.90); RED CELL DISTRIBUTION WIDTH 17.3 % (11.5-14.5)
[2018-03-14 06:41] LABS: BLOOD UREA NITROGEN 13 mg/dl (9-20); CALCIUM 9.2 mg/dL (8.4-10.2); GFR NON-AFRICAN AMERICAN > 60
[2018-03-14] MEDS: Bacitracin OINT 15GM TOP SCH ×3 (08:52→16:06)
[2018-03-14] MEDS: Timolol 0.25% Ophth SOLN OU SCH ×2 (08:53→16:06)
[2018-03-14] MEDS: Dorzolamide 2% Ophth Soln OU SCH ×3 (08:53→16:07)
[2018-03-14] MEDS ORDERED: Epoetin Alfa 40000 UNIT/ml Inj SC ONE (10:03)
--- NOTE | 2018-03-14 10:20 | CP.PCM.PN ---
Subjective - Date & Time of Evaluation Date of Evaluation: 03/14/18 Time of Evaluation: 10:18 - Subjective Subjective: Pt was started on prednisone yesterday and his right cheek is less swollen. the feet look better too. His WBC is 3.0, hgb 8.8gms and platelets 99K.Will give him the procrit 1 dose. Objective - Vital Signs/Intake and Output Vital Signs (last 24 hours): Temp Pulse Resp BP Pulse Ox 97.6 F 69 19 125/72 96 03/14/18 08:18 03/14/18 08:18 03/14/18 08:18 03/14/18 08:18 03/14/18 08:18 - Medications Medications: Current Medications Acetaminophen (Tylenol 325mg Tab) 975 mg PO ONCE PRN PRN Reason: Fever >100.4 F Last Admin: 03/10/18 21:14 Dose: 975 mg Bacitracin (Bacitracin Oint) 1 applic TOP TID [facility] Last Admin: 03/14/18 08:52 Dose: 1 applic Dexamethasone (Decadron Inj) 10 mg IVP Q8H [facility] Stop: 03/14/18 14:01 Last Admin: 03/14/18 05:16 Dose: 10 mg Docusate Sodium (Colace) 100 mg PO BID [facility] Last Admin: 03/14/18 08:52 Dose: 100 mg Dorzolamide HCl (Trusopt) 1 drop OU TID [facility] Last Admin: 03/14/18 08:53 Dose: 1 drop Epoetin [place] (Procrit) 40,000 unit SC ONCE ONE Stop: 03/14/18 10:04 Ceftriaxone Sodium 1 gm/ (Sodium Chloride) 100 mls @ 100 mls/hr IVPB DAILY [facility] PRN Reason: Protocol Last Admin: 03/13/18 08:18 Dose: 100 mls/hr Vancomycin HCl 1,250 mg/ (Sodium Chloride) 250 mls @ 166.667 mls/hr IVPB Q12@ 0900,2100 [facility] PRN Reason: Protocol Last Admin: 03/14/18 08:51 Dose: 166.667 mls/hr Clindamycin Phosphate (Cleocin) 600 mg in 50 mls @ 50 mls/hr IVPB Q8H [facility] PRN Reason: Protocol Last Admin: 03/14/18 05:17 Dose: 50 mls/hr Ibuprofen (Motrin Tab) 600 mg PO Q6 PRN PRN Reason: Pain, moderate (4-7) Last Admin: 03/13/18 17:53 Dose: 600 mg Morphine Sulfate (Morphine) 2 mg IVP Q4 PRN PRN Reason: Pain, moderate (4-7) Last Admin: 03/13/18 02:21 Dose: 2 mg Tamsulosin HCl (Flomax) 0.4 mg PO HS [facility] Last Admin: 03/13/18 21:43 Dose: 0.4 mg Timolol Maleate (Timoptic 0.25% [facility] Soln) 1 drop OU BID [facility] Last Admin: 03/14/18 08:53 Dose: 1 drop - Labs Labs: 03/14/18 05:50 03/14/18 05:50 PT 11.8 Seconds (9.8-13.1) 03/10/18 21:25 INR 1.1 03/10/18 21:25 APTT 31.1 Seconds (25.6-37.1) 03/10/18 21:25
--- NOTE | 2018-03-14 13:06 | CP.PCM.PN ---
Subjective - Date & Time of Evaluation Date of Evaluation: 03/14/18 Time of Evaluation: 09:00 - Subjective Subjective: less swelling right face after steroids started on Clinda IV c/o pain in penis secondary to fungal balanitis Objective - Vital Signs/Intake and Output Vital Signs (last 24 hours): Temp Pulse Resp BP Pulse Ox 97.6 F 69 19 125/72 96 03/14/18 08:18 03/14/18 08:18 03/14/18 08:18 03/14/18 08:18 03/14/18 08:18 - Medications Medications: Current Medications Acetaminophen (Tylenol 325mg Tab) 975 mg PO ONCE PRN PRN Reason: Fever >100.4 F Last Admin: 03/10/18 21:14 Dose: 975 mg Bacitracin (Bacitracin Oint) 1 applic TOP TID [facility] Last Admin: 03/14/18 12:04 Dose: 1 applic Dexamethasone (Decadron Inj) 10 mg IVP Q8H [facility] Stop: 03/14/18 14:01 Last Admin: 03/14/18 05:16 Dose: 10 mg Docusate Sodium (Colace) 100 mg PO BID [facility] Last Admin: 03/14/18 08:52 Dose: 100 mg Dorzolamide HCl (Trusopt) 1 drop OU TID [facility] Last Admin: 03/14/18 12:04 Dose: 1 drop Ceftriaxone Sodium 1 gm/ (Sodium Chloride) 100 mls @ 100 mls/hr IVPB DAILY [facility] PRN Reason: Protocol Last Admin: 03/14/18 10:41 Dose: 100 mls/hr Vancomycin HCl 1,250 mg/ (Sodium Chloride) 250 mls @ 166.667 mls/hr IVPB Q12@ 0900,2100 [facility] PRN Reason: Protocol Last Admin: 03/14/18 08:51 Dose: 166.667 mls/hr Clindamycin Phosphate (Cleocin) 600 mg in 50 mls @ 50 mls/hr IVPB Q8H [facility] PRN Reason: Protocol Last Admin: 03/14/18 05:17 Dose: 50 mls/hr Ibuprofen (Motrin Tab) 600 mg PO Q6 PRN PRN Reason: Pain, moderate (4-7) Last Admin: 03/14/18 10:40 Dose: 600 mg Morphine Sulfate (Morphine) 2 mg IVP Q4 PRN PRN Reason: Pain, moderate (4-7) Last Admin: 03/13/18 02:21 Dose: 2 mg Tamsulosin HCl (Flomax) 0.4 mg PO HS [facility] Last Admin: 03/13/18 21:43 Dose: 0.4 mg Timolol Maleate (Timoptic 0.25% Ophth Soln) 1 drop OU BID [facility] Last Admin: 03/14/18 08:53 Dose: 1 drop - Labs Labs: 03/14/18 05:50 03/14/18 05:50 PT 11.8 Seconds (9.8-13.1) 03/10/18 21:25 INR 1.1 03/10/18 21:25 APTT 31.1 Seconds (25.6-37.1) 03/10/18 21:25 - Constitutional Appears: Non-toxic, Chronically Ill - Head Exam Head Exam: NORMOCEPHALIC. absent: NORMAL INSPECTION Additional comments: facial swelling right side - Eye Exam Eye Exam: PERRL - ENT Exam ENT Exam: Mucous Membranes Dry - Neck Exam Neck Exam: absent: Lymphadenopathy - Respiratory Exam Respiratory Exam: Decreased Breath Sounds - Cardiovascular Exam Cardiovascular Exam: REGULAR RHYTHM - GI/Abdominal Exam GI & Abdominal Exam: Distended, Soft - Rectal Exam Rectal Exam: Deferred - Exam Exam: NORMAL INSPECTION - Extremities Exam Extremities Exam: absent: Pedal Edema - Back Exam Back Exam: absent: CVA tenderness (L), CVA tenderness (R), paraspinal tenderness - Neurological Exam Neurological Exam: Alert, Awake, CN II-XII Intact, Oriented x3 Neuro motor strength exam: Left Upper Extremity: 4, Right Upper Extremity: 4, Left Lower Extremity: 4, Right Lower Extremity: 4 - Psychiatric Exam Psychiatric exam: Depressed - Skin Skin Exam: Dry Additional comments: erythema of penis Assessment and Plan (1) Balanitis Status: Acute (2) Circinate balanitis Status: Acute (3) Candidal balanitis Status: Acute (4) Cellulitis Status: Acute (5) Cellulitis of left foot Status: Acute (6) Jaw swelling Status: Acute (7) Pancytopenia Status: Acute (8) Hx of Jayjay's granulomatosis Status: Chronic - Assessment and Plan (Free Text) Assessment: cont IV antibiotics ent follow up imaging add diflucan
[2018-03-14] MEDS: Fluconazole IV 200mg/100 ml NS 100 ML IVPB SCH (15:58)
--- NOTE | 2018-03-14 16:06 | CP.PCM.PN ---
Subjective - Date & Time of Evaluation Date of Evaluation: 03/14/18 Time of Evaluation: 14:00 - Subjective Subjective: F/u Cellulitis L foot. Minimal tenderness and decreased swelling L foot, c/p of pain in penis. Objective - Vital Signs/Intake and Output Vital Signs (last 24 hours): Temp Pulse Resp BP Pulse Ox 97.6 F 69 19 125/72 96 03/14/18 08:18 03/14/18 08:18 03/14/18 08:18 03/14/18 08:18 03/14/18 08:18 - Medications Medications: Current Medications Acetaminophen (Tylenol 325mg Tab) 975 mg PO ONCE PRN PRN Reason: Fever >100.4 F Last Admin: 03/10/18 21:14 Dose: 975 mg Bacitracin (Bacitracin Oint) 1 applic TOP TID [facility] Last Admin: 03/14/18 12:04 Dose: 1 applic Docusate Sodium (Colace) 100 mg PO BID [facility] Last Admin: 03/14/18 08:52 Dose: 100 mg Dorzolamide HCl (Trusopt) 1 drop OU TID [facility] Last Admin: 03/14/18 12:04 Dose: 1 drop Ceftriaxone Sodium 1 gm/ (Sodium Chloride) 100 mls @ 100 mls/hr IVPB DAILY [facility] PRN Reason: Protocol Last Admin: 03/14/18 10:41 Dose: 100 mls/hr Vancomycin HCl 1,250 mg/ (Sodium Chloride) 250 mls @ 166.667 mls/hr IVPB Q12@ 0900,2100 [facility] PRN Reason: Protocol Last Admin: 03/14/18 08:51 Dose: 166.667 mls/hr Clindamycin Phosphate (Cleocin) 600 mg in 50 mls @ 50 mls/hr IVPB Q8H [facility] PRN Reason: Protocol Last Admin: 03/14/18 14:00 Dose: 50 mls/hr Fluconazole (Diflucan Iv 200 Mg/100 Ml Ns) 100 mls @ 100 mls/hr IVPB DAILY [facility] PRN Reason: Protocol Last Admin: 03/14/18 15:58 Dose: 100 mls/hr Ibuprofen (Motrin Tab) 600 mg PO Q6 PRN PRN Reason: Pain, moderate (4-7) Last Admin: 03/14/18 10:40 Dose: 600 mg Morphine Sulfate (Morphine) 2 mg IVP Q4 PRN PRN Reason: Pain, moderate (4-7) Last Admin: 03/13/18 02:21 Dose: 2 mg Nystatin/Triamcinolone Acetonide (Mycolog Ii Oint) 1 applic TOP TID [facility] Tamsulosin HCl (Flomax) 0.4 mg PO HS [facility] Last Admin: 03/13/18 21:43 Dose: 0.4 mg Timolol Maleate (Timoptic 0.25% Ophth Soln) 1 drop OU BID [facility] Last Admin: 03/14/18 08:53 Dose: 1 drop - Labs Labs: 03/14/18 05:50 03/14/18 05:50 PT 11.8 Seconds (9.8-13.1) 03/10/18 21:25 INR 1.1 03/10/18 21:25 APTT 31.1 Seconds (25.6-37.1) 03/10/18 21:25 - Constitutional Appears: No Acute Distress - Head Exam Head Exam: NORMAL INSPECTION - Eye Exam Eye Exam: PERRL - ENT Exam Additional comments: Decreased tenderness/swelling R jaw, able to open his mouth - Neck Exam Neck Exam: Normal Inspection - Respiratory Exam Respiratory Exam: Clear to Ausculation Bilateral - Cardiovascular Exam Cardiovascular Exam: REGULAR RHYTHM - GI/Abdominal Exam GI & Abdominal Exam: Soft, Normal Bowel Sounds - Extremities Exam Extremities Exam: Tenderness (minimal L foot with decreased redness/swelling) - Back Exam Back Exam: NORMAL INSPECTION Additional comments: No focal motor sensory deficit. - Neurological Exam Neurological Exam: Alert, CN II-XII Intact, Oriented x3 - Psychiatric Exam Psychiatric exam: Normal Affect - Skin Skin Exam: Warm Assessment and Plan (1) Cellulitis of left foot Status: Acute (2) Jaw swelling Status: Acute (3) Balanitis Status: Acute (4) Pancytopenia Status: Acute (5) Hx of Jayjay's granulomatosis Status: Chronic (6) Hx of deep venous thrombosis Status: Inactive (7) BPH (benign prostatic hyperplasia) Status: Chronic - Assessment and Plan (Free Text) Plan: Continue Clindamycin, Rocephin, Vanco, Mycolog, Bacitracin, Morphine and est of Tx, ENT consult appreciated.
[2018-03-14] MEDS: Mycolog II OINT TOP SCH (16:07)
[2018-03-14 16:10] VITALS: RESP 20
[2018-03-14 23:57] VITALS: TEMP 97.8
[2018-03-15] MEDS: Clindamycin 600mg/50ml D5W 600 MG/50 ML VIAL IVPB SCH ×2 (02:00→08:41)
[2018-03-15] MEDS: Timolol 0.25% Ophth SOLN OU SCH (08:39)
[2018-03-15] MEDS: Dorzolamide 2% Ophth Soln OU SCH ×2 (08:39→13:35)
[2018-03-15] MEDS: Fluconazole IV 200mg/100 ml NS 100 ML IVPB SCH (08:40)
[2018-03-15] MEDS: Bacitracin OINT 15GM TOP SCH ×2 (08:40→13:35)
[2018-03-15] MEDS: Mycolog II OINT TOP SCH ×2 (08:40→13:35)
[2018-03-15 08:43] VITALS: BP 144/77; PULSE 49; O2SAT 99
[2018-03-15 09:00] LABS: BASO % 0.2 % (0.0-2.0); HEMOGLOBIN 8.4 g/dL (12.0-18.0); LYMPH # 0.5 K/uL (1.0-4.3); MEAN CELL VOLUME 105.3 fl (80.0-94.0); MEAN CORPUSCULAR HEMOGLOBIN 34.5 pg (27.0-31.0); MEAN CORPUSCULAR HGB CONC 32.8 g/dL (33.0-37.0); MEAN PLATELET VOLUME 9.7 fl (7.2-11.7); MONO # 0.1 K/uL (0.0-0.8); MONO % 2.3 % (0.0-10.0); NEUT # 4.5 K/uL (1.8-7.0); NEUT % 87.5 % (50.0-75.0); NRBC % 0.1 % (0.0-0.0); RBC 2.44 Mil/uL (4.40-5.90); RED CELL DISTRIBUTION WIDTH 17.2 % (11.5-14.5); WHITE BLOOD COUNT 5.1 K/uL (4.8-10.8)
--- NOTE | 2018-03-15 10:23 | CP.PCM.PN ---
Subjective - Date & Time of Evaluation Date of Evaluation: 03/15/18 Time of Evaluation: 10:19 - Subjective Subjective: Pt's lower extremities look almot back to normal No more redness seen. He still as a little problem opening his mouth due to the pain in the right TMJ. the swelling in this area is down. He is still on the antibiotics His WBC count toay was 51, Hgb 8.4gm,Platelets 101K. if te Hgb drops any nayely, will transfuse, Objective - Vital Signs/Intake and Output Vital Signs (last 24 hours): Temp Pulse Resp BP Pulse Ox 97.8 F 49 L 20 144/77 99 03/15/18 08:43 03/15/18 08:43 03/15/18 08:43 03/15/18 08:43 03/15/18 08:43 - Medications Medications: Current Medications Acetaminophen (Tylenol 325mg Tab) 975 mg PO ONCE PRN PRN Reason: Fever >100.4 F Last Admin: 03/10/18 21:14 Dose: 975 mg Bacitracin (Bacitracin Oint) 1 applic TOP TID [facility] Last Admin: 03/15/18 08:40 Dose: 1 applic Docusate Sodium (Colace) 100 mg PO BID [facility] Last Admin: 03/15/18 08:42 Dose: 100 mg Dorzolamide HCl (Trusopt) 1 drop OU TID [facility] Last Admin: 03/15/18 08:39 Dose: 1 drop Ceftriaxone Sodium 1 gm/ (Sodium Chloride) 100 mls @ 100 mls/hr IVPB DAILY [facility] PRN Reason: Protocol Last Admin: 03/15/18 08:41 Dose: 100 mls/hr Vancomycin HCl 1,250 mg/ (Sodium Chloride) 250 mls @ 166.667 mls/hr IVPB Q12@ 0900,2100 [facility] PRN Reason: Protocol Last Admin: 03/14/18 21:44 Dose: 166.667 mls/hr Fluconazole (Diflucan Iv 200 Mg/100 Ml Ns) 100 mls @ 100 mls/hr IVPB DAILY [facility] PRN Reason: Protocol Last Admin: 03/15/18 08:40 Dose: 100 mls/hr Clindamycin Phosphate (Cleocin) 600 mg in 50 mls @ 50 mls/hr IVPB Q8@0100,0900, 1700 [facility] PRN Reason: Protocol Last Admin: 03/15/18 08:41 Dose: 50 mls/hr Ibuprofen (Motrin Tab) 600 mg PO Q6 PRN PRN Reason: Pain, moderate (4-7) Last Admin: 03/15/18 07:20 Dose: 600 mg Morphine Sulfate (Morphine) 2 mg IVP Q4 PRN PRN Reason: Pain, moderate (4-7) Last Admin: 03/13/18 02:21 Dose: 2 mg Nystatin/Triamcinolone Acetonide (Mycolog Ii Oint) 1 applic TOP TID [facility] Last Admin: 03/15/18 08:40 Dose: 1 applic Tamsulosin HCl (Flomax) 0.4 mg PO HS [facility] Last Admin: 03/14/18 21:45 Dose: 0.4 mg Timolol Maleate (Timoptic 0.25% Ophth Soln) 1 drop OU BID [facility] Last Admin: 03/15/18 08:39 Dose: 1 drop - Labs Labs: 03/15/18 08:54 03/14/18 05:50 PT 11.8 Seconds (9.8-13.1) 03/10/18 21:25 INR 1.1 03/10/18 21:25 APTT 31.1 Seconds (25.6-37.1) 03/10/18 21:25
--- NOTE | 2018-03-15 15:47 | CP.PCM.DIS ---
Provider - Provider Date of Admission: 03/10/18 23:34 Attending physician: Shaun Jeffers MD Diagnosis - Discharge Diagnosis (1) Cellulitis of left foot Status: Acute (2) Jaw swelling Status: Acute (3) Balanitis Status: Acute (4) Pancytopenia Status: Acute (5) Hx of Jayjay's granulomatosis Status: Chronic (6) Hx of deep venous thrombosis Status: Inactive (7) BPH (benign prostatic hyperplasia) Status: Chronic Hospital Course - Lab Results Lab Results: Micro Results 03/10/18 21:45 Blood Blood Culture - Preliminary NO GROWTH AFTER 4 DAYS 03/10/18 21:25 Blood Blood Culture - Preliminary NO GROWTH AFTER 4 DAYS Most Recent Lab Values WBC 5.1 K/uL (4.8-10.8) D 03/15/18 08:54 RBC 2.44 Mil/uL (4.40-5.90) L 03/15/18 08:54 Hgb 8.4 g/dL (12.0-18.0) L 03/15/18 08:54 Hct 25.7 % (35.0-51.0) L 03/15/18 08:54 MCV 105.3 fl (80.0-94.0) H 03/15/18 08:54 MCH 34.5 pg (27.0-31.0) H 03/15/18 08:54 MCHC 32.8 g/dL (33.0-37.0) L 03/15/18 08:54 RDW 17.2 % (11.5-14.5) H 03/15/18 08:54 Plt Count 101 K/uL (130-400) L 03/15/18 08:54 MPV 9.7 fl (7.2-11.7) 03/15/18 08:54 Neut % (Auto) 87.5 % (50.0-75.0) H 03/15/18 08:54 Lymph % (Auto) 10.0 % (20.0-40.0) L 03/15/18 08:54 [place] % (Auto) 2.3 % (0.0-10.0) 03/15/18 08:54 Eos % (Auto) 0.0 % (0.0-4.0) 03/15/18 08:54 Baso % (Auto) 0.2 % (0.0-2.0) 03/15/18 08:54 Neut # (Auto) 4.5 K/uL (1.8-7.0) 03/15/18 08:54 Lymph # (Auto) 0.5 K/uL (1.0-4.3) L 03/15/18 08:54 [place] # (Auto) 0.1 K/uL (0.0-0.8) 03/15/18 08:54 Eos # (Auto) 0.0 K/uL (0.0-0.7) 03/15/18 08:54 Baso # (Auto) 0.0 K/uL (0.0-0.2) 03/15/18 08:54 Neutrophils % (Manual) 82 % (42-75) H 03/12/18 05:20 Band Neutrophils % 5 % (0-2) H 03/12/18 05:20 Lymphocytes % (Manual) 10 % (20-50) L 03/12/18 05:20 Monocytes % (Manual) 2 % (0-10) 03/12/18 05:20 Eosinophils % (Manual) 1 % (0-7) 03/12/18 05:20 Platelet Estimate Decreased (NORMAL) L 03/12/18 05:20 Polychromasia Slight 03/12/18 05:20 Hypochromasia (manual) Moderate 03/12/18 05:20 Anisocytosis (manual) Slight 03/12/18 05:20 Macrocytosis (manual) Marked 03/12/18 05:20 PT 11.8 Seconds (9.8-13.1) 03/10/18 21:25 INR 1.1 03/10/18 21:25 APTT 31.1 Seconds (25.6-37.1) 03/10/18 21:25 pO2 16 mm/Hg (30-55) L 03/10/18 21:41 VBG pH 7.38 (7.32-7.43) 03/10/18 21:41 VBG pCO2 50 mmHg (40-60) 03/10/18 21:41 VBG HCO3 25.5 mmol/L 03/10/18 21:41 VBG Total CO2 31.1 mmol/L (22-28) H 03/10/18 21:41 VBG O2 Sat (Calc) 29.3 % (40-65) L 03/10/18 21:41 VBG Base Excess 3.4 mmol/L (0.0-2.0) H 03/10/18 21:41 VBG Potassium 4.8 mmol/L (3.6-5.2) 03/10/18 21:41 Sodium 133.0 mmol/L (132-148) 03/10/18 21:41 Chloride 102.0 mmol/L (98-107) 03/10/18 21:41 Glucose 100 mg/dL (75-110) 03/10/18 21:41 Lactate 0.9 mmol/L (0.7-2.1) 03/10/18 21:41 FiO2 21.0 % 03/10/18 21:41 Sodium 138 mmol/l (132-148) 03/14/18 05:50 Potassium 4.7 MMOL/L (3.6-5.0) 03/14/18 05:50 Chloride 105 mmol/L (98-107) 03/14/18 05:50 Carbon Dioxide 24 mmol/L (22-30) 03/14/18 05:50 Anion Gap 14 (10-20) 03/14/18 05:50 BUN 13 mg/dl (9-20) 03/14/18 05:50 Creatinine 0.8 mg/dl (0.8-1.5) 03/14/18 05:50 Est GFR ( Amer) > 60 03/14/18 05:50 Est GFR (Non-Af Amer) > 60 03/14/18 05:50 Random Glucose 151 mg/dL (75-110) H 03/14/18 05:50 Calcium 9.2 mg/dL (8.4-10.2) 03/14/18 05:50 Phosphorus 3.4 mg/dl (2.5-4.5) 03/12/18 05:20 Magnesium 1.7 MG/DL (1.6-2.3) 03/12/18 05:20 Total Bilirubin 0.2 mg/dl (0.2-1.3) 03/12/18 05:20 AST 15 U/L (17-59) L D 03/12/18 05:20 ALT 21 U/L (21-72) 03/12/18 05:20 Alkaline Phosphatase 98 U/L (38-126) 03/12/18 05:20 Total Protein 7.1 G/DL (6.3-8.2) 03/12/18 05:20 Albumin 3.4 g/dL (3.5-5.0) L 03/12/18 05:20 Globulin 3.7 gm/dL (2.2-3.9) 03/12/18 05:20 Albumin/Globulin Ratio 0.9 (1.0-2.1) L 03/12/18 05:20 Triglycerides 71 mg/DL (0-149) D 03/12/18 05:20 Cholesterol 108 mg/dL (0-199) 03/12/18 05:20 LDL Cholesterol Direct 54 mg/dL (0-129) 03/12/18 05:20 HDL Cholesterol 32 MG/DL (30-70) 03/12/18 05:20 Thyroxine (T4) 4.59 ug/dl (5.5-11.0) L 03/12/18 05:20 TSH 3rd Generation 2.35 mIU/ML (0.46-4.68) 03/12/18 05:20 Venous Blood Potassium 4.8 mmol/L (3.6-5.2) 03/10/18 21:41 Urine Color Yellow (YELLOW) 03/10/18 23:20 Urine Clarity Slighty-cloudy (Clear) 03/10/18 23:20 Urine pH 6.0 (5.0-8.0) 03/10/18 23:20 Ur Specific [place] 1.016 (1.003-1.030) 03/10/18 23:20 Urine Protein Negative mg/dL (NEGATIVE) 03/10/18 23:20 Urine Glucose (UA) Neg mg/dL (Normal) 03/10/18 23:20 Urine Ketones Negative mg/dL (NEGATIVE) 03/10/18 23:20 Urine Blood Moderate (NEGATIVE) 03/10/18 23:20 Urine Nitrate Negative (NEGATIVE) 03/10/18 23:20 Urine Bilirubin Negative (NEGATIVE) 03/10/18 23:20 Urine Urobilinogen 0.2-1.0 mg/dL (0.2-1.0) 03/10/18 23:20 Ur Leukocyte Esterase Neg [place]/uL (Negative) 03/10/18 23:20 Urine RBC (Auto) 17 /hpf (0-3) H 03/10/18 23:20 Urine Microscopic WBC 1 /hpf (0-5) 03/10/18 23:20 Ur Squamous Epith Cells < 1 /hpf (0-5) 03/10/18 23:20 Vancomycin Trough 16.0 ug/mL (5.0-10.0) H 03/15/18 08:54 Discharge Exam - Head Exam Head Exam: NORMAL INSPECTION Discharge Plan - Discharge Medications Prescriptions: Lactobacillus Acidophilus [Acidophilus Lactobacilli] 1 each PO BID #30 capsule Clindamycin [Cleocin] 300 mg PO TID #21 cap Fluconazole [Diflucan] 100 mg PO DAILY #5 tab - Follow Up Plan Condition: FAIR Disposition: HOME/ ROUTINE Instructions: Cellulitis (Skin Infection), Adult (DC)
== END 2018-03-15 14:41 | disposition home or self-care (01) | DRG 603 ==
LOC: H.ER 20:13 → H.ERHOLD 23:34 → H.MEDSURG1 03-11 02:42
PROVIDERS: ADMIT Internal Medicine Pulmonary Disease; ATTEND Internal Medicine Pulmonary Disease
DX: L03.116 Cellulitis of left lower limb (principal); L03.211 Cellulitis of face; D61.818 Other pancytopenia; M31.30 Wegener's granulomatosis without renal involvement; B37.42 Candidal balanitis; M94.1 Relapsing polychondritis; N40.0 Benign prostatic hyperplasia without lower urinary tract symptoms; F41.9 Anxiety disorder, unspecified; H40.9 Unspecified glaucoma; M19.90 Unspecified osteoarthritis, unspecified site; Z86.718 Personal history of other venous thrombosis and embolism; Z87.01 Personal history of pneumonia (recurrent); Z87.891 Personal history of nicotine dependence; Z90.49 Acquired absence of other specified parts of digestive tract

== ENCOUNTER 2018-03-22 13:34 | Inpatient (IN) | payer MEDICARE ==
[2018-03-22 13:34] VITALS: BMI 25.9
--- NOTE | 2018-03-22 15:16 | ED PDOC ---
Lower Extremity Pain/Injury Time Seen by Provider: 03/22/18 13:55 Chief Complaint (Nursing): Lower Extremity Problem/Injury Chief Complaint (Provider): Leg pain Additional Complaint(s): 62 y/o m, PMH of Panycytopenia, Anxiety, Arthritis, Benign Prostatic Hyperplasia , [place], DVT (x3), presents to ED due to worsening L ankle redness and swelling that began 10 days ago. Pt visited this ED also 1 week ago with same issue and was discharged on PO Clindamycin. Pt reports L foot redness and swelling has extended despite PO antibiotics. Pt reports L lower leg pain that is tolerable; however, Pt also admits chest pain with deep breaths. Pt denies fever, chills, nausea, vomiting, SOB, abdominal pain, N/V or diarrhea. -PMD: Dr. Foy, Uro: Nahed Heme: Dr. Channing Samano Past Medical History Reviewed: Nursing Documentation Vital Signs: Last Vital Signs Temp 98 F 03/22/18 13:38 Pulse 96 H 03/22/18 13:38 Resp 18 03/22/18 13:38 BP 139/72 03/22/18 13:38 Pulse Ox 98 03/22/18 13:38 - Medical History PMH: Anemia, Anxiety, Arthritis, Benign Prostatic Hyperplasia, Bronchitis, Deep Vein Thrombosis (x3), Gall Bladder Disease, Pneumonia Denies: COPD, HTN, Hypothyroidism, Chronic Kidney Disease - Surgical History Surgical History: Cholecystectomy, Endoscopy, Hernia Repair (ventral) - Family History Family History: States: Unknown Family Hx - Social History Current smoker - smoking cessation education provided: No Alcohol: None Drugs: Denies - Immunization History Hx Influenza Vaccination: Yes Hx Pneumococcal Vaccination: Yes - Home Medications Home Medications: Ambulatory Orders Medication Instructions Recorded Tamsulosin [Flomax] 0.4 mg PO HS 07/25/17 Multivitamin [Daily She] 1 tab PO DAILY 10/02/17 Clindamycin [Cleocin] 300 mg PO TID #21 cap 03/15/18 Lactobacillus Acidophilus 1 each PO BID #30 capsule 03/15/18 [Acidophilus Lactobacilli] Dorzolamide 2%/Timolol 0.5% 1 drop [facility] Q12 03/22/18 [Cosopt 2%-0.5% Opht] - Allergies Allergies/Adverse Reactions: Allergies Allergy/AdvReac Type Severity Reaction Status Date / Time aspirin Allergy RASH Verified 03/22/18 13:38 naproxen Allergy RASH Verified 03/22/18 13:38 Penicillins Allergy RASH Verified 03/22/18 13:38 Sulfa (Sulfonamide Allergy RASH Verified 03/22/18 13:38 Antibiotics) Wells Criteria for PE - Wells Criteria for Pulmonary Embolism Clinical Signs and Symptoms of DVT: Yes P.E is #1 Diagnosis, or Equally Likely: Yes Heart Rate >100: No Immobilization at least 3 days;Surgery previous 4 weeks: No Previous, objectively diagnosed PE or DVT: Yes Hemoptysis: No Malignancy w/treatment within 6 months, or palliative: No Total Score: 5.5 Review of Systems ROS Statement: Except As Marked, All Systems Reviewed And Found Negative Cardiovascular: Positive for: Chest Pain Musculoskeletal: Positive for: Leg Pain Physical Exam - Reviewed Nursing Documentation Reviewed: Yes Vital Signs Reviewed: Yes - Physical Exam Appears: Positive for: Well, Non-toxic, No Acute Distress Head Exam: Positive for: ATRAUMATIC, NORMAL INSPECTION, NORMOCEPHALIC Skin: Positive for: Normal Color, Warm, DRY Eye Exam: Positive for: EOMI, Normal appearance, PERRL ENT: Positive for: Normal ENT Inspection Neck: Positive for: Normal, Painless ROM Cardiovascular/Chest: Positive for: Regular Rate, Rhythm. Negative for: Chest Non Tender, Edema, Tachycardia Respiratory: Positive for: CNT, Normal Breath Sounds Gastrointestinal/Abdominal: Positive for: Normal Exam, Soft Back: Positive for: Normal Inspection Extremity: Positive for: Normal ROM, Tenderness, Calf Tenderness, Swelling ( induration and edema extending from left heel to mid calf) Neurologic/Psych: Positive for: Alert, Oriented - Laboratory Results Result Diagrams: 03/22/18 15:40 03/22/18 15:40 - ECG O2 Sat by Pulse Oximetry: 98 Medical Decision Making Medical Decision Making: IV access established and diagnostics ordered LE Duplex: Negative for DVT CXR: NAD, as read by PA_C Labs resulted and reviewed with Pt's Hem/onc: Dr. Yadav, who agreed labs are stable at CTA obtained, Negative for PE IV Vanco running Dr. Ross, admitting for Foy, contacted and arrangements made for admission for dfailed outpt therapy Dr. Maxwell consulted for ID Dr. Yadav consulted as well Disposition - Clinical Impression Clinical Impression: Cellulitis, Pancytopenia - Patient ED Disposition Is Patient to be Admitted: Yes - Disposition Disposition Time: 20:32 Condition: STABLE Forms: [facility] ([place]) - Pt Status Changed To: Hospital Disposition Of: Observation
--- NOTE | 2018-03-22 15:47 | RAD ---
Date of service: 03/22/2018 PROCEDURE: CHEST RADIOGRAPH, 1 VIEW HISTORY: chest pain COMPARISON: 08/16/2017. Two-view chest FINDINGS: LUNGS: Clear. PLEURA: No pneumothorax or pleural fluid seen. CARDIOVASCULAR: No radiographic findings to suggest acute or significant cardiovascular disease. OSSEOUS STRUCTURES: No significant abnormalities. VISUALIZED UPPER ABDOMEN: Normal. OTHER FINDINGS: None. IMPRESSION: No active disease. No acute/significant interval changes.
[2018-03-22 16:20] LABS: BASO % 0.6 % (0.0-2.0); EOS % 1.1 % (0.0-4.0); HEMOGLOBIN 8.2 g/dL (12.0-18.0); LYMPH # 0.9 K/uL (1.0-4.3); LYMPH % 38.7 % (20.0-40.0); MEAN CELL VOLUME 105.5 fl (80.0-94.0); MEAN CORPUSCULAR HEMOGLOBIN 34.5 pg (27.0-31.0); MEAN CORPUSCULAR HGB CONC 32.7 g/dL (33.0-37.0); MEAN PLATELET VOLUME 8.6 fl (7.2-11.7); MONO # 0.3 K/uL (0.0-0.8); MONO % 10.9 % (0.0-10.0); NEUT # 1.2 K/uL (1.8-7.0); NEUT % 48.7 % (50.0-75.0); RBC 2.39 Mil/uL (4.40-5.90); RED CELL DISTRIBUTION WIDTH 16.7 % (11.5-14.5); WHITE BLOOD COUNT 2.4 K/uL (4.8-10.8)
[2018-03-22 16:33] LABS: INR 1.3; PROTHROMBIN TIME 14.5 Seconds (9.8-13.1)
[2018-03-22 16:36] LABS: PARTIAL THROMBOPLASTIN TIME 32.5 Seconds (25.6-37.1)
--- NOTE | 2018-03-22 16:41 | US ---
Date of service: 03/22/2018 HISTORY: r/o DVT. PRIORS: None. FINDINGS: 2-D, color and duplex Doppler analysis of the lower extremity venous circulation using routine protocol from the femoral veins through the popliteal veins. Venous compressibility: Normal. Flow and augmentation patterns: Normal. Visualized veins upper third of calf: Normal. Albright cyst: None. IMPRESSION: No sonographic or Doppler evidence for DVT in left lower extremity.
[2018-03-22 16:42] LABS: ALBUMIN 4.1 g/dL (3.5-5.0); ALT/SGPT 29 U/L (21-72); AST/SGOT 26 U/L (17-59); BLOOD UREA NITROGEN 18 mg/dl (9-20); CALCIUM 9.6 mg/dL (8.4-10.2); GFR NON-AFRICAN AMERICAN > 60
[2018-03-22] MEDS ORDERED: Iodixanol 320 MG/ML 100 ML BOTTLE IV ONE (17:54)
[2018-03-22] MEDS ORDERED: Sodium Chloride 0.9% 50 ML IV ONE (17:55)
--- NOTE | 2018-03-22 18:39 | CT ---
Date of service: 03/22/2018 PROCEDURE: CT Chest with contrast (Pulmonary Angiogram) HISTORY: r/o PE COMPARISON: None available. TECHNIQUE: Axial computed tomography images were obtained of the chest in the pulmonary arterial phase of enhancement. Coronal and sagittal reformatted images were created and reviewed. Maximum intensity projection (MIP) reconstructed images in the following planes: Axial only. Intravenous contrast dose: 73 cc Visipaque 320. Mean Hounsfield value in the main pulmonary artery: 204.36 Radiation dose: Total exam DLP = 37.25 mGy-cm. This CT exam was performed using one or more of the following dose reduction techniques: Automated exposure control, adjustment of the mA and/or kV according to patient size, and/or use of iterative reconstruction technique. FINDINGS: PULMONARY ARTERIES: Unremarkable. No pulmonary embolism. AORTA: No acute findings. No thoracic aortic aneurysm. LUNGS: Unremarkable. No nodule, mass or pulmonary consolidation. PLEURAL SPACES: Bilateral pleural plaques which are calcified and therefore consistent with prior asbestos exposure. No effusion or pneumothorax. HEART: Unremarkable. No cardiomegaly. No significant pericardial effusion. LYMPH NODES: No lymphadenopathy. BONES, CHEST WALL: Unremarkable. No fracture or destructive lesion OTHER FINDINGS: Unremarkable. IMPRESSION: Unremarkable CT pulmonary angiogram. No large or central pulmonary embolus.Limitations of the current examination: Suboptimal opacification of the pulmonary arteries both qualitatively and quantitatively. Pulmonary emboli therefore at and beyond the segmental branches are not excluded. Additional benign and/or incidental findings described above.
[2018-03-22] MEDS ORDERED: Vancomycin 1 g Inj ONE (20:57)
[2018-03-22 21:34] LABS: URINE BILIRUBIN NEGATIVE (NEGATIVE); URINE BLOOD MODERATE (NEGATIVE); URINE CLARITY CLEAR (Clear); URINE COLOR YELLOW (YELLOW); URINE GLUCOSE (UA) NEG (Normal); URINE LEUKOCYTE ESTERASE NEG Leu/uL (Negative); URINE PROTEIN NEGATIVE (NEGATIVE); URINE UROBILINOGEN 0.2-1.0 mg/dL (0.2-1.0)
[2018-03-23] MEDS ORDERED: Calamine/Zinc Oxide LOTION TOP PRN (00:01)
[2018-03-23] MEDS: Promethazine 6.25 MG/5 ML CUP PO PRN ×3 (01:46→15:50)
[2018-03-23 06:37] LABS: BLOOD UREA NITROGEN 19 mg/dl (9-20); CALCIUM 9.2 mg/dL (8.4-10.2); GFR NON-AFRICAN AMERICAN > 60
[2018-03-23 07:14] LABS: HEMOGLOBIN 8.3 g/dL (12.0-18.0); MEAN CELL VOLUME 105.3 fl (80.0-94.0); MEAN CORPUSCULAR HEMOGLOBIN 34.8 pg (27.0-31.0); MEAN CORPUSCULAR HGB CONC 33.1 g/dL (33.0-37.0); RBC 2.37 Mil/uL (4.40-5.90); RED CELL DISTRIBUTION WIDTH 16.9 % (11.5-14.5)
[2018-03-23 07:19] LABS: WHITE BLOOD COUNT 1.8 K/uL (4.8-10.8)
--- NOTE | 2018-03-23 07:50 | CARD ---
APPROVED REPORT Date of service: 03/22/2018 EKG Measurement Heart [id number] <Conclusion> Normal sinus rhythm Normal ECG
[2018-03-23] MEDS: Lactobacillus Acidophilus 500 MU Cap PO SCH ×2 (08:15→15:59)
[2018-03-23] MEDS: Multivitamin With Minerals Tab PO SCH (08:17)
[2018-03-23] MEDS: Dorzolamide 2% Ophth Soln OU SCH ×2 (08:18→20:41)
--- NOTE | 2018-03-23 08:33 | CP.PCM.CON ---
History of Present Illness - History of Present Illness History of Present Illness: This is a 62 yrs old male who was admitted for redness and swelling of te left lower extremity at the ankle and heel area. He has been in the hospital 1.5 weeks ago with similar problems , venous doppler was negative.His Wbc was very low so he was given 1 dose of granix with a good result. Yesterday in the ER his wbc was 2.4 but has dropped to 1,8 today, He was started on vancomycin by ID , However he says that every time he gets the vanco he develops a rash on his penis.. No rashes anywhere else. Pt has been neutropenic for many years but never this low. 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 and is on prednisone off and on. He is afebrile at this time, but has discomfort from the rash. Not a smoker and drinks socially. Past Patient History - Infectious Disease Hx of Infectious Diseases: None - Tetanus Immunizations Tetanus Immunization: Unknown - Past Medical History & Family History Past Medical History?: Yes - Past Social History Smoking Status: Never Smoked - CARDIAC Hx Cardiac Disorders: No Hx Hypertension: No - PULMONARY Hx Respiratory Disorders: Yes Hx Bronchitis: Yes Hx Chronic Obstructive Pulmonary Disease (COPD): No Hx Pneumonia: Yes - NEUROLOGICAL Hx Neurological Disorder: No - HEENT Hx HEENT Problems: Yes Hx Glaucoma: Yes Other/Comment: TMJ - RENAL Hx Chronic Kidney Disease: No - ENDOCRINE/METABOLIC Hx Endocrine Disorders: Yes Hx Hypothyroidism: No - HEMATOLOGICAL/ONCOLOGICAL Hx Blood Disorders: Yes Hx AIDS: No Hx Anemia: Yes Hx Human Immunodeficiency Virus (HIV): No Other/Comment: DVT x 3 - INTEGUMENTARY Hx Dermatological Problems: Yes Hx Cellulitis: Yes (facial) Other/Comment: facial cellulitis x 2. Left lower leg. [place] - MUSCULOSKELETAL/RHEUMATOLOGICAL Hx Musculoskeletal Disorders: Yes Hx Arthritis: Yes Hx Falls: No - GASTROINTESTINAL Hx Gastrointestinal Disorders: Yes Hx Gall Bladder Disease: Yes - GENITOURINARY/GYNECOLOGICAL Hx Genitourinary Disorders: Yes Hx Prostate Problems: Yes (BPH) - PSYCHIATRIC Hx Psychophysiologic Disorder: Yes Hx Anxiety: Yes Hx Substance Use: No - SURGICAL HISTORY Hx Surgeries: Yes Hx Cholecystectomy: Yes Hx Herniorrhaphy: Yes (Ventral hernia repair) Other/Comment: Endoscopy - ANESTHESIA Hx Anesthesia: Yes Hx Anesthesia Reactions: No Hx Malignant Hyperthermia: No Has any member of the family had a problem w/ anesthesia?: No Meds Allergies/Adverse Reactions: Allergies Allergy/AdvReac Type Severity Reaction Status Date / Time aspirin Allergy RASH Verified 03/22/18 13:38 naproxen Allergy RASH Verified 03/22/18 13:38 Penicillins Allergy RASH Verified 03/22/18 13:38 Sulfa (Sulfonamide Allergy RASH Verified 03/22/18 13:38 Antibiotics) - Medications Medications: Current Medications Acetaminophen (Tylenol 325mg Tab) 650 mg PO Q4 PRN PRN Reason: Pain, Mild (1-3) Calamine (Calamine Lotion) 1 applic TOP Q6 PRN PRN Reason: Itching / Pruritus Last Admin: 03/23/18 04:35 Dose: 1 applic Dorzolamide HCl (Trusopt) 1 drop OU Q12 [facility] Last Admin: 03/23/18 08:18 Dose: 1 drop Vancomycin HCl 1 gm/ Sodium (Chloride) 250 mls @ 166.667 mls/hr IVPB Q12 [facility] PRN Reason: Protocol Lactobacillus Acidophilus (Bacid Acidophilus) 1 cap PO BID [facility] Last Admin: 03/23/18 08:15 Dose: 1 cap Multivitamins/Minerals (Therapeutic-M Tab) 1 tab PO DAILY [facility] Last Admin: 03/23/18 08:17 Dose: 1 tab Promethazine HCl (Phenergan Syrup) 6.25 mg PO Q6 PRN PRN Reason: Cough Last Admin: 03/23/18 08:17 Dose: 6.25 mg Tamsulosin HCl (Flomax) 0.4 mg PO HS [facility] Timolol Maleate (Timoptic 0.5% Oph Soln) 1 drop OU Q12 [facility] Last Admin: 03/23/18 08:17 Dose: 1 drop Physical Exam - Additional Findings Additional findings: Physical exam; alert,well oriented in no acute distress neck; Supple,no adenopathy Chest; Clear, no rales or rhonchi heart, rsr, no murmur Abd; soft,no mass,no h/s megaly Left lower extremity has a rash and increased local temp at the heel and at the ankle area. Results - Vital Signs Recent Vital Signs: Last Vital Signs Temp 98.6 F 03/23/18 08:27 Pulse 83 03/23/18 08:27 Resp 20 03/23/18 08:27 BP 105/50 L 03/23/18 08:27 Pulse Ox 97 03/23/18 08:27 - Labs Result Diagrams: 03/23/18 06:05 03/23/18 06:05 Labs: Laboratory Results - last 24 hr 03/22/18 03/22/18 03/22/18 15:40 15:40 15:40 WBC 2.4 L D RBC 2.39 L Hgb 8.2 L Hct 25.2 L MCV 105.5 H MCH 34.5 H MCHC 32.7 L RDW 16.7 H Plt Count 101 L MPV 8.6 Neut % (Auto) 48.7 L Lymph % (Auto) 38.7 [place] % (Auto) 10.9 H Eos % (Auto) 1.1 Baso % (Auto) 0.6 Neut # (Auto) 1.2 L Lymph # (Auto) 0.9 L [place] # (Auto) 0.3 Eos # (Auto) 0.0 Baso # (Auto) 0.0 PT 14.5 H INR 1.3 APTT 32.5 D-Dimer, Quantitative 567 H Sodium 136 Potassium 4.6 Chloride 102 Carbon Dioxide 25 Anion Gap 14 BUN 18 Creatinine 1.0 Est GFR ( Amer) > 60 Est GFR (Non-Af Amer) > 60 Random Glucose 98 Calcium 9.6 Total Bilirubin 0.7 AST 26 ALT 29 Alkaline Phosphatase 80 Troponin I < 0.0120 Total Protein 8.3 H Albumin 4.1 Globulin 4.2 H Albumin/Globulin Ratio 1.0 Urine Color Urine Clarity Urine pH Ur Specific [place] Urine Protein Urine Glucose (UA) Urine Ketones Urine Blood Urine Nitrate Urine Bilirubin Urine Urobilinogen Ur Leukocyte Esterase Urine RBC (Auto) Urine Microscopic WBC 03/22/18 03/23/18 03/23/18 21:20 06:05 06:05 WBC 1.8 L* RBC 2.37 L Hgb 8.3 L Hct 25.0 L MCV 105.3 H MCH 34.8 H MCHC 33.1 RDW 16.9 H Plt Count 92 L MPV Neut % (Auto) Lymph % (Auto) [place] % (Auto) Eos % (Auto) Baso % (Auto) Neut # (Auto) Lymph # (Auto) [place] # (Auto) Eos # (Auto) Baso # (Auto) PT INR APTT D-Dimer, Quantitative Sodium 134 Potassium 4.3 Chloride 103 Carbon Dioxide 21 L Anion Gap 14 BUN 19 Creatinine 1.0 Est GFR ( Amer) > 60 Est GFR (Non-Af Amer) > 60 Random Glucose 107 Calcium 9.2 Total Bilirubin AST ALT Alkaline Phosphatase Troponin I Total Protein Albumin Globulin Albumin/Globulin Ratio Urine Color Yellow Urine Clarity Clear Urine pH 6.0 Ur Specific [place] 1.050 H Urine Protein Negative Urine Glucose (UA) Neg Urine Ketones Negative Urine Blood Moderate Urine Nitrate Negative Urine Bilirubin Negative Urine Urobilinogen 0.2-1.0 Ur Leukocyte Esterase Neg Urine RBC (Auto) 22 H Urine Microscopic WBC 2 Assessment & Plan - Assessment and Plan (Free Text) Assessment: impression; Cellulitis left lower extremity. Pancytopenia secondary to relapsing polycondritis ,a autoimmune disorder. Plan: Plan; Will start him on granix and give him 2 unit packed cells, Antibiotics will be monitored by Dr Maxwell, - Date & Time Date: 03/23/18 Time: 08:49
[2018-03-23] MEDS: Linezolid 600 mg in D5W 300 ml 600 MG/300 ML BAG IVPB SCH ×2 (11:10→20:43)
[2018-03-23] MEDS: Fluconazole IV 200mg/100 ml NS 100 ML IVPB SCH (13:00)
--- NOTE | 2018-03-23 13:33 | CP.PCM.CON ---
History of Present Illness - History of Present Illness History of Present Illness: 62 y/o m presented to ED due to worsening L leg redness and swelling . Pt was here over 1 week ago with left foot cellulitis whiuch resolved -PMHx: ? MDS , Anxiety, Arthritis, Benign Prostatic Hyperplasia, [place], DVT (x3) -PSHx: Hernia repair, THR, cholecystectomy, prostate surgery 3 weeks ago -FHx: denies family hx of [place], [place], Stroke, CAD, DM -SocialHx: Denies tobacco, ETOH, drug use -Next of kin: brother, Danielito Valerio [phone] Review of Systems - Constitutional Constitutional: As Per HPI, Anorexia - EENT Eyes: absent: As Per HPI, Blind Spots, Blurred Vision, Change in Vision, Decreased Night Vision, Diplopia, Discharge, Dry Eye, Exophthalmos, Floaters, Irritation, Itchy Eyes, Loss of Peripheral Vision, Pain, Photophobia, Requires Corrective Lenses, Sees Flashes, Spots in Vision, Tunnel Vision, Other Visual Disturbances, Loss of Vision, Other Ears: absent: As Per HPI, Decreased Hearing, Ear Discharge, Ear Pain, Tinnitus, Abnormal Hearing, Disequilibrium, Dizziness, Other Nose/Mouth/Throat: absent: As Per HPI, Epistaxis, Nasal Congestion, Nasal Discharge, Nasal Obstruction, Nasal Trauma, Nose Pain, Post Nasal Drip, Sinus Pain, Sinus Pressure, Bleeding Gums, Change in Voice, Dental Pain, Dry Mouth, Dysphagia, Halitosis, Hoarsness, Lip Swelling, Mouth Lesions, Mouth Pain, Odynophagia, Sore Throat, Throat Swelling, Tongue Swelling, Facial Pain, Neck Pain, Neck Mass, Other - Cardiovascular Cardiovascular: absent: As Per HPI, Acrocyanosis, Chest Pain, Chest Pain at Rest , Chest Pain with Activity, Claudication, Diaphoresis, Dyspnea, Dyspnea on Exertion, Edema, Irregular Heart Rhythm, Pain Radiating to Arm/Neck/Jaw, Leg Edema, Leg Ulcers, Lightheadedness, Orthopnea, Palpitations, Paroxysmal Nocturnal Dyspnea, Pedal Edema, Radiating Pain, Rapid Heart Rate, Slow Heart Rate, Syncope, Other - Respiratory Respiratory: absent: As Per HPI, Cough, Dyspnea, Hemoptysis, Dyspnea on Exertion , Wheezing, Snoring, Stridor, Pain on Inspiration, Chest Congestion, Excessive Mucous Production, Change in Mucous Color, Pain with Coughing, Other - Gastrointestinal Gastrointestinal: absent: As Per HPI, Abdominal Pain, Belching, Bloating, Change in Bowel Habits, Change in Stool Character, Coffee Ground Emesis, Constipation, Cramping, Diarrhea, Dyspepsia, Dysphagia, Early Satiety, Excessive Flatus, Fecal Incontinence, Heartburn, Hematemesis, Hematochezia, Loose Stools, Melena, Nausea, Odynophagia, Temesmus, Vomiting, Other - Genitourinary Genitourinary: absent: As Per HPI, Change in Urinary Stream, Difficulty Urinating, Dysuria, Flank Pain, Hematuria, Pyuria, Nocturia, Urinary Incontinence, Urinary Frequency, Urinary Hesitance, Urinary Urgency, Voiding Freq/Small Amts, Freq UTI, Hx Renal/Bladder Calculi, Hx /Renal Surgery, Bladder Distension, Other - Musculoskeletal Musculoskeletal: absent: As Per HPI, Abnormal Gait, Arthralgias, Atrophy, Back Pain, Deformity, Joint Swelling, Limited Range of Motion, Loss of Height, Muscle Cramps, Muscle Weakness, Myalgias, Neck Pain, Numbness, Radiating Pain into Limb, Stiffness, Tingling, Other - Integumentary Integumentary: As Per HPI, Skin Pain, Wounds - Neurological Neurological: absent: As Per HPI, Abnormal Gait, Abnormal Hearing, Abnormal Movements, Abnormal Speech, Behavioral Changes, Burning Sensations, Confusion, Convulsions, Disequilibrium, Dizziness, Numbness, Focal Weakness, Frequent Falls , Headaches, Lack of Coordination, Loss of Vision, Memory Loss, Paresthesias, Radicular Pain, Restless Legs, Sensory Deficit, Syncope, Tingling, Tremor, Vertigo, Weakness, Other Visual Disturbances, Other - Psychiatric Psychiatric: absent: As Per HPI, Abnormal Sleep Pattern, Anhedonia, Anxiety, Auditory Hallucinations, Behavioral Changes, Change in Appetite, Change in Libido, Confusion, Depression, Difficulty Concentrating, Hallucinations, Homicidal Ideation, Hopelessness, Irritability, Memory Loss, Mood Swings, Panic Attacks, Paranoia, Suicidal Ideation, Visual Hallucinations, Tactile Hallucinations, Other - Endocrine Endocrine: absent: As Per HPI, Change in Body Appearance, Change in Libido, Cold Intolorance, Deepening of Voice, Excessive Sweating, Fatigue, Flushing, Heat Intolorance, Increase in Ring/Shoe/Hat Size, Palpitations, Polydipsia, Polyphagia, Polyuria, Other - Hematologic/Lymphatic Hematologic: absent: As Per HPI, Easy Bleeding, Easy Bruising, Lymphadenopathy, Other Past Patient History - Infectious Disease Hx of Infectious Diseases: None - Tetanus Immunizations Tetanus Immunization: Unknown - Past Medical History & Family History Past Medical History?: Yes - Past Social History Smoking Status: Never Smoked - CARDIAC Hx Cardiac Disorders: No Hx Hypertension: No - PULMONARY Hx Respiratory Disorders: Yes Hx Bronchitis: Yes Hx Chronic Obstructive Pulmonary Disease (COPD): No Hx Pneumonia: Yes - NEUROLOGICAL Hx Neurological Disorder: No - HEENT Hx HEENT Problems: Yes Hx Glaucoma: Yes Other/Comment: TMJ - RENAL Hx Chronic Kidney Disease: No - ENDOCRINE/METABOLIC Hx Endocrine Disorders: Yes Hx Hypothyroidism: No - HEMATOLOGICAL/ONCOLOGICAL Hx Blood Disorders: Yes Hx AIDS: No Hx Anemia: Yes Hx Human Immunodeficiency Virus (HIV): No Other/Comment: DVT x 3 - INTEGUMENTARY Hx Dermatological Problems: Yes Hx Cellulitis: Yes (facial) Other/Comment: facial cellulitis x 2. Left lower leg. [place] - MUSCULOSKELETAL/RHEUMATOLOGICAL Hx Musculoskeletal Disorders: Yes Hx Arthritis: Yes Hx Falls: No - GASTROINTESTINAL Hx Gastrointestinal Disorders: Yes Hx Gall Bladder Disease: Yes - GENITOURINARY/GYNECOLOGICAL Hx Genitourinary Disorders: Yes Hx Prostate Problems: Yes (BPH) - PSYCHIATRIC Hx Psychophysiologic Disorder: Yes Hx Anxiety: Yes Hx Substance Use: No - SURGICAL HISTORY Hx Surgeries: Yes Hx Cholecystectomy: Yes Hx Herniorrhaphy: Yes (Ventral hernia repair) Other/Comment: Endoscopy - ANESTHESIA Hx Anesthesia: Yes Hx Anesthesia Reactions: No Hx Malignant Hyperthermia: No Has any member of the family had a problem w/ anesthesia?: No Meds Allergies/Adverse Reactions: Allergies Allergy/AdvReac Type Severity Reaction Status Date / Time aspirin Allergy RASH Verified 03/22/18 13:38 naproxen Allergy RASH Verified 03/22/18 13:38 Penicillins Allergy RASH Verified 03/22/18 13:38 Sulfa (Sulfonamide Allergy RASH Verified 03/22/18 13:38 Antibiotics) - Medications Medications: Current Medications Acetaminophen (Tylenol 325mg Tab) 650 mg PO Q4 PRN PRN Reason: Pain, Mild (1-3) Calamine (Calamine Lotion) 1 applic TOP Q6 PRN PRN Reason: Itching / Pruritus Last Admin: 03/23/18 04:35 Dose: 1 applic Dorzolamide HCl (Trusopt) 1 drop OU Q12 [facility] Last Admin: 03/23/18 08:18 Dose: 1 drop Fluconazole (Diflucan Iv 200 Mg/100 Ml Ns) 100 mls @ 100 mls/hr IVPB DAILY [facility] PRN Reason: Protocol Last Admin: 03/23/18 13:00 Dose: 100 mls/hr Linezolid (Zyvox 600mg/300ml D5w) 600 mg in 300 mls @ 300 mls/hr IVPB Q12 [facility] PRN Reason: Protocol Last Admin: 03/23/18 11:10 Dose: 300 mls/hr Lactobacillus Acidophilus (Bacid Acidophilus) 1 cap PO BID [facility] Last Admin: 03/23/18 08:15 Dose: 1 cap Multivitamins/Minerals (Therapeutic-M Tab) 1 tab PO DAILY [facility] Last Admin: 03/23/18 08:17 Dose: 1 tab Promethazine HCl (Phenergan Syrup) 6.25 mg PO Q6 PRN PRN Reason: Cough Last Admin: 03/23/18 08:17 Dose: 6.25 mg Tamsulosin HCl (Flomax) 0.4 mg PO HS [facility] Timolol Maleate (Timoptic 0.5% Ophth Soln) 1 drop OU Q12 [facility] Last Admin: 03/23/18 08:17 Dose: 1 drop Physical Exam - Constitutional Appears: No Acute Distress, Chronically Ill - Head Exam Head Exam: ATRAUMATIC, NORMOCEPHALIC - Eye Exam Eye Exam: PERRL. absent: Scleral icterus - ENT Exam ENT Exam: Mucous Membranes Dry - Neck Exam Neck exam: Negative for: Lymphadenopathy - Respiratory Exam Respiratory Exam: Decreased Breath Sounds, Clear to Auscultation Bilateral - Cardiovascular Exam Cardiovascular Exam: REGULAR RHYTHM, +S1, +S2 - GI/Abdominal Exam GI & Abdominal Exam: Diminished Bowel Sounds, Soft. absent: Tenderness - Rectal Exam Rectal Exam: Deferred - Exam Exam: NORMAL INSPECTION - Extremities Exam Extremities exam: Positive for: pedal pulses present. Negative for: calf tenderness, pedal edema, tenderness Additional comments: left leg swelling redness + - Back Exam Back exam: absent: CVA tenderness (L), CVA tenderness (R) - Neurological Exam Neurological exam: Alert, CN II-XII Intact, Oriented x3, Reflexes Normal - Psychiatric Exam Psychiatric exam: Depressed - Skin Skin Exam: Dry Results - Vital Signs Recent Vital Signs: Last Vital Signs Temp 98.6 F 03/23/18 08:27 Pulse 83 03/23/18 08:27 Resp 20 03/23/18 08:27 BP 105/50 L 03/23/18 08:27 Pulse Ox 97 03/23/18 08:27 - Labs Result Diagrams: 03/23/18 06:05 03/23/18 06:05 Labs: Laboratory Results - last 24 hr 03/22/18 03/22/18 03/22/18 15:40 15:40 15:40 WBC 2.4 L D RBC 2.39 L Hgb 8.2 L Hct 25.2 L MCV 105.5 H MCH 34.5 H MCHC 32.7 L RDW 16.7 H Plt Count 101 L MPV 8.6 Neut % (Auto) 48.7 L Lymph % (Auto) 38.7 [place] % (Auto) 10.9 H Eos % (Auto) 1.1 Baso % (Auto) 0.6 Neut # (Auto) 1.2 L Lymph # (Auto) 0.9 L [place] # (Auto) 0.3 Eos # (Auto) 0.0 Baso # (Auto) 0.0 PT 14.5 H INR 1.3 APTT 32.5 D-Dimer, Quantitative 567 H Sodium 136 Potassium 4.6 Chloride 102 Carbon Dioxide 25 Anion Gap 14 BUN 18 Creatinine 1.0 Est GFR ( Amer) > 60 Est GFR (Non-Af Amer) > 60 Random Glucose 98 Calcium 9.6 Total Bilirubin 0.7 AST 26 ALT 29 Alkaline Phosphatase 80 Troponin I < 0.0120 Total Protein 8.3 H Albumin 4.1 Globulin 4.2 H Albumin/Globulin Ratio 1.0 Urine Color Urine Clarity Urine pH Ur Specific [place] Urine Protein Urine Glucose (UA) Urine Ketones Urine Blood Urine Nitrate Urine Bilirubin Urine Urobilinogen Ur Leukocyte Esterase Urine RBC (Auto) Urine Microscopic WBC Blood Type Antibody Screen Crossmatch BBK History Checked 03/22/18 03/23/18 03/23/18 21:20 06:05 06:05 WBC 1.8 L* RBC 2.37 L Hgb 8.3 L Hct 25.0 L MCV 105.3 H MCH 34.8 H MCHC 33.1 RDW 16.9 H Plt Count 92 L MPV Neut % (Auto) Lymph % (Auto) [place] % (Auto) Eos % (Auto) Baso % (Auto) Neut # (Auto) Lymph # (Auto) [place] # (Auto) Eos # (Auto) Baso # (Auto) PT INR APTT D-Dimer, Quantitative Sodium 134 Potassium 4.3 Chloride 103 Carbon Dioxide 21 L Anion Gap 14 BUN 19 Creatinine 1.0 Est GFR ( Amer) > 60 Est GFR (Non-Af Amer) > 60 Random Glucose 107 Calcium 9.2 Total Bilirubin AST ALT Alkaline Phosphatase Troponin I Total Protein Albumin Globulin Albumin/Globulin Ratio Urine Color Yellow Urine Clarity Clear Urine pH 6.0 Ur Specific [place] 1.050 H Urine Protein Negative Urine Glucose (UA) Neg Urine Ketones Negative Urine Blood Moderate Urine Nitrate Negative Urine Bilirubin Negative Urine Urobilinogen 0.2-1.0 Ur Leukocyte Esterase Neg Urine RBC (Auto) 22 H Urine Microscopic WBC 2 Blood Type Antibody Screen Crossmatch BBK History Checked 03/23/18 11:03 WBC RBC Hgb Hct MCV MCH MCHC RDW Plt Count MPV Neut % (Auto) Lymph % (Auto) [place] % (Auto) Eos % (Auto) Baso % (Auto) Neut # (Auto) Lymph # (Auto) [place] # (Auto) Eos # (Auto) Baso # (Auto) PT INR APTT D-Dimer, Quantitative Sodium Potassium Chloride Carbon Dioxide Anion Gap BUN Creatinine Est GFR ( Amer) Est GFR (Non-Af Amer) Random Glucose Calcium Total Bilirubin AST ALT Alkaline Phosphatase Troponin I Total Protein Albumin Globulin Albumin/Globulin Ratio Urine Color Urine Clarity Urine pH Ur Specific [place] Urine Protein Urine Glucose (UA) Urine Ketones Urine Blood Urine Nitrate Urine Bilirubin Urine Urobilinogen Ur Leukocyte Esterase Urine RBC (Auto) Urine Microscopic WBC Blood Type O POSITIVE Antibody Screen Negative Crossmatch See Detail BBK History Checked Patient has bt Assessment & Plan (1) Cellulitis Status: Acute (2) Pancytopenia Status: Acute - Assessment and Plan (Free Text) Assessment: cont zyvox for now- concern for cytopenia ? allergy PCN and failure of clinda may need IV Cubicin
--- NOTE | 2018-03-23 14:12 | CP.PCM.PCO ---
Physician Communication Note - Physician Communication Note Physician Communication Note: Pt requires IV Zyvox for 8-10 days,may need to be switched to Cubicin
--- NOTE | 2018-03-23 15:51 | RAD ---
Date of service: 03/23/2018 PROCEDURE: Radiographs of the left calcaneus/hindfoot. HISTORY: Heel pain, no history of trauma. Cellulitis. COMPARISON: None available. TECHNIQUE: Frontal and lateral radiographs of the calcaneus. FINDINGS: No fracture or joint dislocation. No focal lesion. No calcaneal spur. Plantar soft tissue swelling identified. IMPRESSION: Unremarkable radiographs of the left calcaneus /hindfoot.Soft tissue swelling without acute articular or osseous abnormality.
--- NOTE | 2018-03-23 17:55 | CP.PCM.HP ---
History of Present Illness - History of Present Illness History of Present Illness: CC: Left Lower extremity pain and chest pain HPI: 62 y/o man w/ pmh of pancytopenia, BPH s/p prostate surgery , Wegeners, Hx DVT (x3) presents to ED w/ left lower extremity pain and chest pain. Patient reports pain in heel occurring last night while sleeping and subsequent left sided chest pain w/ dyspnea. Patient took motrin w/ mild relief. Pain in left heel is sharp in nature, non-radiating, and constant. Patient denies injury, trauma, or fall. Patient recently discharged 03/15/2018 for left leg cellulitis. Patient was DCed w/ clindamycin. Patient denies headaches, dizziness, nausea, vomiting, diarrhea, or fever. Patient reports resolution in dyspnea and chest pain during interview in ED. Patient reports he has incomplete micturition since getting CT scan this afternoon w/ associated suprapubic fullness and discomfort. ED course: Vitals: 98.8F, 76 beats/min, 162/81 mm hg, resp 18, O2 100% room air CBC: 2.4>8.2/25.2<101 CMP: 136/4.6, 102/25, 18/1.0, glucose 98, aST 26, ALT 29, alk phos 80 Troponin: <0.0120 Coags: PT 14.5, INR 1.3, aPTT 32.5 D-dimer: 567 CXR: no active disease, no acute/significant interval changes U/S LE: no DVT of left lower extremity CT chest: Unremarkable CT pulmonary angiogram, No large or central PE Flomax 0.4 mg PO Vancomycin 1 gm IV PMD: Dr. Foy PMH: pancytopenia, BPH s/p prostate surgery , Wegeners, Hx DVT (x3) Meds: see med list PSH: Hernia repair, THR, cholecystectomy, prostate surgery Fam: denies family hx of CA, PR, Stroke, CAD, DM SOC: denies smoking. Alcohol, and drugs ROS: 12 points assessed and negative unless otherwise reported in HPI above Present on Admission - Present on Admission Any Indicators Present on Admission: No Past Patient History - Infectious Disease Hx of Infectious Diseases: None - Tetanus Immunizations Tetanus Immunization: Unknown - Past Medical History & Family History Past Medical History?: Yes - Past Social History Smoking Status: Never Smoked - CARDIAC Hx Cardiac Disorders: No Hx Hypertension: No - PULMONARY Hx Respiratory Disorders: Yes Hx Bronchitis: Yes Hx Chronic Obstructive Pulmonary Disease (COPD): No Hx Pneumonia: Yes - NEUROLOGICAL Hx Neurological Disorder: No - HEENT Hx HEENT Problems: Yes Hx Glaucoma: Yes Other/Comment: TMJ - RENAL Hx Chronic Kidney Disease: No - ENDOCRINE/METABOLIC Hx Endocrine Disorders: Yes Hx Hypothyroidism: No - HEMATOLOGICAL/ONCOLOGICAL Hx Blood Disorders: Yes Hx AIDS: No Hx Anemia: Yes Hx Human Immunodeficiency Virus (HIV): No Other/Comment: DVT x 3 - INTEGUMENTARY Hx Dermatological Problems: Yes Hx Cellulitis: Yes (facial) Other/Comment: facial cellulitis x 2. Left lower leg. Wegeners - MUSCULOSKELETAL/RHEUMATOLOGICAL Hx Musculoskeletal Disorders: Yes Hx Arthritis: Yes Hx Falls: No - GASTROINTESTINAL Hx Gastrointestinal Disorders: Yes Hx Gall Bladder Disease: Yes - GENITOURINARY/GYNECOLOGICAL Hx Genitourinary Disorders: Yes Hx Prostate Problems: Yes (BPH) - PSYCHIATRIC Hx Psychophysiologic Disorder: Yes Hx Anxiety: Yes Hx Substance Use: No - SURGICAL HISTORY Hx Surgeries: Yes Hx Cholecystectomy: Yes Hx Herniorrhaphy: Yes (Ventral hernia repair) Other/Comment: Endoscopy - ANESTHESIA Hx Anesthesia: Yes Hx Anesthesia Reactions: No Hx Malignant Hyperthermia: No Has any member of the family had a problem w/ anesthesia?: No Meds Allergies/Adverse Reactions: Allergies Allergy/AdvReac Type Severity Reaction Status Date / Time aspirin Allergy RASH Verified 03/22/18 13:38 naproxen Allergy RASH Verified 03/22/18 13:38 Penicillins Allergy RASH Verified 03/22/18 13:38 Sulfa (Sulfonamide Allergy RASH Verified 03/22/18 13:38 Antibiotics) Physical Exam - Constitutional Appears: Non-toxic, No Acute Distress - Head Exam Head Exam: NORMAL INSPECTION - Eye Exam Eye Exam: Normal appearance - ENT Exam ENT Exam: Mucous Membranes Moist - Neck Exam Neck exam: Positive for: Full Rom - Respiratory Exam Respiratory Exam: Clear to Auscultation Bilateral. absent: Rales, Wheezes - Cardiovascular Exam Cardiovascular Exam: REGULAR RHYTHM, +S1, +S2. absent: Systolic Murmur - GI/Abdominal Exam GI & Abdominal Exam: Normal Bowel Sounds - Exam Exam: Circumcision (Penile shaft diffusely red and tender to palpation. Small white patches presents. No lesions or vesicles noted. No inguinal LAD) - Extremities Exam Additional comments: Left lower extremity, lateral inferior calf- erythema ~8-10cm (marked), tender to palpation, no skin breakdown/boils/blisters, or drainage. Remained of skin normal. Full ROM, no point tenderness over bony regions, good distal pulses, sensorium in tact. Results - Vital Signs Recent Vital Signs: Last Vital Signs Temp 98.9 F 03/23/18 17:07 Pulse 95 H 03/23/18 17:07 Resp 18 03/23/18 17:07 BP 117/66 03/23/18 17:07 Pulse Ox 97 03/23/18 08:27 - Labs Result Diagrams: 03/23/18 06:05 03/23/18 06:05 Labs: Laboratory Results - last 24 hr 03/22/18 03/23/18 03/23/18 21:20 06:05 06:05 WBC 1.8 L* RBC 2.37 L Hgb 8.3 L Hct 25.0 L MCV 105.3 H MCH 34.8 H MCHC 33.1 RDW 16.9 H Plt Count 92 L Sodium 134 Potassium 4.3 Chloride 103 Carbon Dioxide 21 L Anion Gap 14 BUN 19 Creatinine 1.0 Est GFR ( Amer) > 60 Est GFR (Non-Af Amer) > 60 Random Glucose 107 Calcium 9.2 Urine Color Yellow Urine Clarity Clear Urine pH 6.0 Ur Specific [place] 1.050 H Urine Protein Negative Urine Glucose (UA) Neg Urine Ketones Negative Urine Blood Moderate Urine Nitrate Negative Urine Bilirubin Negative Urine Urobilinogen 0.2-1.0 Ur Leukocyte Esterase Neg Urine RBC (Auto) 22 H Urine Microscopic WBC 2 Blood Type Antibody Screen Crossmatch BBK History Checked 03/23/18 11:03 WBC RBC Hgb Hct MCV MCH MCHC RDW Plt Count Sodium Potassium Chloride Carbon Dioxide Anion Gap BUN Creatinine Est GFR ( Amer) Est GFR (Non-Af Amer) Random Glucose Calcium Urine Color Urine Clarity Urine pH Ur Specific [place] Urine Protein Urine Glucose (UA) Urine Ketones Urine Blood Urine Nitrate Urine Bilirubin Urine Urobilinogen Ur Leukocyte Esterase Urine RBC (Auto) Urine Microscopic WBC Blood Type O POSITIVE Antibody Screen Negative Crossmatch See Detail BBK History Checked Patient has bt Assessment & Plan - Assessment and Plan (Free Text) Assessment: 62 y/o man w/ pmh of pancytopenia, BPH s/p prostate surgery ,Wegeners, Hx DVT ( x3), recently treated for left LE cellulitis 1 week ago, admitted for new left lower extremity cellulitis (different location) associated with heel pain and mild chest pain. Cellullitis, LLE, acute -Heel Xray negative for Osteo -Afebrile, non-tachycardic, BP mildly elevated, no signs of sepsis -Vanco changed to Linezolid as per ID,- pt reported adverse affect (balantitis) on administration of Vancomycin Chest pain, intermittent -EKG, Troponin, CT Angio negative -Likely 2.2 to congestion from acute bronchitis Pancytopenia, chronic -f/u w/ Dr. Joslyn Samano, is aware patient is in [facility] -CBC: 2.4>8.2/25.2<101 -S/P Granix and 2 units PRBC -Hemtology on board #Penile pain, acute -May be 2/2 to Candiadasis in setting of antibiotic use and pancytopenia ( immunosuppression) vs reaction to Vancomycin -IV Fluconazole daily -Continue to monitor daily BPH, chronic -Hx of prostate surgery -c/w Flomax -bladder scan, post void residual normal -will consider Urology consult if acute changes Prophylactic measures -DVT: lovenox 40 mg SC daily Discussed case with Dr. Cody Álvarez, PGY2
[2018-03-24 07:03] LABS: BASO % 0.3 % (0.0-2.0); EOS # 0.1 K/uL (0.0-0.7); EOS % 0.6 % (0.0-4.0); HEMOGLOBIN 9.2 g/dL (12.0-18.0); LYMPH # 0.9 K/uL (1.0-4.3); LYMPH % 9.9 % (20.0-40.0); MEAN CELL VOLUME 102.1 fl (80.0-94.0); MEAN CORPUSCULAR HEMOGLOBIN 34.4 pg (27.0-31.0); MEAN CORPUSCULAR HGB CONC 33.7 g/dL (33.0-37.0); MONO # 0.3 K/uL (0.0-0.8); MONO % 3.8 % (0.0-10.0); NEUT # 7.4 K/uL (1.8-7.0); NEUT % 85.4 % (50.0-75.0); PLATELET COUNT 86 K/uL (130-400); RBC 2.67 Mil/uL (4.40-5.90); RED CELL DISTRIBUTION WIDTH 18.2 % (11.5-14.5); WHITE BLOOD COUNT 8.7 K/uL (4.8-10.8)
[2018-03-24 07:35] LABS: ALB/GLOB RATIO 0.9 (1.0-2.1); ALBUMIN 3.6 g/dL (3.5-5.0); ALT/SGPT 24 U/L (21-72); AST/SGOT 19 U/L (17-59); BLOOD UREA NITROGEN 16 mg/dl (9-20); CALCIUM 9.4 mg/dL (8.4-10.2); GFR NON-AFRICAN AMERICAN > 60
[2018-03-24] MEDS: Lactobacillus Acidophilus 500 MU Cap PO SCH ×2 (09:13→16:31)
[2018-03-24] MEDS: Linezolid 600 mg in D5W 300 ml 600 MG/300 ML BAG IVPB SCH ×2 (09:15→21:42)
[2018-03-24] MEDS: Dorzolamide 2% Ophth Soln OU SCH ×2 (09:36→21:43)
[2018-03-24 09:37] LABS: BANDS 3 % (0-2); LYMPHOCYTE 12 % (20-50); MONOCYTE 3 % (0-10); NEUTROPHIL 82 % (42-75); TOTAL CELLS COUNTED 100
[2018-03-24] MEDS: Multivitamin With Minerals Tab PO SCH (09:37)
[2018-03-24 09:38] LABS: HYPOCHROMIC MODERATE; PLATELET ESTIMATE SLIGHTLY DECREASED (NORMAL)
[2018-03-24 09:41] LABS: ANISOCYTOSIS SLIGHT
[2018-03-24] MEDS: Fluconazole IV 200mg/100 ml NS 100 ML IVPB SCH (10:03)
--- NOTE | 2018-03-24 21:21 | CP.PCM.PN ---
Subjective - Date & Time of Evaluation Date of Evaluation: 03/24/18 Time of Evaluation: 09:00 - Subjective Subjective: patient seen and examined at bedside this am. no acute events overnight. penis irritation improved. cellulitis improving. no f/c/n/v. no other complaints at this time. Objective - Vital Signs/Intake and Output Vital Signs (last 24 hours): Temp Pulse Resp BP Pulse Ox 98.9 F 72 18 102/54 L 97 03/24/18 16:04 03/24/18 16:04 03/24/18 16:04 03/24/18 16:04 03/24/18 16:04 - Medications Medications: Current Medications Acetaminophen (Tylenol 325mg Tab) 650 mg PO Q4 PRN PRN Reason: Pain, Mild (1-3) Last Admin: 03/23/18 17:09 Dose: 650 mg Calamine (Calamine Lotion) 1 applic TOP Q6 PRN PRN Reason: Itching / Pruritus Last Admin: 03/23/18 04:35 Dose: 1 applic Docusate Sodium (Colace) 100 mg PO BID [facility] Last Admin: 03/24/18 09:37 Dose: Not Given Dorzolamide HCl (Trusopt) 1 drop OU Q12 [facility] Last Admin: 03/24/18 09:36 Dose: 1 drop Fluconazole (Diflucan Iv 200 Mg/100 Ml Ns) 100 mls @ 100 mls/hr IVPB DAILY [facility] PRN Reason: Protocol Last Admin: 03/24/18 10:03 Dose: 100 mls/hr Linezolid (Zyvox 600mg/300ml D5w) 600 mg in 300 mls @ 300 mls/hr IVPB Q12 [facility] PRN Reason: Protocol Last Admin: 03/24/18 09:15 Dose: 300 mls/hr Lactobacillus Acidophilus (Bacid Acidophilus) 1 cap PO BID [facility] Last Admin: 03/24/18 16:31 Dose: 1 cap Multivitamins/Minerals (Therapeutic-M Tab) 1 tab PO DAILY [facility] Last Admin: 03/24/18 09:37 Dose: 1 tab Promethazine HCl (Phenergan Syrup) 6.25 mg PO Q6 PRN PRN Reason: Cough Last Admin: 03/23/18 15:50 Dose: 6.25 mg Tamsulosin HCl (Flomax) 0.4 mg PO HS [facility] Last Admin: 03/23/18 21:07 Dose: 0.4 mg Timolol Maleate (Timoptic 0.5% Ophth Soln) 1 drop OU Q12 [facility] Last Admin: 03/24/18 09:36 Dose: 1 drop - Labs Labs: 03/24/18 05:20 03/24/18 05:20 PT 14.5 Seconds (9.8-13.1) H 03/22/18 15:40 INR 1.3 03/22/18 15:40 APTT 32.5 Seconds (25.6-37.1) 03/22/18 15:40 - Constitutional Appears: Well, Non-toxic, No Acute Distress - Head Exam Head Exam: NORMAL INSPECTION - Eye Exam Eye Exam: Normal appearance - Neck Exam Neck Exam: Normal Inspection - Respiratory Exam Respiratory Exam: Clear to Ausculation Bilateral, NORMAL BREATHING PATTERN - Cardiovascular Exam Cardiovascular Exam: REGULAR RHYTHM, +S1, +S2. absent: Murmur - Extremities Exam Additional comments: left lower extremitiy cellulitis improving - Neurological Exam Neurological Exam: Alert, Awake - Psychiatric Exam Psychiatric exam: Normal Affect, Normal Mood - Skin Skin Exam: Dry, Intact, Normal Color, Warm Assessment and Plan - Assessment and Plan (Free Text) Assessment: 62 y/o man w/ pmh of pancytopenia, BPH s/p prostate surgery ,Wegeners, Hx DVT ( x3), recently treated for left LE cellulitis 1 week ago, admitted for new left lower extremity cellulitis (different location). Cellullitis, LLE, acute -Heel Xray negative for Osteo -Afebrile, non-tachycardic, BP mildly elevated, no signs of sepsis -Vanco changed to Linezolid as per ID,- pt reported adverse affect (balantitis) on administration of Vancomycin -likely will need elongated course of IV abx, consider PICC Pancytopenia, chronic -f/u w/ Dr. Joslyn Samano -S/P Granix and 2 units PRBC Penile pain, improved -May be 2/2 to Candiadasis in setting of antibiotic use and pancytopenia ( immunosuppression) vs reaction to Vancomycin -IV Fluconazole daily -Continue to monitor daily BPH, chronic -Hx of prostate surgery -c/w Flomax -bladder scan, post void residual normal -will consider Urology consult if acute changes
[2018-03-24] MEDS ORDERED: Saccharomyces Boulardi 250 mg Cap PO SCH (23:45)
[2018-03-25] MEDS: Promethazine 6.25 MG/5 ML CUP PO PRN (01:07)
[2018-03-25] MEDS: Sodium Chloride 0.9% 1,000 ML IV SCH ×2 (01:36→21:39)
[2018-03-25 07:50] LABS: HEMOGLOBIN 10.1 g/dL (12.0-18.0); MEAN CELL VOLUME 101.7 fl (80.0-94.0); MEAN CORPUSCULAR HEMOGLOBIN 34.6 pg (27.0-31.0); MEAN CORPUSCULAR HGB CONC 34.1 g/dL (33.0-37.0); RBC 2.9 Mil/uL (4.40-5.90); RED CELL DISTRIBUTION WIDTH 17.8 % (11.5-14.5); WHITE BLOOD COUNT 10.5 K/uL (4.8-10.8)
[2018-03-25] MEDS: Linezolid 600 mg in D5W 300 ml 600 MG/300 ML BAG IVPB SCH (09:17)
[2018-03-25] MEDS: Lactobacillus Acidophilus 500 MU Cap PO SCH ×2 (09:24→17:01)
[2018-03-25] MEDS: Multivitamin With Minerals Tab PO SCH (09:26)
[2018-03-25] MEDS: Fluconazole IV 200mg/100 ml NS 100 ML IVPB SCH (09:26)
[2018-03-25] MEDS: Dorzolamide 2% Ophth Soln OU SCH ×2 (09:27→21:31)
--- NOTE | 2018-03-25 09:39 | CP.PCM.PN ---
Subjective - Date & Time of Evaluation Date of Evaluation: 03/25/18 Time of Evaluation: 09:36 - Subjective Subjective: Pt is feeling much better as far as his leg is concerned which is much improved. His wbc is 10.2 and the hgb is 10gms as well. He however has had diarrhea continuously since the night. Stools have been sent for c diff determination. Objective - Vital Signs/Intake and Output Vital Signs (last 24 hours): Temp Pulse Resp BP Pulse Ox 97.9 F 84 20 119/69 96 03/25/18 08:42 03/25/18 08:42 03/25/18 08:42 03/25/18 08:42 03/25/18 08:42 - Medications Medications: Current Medications Acetaminophen (Tylenol 325mg Tab) 650 mg PO Q4 PRN PRN Reason: Pain, Mild (1-3) Last Admin: 03/25/18 04:23 Dose: 650 mg Calamine (Calamine Lotion) 1 applic TOP Q6 PRN PRN Reason: Itching / Pruritus Last Admin: 03/23/18 04:35 Dose: 1 applic Docusate Sodium (Colace) 100 mg PO BID [facility] Last Admin: 03/25/18 09:17 Dose: Not Given Dorzolamide HCl (Trusopt) 1 drop OU Q12 [facility] Last Admin: 03/25/18 09:27 Dose: 1 drop Fluconazole (Diflucan Iv 200 Mg/100 Ml Ns) 100 mls @ 100 mls/hr IVPB DAILY [facility] PRN Reason: Protocol Last Admin: 03/25/18 09:26 Dose: 100 mls/hr Linezolid (Zyvox 600mg/300ml D5w) 600 mg in 300 mls @ 300 mls/hr IVPB Q12 [facility] PRN Reason: Protocol Last Admin: 03/25/18 09:17 Dose: Not Given Sodium Chloride (Sodium Chloride 0.9%) 1,000 mls @ 150 mls/hr IV .Q6H40M [facility] Stop: 03/26/18 01:29 Last Admin: 03/25/18 01:36 Dose: 150 mls/hr Lactobacillus Acidophilus (Bacid Acidophilus) 1 cap PO BID [facility] Last Admin: 03/25/18 09:24 Dose: 1 cap Multivitamins/Minerals (Therapeutic-M Tab) 1 tab PO DAILY [facility] Last Admin: 03/25/18 09:26 Dose: 1 tab Promethazine HCl (Phenergan Syrup) 6.25 mg PO Q6 PRN PRN Reason: Cough Last Admin: 03/25/18 01:07 Dose: 6.25 mg Tamsulosin HCl (Flomax) 0.4 mg PO HS [facility] Last Admin: 03/24/18 21:42 Dose: 0.4 mg Timolol Maleate (Timoptic 0.5% Ophth Soln) 1 drop OU Q12 [facility] Last Admin: 03/25/18 09:27 Dose: 1 drop Vancomycin HCl (Vancocin (Oral/Rectal Use)) 250 mg PO QID [facility] PRN Reason: Protocol - Labs Labs: 03/25/18 06:20 03/24/18 05:20 PT 14.5 Seconds (9.8-13.1) H 03/22/18 15:40 INR 1.3 03/22/18 15:40 APTT 32.5 Seconds (25.6-37.1) 03/22/18 15:40
[2018-03-25] MEDS: Vancomycin 500 mg (Oral/Rectal USE) PO SCH ×2 (10:53→13:38)
--- NOTE | 2018-03-25 14:17 | CP.PCM.PN ---
Subjective - Date & Time of Evaluation Date of Evaluation: 03/25/18 Time of Evaluation: 07:00 - Subjective Subjective: c/o diarrhea no fever alert NAD c diff pending Objective - Vital Signs/Intake and Output Vital Signs (last 24 hours): Temp Pulse Resp BP Pulse Ox 97.9 F 84 20 119/69 96 03/25/18 08:42 03/25/18 08:42 03/25/18 08:42 03/25/18 08:42 03/25/18 08:42 - Medications Medications: Current Medications Acetaminophen (Tylenol 325mg Tab) 650 mg PO Q4 PRN PRN Reason: Pain, Mild (1-3) Last Admin: 03/25/18 04:23 Dose: 650 mg Calamine (Calamine Lotion) 1 applic TOP Q6 PRN PRN Reason: Itching / Pruritus Last Admin: 03/23/18 04:35 Dose: 1 applic Docusate Sodium (Colace) 100 mg PO BID [facility] Last Admin: 03/25/18 09:17 Dose: Not Given Dorzolamide HCl (Trusopt) 1 drop OU Q12 [facility] Last Admin: 03/25/18 09:27 Dose: 1 drop Linezolid (Zyvox 600mg/300ml D5w) 600 mg in 300 mls @ 300 mls/hr IVPB Q12 [facility] PRN Reason: Protocol Last Admin: 03/25/18 09:17 Dose: Not Given Sodium Chloride (Sodium Chloride 0.9%) 1,000 mls @ 150 mls/hr IV .Q6H40M [facility] Stop: 03/26/18 01:29 Last Admin: 03/25/18 01:36 Dose: 150 mls/hr Lactobacillus Acidophilus (Bacid Acidophilus) 1 cap PO BID [facility] Last Admin: 03/25/18 09:24 Dose: 1 cap Loperamide HCl (Imodium) 2 mg PO QID PRN PRN Reason: Diarrhea Multivitamins/Minerals (Therapeutic-M Tab) 1 tab PO DAILY [facility] Last Admin: 03/25/18 09:26 Dose: 1 tab Promethazine HCl (Phenergan Syrup) 6.25 mg PO Q6 PRN PRN Reason: Cough Last Admin: 03/25/18 01:07 Dose: 6.25 mg Tamsulosin HCl (Flomax) 0.4 mg PO HS [facility] Last Admin: 03/24/18 21:42 Dose: 0.4 mg Timolol Maleate (Timoptic 0.5% Ophth Soln) 1 drop OU Q12 [facility] Last Admin: 03/25/18 09:27 Dose: 1 drop Vancomycin HCl (Vancocin (Oral/Rectal Use)) 250 mg PO QID [facility] PRN Reason: Protocol Last Admin: 03/25/18 13:38 Dose: 250 mg - Labs Labs: 03/25/18 06:20 03/24/18 05:20 PT 14.5 Seconds (9.8-13.1) H 03/22/18 15:40 INR 1.3 03/22/18 15:40 APTT 32.5 Seconds (25.6-37.1) 03/22/18 15:40 - Constitutional Appears: Non-toxic, Chronically Ill - Head Exam Head Exam: NORMOCEPHALIC - Eye Exam Eye Exam: absent: Scleral icterus - ENT Exam ENT Exam: Mucous Membranes Dry - Neck Exam Neck Exam: absent: Lymphadenopathy - Respiratory Exam Respiratory Exam: Decreased Breath Sounds - Cardiovascular Exam Cardiovascular Exam: REGULAR RHYTHM - GI/Abdominal Exam GI & Abdominal Exam: Distended, Soft - Rectal Exam Rectal Exam: Deferred - Exam Exam: NORMAL INSPECTION - Extremities Exam Extremities Exam: Pedal Edema, Tenderness Additional comments: redness left leg ++ - Back Exam Back Exam: absent: CVA tenderness (L), paraspinal tenderness - Neurological Exam Neurological Exam: Alert, Awake, CN II-XII Intact - Psychiatric Exam Psychiatric exam: Normal Mood - Skin Skin Exam: Dry Assessment and Plan (1) Cellulitis Status: Acute (2) Pancytopenia Status: Acute - Assessment and Plan (Free Text) Assessment: add cubicin zyvox d/c due to diarrhea has MDS - risk for spread of infection c diff negative d/c po vanco
--- NOTE | 2018-03-25 16:20 | CP.PCM.PN ---
Subjective - Date & Time of Evaluation Date of Evaluation: 03/25/18 Time of Evaluation: 10:00 - Subjective Subjective: patient seen and examined at bedside. multiple bouts of diarrhea overnight. denies blood in stool. no fever/chills. no other complaints offered at this time. states improvement of cellulitis from yesterday. Objective - Vital Signs/Intake and Output Vital Signs (last 24 hours): Temp Pulse Resp BP Pulse Ox 97.9 F 84 20 119/69 96 03/25/18 08:42 03/25/18 08:42 03/25/18 08:42 03/25/18 08:42 03/25/18 08:42 - Medications Medications: Current Medications Acetaminophen (Tylenol 325mg Tab) 650 mg PO Q4 PRN PRN Reason: Pain, Mild (1-3) Last Admin: 03/25/18 04:23 Dose: 650 mg Calamine (Calamine Lotion) 1 applic TOP Q6 PRN PRN Reason: Itching / Pruritus Last Admin: 03/23/18 04:35 Dose: 1 applic Docusate Sodium (Colace) 100 mg PO BID [facility] Last Admin: 03/25/18 09:17 Dose: Not Given Dorzolamide HCl (Trusopt) 1 drop OU Q12 [facility] Last Admin: 03/25/18 09:27 Dose: 1 drop Sodium Chloride (Sodium Chloride 0.9%) 1,000 mls @ 150 mls/hr IV .Q6H40M [facility] Stop: 03/26/18 01:29 Last Admin: 03/25/18 01:36 Dose: 150 mls/hr Daptomycin 500 mg/ Sodium (Chloride) 100 mls @ 100 mls/hr IVPB DAILY [facility] PRN Reason: Protocol Stop: 03/30/18 15:01 Lactobacillus Acidophilus (Bacid Acidophilus) 1 cap PO BID [facility] Last Admin: 03/25/18 09:24 Dose: 1 cap Loperamide HCl (Imodium) 2 mg PO QID PRN PRN Reason: Diarrhea Multivitamins/Minerals (Therapeutic-M Tab) 1 tab PO DAILY [facility] Last Admin: 03/25/18 09:26 Dose: 1 tab Mupirocin (Bactroban Ointment) 1 applic TOP BID [facility] Promethazine HCl (Phenergan Syrup) 6.25 mg PO Q6 PRN PRN Reason: Cough Last Admin: 03/25/18 01:07 Dose: 6.25 mg Tamsulosin HCl (Flomax) 0.4 mg PO HS [facility] Last Admin: 03/24/18 21:42 Dose: 0.4 mg Timolol Maleate (Timoptic 0.5% Ophth Soln) 1 drop OU Q12 [facility] Last Admin: 03/25/18 09:27 Dose: 1 drop - Labs Labs: 03/25/18 06:20 03/24/18 05:20 PT 14.5 Seconds (9.8-13.1) H 03/22/18 15:40 INR 1.3 03/22/18 15:40 APTT 32.5 Seconds (25.6-37.1) 03/22/18 15:40 - Additional Findings Additional findings: - Constitutional Appears: Well, Non-toxic, No Acute Distress - Head Exam Head Exam: NORMAL INSPECTION - Eye Exam Eye Exam: Normal appearance - Neck Exam Neck Exam: Normal Inspection - Respiratory Exam Respiratory Exam: Clear to Ausculation Bilateral, NORMAL BREATHING PATTERN - Cardiovascular Exam Cardiovascular Exam: REGULAR RHYTHM, +S1, +S2. absent: Murmur - Extremities Exam Additional comments: left lower extremitiy cellulitis improving - Neurological Exam Neurological Exam: Alert, Awake - Psychiatric Exam Psychiatric exam: Normal Affect, Normal Mood - Skin Skin Exam: Dry, Intact, Normal Color, Warm Assessment and Plan - Assessment and Plan (Free Text) Assessment: 62 y/o man w/ pmh of pancytopenia, BPH s/p prostate surgery ,Wegeners, Hx DVT ( x3), recently treated for left LE cellulitis 1 week ago, admitted for new left lower extremity cellulitis (different location) as well as failure of outpatient treatment Cellullitis, LLE, acute -Heel Xray negative for Osteo -Afebrile, non-tachycardic, BP mildly elevated, no signs of sepsis -ID following, appreciate reccomendations -likely will need elongated course of IV abx, consider PICC Diarrhea c-diff negative likely abx associated will give symptomatic relief with loperamide c/w probiotics Pancytopenia, chronic -f/u w/ Dr. Joslyn Samano -S/P Granix x 2 and 2 units PRBC Penile pain, resolved -d/c fluconazole BPH, chronic -Hx of prostate surgery -c/w Flomax
[2018-03-25] MEDS: Mupirocin 2% Oint 1GM UD TOP SCH (17:02)
[2018-03-25] MEDS: DAPTOmycin 500 MG in Sodium Chloride 0.9% 100 ML IVPB SCH (17:03)
[2018-03-26] MEDS: Sodium Chloride 0.9% 1,000 ML IV SCH ×2 (05:49→16:58)
[2018-03-26 06:21] LABS: MEAN CELL VOLUME 102.7 fl (80.0-94.0); MEAN CORPUSCULAR HEMOGLOBIN 34.1 pg (27.0-31.0); MEAN CORPUSCULAR HGB CONC 33.2 g/dL (33.0-37.0); RBC 2.94 Mil/uL (4.40-5.90); RED CELL DISTRIBUTION WIDTH 17.9 % (11.5-14.5); WHITE BLOOD COUNT 4.2 K/uL (4.8-10.8)
[2018-03-26 06:28] LABS: ALB/GLOB RATIO 0.9 (1.0-2.1); ALBUMIN 3.5 g/dL (3.5-5.0); ALT/SGPT 20 U/L (21-72); AST/SGOT 16 U/L (17-59); BLOOD UREA NITROGEN 10 mg/dl (9-20); CALCIUM 9.2 mg/dL (8.4-10.2); GFR NON-AFRICAN AMERICAN > 60
[2018-03-26] MEDS: Lactobacillus Acidophilus 500 MU Cap PO SCH ×2 (08:43→16:17)
[2018-03-26] MEDS: DAPTOmycin 500 MG in Sodium Chloride 0.9% 100 ML IVPB SCH (08:44)
[2018-03-26] MEDS: Multivitamin With Minerals Tab PO SCH (08:46)
[2018-03-26] MEDS: Dorzolamide 2% Ophth Soln OU SCH ×2 (08:46→21:45)
[2018-03-26] MEDS: Mupirocin 2% Oint 1GM UD TOP SCH ×2 (08:47→16:19)
--- NOTE | 2018-03-26 09:33 | CP.PCM.PN ---
Subjective - Date & Time of Evaluation Date of Evaluation: 03/26/18 Time of Evaluation: 09:31 - Subjective Subjective: Pt is feeling much better. There is a mary jo small area of redness in the left lower extremity. no more diarrhea. Still on antibiotics His wbc today was 4.1 and hgb 10.4gms. Objective - Vital Signs/Intake and Output Vital Signs (last 24 hours): Temp Pulse Resp BP Pulse Ox 98.8 F 87 20 121/72 98 03/26/18 00:11 03/26/18 00:11 03/26/18 00:11 03/26/18 00:11 03/26/18 00:11 - Medications Medications: Current Medications Acetaminophen (Tylenol 325mg Tab) 650 mg PO Q4 PRN PRN Reason: Pain, Mild (1-3) Last Admin: 03/26/18 05:45 Dose: 650 mg Calamine (Calamine Lotion) 1 applic TOP Q6 PRN PRN Reason: Itching / Pruritus Last Admin: 03/23/18 04:35 Dose: 1 applic Docusate Sodium (Colace) 100 mg PO BID [facility] Last Admin: 03/26/18 08:45 Dose: Not Given Dorzolamide HCl (Trusopt) 1 drop OU Q12 [facility] Last Admin: 03/26/18 08:46 Dose: 1 drop Daptomycin 500 mg/ Sodium (Chloride) 100 mls @ 100 mls/hr IVPB DAILY [facility] PRN Reason: Protocol Stop: 03/30/18 15:01 Last Admin: 03/26/18 08:44 Dose: 100 mls/hr Sodium Chloride (Sodium Chloride 0.9%) 1,000 mls @ 100 mls/hr IV .Q10H [facility] Stop: 03/26/18 21:24 Last Admin: 03/26/18 05:49 Dose: 100 mls/hr Lactobacillus Acidophilus (Bacid Acidophilus) 1 cap PO BID [facility] Last Admin: 03/26/18 08:43 Dose: 1 cap Loperamide HCl (Imodium) 2 mg PO QID PRN PRN Reason: Diarrhea Multivitamins/Minerals (Therapeutic-M Tab) 1 tab PO DAILY [facility] Last Admin: 03/26/18 08:46 Dose: 1 tab Mupirocin (Bactroban Ointment) 1 applic TOP BID [facility] Last Admin: 03/26/18 08:47 Dose: 1 applic Promethazine HCl (Phenergan Syrup) 6.25 mg PO Q6 PRN PRN Reason: Cough Last Admin: 03/25/18 01:07 Dose: 6.25 mg Tamsulosin HCl (Flomax) 0.4 mg PO HS [facility] Last Admin: 03/25/18 21:31 Dose: 0.4 mg Timolol Maleate (Timoptic 0.5% Ophth Soln) 1 drop OU Q12 [facility] Last Admin: 03/26/18 08:46 Dose: 1 drop - Labs Labs: 03/26/18 05:40 03/26/18 05:40 PT 14.5 Seconds (9.8-13.1) H 03/22/18 15:40 INR 1.3 03/22/18 15:40 APTT 32.5 Seconds (25.6-37.1) 03/22/18 15:40
--- NOTE | 2018-03-26 10:35 | CP.PCM.PCO ---
Physician Communication Note - Physician Communication Note Physician Communication Note: Pt requires IV antibiotics, Daptomycin x 7 more days
--- NOTE | 2018-03-26 11:31 | CP.PCM.PN ---
Subjective - Date & Time of Evaluation Date of Evaluation: 03/26/18 Time of Evaluation: 11:30 - Subjective Subjective: patient seen and examined at bedside. diarrhea has improved. no other complaints offered at this time. states improvement of cellulitis from yesterday. no f/c/n/v. Objective - Vital Signs/Intake and Output Vital Signs (last 24 hours): Temp Pulse Resp BP Pulse Ox 98.6 F 80 18 123/69 96 03/26/18 08:30 03/26/18 08:30 03/26/18 08:30 03/26/18 08:30 03/26/18 08:30 - Medications Medications: Current Medications Acetaminophen (Tylenol 325mg Tab) 650 mg PO Q4 PRN PRN Reason: Pain, Mild (1-3) Last Admin: 03/26/18 05:45 Dose: 650 mg Calamine (Calamine Lotion) 1 applic TOP Q6 PRN PRN Reason: Itching / Pruritus Last Admin: 03/23/18 04:35 Dose: 1 applic Docusate Sodium (Colace) 100 mg PO BID [facility] Last Admin: 03/26/18 08:45 Dose: Not Given Dorzolamide HCl (Trusopt) 1 drop OU Q12 [facility]AS[facility] Last Admin: 03/26/18 08:46 Dose: 1 drop Daptomycin 500 mg/ Sodium (Chloride) 100 mls @ 100 mls/hr IVPB DAILY [facility] PRN Reason: Protocol Stop: 03/30/18 15:01 Last Admin: 03/26/18 08:44 Dose: 100 mls/hr Sodium Chloride (Sodium Chloride 0.9%) 1,000 mls @ 100 mls/hr IV .Q10H KWASI Stop: 03/26/18 21:24 Last Admin: 03/26/18 05:49 Dose: 100 mls/hr Lactobacillus Acidophilus (Bacid Acidophilus) 1 cap PO BID [facility] Last Admin: 03/26/18 08:43 Dose: 1 cap Loperamide HCl (Imodium) 2 mg PO QID PRN PRN Reason: Diarrhea Multivitamins/Minerals (Therapeutic-M Tab) 1 tab PO DAILY [facility] Last Admin: 03/26/18 08:46 Dose: 1 tab Mupirocin (Bactroban Ointment) 1 applic TOP BID [facility] Last Admin: 03/26/18 08:47 Dose: 1 applic Promethazine HCl (Phenergan Syrup) 6.25 mg PO Q6 PRN PRN Reason: Cough Last Admin: 03/25/18 01:07 Dose: 6.25 mg Tamsulosin HCl (Flomax) 0.4 mg PO HS [facility] Last Admin: 03/25/18 21:31 Dose: 0.4 mg Timolol Maleate (Timoptic 0.5% Ophth Soln) 1 drop OU Q12 KWASI Last Admin: 03/26/18 08:46 Dose: 1 drop - Labs Labs: 03/26/18 05:40 03/26/18 05:40 PT 14.5 Seconds (9.8-13.1) H 03/22/18 15:40 INR 1.3 03/22/18 15:40 APTT 32.5 Seconds (25.6-37.1) 03/22/18 15:40 - Additional Findings Additional findings: - Constitutional Appears: Well, Non-toxic, No Acute Distress - Head Exam Head Exam: NORMAL INSPECTION - Eye Exam Eye Exam: Normal appearance - Neck Exam Neck Exam: Normal Inspection - Respiratory Exam Respiratory Exam: Clear to Ausculation Bilateral, NORMAL BREATHING PATTERN - Cardiovascular Exam Cardiovascular Exam: REGULAR RHYTHM, +S1, +S2. absent: Murmur - Extremities Exam Additional comments: left lower extremitiy cellulitis improving - Neurological Exam Neurological Exam: Alert, Awake - Psychiatric Exam Psychiatric exam: Normal Affect, Normal Mood - Skin Skin Exam: Dry, Intact, Normal Color, Warm Assessment and Plan - Assessment and Plan (Free Text) Assessment: 62 y/o man w/ pmh of pancytopenia, BPH s/p prostate surgery ,Wegeners, Hx DVT ( x3), recently treated for left LE cellulitis 1 week ago, admitted for new left lower extremity cellulitis (different location) as well as failure of outpatient treatment. diarrhea improved. cellulitis improved. Cellullitis, LLE, acute -ID following, appreciate reccomendations -needs 7 days of IV abx Diarrhea c-diff negative likely abx associated, abx management changed will give symptomatic relief with loperamide prn c/w probiotics Pancytopenia, chronic -f/u w/ Dr. Joslyn Samano -S/P Granix x 2 and 2 units PRBC BPH, chronic -Hx of prostate surgery -c/w Flomax
--- NOTE | 2018-03-27 08:22 | CP.PCM.PN ---
Subjective - Date & Time of Evaluation Date of Evaluation: 03/27/18 Time of Evaluation: 08:19 - Subjective Subjective: Pt c/o constipation and is getting very irritable. He has a swelling which is part of his disease and he has been asked by his stamp clerk to take prednisone whenever that happens. He is still on the antibiotics. Objective - Vital Signs/Intake and Output Vital Signs (last 24 hours): Temp Pulse Resp BP Pulse Ox 98.8 F 80 20 124/74 98 03/26/18 23:45 03/26/18 23:45 03/26/18 23:45 03/26/18 23:45 03/26/18 23:45 - Medications Medications: Current Medications Acetaminophen (Tylenol 325mg Tab) 650 mg PO Q4 PRN PRN Reason: Pain, Mild (1-3) Last Admin: 03/26/18 20:21 Dose: 650 mg Calamine (Calamine Lotion) 1 applic TOP Q6 PRN PRN Reason: Itching / Pruritus Last Admin: 03/23/18 04:35 Dose: 1 applic Docusate Sodium (Colace) 100 mg PO BID [facility] Last Admin: 03/26/18 16:18 Dose: 100 mg Dorzolamide HCl (Trusopt) 1 drop OU Q12 KWASI Last Admin: 03/26/18 21:45 Dose: 1 drop Daptomycin 500 mg/ Sodium (Chloride) 100 mls @ 100 mls/hr IVPB DAILY [facility]; Protocol Stop: 03/30/18 15:01 Last Admin: 03/26/18 08:44 Dose: 100 mls/hr Lactobacillus Acidophilus (Bacid Acidophilus) 1 cap PO BID [facility] Last Admin: 03/26/18 16:17 Dose: 1 cap Loperamide HCl (Imodium) 2 mg PO QID PRN PRN Reason: Diarrhea Multivitamins/Minerals (Therapeutic-M Tab) 1 tab PO DAILY [facility] Last Admin: 03/26/18 08:46 Dose: 1 tab Mupirocin (Bactroban Ointment) 1 applic TOP BID [facility] Last Admin: 03/26/18 16:19 Dose: 1 applic Promethazine HCl (Phenergan Syrup) 6.25 mg PO Q6 PRN PRN Reason: Cough Last Admin: 03/25/18 01:07 Dose: 6.25 mg Tamsulosin HCl (Flomax) 0.4 mg PO [facility] Last Admin: 03/26/18 21:45 Dose: 0.4 mg Timolol Maleate (Timoptic 0.5% Oph Soln) 1 drop OU Q12 KWASI Last Admin: 03/26/18 21:45 Dose: 1 drop - Labs Labs: 03/26/18 05:40 03/26/18 05:40 PT 14.5 Seconds (9.8-13.1) H 03/22/18 15:40 INR 1.3 03/22/18 15:40 APTT 32.5 Seconds (25.6-37.1) 03/22/18 15:40
[2018-03-27 08:27] VITALS: RESP 18
[2018-03-27] MEDS ORDERED: Lidocaine 1% 5ml Abboject ONE (14:45)
--- NOTE | 2018-03-27 15:00 | PCM.SURG1 ---
Surgeon's Initial Post Op Note - Surgeon's Notes Surgeon: Celestino Longoria MD Bakery Helper: NONE Type of Anesthesia: Local Pre-Operative Diagnosis: Cellulitis Operative Findings: US showed patent right brachial vein Post-Operative Diagnosis: Cellulitis Operation Performed: Single lumen picc right arm, 43 cm. Tip in SVC Specimen/Specimens Removed: NONE Estimated Blood Loss: EBL {In ML}: 3 Blood Products Given: N/A Drains Used: No Drains Post-Op Condition: Fair Date of Surgery/Procedure: 03/27/18 Time of Surgery/Procedure: 15:00
--- NOTE | 2018-03-27 15:21 | VASCULAR ---
PROCEDURE: Date of procedure: 03/27/2018 Procedure: 1. Placement of a right arm PICC with ultrasound and fluoroscopic guidance, CPT 00692 2. PICC tip confirmation with spot radiograph and is in the superior vena cava Medications: 1 percent lidocaine Total Fluoro time: 2.6 Seconds Radiation: 0.32 mGy EBL: 2 cc HISTORY: Cellulitis requiring long-term IV antibiotics TECHNIQUE: Following informed consent and procedure time-out, the patient was placed supine on the interventional table and the right arm prepped and draped in the usual sterile fashion. Ultrasound showed a patent and compressible right brachial vein. After the skin was anesthetized with lidocaine, the brachial vein was accessed with micro micropuncture technique using ultrasound guidance. A guidewire was then advanced under fluoroscopic guidance into the superior vena cava. An image documenting ultrasound guidance for vascular access was permanently saved. The length of the single-lumen 4 [place] PICC was trimmed to 43 centimeters and advanced through a peel-away sheath. The PICC was position with tip of PICC confirm a spot radiograph the superior vena cava. The PICC was secured to the patient's skin. The PICC was flushed. A biopatch and sterile dressing was applied. IMPRESSION: Placement of a single-lumen 4 [place] PICC trimmed to 43 centimeters via right brachial vein. The tip of the PICC is confirmed with spot radiograph and is in the superior vena cava.
[2018-03-27] MEDS: DAPTOmycin 500 MG in Sodium Chloride 0.9% 100 ML IVPB SCH (15:30)
[2018-03-27 16:21] VITALS: BP 120/72; PULSE 59; TEMP 98.6; O2SAT 98
[2018-03-27] MEDS: Mupirocin 2% Oint 1GM UD TOP SCH (17:15)
[2018-03-27] MEDS: Lactobacillus Acidophilus 500 MU Cap PO SCH (17:15)
--- NOTE | 2018-03-27 18:21 | CP.PCM.DIS ---
Provider - Provider Date of Admission: 03/26/18 14:45 Attending physician: Michael Ross MD Time Spent in preparation of Discharge (in minutes): 35 Diagnosis - Discharge Diagnosis (1) Cellulitis Status: Acute (2) Pancytopenia Status: Chronic Hospital Course - Lab Results Lab Results: Micro Results 03/22/18 15:40 Blood Blood Culture - Final NO GROWTH AFTER 5 DAYS 03/22/18 15:40 Blood Gram Stain - Final TEST NOT PERFORMED 03/22/18 16:00 Blood Blood Culture - Final NO GROWTH AFTER 5 DAYS 03/22/18 16:00 Blood Gram Stain - Final TEST NOT PERFORMED 03/23/18 06:48 Urine Urine Culture - Final No Growth (<1,000 CFU/ML) Most Recent Lab Values WBC 4.2 K/uL (4.8-10.8) L D 03/26/18 05:40 RBC 2.94 Mil/uL (4.40-5.90) L 03/26/18 05:40 Hgb 10.0 g/dL (12.0-18.0) L 03/26/18 05:40 Hct 30.1 % (35.0-51.0) L 03/26/18 05:40 MCV 102.7 fl (80.0-94.0) H 03/26/18 05:40 MCH 34.1 pg (27.0-31.0) H 03/26/18 05:40 MCHC 33.2 g/dL (33.0-37.0) 03/26/18 05:40 RDW 17.9 % (11.5-14.5) H 03/26/18 05:40 Plt Count 95 K/uL (130-400) L 03/26/18 05:40 MPV 9.0 fl (7.2-11.7) 03/24/18 05:20 Neut % (Auto) 85.4 % (50.0-75.0) H 03/24/18 05:20 Lymph % (Auto) 9.9 % (20.0-40.0) L 03/24/18 05:20 [place] % (Auto) 3.8 % (0.0-10.0) 03/24/18 05:20 Eos % (Auto) 0.6 % (0.0-4.0) 03/24/18 05:20 Baso % (Auto) 0.3 % (0.0-2.0) 03/24/18 05:20 Neut # (Auto) 7.4 K/uL (1.8-7.0) H 03/24/18 05:20 Lymph # (Auto) 0.9 K/uL (1.0-4.3) L 03/24/18 05:20 [place] # (Auto) 0.3 K/uL (0.0-0.8) 03/24/18 05:20 Eos # (Auto) 0.1 K/uL (0.0-0.7) 03/24/18 05:20 Baso # (Auto) 0.0 K/uL (0.0-0.2) 03/24/18 05:20 Neutrophils % (Manual) 82 % (42-75) H 03/24/18 05:20 Band Neutrophils % 3 % (0-2) H 03/24/18 05:20 Lymphocytes % (Manual) 12 % (20-50) L 03/24/18 05:20 Monocytes % (Manual) 3 % (0-10) 03/24/18 05:20 Platelet Estimate Slightly decreased (NORMAL) L 03/24/18 05:20 Hypochromasia (manual) Moderate 03/24/18 05:20 Anisocytosis (manual) Slight 03/24/18 05:20 Macrocytosis (manual) Moderate 03/24/18 05:20 PT 14.5 Seconds (9.8-13.1) H 03/22/18 15:40 INR 1.3 03/22/18 15:40 APTT 32.5 Seconds (25.6-37.1) 03/22/18 15:40 D-Dimer, Quantitative 567 ng/mlDDU (0-230) H 03/22/18 15:40 Sodium 139 mmol/l (132-148) 03/26/18 05:40 Potassium 4.3 MMOL/L (3.6-5.0) 03/26/18 05:40 Chloride 110 mmol/L (98-107) H 03/26/18 05:40 Carbon Dioxide 21 mmol/L (22-30) L 03/26/18 05:40 Anion Gap 12 (10-20) 03/26/18 05:40 BUN 10 mg/dl (9-20) 03/26/18 05:40 Creatinine 1.0 mg/dl (0.8-1.5) 03/26/18 05:40 Est GFR ( Amer) > 60 03/26/18 05:40 Est GFR (Non-Af Amer) > 60 03/26/18 05:40 Random Glucose 86 mg/dL (75-110) 03/26/18 05:40 Calcium 9.2 mg/dL (8.4-10.2) 03/26/18 05:40 Total Bilirubin 0.2 mg/dl (0.2-1.3) 03/26/18 05:40 AST 16 U/L (17-59) L 03/26/18 05:40 ALT 20 U/L (21-72) L 03/26/18 05:40 Alkaline Phosphatase 83 U/L (38-126) 03/26/18 05:40 Total Creatine Kinase 21 U/L (55-170) L 03/27/18 05:50 Troponin I < 0.0120 ng/mL (0.00-0.120) 03/22/18 15:40 Total Protein 7.5 G/DL (6.3-8.2) 03/26/18 05:40 Albumin 3.5 g/dL (3.5-5.0) 03/26/18 05:40 Globulin 4.0 gm/dL (2.2-3.9) H 03/26/18 05:40 Albumin/Globulin Ratio 0.9 (1.0-2.1) L 03/26/18 05:40 Urine Color Yellow (YELLOW) 03/22/18 21:20 Urine Clarity Clear (Clear) 03/22/18 21:20 Urine pH 6.0 (5.0-8.0) 03/22/18 21:20 Ur Specific [place] 1.050 (1.003-1.030) H 03/22/18 21:20 Urine Protein Negative mg/dL (NEGATIVE) 03/22/18 21:20 Urine Glucose (UA) Neg mg/dL (Normal) 03/22/18 21:20 Urine Ketones Negative mg/dL (NEGATIVE) 03/22/18 21:20 Urine Blood Moderate (NEGATIVE) 03/22/18 21:20 Urine Nitrate Negative (NEGATIVE) 03/22/18 21:20 Urine Bilirubin Negative (NEGATIVE) 03/22/18 21:20 Urine Urobilinogen 0.2-1.0 mg/dL (0.2-1.0) 03/22/18 21:20 Ur Leukocyte Esterase Neg Maru/uL (Negative) 03/22/18 21:20 Urine RBC (Auto) 22 /hpf (0-3) H 03/22/18 21:20 Urine Microscopic WBC 2 /hpf (0-5) 03/22/18 21:20 C. difficile Ag & Toxin Negative (NEGATIVE) 03/24/18 05:30 Blood Type O POSITIVE 03/23/18 11:03 Antibody Screen Negative 03/23/18 11:03 Crossmatch See Detail 03/23/18 11:03 BBK History Checked Patient has bt 03/23/18 11:03 - Hospital Course Hospital Course: 62 y/o man w/ pmhx of pancytopenia, BPH s/p prostate surgery ,Wegeners, Hx DVT (x3), recently treated for left LE cellulites 1 week ago, admitted for new left lower extremity cellulites (different location) after failing outpatient treatment. Pt was initally treated with Zyvox but was changed to Daptomycin after he experienced bouts of diarrhea as per ID (Cdiff negative). Pt had picc placed and was discharged with instructions to receive IV abx daily for a total of 7 days. During his stay, pt found to have pancytopenia which is chronic. Hematology, Dr. Channing Samano consulted and pt received 1 dose of granix and was transfused 2 units PRBC. Discharge Medication: Dpatomycin 500mg IV daily x 6days Discharge Instructions: Report to Same Day surgery daily for IV ABX. F/U with Dr. Samano for pancytpenia. F/U with PMD in [address] case [address] Dr[address] Cody Álvarez, PGY2 Discharge Exam - Head Exam Head Exam: NORMOCEPHALIC Discharge Plan - Discharge Medications Prescriptions: DAPTOmycin [Cubicin] 500 mg IV DAILY #6 vial - Follow Up Plan Condition: STABLE Disposition: HOME/ ROUTINE Instructions: Peripherally-Inserted Central Catheter (DC), Cellulitis (DC), Cellulitis (GEN), Bone Marrow Failure in Children (DC), Bone Marrow Failure in Children (GEN) Additional Instructions: return daily for IV antibiotic medication for 7 days monday through monday to 7th floor at 1:30pm monday and monday to emergency room
== END 2018-03-27 18:10 | disposition home or self-care (01) | DRG 603 ==
LOC: H.ER 13:34 → H.ERHOLD 20:43 → H.MEDSURG1 21:20 → OBSVTOIN 03-26 14:45
PROVIDERS: ADMIT Family Medicine; ATTEND Family Medicine
PROC: 30233N1 Transfusion of Nonautologous Red Blood Cells into Peripheral Vein, Percutaneous Approach (ICD-10-PCS; principal; 2018-03-23)
PROC: 02HV33Z Insertion of Infusion Device into Superior Vena Cava, Percutaneous Approach (ICD-10-PCS; 2018-03-26)
PROC: B518ZZA Fluoroscopy of Superior Vena Cava, Guidance (ICD-10-PCS; 2018-03-26)
PROC: B548ZZA Ultrasonography of Superior Vena Cava, Guidance (ICD-10-PCS; 2018-03-26)
DX: L03.116 Cellulitis of left lower limb (principal); D61.818 Other pancytopenia; M94.1 Relapsing polychondritis; N40.0 Benign prostatic hyperplasia without lower urinary tract symptoms; Z86.718 Personal history of other venous thrombosis and embolism; Z87.01 Personal history of pneumonia (recurrent); Z90.49 Acquired absence of other specified parts of digestive tract; D89.89 Other specified disorders involving the immune mechanism, not elsewhere classified; D64.89 Other specified anemias; F41.9 Anxiety disorder, unspecified; F45.9 Somatoform disorder, unspecified; K82.9 Disease of gallbladder, unspecified; M19.90 Unspecified osteoarthritis, unspecified site; L27.0 Generalized skin eruption due to drugs and medicaments taken internally; T36.8X5A Adverse effect of other systemic antibiotics, initial encounter; Y92.239 Unspecified place in hospital as the place of occurrence of the external cause; H40.9 Unspecified glaucoma; J20.9 Acute bronchitis, unspecified

== ENCOUNTER 2018-05-11 13:20 | Emergency (ER) | payer MEDICARE ==
[2018-05-11 13:20] VITALS: BMI 26.2
[2018-05-11 13:25] VITALS: TEMP 97.8; O2SAT 100
--- NOTE | 2018-05-11 13:44 | ED PDOC ---
HPI: Abdomen Time Seen by Provider: 05/11/18 13:30 Chief Complaint (Nursing): Abdominal Pain Chief Complaint (Provider): Abdominal Pain History Per: Patient History/Exam Limitations: no limitations Onset/Duration Of Symptoms: Days (x2) Current Symptoms Are (Timing): Still Present Location Of Pain/Discomfort: Suprapubic Associated Symptoms: Constipation Additional Complaint(s): 62 y/o male presents to the ED complaining of lower abdominal pain that began 2 days ago. Patient describes the pain as non-radiating, constant, but waxing and waning. Reports PMHx of diverticulitis, had follow up with Dr. Avelar yesterday and was instructed to come to the ED if pain worsened. Patient denies any nausea, vomiting, diarrhea, fever, chills, urinary retention, hematuria, or incontinence. States he is s/p prostate surgery by Dr. Gonzales and takes Flomax at night. Also complains of occasional constipation and straining to move bowels, last bowel movement was yesterday. PMD: Dr. Foy Past Medical History Reviewed: Historical Data, Nursing Documentation, Vital Signs Vital Signs: Last Vital Signs Temp 97.8 F 05/11/18 13:22 Pulse 105 H 05/11/18 13:22 Resp 16 05/11/18 13:22 BP 137/79 05/11/18 13:22 Pulse Ox 100 05/11/18 13:22 - Medical History PMH: Anemia, Anxiety, Arthritis, Benign Prostatic Hyperplasia, Bronchitis, Diverticulitis, Deep Vein Thrombosis (x3), Gall Bladder Disease, Pneumonia Denies: COPD, HIV, HTN, Hypothyroidism, Chronic Kidney Disease - Surgical History Surgical History: Cholecystectomy, Endoscopy, Hernia Repair (ventral) Other surgeries: Prostate surgery with Dr. Gonzales - Family History Family History: States: Unknown Family Hx - Immunization History Hx Influenza Vaccination: Yes Hx Pneumococcal Vaccination: Yes - Home Medications Home Medications: Ambulatory Orders Medication Instructions Recorded Tamsulosin [Flomax] 0.4 mg PO HS 07/25/17 Multivitamin [Daily She] 1 tab PO DAILY 10/02/17 Dorzolamide 2%/Timolol 0.5% 1 drop EACHEYE Q12 03/22/18 [Cosopt 2%-0.5% Opht] Filgrastim [Neupogen] 480 mcg IJ QWK 03/30/18 Latanoprost [Xalatan] 1 drop EACHEYE HS 05/11/18 Sennosides [Senna-Gen] 1 - 2 tab PO DAILY #30 tablet 05/11/18 predniSONE [predniSONE Tab] 20 mg PO DAILY 05/11/18 - Allergies Allergies/Adverse Reactions: Allergies Allergy/AdvReac Type Severity Reaction Status Date / Time Penicillins Allergy RASH Verified 05/11/18 13:25 Sulfa (Sulfonamide Allergy RASH Verified 05/11/18 13:25 Antibiotics) aspirin AdvReac NAUSEA Verified 05/11/18 13:26 naproxen AdvReac NAUSEA Verified 05/11/18 13:26 Review of Systems ROS Statement: Except As Marked, All Systems Reviewed And Found Negative Constitutional: Negative for: Fever, Chills Respiratory: Negative for: Shortness of Breath Gastrointestinal: Positive for: Abdominal Pain, Constipation. Negative for: Vomiting, Diarrhea, Hematochezia, Rectal Pain Genitourinary Male: Negative for: Frequency, Incontinence, Hematuria, Other (urinary retention) Musculoskeletal: Negative for: Back Pain Neurological: Negative for: Dizziness Physical Exam - Reviewed Nursing Documentation Reviewed: Yes Vital Signs Reviewed: Yes - Physical Exam Appears: Positive for: Well, Non-toxic, No Acute Distress Head Exam: Positive for: ATRAUMATIC, NORMOCEPHALIC Skin: Positive for: Normal Color, Warm Eye Exam: Positive for: Normal appearance, EOMI, PERRL Neck: Positive for: Painless ROM, Supple Cardiovascular/Chest: Positive for: Regular Rate, Rhythm. Negative for: Murmur Respiratory: Positive for: Normal Breath Sounds. Negative for: Accessory Muscle Use, Respiratory Distress Gastrointestinal/Abdominal: Positive for: Soft, Tenderness (mild suprapubic tenderness). Negative for: Guarding, Rebound Back: Positive for: Normal Inspection. Negative for: L CVA Tenderness, R CVA Tenderness Extremity: Positive for: Normal ROM. Negative for: Pedal Edema, Calf Tenderness Neurologic/Psych: Positive for: Alert, Oriented (x3) - Laboratory Results Result Diagrams: 05/11/18 13:50 05/11/18 13:50 - ECG O2 Sat by Pulse Oximetry: 100 (RA) Pulse Ox Interpretation: Normal - Radiology X-Ray: Viewed By [place] X-Ray Interpretation: No Acute Disease (non specific gas/stool pattern) Medical Decision Making Medical Decision Making: Time: 13:40 Initial Impression: Lower abdominal pain, constipation Initial Plan: --Urine dip --BMP --CBC --Obstructive series x-ray --IVF Scribe Attestation: Documented by Flaca Garcia, acting as a scribe for Dr. Mariluz San MD. Provider Scribe Attestation: All medical record entries made by the Scribe were at my direction and personally dictated by me. I have reviewed the chart and agree that the record accurately reflects my personal performance of the history, physical exam, medical decision making, and the department course for this patient. I have also personally directed, reviewed, and agree with the discharge instructions and disposition. Disposition - Clinical Impression Clinical Impression: Constipation - Patient ED Disposition Is Patient to be Admitted: No Doctor Will See Patient In The: Office Counseled Patient/Family Regarding: Diagnosis, Need For Followup, Rx Given - Disposition Referrals: Poli Samano MD [Staff Provider] - Disposition: Routine/Home Disposition Time: 14:53 Condition: STABLE Prescriptions: Sennosides [Senna-Gen] 1 - 2 tab PO DAILY #30 tablet Instructions: Constipation in Adults, High Fiber Diet Forms: Soicos ([place] Island[place]) - POA Present On Arrival: None
[2018-05-11 13:59] LABS: BASO % 0.4 % (0.0-2.0); EOS % 0.4 % (0.0-4.0); HEMOGLOBIN 9.6 g/dL (12.0-18.0); LYMPH # 0.9 K/uL (1.0-4.3); LYMPH % 19.3 % (20.0-40.0); MEAN CELL VOLUME 104.1 fl (80.0-94.0); MEAN CORPUSCULAR HEMOGLOBIN 34.5 pg (27.0-31.0); MEAN CORPUSCULAR HGB CONC 33.1 g/dL (33.0-37.0); MEAN PLATELET VOLUME 8.3 fl (7.2-11.7); MONO # 0.6 K/uL (0.0-0.8); MONO % 12.6 % (0.0-10.0); NEUT % 67.3 % (50.0-75.0); RBC 2.8 Mil/uL (4.40-5.90); RED CELL DISTRIBUTION WIDTH 18.8 % (11.5-14.5); WHITE BLOOD COUNT 4.5 K/uL (4.8-10.8)
[2018-05-11 14:03] LABS: BLOOD UREA NITROGEN 18 mg/dl (9-20); CALCIUM 9.6 mg/dL (8.4-10.2); GFR NON-AFRICAN AMERICAN > 60
[2018-05-11 15:07] VITALS: BP 142/68; PULSE 68; RESP 18
--- NOTE | 2018-05-11 15:49 | RAD ---
Date of service: 05/11/2018 PROCEDURE: Radiographs of the chest and abdomen (obstructive series) HISTORY: lower abd pain x 2-3 days, h/o hard stool COMPARISON: No prior. TECHNIQUE: AP radiograph of the chest, with upright and supine radiographs of the abdomen. FINDINGS: CHEST: Lungs: Clear. Cardiovascular: Normal size heart. No pulmonary vascular congestion. No aortic atherosclerotic calcification present Pleura: No pleural fluid. No pneumothorax. Other findings: None. ABDOMEN AND PELVIS: Bowel: Mild retained feces. No evidence of bowel obstruction. Normal bowel gas pattern. Free air: None. Bones: Right hip arthroplasty. Severe osteoarthritis of the left hip. Other findings: Surgical clips in right upper quadrant status post cholecystectomy. IMPRESSION: Mild retained stool. No evidence of bowel obstruction. Nonacute findings as above.
== END 2018-05-11 15:00 | disposition home or self-care (01) ==
LOC: H.ER 13:20
DX: K59.00 Constipation, unspecified (principal)

== ENCOUNTER 2018-05-25 19:29 | Emergency (ER) | payer MEDICARE ==
[2018-05-25 19:29] VITALS: BMI 26.2
[2018-05-25 21:05] LABS: URINE BILIRUBIN NEGATIVE (NEGATIVE); URINE BLOOD MODERATE (NEGATIVE); URINE CLARITY SLIGHTY-CLOUDY (Clear); URINE COLOR YELLOW (YELLOW); URINE GLUCOSE (UA) NEG (Normal); URINE LEUKOCYTE ESTERASE NEG Leu/uL (Negative); URINE PROTEIN NEGATIVE (NEGATIVE); URINE UROBILINOGEN 0.2-1.0 mg/dL (0.2-1.0)
[2018-05-25 21:08] LABS: BASO % 0.7 % (0.0-2.0); EOS % 1.7 % (0.0-4.0); HEMOGLOBIN 9.7 g/dL (12.0-18.0); LYMPH % 42.8 % (20.0-40.0); MEAN CELL VOLUME 102.1 fl (80.0-94.0); MEAN CORPUSCULAR HEMOGLOBIN 33.5 pg (27.0-31.0); MEAN CORPUSCULAR HGB CONC 32.8 g/dL (33.0-37.0); MEAN PLATELET VOLUME 8.2 fl (7.2-11.7); MONO # 0.2 K/uL (0.0-0.8); MONO % 10.8 % (0.0-10.0); NRBC % 0.3 % (0.0-0.0); RBC 2.91 Mil/uL (4.40-5.90); WHITE BLOOD COUNT 2.3 K/uL (4.8-10.8)
[2018-05-25 21:21] LABS: ALBUMIN 3.9 g/dL (3.5-5.0); ALT/SGPT 19 U/L (21-72); AST/SGOT 14 U/L (17-59); BLOOD UREA NITROGEN 21 mg/dl (9-20); CALCIUM 9.3 mg/dL (8.4-10.2); GFR NON-AFRICAN AMERICAN > 60
[2018-05-25 22:33] VITALS: BP 134/77; PULSE 90; RESP 16; TEMP 98.1; O2SAT 99
--- NOTE | 2018-05-25 22:41 | ED PDOC ---
HPI: Abdomen Time Seen by Provider: 05/25/18 20:16 Chief Complaint (Nursing): Abdominal Pain Chief Complaint (Provider): Right sided abdominal pain since yesterday History Per: Patient History/Exam Limitations: no limitations Onset/Duration Of Symptoms: Days Outside of [place] travel?: No Severity: None Additional Complaint(s): 62 yo male with history of anemia and BPH presents for evaluation of right sided abdominal pain. Pt states it began yesterday and is tolerable. Pt states he had normal BM today and ate a large bowl of spagetti for dinner. Pt states he is also concerns about swelling of the right cheek which he noticed this morning. No fever/chills. No N/V/D. Pt denies dental pain or sore throat. Past Medical History Reviewed: Historical Data, Nursing Documentation, Vital Signs Vital Signs: Last Vital Signs Temp 98.1 F 05/25/18 22:33 Pulse 90 05/25/18 22:33 Resp 16 05/25/18 22:33 BP 134/77 05/25/18 22:33 Pulse Ox 99 05/25/18 22:33 - Medical History PMH: Anemia, Anxiety, Arthritis, Benign Prostatic Hyperplasia, Bronchitis, Diverticulitis, Deep Vein Thrombosis (x3), Gall Bladder Disease, Pneumonia Denies: COPD, HIV, HTN, Hypothyroidism, Chronic Kidney Disease - Surgical History Surgical History: Cholecystectomy, Endoscopy, Hernia Repair (ventral) - Family History Family History: States: Unknown Family Hx - Immunization History Hx Influenza Vaccination: Yes Hx Pneumococcal Vaccination: Yes - Home Medications Home Medications: Ambulatory Orders Medication Instructions Recorded Tamsulosin [Flomax] 0.4 mg PO HS 07/25/17 Multivitamin [Daily She] 1 tab PO DAILY 10/02/17 Dorzolamide 2%/Timolol 0.5% 1 drop EACHEYE Q12 03/22/18 [Cosopt 2%-0.5% Opht] Filgrastim [Neupogen] 480 mcg IJ QWK 03/30/18 Latanoprost [Xalatan] 1 drop EACHEYE HS 05/11/18 Sennosides [Senna-Gen] 1 - 2 tab PO DAILY #30 tablet 05/11/18 predniSONE [predniSONE Tab] 20 mg PO DAILY 05/11/18 Ciprofloxacin [Cipro] 500 mg PO BID #10 tab 05/25/18 - Allergies Allergies/Adverse Reactions: Allergies Allergy/AdvReac Type Severity Reaction Status Date / Time Penicillins Allergy RASH Verified 05/25/18 19:39 Sulfa (Sulfonamide Allergy RASH Verified 05/25/18 19:39 Antibiotics) aspirin AdvReac NAUSEA Verified 05/25/18 19:39 naproxen AdvReac NAUSEA Verified 05/25/18 19:39 Review of Systems ROS Statement: Except As Marked, All Systems Reviewed And Found Negative Constitutional: Negative for: Fever, Chills Gastrointestinal: Positive for: Abdominal Pain. Negative for: Nausea, Vomiting, Diarrhea Genitourinary Male: Negative for: Dysuria, Frequency, Incontinence, Hematuria Physical Exam - Reviewed Nursing Documentation Reviewed: Yes Vital Signs Reviewed: Yes - Physical Exam Appears: Positive for: Well, Non-toxic, No Acute Distress Head Exam: Positive for: ATRAUMATIC, NORMAL INSPECTION, NORMOCEPHALIC Skin: Positive for: Normal Color, Warm, DRY Eye Exam: Positive for: Normal appearance ENT: Positive for: Normal ENT Inspection, Other ((+) lymph adenopthay on the right, no abscess formation) Neck: Positive for: Normal, Painless ROM Cardiovascular/Chest: Positive for: Regular Rate, Rhythm Respiratory: Positive for: Normal Breath Sounds. Negative for: Accessory Muscle Use, Respiratory Distress Gastrointestinal/Abdominal: Positive for: Normal Exam, Bowel Sounds, Soft. Negative for: Tenderness, Distended, Guarding, Rebound Back: Positive for: Normal Inspection Extremity: Positive for: Normal ROM Neurologic/Psych: Positive for: Alert, Oriented - Laboratory Results Result Diagrams: 05/25/18 20:55 05/25/18 20:55 - ECG O2 Sat by Pulse Oximetry: 99 Medical Decision Making Medical Decision Making: Blood in urine and CT consistent with recently passed stone. Pt reports feeling better on re-evaluation. Cipro Rx Pt on flomax daily for BPH. Disposition - Clinical Impression Clinical Impression: Lymphadenopathy of right cervical region, Kidney stone - Patient ED Disposition Is Patient to be Admitted: No - Disposition Referrals: Osito Gonzales MD [Medical Doctor] - Disposition: Routine/Home Disposition Time: 22:43 Condition: STABLE Prescriptions: Ciprofloxacin [Cipro] 500 mg PO BID #10 tab Instructions: Kidney Stones in Adults - POA Present On Arrival: None
--- NOTE | 2018-05-26 17:44 | CT ---
Date of service: 05/25/2018 PROCEDURE: CT Abdomen and Pelvis without intravenous contrast HISTORY: Right flank pain, hematuria COMPARISON: None. TECHNIQUE: Contiguous helical/transaxial sections of the abdomen pelvis performed without oral or intravenous contrast material. Additional 2D sagittal and coronal reformats generated. Radiation dose: Total exam DLP = 770.89 mGy-cm. This CT exam was performed using one or more of the following dose reduction techniques: Automated exposure control, adjustment of the mA and/or kV according to patient size, and/or use of iterative reconstruction technique. FINDINGS: LOWER THORAX: Heart appears mildly enlarged. No significant pericardial effusion. There is a small hiatal hernia with slight wall thickening of the distal esophagus likely due to protrusion of gastric mucosa. Mild passive/dependent type atelectasis both lung bases left greater than right. There also appear to be some linear scarring changes in the both lung bases including the lingular and middle lobe regions. LIVER: Liver is upper limits of normal in size measuring nearly 19 cm in CC dimension. No obvious hepatic mass collection or calcification. GALLBLADDER AND BILE DUCTS: Cholecystectomy. PANCREAS: Pancreas appears slightly atrophic and fatty replaced. There are no pancreatic masses collections or calcifications. SPLEEN: Spleen exhibits relatively normal size and attenuation pattern. ADRENALS: No adrenal lesions. KIDNEYS AND URETERS: Kidneys demonstrate relatively symmetric size. There is mild dilatation of the right ureter possibly due to columnization and/or mild hydronephrosis however no obvious on distal ureteral calculi is identified on this study. Clinical correlation with urinalysis recommended. VASCULATURE: Unremarkable. No aortic aneurysm. Minor aortic atherosclerotic calcification or mural plaque present. BOWEL: Evaluation of the bowel is somewhat limited due to the lack of oral contrast. Stomach is distended with food debris liquid and air. Visualized loops of small bowel exhibit normal contour and caliber. No evidence of acute mechanical small bowel obstruction. Note however that several loops of distal small bowel exhibit fecalized content suggesting stasis. Moderate amount of stool seen within the cecum and to a lesser degree remaining colon suggesting mild fecal retention seen along the sigmoid and to a lesser degree descending colon. No definitive radiographic evidence of acute diverticulitis APPENDIX: The appendix is best seen on axial image number [id number]. Hyperdense material is seen within of the appendix the. The appendix measures up to up to 7.7 mm although there are no obvious inflammatory changes in the adjacent mesentery. Findings are equivocal for acute appendicitis. Clinical correlation recommended to exclude the possibility of an early acute appendicitis.. PERITONEUM: Unremarkable. No free fluid. No free air. Tiny fat containing umbilical hernia. LYMPH NODES: Few small nonspecific retroperitoneal lymph nodes. BLADDER: The inferior margin of the urinary bladder and portion of the prostate gland partially obscured by significant streak and beam hardening artifact arising from right-sided total hip replacement. Evaluation of the bowel is somewhat REPRODUCTIVE: Prostate gland is partially obscured by streak and beam hardening artifact arising from right total hip replacement. Prostate gland measures approximately 4.35 cm in transverse dimension. BONES: Right-sided total hip replacement. Mild multilevel degenerative spondylosis of the lower thoracic and lumbar spine OTHER FINDINGS: None. IMPRESSION: There is mild dilatation of the right ureter possibly secondary mild hydronephrosis or columnization of the right ureter though no obstructing calculus seen. Clinical correlation urinalysis to exclude the possibility of a recently passed calculus. No obvious intraluminal urinary bladder calculi identified on this limited study (due to streak and beam hardening artifact arising from right-sided total hip replacement). Diverticulosis without radiographic evidence of acute diverticulitis.. Fecalized content seen within multiple loops of small bowel suggesting mild stasis. The appendix contains hyperdense material and is borderline dilated however no inflammatory changes in the adjacent mesentery. Findings are equivocal for acute appendicitis. Clinical correlation recommended.. Cholecystectomy.
== END 2018-05-25 23:23 | disposition home or self-care (01) ==
LOC: H.ER 19:29
DX: R59.0 Localized enlarged lymph nodes (principal); N20.0 Calculus of kidney; Z88.0 Allergy status to penicillin

== ENCOUNTER 2018-05-28 13:56 | Emergency (ER) | payer MEDICARE ==
[2018-05-28 13:57] VITALS: BMI 26.2
[2018-05-28 14:19] VITALS: BP 126/70; PULSE 66; RESP 18; TEMP 98.3; O2SAT 98
--- NOTE | 2018-05-28 14:52 | ED PDOC ---
HPI: General Adult Time Seen by Provider: 05/28/18 14:28 Chief Complaint (Nursing): Abnormal Labs Chief Complaint (Provider): Abnormal labs History Per: Patient History/Exam Limitations: no limitations Additional History Per: Patient Additional Complaint(s): 62yo male with history of neutropenia, who receives outpatient dose of neupogen comes to ER after being referred here by his PMD; patient's delivery of neupogen was lost. His white count is 1.7. Otherwise, patient denies any fever, chills, weakness, and has no additional complaints. PMD: Dr. Foy Past Medical History Reviewed: Historical Data, Nursing Documentation, Vital Signs Vital Signs: Last Vital Signs Temp 98.3 F 05/28/18 14:15 Pulse 66 05/28/18 14:15 Resp 18 05/28/18 14:15 BP 126/70 05/28/18 14:15 Pulse Ox 98 05/28/18 14:15 - Medical History PMH: Anemia, Anxiety, Arthritis, Benign Prostatic Hyperplasia, Bronchitis, Diverticulitis, Deep Vein Thrombosis (x3), Gall Bladder Disease, Pneumonia Denies: COPD, HIV, HTN, Hypothyroidism, Chronic Kidney Disease - Surgical History Surgical History: Cholecystectomy, Endoscopy, Hernia Repair (ventral) - Family History Family History: States: Unknown Family Hx - Immunization History Hx Influenza Vaccination: Yes Hx Pneumococcal Vaccination: Yes - Home Medications Home Medications: Ambulatory Orders Medication Instructions Recorded Tamsulosin [Flomax] 0.4 mg PO HS 07/25/17 Multivitamin [Daily She] 1 tab PO DAILY 10/02/17 Dorzolamide 2%/Timolol 0.5% 1 drop EACHEYE Q12 03/22/18 [Cosopt 2%-0.5% Opht] Filgrastim [Neupogen] 480 mcg IJ QWK 03/30/18 Latanoprost [Xalatan] 1 drop EACHEYE HS 05/11/18 Sennosides [Senna-Gen] 1 - 2 tab PO DAILY #30 tablet 05/11/18 predniSONE [predniSONE Tab] 20 mg PO DAILY 05/11/18 Ciprofloxacin [Cipro] 500 mg PO BID #10 tab 05/25/18 - Allergies Allergies/Adverse Reactions: Allergies Allergy/AdvReac Type Severity Reaction Status Date / Time Penicillins Allergy RASH Verified 11/23/18 19:39 Sulfa (Sulfonamide Allergy RASH Verified 05/25/18 19:39 Antibiotics) aspirin AdvReac NAUSEA Verified 05/25/18 19:39 naproxen AdvReac NAUSEA Verified 05/25/18 19:39 Review of Systems ROS Statement: Except As Marked, All Systems Reviewed And Found Negative Constitutional: Negative for: Fever, Weakness Physical Exam - Reviewed Nursing Documentation Reviewed: Yes Vital Signs Reviewed: Yes - Physical Exam Appears: Positive for: Non-toxic, No Acute Distress Head Exam: Positive for: ATRAUMATIC, NORMAL INSPECTION, NORMOCEPHALIC Skin: Positive for: Normal Color Neck: Positive for: Supple Cardiovascular/Chest: Positive for: Regular Rate, Rhythm Respiratory: Positive for: Normal Breath Sounds Gastrointestinal/Abdominal: Positive for: Normal Exam, Soft Back: Positive for: Normal Inspection Extremity: Positive for: Normal ROM. Negative for: Pedal Edema Neurologic/Psych: Positive for: Alert, Oriented. Negative for: Motor/Sensory Deficits - ECG O2 Sat by Pulse Oximetry: 98 (RA) Pulse Ox Interpretation: Normal Medical Decision Making Medical Decision Making: Impression: 62yo male, hx of neutropenia with missed dose of Neupogen Plan: * Granix 480mcg SC ----- Scribe Attestation: Documented by Kiersten Arellano, acting as a scribe for Alexis Bruno MD. Provider Scribe Attestation: All medical record entries made by the Scribe were at my direction and personally dictated by me. I have reviewed the chart and agree that the record accurately reflects my personal performance of the history, physical exam, medical decision making, and the department course for this patient. I have also personally directed, reviewed, and agree with the discharge instructions and disposition. Disposition - Clinical Impression Clinical Impression: Leukopenia - Patient ED Disposition Is Patient to be Admitted: No Counseled Patient/Family Regarding: Diagnosis, Need For Followup - Disposition Referrals: Poli Samano MD [Staff Provider] - Disposition: Routine/Home Disposition Time: 15:07 Condition: FAIR Instructions: Neutropenia Forms: [employer] (Nigerian)
== END 2018-05-28 15:10 | disposition home or self-care (01) ==
LOC: H.ER 13:56
DX: D72.819 Decreased white blood cell count, unspecified (principal)
CPT/HCPCS: 96372; 99281; J1447

== ENCOUNTER 2018-06-08 23:16 | Emergency (ER) | payer MEDICARE ==
[2018-06-08 23:16] VITALS: BMI 26.2
[2018-06-08 23:39] VITALS: BP 103/60; PULSE 82; RESP 18; TEMP 97.8; O2SAT 98
--- NOTE | 2018-06-09 00:42 | ED PDOC ---
HPI: CCC, URI, Sore Throat Time Seen by Provider: 06/09/18 00:17 Chief Complaint (Nursing): ENT Problem History Per: Patient History/Exam Limitations: no limitations Onset/Duration Of Symptoms: Days Current Symptoms Are (Timing): Still Present Additional Complaint(s): Patient reports sore throat for a "few days", states he has pain when swallowing and was seen by his PMD yesterday and prescribed azithromycin, has been taking it for less than 24 hours. Denies fevers, chills, sweats. Reports having bloodwork done that was "normal" on Monday. States he was instructed by Dr. Delgado not to take NSAIDs. Past Medical History Vital Signs: Last Vital Signs Temp 97.8 F 06/08/18 23:34 Pulse 82 06/08/18 23:34 Resp 18 06/08/18 23:34 BP 103/60 06/08/18 23:34 Pulse Ox 98 06/08/18 23:34 - Medical History PMH: Anemia, Anxiety, Arthritis, Benign Prostatic Hyperplasia, Bronchitis, Diverticulitis, Deep Vein Thrombosis (x3), Gall Bladder Disease, Pneumonia Denies: COPD, HIV, HTN, Hypothyroidism, Chronic Kidney Disease - Surgical History Surgical History: Cholecystectomy, Endoscopy, Hernia Repair (ventral) - Family History Family History: States: Unknown Family Hx - Immunization History Hx Influenza Vaccination: Yes Hx Pneumococcal Vaccination: Yes - Home Medications Home Medications: Ambulatory Orders Medication Instructions Recorded RX: Tamsulosin [Flomax] 0.4 mg PO HS 07/25/17 RX: Multivitamin [Daily She] 1 tab PO DAILY 10/02/17 RX: Dorzolamide 2%/Timolol 0.5% 1 drop EACHEYE Q12 03/22/18 [Cosopt 2%-0.5% Opht] Filgrastim [Neupogen] 480 mcg IJ QWK 03/30/18 Latanoprost [Xalatan] 1 drop EACHEYE HS 05/11/18 RX: predniSONE [predniSONE Tab] 20 mg PO DAILY 05/11/18 - Allergies Allergies/Adverse Reactions: Allergies Allergy/AdvReac Type Severity Reaction Status Date / Time Penicillins Allergy RASH Verified 06/08/18 23:34 Sulfa (Sulfonamide Allergy RASH Verified 06/08/18 23:34 Antibiotics) aspirin AdvReac NAUSEA Verified 06/08/18 23:34 naproxen AdvReac NAUSEA Verified 06/08/18 23:34 Review of Systems Constitutional: Negative for: Fever, Chills, Sweats ENT: Positive for: Throat Pain. Negative for: Throat Swelling Physical Exam - Reviewed Nursing Documentation Reviewed: Yes Vital Signs Reviewed: Yes - Physical Exam Appears: Positive for: Well, Non-toxic, No Acute Distress Head Exam: Positive for: ATRAUMATIC, NORMAL INSPECTION, NORMOCEPHALIC Skin: Positive for: Normal Color, Warm, DRY Eye Exam: Positive for: EOMI, Normal appearance, PERRL ENT: Positive for: Normal ENT Inspection, Pharynx Is (normal) Neck: Positive for: Normal, Painless ROM Cardiovascular/Chest: Positive for: Regular Rate, Rhythm Respiratory: Positive for: CNT, Normal Breath Sounds Gastrointestinal/Abdominal: Positive for: Normal Exam, Soft Back: Positive for: Normal Inspection Extremity: Positive for: Normal ROM Neurologic/Psych: Positive for: Alert, Oriented - ECG O2 Sat by Pulse Oximetry: 98 Pulse Ox Interpretation: Normal Medical Decision Making Medical Decision Making: Patient presenting with pharyngitis, likely viral, being treated with ABx No pus, erythema, exudate seen on tonsils Advised patient that since he started ABx, he must finish and that they take 48 hours to take effect Advised to continue taking APAP and advised warm gargles with salt Advised to followup with PMD Monday Very well appearing with normal vitals on discharge Disposition - Clinical Impression Clinical Impression: Pharyngitis - Disposition Referrals: Poli Samano MD [Staff Provider] - Disposition: Routine/Home Disposition Time: 04:28 Condition: STABLE Instructions: Sore Throat in Adults Forms: [facility] (Mozambican)
== END 2018-06-09 00:46 | disposition home or self-care (01) ==
LOC: H.ER 23:16
DX: J02.9 Acute pharyngitis, unspecified (principal)

== ENCOUNTER 2018-06-09 17:38 | Emergency (ER) | payer MEDICARE ==
[2018-06-09 17:39] VITALS: BMI 26.2
[2018-06-09 18:02] VITALS: RESP 18
--- NOTE | 2018-06-09 19:20 | ED PDOC ---
HPI: CCC, URI, Sore Throat Time Seen by Provider: 06/09/18 18:18 Chief Complaint (Nursing): ENT Problem Chief Complaint (Provider): ENT Problem History Per: Patient History/Exam Limitations: no limitations Onset/Duration Of Symptoms: Days (x3) Current Symptoms Are (Timing): Still Present Location Of Pain: Throat Associated Symptoms: denies: Fever, Chills Additional Complaint(s): David Valerio is a 62 year old male with a past medical history of chronic anemia who is presenting to the ED for evaluation of sore throat onset 3 days ago. Patient states that he was given a Z-pack three days ago with no improvement in symptoms. He states that he called his building components designer Dr. Samano who instructed him to come to the ED for bloodwork. Patient denies any fevers, chills, or any other medical complaints. PMD: Poli Samano Past Medical History Reviewed: Historical Data, Nursing Documentation, Vital Signs Vital Signs: Last Vital Signs Temp 97.5 F L 06/09/18 18:00 Pulse 95 H 06/09/18 18:00 Resp 18 06/09/18 18:00 BP 112/73 06/09/18 18:00 Pulse Ox 98 06/09/18 18:00 - Medical History PMH: Anemia, Anxiety, Arthritis, Benign Prostatic Hyperplasia, Bronchitis, Div erticulitis, Deep Vein Thrombosis (x3), Gall Bladder Disease, Pneumonia Denies: COPD, HIV, HTN, Hypothyroidism, Chronic Kidney Disease - Surgical History Surgical History: Cholecystectomy, Endoscopy, Hernia Repair (ventral) - Family History Family History: States: Unknown Family Hx - Social History Current smoker - smoking cessation education provided: No Alcohol: None Drugs: Denies - Immunization History Hx Influenza Vaccination: Yes Hx Pneumococcal Vaccination: Yes - Home Medications Home Medications: Ambulatory Orders Medication Instructions Recorded Tamsulosin [Flomax] 0.4 mg PO HS 07/25/17 Multivitamin [Daily She] 1 tab PO DAILY 10/02/17 Dorzolamide 2%/Timolol 0.5% 1 drop EACHEYE Q12 03/22/18 [Cosopt 2%-0.5% Opht] Filgrastim [Neupogen] 480 mcg IJ QWK 03/30/18 Latanoprost [Xalatan] 1 drop EACHEYE HS 05/11/18 predniSONE [predniSONE Tab] 20 mg PO DAILY 05/11/18 - Allergies Allergies/Adverse Reactions: Allergies Allergy/AdvReac Type Severity Reaction Status Date / Time Penicillins Allergy RASH Verified 06/08/18 23:34 Sulfa (Sulfonamide Allergy RASH Verified 06/08/18 23:34 Antibiotics) vancomycin Allergy RASH Verified 06/09/18 18:04 aspirin AdvReac NAUSEA Verified 06/08/18 23:34 naproxen AdvReac NAUSEA Verified 06/08/18 23:34 zuvox Allergy RASH Uncoded 06/09/18 18:04 Review of Systems ROS Statement: Except As Marked, All Systems Reviewed And Found Negative Constitutional: Negative for: Fever, Chills ENT: Positive for: Throat Pain Physical Exam - Reviewed Nursing Documentation Reviewed: Yes Vital Signs Reviewed: Yes - Physical Exam Appears: Positive for: Well, Non-toxic, No Acute Distress Head Exam: Positive for: ATRAUMATIC, NORMAL INSPECTION, NORMOCEPHALIC Skin: Positive for: Normal Color, Warm, DRY Eye Exam: Positive for: Normal appearance, EOMI, PERRL ENT: Positive for: Normal ENT Inspection, Pharynx Is (clear) Neurologic/Psych: Positive for: Alert, Oriented. Negative for: Motor/Sensory Deficits - Laboratory Results Result Diagrams: 06/09/18 19:20 - ECG O2 Sat by Pulse Oximetry: 98 (RA) Pulse Ox Interpretation: Normal Medical Decision Making Medical Decision Making: Time: 19:14 Plan: --CBC Discussed CBC with Dr. Samano, patient building components designer. Prednisone PO in ER for throat pain. -- Scribe Attestation: Documented by Melinda Marx, acting as a scribe for Jessi Pena PA-C. Provider Scribe Attestation: All medical record entries made by the Scribe were at my direction and personally dictated by me. I have reviewed the chart and agree that the record accurately reflects my personal performance of the history, physical exam, medical decision making, and the department course for this patient. I have also personally directed, reviewed, and agree with the discharge instructions and disposition. Disposition - Clinical Impression Clinical Impression: Viral pharyngitis - Patient ED Disposition Is Patient to be Admitted: No - Disposition Disposition: Routine/Home Disposition Time: 21:32 Condition: GOOD Instructions: Viral Pharyngitis Forms: [employer] (Bengali)
[2018-06-09 19:35] LABS: BASO % 0.6 % (0.0-2.0); EOS % 0.9 % (0.0-4.0); LYMPH # 0.8 K/uL (1.0-4.3); LYMPH % 23.6 % (20.0-40.0); MEAN CELL VOLUME 102.5 fl (80.0-94.0); MEAN CORPUSCULAR HEMOGLOBIN 34.3 pg (27.0-31.0); MEAN CORPUSCULAR HGB CONC 33.5 g/dL (33.0-37.0); MEAN PLATELET VOLUME 7.5 fl (7.2-11.7); MONO # 0.3 K/uL (0.0-0.8); MONO % 7.7 % (0.0-10.0); NEUT # 2.2 K/uL (1.8-7.0); NEUT % 67.2 % (50.0-75.0); NRBC % 0.1 % (0.0-0.0); RBC 2.62 Mil/uL (4.40-5.90); RED CELL DISTRIBUTION WIDTH 16.8 % (11.5-14.5); WHITE BLOOD COUNT 3.3 K/uL (4.8-10.8)
[2018-06-09 21:45] VITALS: BP 114/79; PULSE 94; TEMP 98.1; O2SAT 100
== END 2018-06-09 21:44 | disposition home or self-care (01) ==
LOC: H.ER 17:38
DX: J02.9 Acute pharyngitis, unspecified (principal); Z86.718 Personal history of other venous thrombosis and embolism; N40.0 Benign prostatic hyperplasia without lower urinary tract symptoms; Z88.0 Allergy status to penicillin

== ENCOUNTER 2018-09-12 16:38 | Observation (INO) | payer MEDICARE ==
[2018-09-12 16:38] VITALS: BMI 26.6
[2018-09-12] MEDS ORDERED: Albuterol-Ipratrop 3 mg / 0.5 (3 ml) UD INH STA (17:44)
--- NOTE | 2018-09-12 18:03 | RAD ---
Date of service: 09/12/2018 HISTORY: Chest pain COMPARISON: 06/04/2018. TECHNIQUE: Chest PA and lateral FINDINGS: LINES AND TUBES: None. LUNG AND PLEURA: The lungs are well inflated. There is mild pulmonary venous congestion. There is blunting of the right costophrenic angle. No left pleural effusion or pneumothorax. HEART AND MEDIASTINUM: There is mild cardiomegaly. No aortic atherosclerotic calcifications present. The hilar and mediastinal contours are within normal limits. SKELETAL STRUCTURES: The bony structures are within normal limits for the patient's age. VISUALIZED UPPER ABDOMEN: Normal. OTHER FINDINGS: None. IMPRESSION: No active pulmonary disease. Blunting of the right costophrenic angle may represent pleural thickening or small right pleural effusion moderate cardiomegaly and mild pulmonary venous congestion.
[2018-09-12 18:59] LABS: VENOUS BLOOD GAS PCO2 49 mmHg (40-60); VENOUS BLOOD GAS PO2 18 mm/Hg (30-55); VENOUS BLOOD PH 7.38 (7.32-7.43)
[2018-09-12 19:01] LABS: BASO % 0.7 % (0.0-2.0); EOS % 1.1 % (0.0-4.0); HEMOGLOBIN 7.9 g/dL (12.0-18.0); LYMPH # 0.9 K/uL (1.0-4.3); LYMPH % 31.7 % (20.0-40.0); MEAN CELL VOLUME 115.9 fl (80.0-94.0); MEAN CORPUSCULAR HEMOGLOBIN 38.5 pg (27.0-31.0); MEAN CORPUSCULAR HGB CONC 33.2 g/dL (33.0-37.0); MEAN PLATELET VOLUME 8.9 fl (7.2-11.7); MONO # 0.3 K/uL (0.0-0.8); NEUT # 1.6 K/uL (1.8-7.0); NEUT % 57.5 % (50.0-75.0); NRBC % 0.1 % (0.0-0.0); RBC 2.05 Mil/uL (4.40-5.90); WHITE BLOOD COUNT 2.8 K/uL (4.8-10.8)
--- NOTE | 2018-09-12 19:05 | ED PDOC ---
History of Present Illness History of Present Illness: 63yo male c/o SOB, wheeze/chest tightness, malaise, found to have low grade fever here, symptoms otherwise ongoing and worsening for 5-6 days. Denies edema, orthopnea, or hemoptysis. States has a "blood problem" which he gets checked weekly. PMD Danii Samano HPI: Influenza Time Seen by Provider: 09/12/18 17:36 Chief Complaint: Cough, Cold, Congestion Onset/Duration Of Symptoms: Days (5-6) Symptoms include: fever, cough, chest pain, difficulty breathing. denies: headache, bodyaches, sore throat, vomiting, diarrhea, syncope, seizure, blurry vision Sick Contacts (Context): None Risk factors for flu complications: Yes: adult > 65 years, hematologic disease Past Medical History Reviewed: Historical Data, Nursing Documentation, Vital Signs Vital Signs: Last Vital Signs Temp 100 F H 09/12/18 17:13 Pulse 116 H 09/12/18 17:13 Resp 16 09/12/18 17:13 BP 93/57 L 09/12/18 17:13 Pulse Ox 98 09/12/18 17:13 - Medical History PMH: Anemia, Anxiety, Arthritis, Benign Prostatic Hyperplasia, Bronchitis, Diverticulitis, Deep Vein Thrombosis (x3), Gall Bladder Disease, Pneumonia Denies: COPD, HIV, HTN, Hypothyroidism, Chronic Kidney Disease - Surgical History Surgical History: Cholecystectomy, Endoscopy, Hernia Repair (ventral) - Family History Family History: States: Unknown Family Hx - Social History Current smoker - smoking cessation education provided: No - Immunization History Hx Influenza Vaccination: Yes Hx Pneumococcal Vaccination: Yes - Home Medications Home Medications: Ambulatory Orders Medication Instructions Recorded Tamsulosin [Flomax] 0.4 mg PO HS 07/25/17 Multivitamin [Daily She] 1 tab PO DAILY 10/02/17 Dorzolamide 2%/Timolol 0.5% 1 drop EACHEYE Q12 03/22/18 [Cosopt 2%-0.5% Opht] Filgrastim [Neupogen] 480 mcg IJ QWK 03/30/18 Latanoprost [Xalatan] 1 drop EACHEYE HS 05/11/18 predniSONE [predniSONE Tab] 20 mg PO DAILY 05/11/18 - Allergies Allergies/Adverse Reactions: Allergies Allergy/AdvReac Type Severity Reaction Status Date / Time Penicillins Allergy RASH Verified 09/12/18 17:13 Sulfa (Sulfonamide Allergy RASH Verified 09/12/18 17:13 Antibiotics) vancomycin Allergy RASH Verified 09/12/18 17:13 aspirin AdvReac NAUSEA Verified 09/12/18 17:13 naproxen AdvReac NAUSEA Verified 09/12/18 17:13 zuvox Allergy RASH Uncoded 09/12/18 17:13 Review of Systems Constitutional: Positive for: Fever, Weakness, Malaise Eyes: Negative for: Conjunctivae Inflammation ENT: Negative for: Throat Pain Cardiovascular: Positive for: Chest Pain, Palpitations Respiratory: Positive for: Cough, Shortness of Breath Gastrointestinal: Negative for: Vomiting, Abdominal Pain Genitourinary Male: Negative for: Dysuria Musculoskeletal: Negative for: Neck Pain Skin: Negative for: Rash, Lesions Neurological: Negative for: Weakness, Numbness, Headache, Dizziness Psych: Negative for: Psychosis Physical Exam - Reviewed Nursing Documentation Reviewed: Yes Vital Signs Reviewed: Yes - Physical Exam Appears: Positive for: Non-toxic, No Acute Distress Head Exam: Positive for: ATRAUMATIC, NORMAL INSPECTION, NORMOCEPHALIC Skin: Positive for: Warm, Pallor Eye Exam: Positive for: EOMI, Normal appearance, PERRL ENT: Positive for: Normal ENT Inspection, Other (dry mucous membranes) Neck: Positive for: Normal, Painless ROM Cardiovascular/Chest: Positive for: Regular Rate, Rhythm Respiratory: Positive for: Decreased Breath Sounds, Wheezing. Negative for: Accessory Muscle Use, Respiratory Distress Gastrointestinal/Abdominal: Positive for: Normal Exam, Soft Back: Positive for: Normal Inspection Extremity: Positive for: Normal ROM Neurological/Psych: Positive for: Awake, Alert, Normal Tone Medical Decision Making Medical Decision Making: workup for dyspnea w low grade fever initiated r/o sepsis CXR Accession No. : [id number] Patient Name / ID : MARU ABBOTT / [id number] Exam Date : 09/12/2018 17:34:41 ( Approved ) Study Comment : Sex / Age : M / 63Y Creator : Shasha Rahman MD Dictator : Shasha Rahman MD Beer Brewer : [employer] Flight Engineer : Shasha Rahman MD Approver2 : Report Date : 09/12/2018 17:59:11 My Comment : Date of service: 09/12/2018 HISTORY: Chest pain COMPARISON: 06/04/2018. TECHNIQUE: Chest PA and lateral FINDINGS: LINES AND TUBES: None. LUNG AND PLEURA: The lungs are well inflated. There is mild pulmonary venous congestion. There is blunting of the right costophrenic angle. No left pleural effusion or pneumothorax. HEART AND MEDIASTINUM: There is mild cardiomegaly. No aortic atherosclerotic calcifications present. The hilar and mediastinal contours are within normal limits. SKELETAL STRUCTURES: The bony structures are within normal limits for the patient's age. VISUALIZED UPPER ABDOMEN: Normal. OTHER FINDINGS: None. IMPRESSION: No active pulmonary disease. Blunting of the right costophrenic angle may represent pleural thickening or small right pleural effusion moderate cardiomegaly and mild pulmonary venous congestion. lactate normal flu neg WBC 2.8 Hgb 7.9 Plt 80 c/w pancytopeniua D/w Dr Channing Samano hematology, recommends PRBC x1, patient consented to PRBC after benefits and risks explained. He has had transfusions prior. Given immunocompromised, initiate empiric Azithromycin (multiple allergies) Caution with IVF as BNP elevated, no known hx CHF, but given low grade fever and clinical presentation, appears mildly dry, gentle fluids. lactate <2.0, no need for repeat. awaiting trop, hold ASA given thrombocytopenia admit Dr Foy, care transferred. D/w Boo ANP 730pm - Laboratory Results Result Diagrams: 09/12/18 18:50 09/12/18 18:50 Lab Results: pO2 18 mm/Hg (30-55) L 09/12/18 18:50 VBG pH 7.38 (7.32-7.43) 09/12/18 18:50 VBG pCO2 49 mmHg (40-60) 09/12/18 18:50 VBG HCO3 25.3 mmol/L 09/12/18 18:50 VBG Total CO2 30.5 mmol/L (22-28) H 09/12/18 18:50 VBG O2 Sat (Calc) 29.3 % (40-65) L 09/12/18 18:50 VBG Base Excess 3.0 mmol/L (0.0-2.0) H 09/12/18 18:50 VBG Potassium 4.6 mmol/L (3.6-5.2) 09/12/18 18:50 Sodium 131.0 mmol/L (132-148) L 09/12/18 18:50 Chloride 98.0 mmol/L (98-107) 09/12/18 18:50 Glucose 111 mg/dL (75-110) H 09/12/18 18:50 Lactate 1.5 mmol/L (0.7-2.1) 09/12/18 18:50 FiO2 21.0 % 09/12/18 18:50 - ECG O2 Sat by Pulse Oximetry: 98 Disposition - Clinical Impression Clinical Impression: Dyspnea, Anemia, Sepsis - Patient ED Disposition Is Patient to be Admitted: Yes Counseled Patient/Family Regarding: Studies Performed, Diagnosis, Need For Followup - Disposition Disposition: Transfer of Care Disposition Time: 19:06 Condition: FAIR Forms: [employer] (Danish) Patient Signed Over To: Jessica Hernandez - Pt Status Changed To: Hospital Disposition Of: Inpatient - Admit Certification Admit to Inpatient:: After my assessment, the patient will require hospitalization for at least two midnights. This is because of the severity of symptoms shown, intensity of services needed, and/or the medical risk in this patient being treated as an outpatient. - POA Present On Arrival: None
[2018-09-12 19:06] LABS: INR 1.3; PROTHROMBIN TIME 14.2 Seconds (9.8-13.1)
[2018-09-12 19:09] LABS: PARTIAL THROMBOPLASTIN TIME 34.8 Seconds (25.6-37.1)
[2018-09-12 19:10] LABS: ALBUMIN 4.2 g/dL (3.5-5.0); ALT/SGPT 13 U/L (21-72); AST/SGOT 41 U/L (17-59); BLOOD UREA NITROGEN 30 mg/dl (9-20); CALCIUM 9.2 mg/dL (8.4-10.2); GFR NON-AFRICAN AMERICAN 55
[2018-09-12 19:18] LABS: B-TYPE NATRIURETIC PEPTIDE 1500 pg/ml (0-900)
[2018-09-12] MEDS ORDERED: Azithromycin 500 MG in Sodium Chloride 0.9% 250 ML IVPB STA (19:20)
[2018-09-12] MEDS ORDERED: Sodium Chloride 0.9% 1,000 ML IV STA (19:34)
[2018-09-12 19:57] LABS: SQUAMOUS EPITHIAL < 1 /hpf (0-5); URINE BILIRUBIN NEGATIVE (NEGATIVE); URINE BLOOD LARGE (NEGATIVE); URINE CALCIUM OXALATE CRYSTALS FEW /hpf (<OCC); URINE CLARITY SLIGHTY-CLOUDY (Clear); URINE COLOR YELLOW (YELLOW); URINE GLUCOSE (UA) NEG (NEGATIVE); URINE LEUKOCYTE ESTERASE NEG Leu/uL (Negative); URINE PROTEIN 30 mg/dL (NEGATIVE)
[2018-09-12] MEDS ORDERED: Azithromycin 500 MG IV IVPB ONE (20:44)
[2018-09-12] MEDS ORDERED: Latanoprost 0.005% Opht SOUTION OD SCH (22:41)
[2018-09-12] MEDS ORDERED: FILGRASTIM 480 MCG IJ SCH (22:45)
[2018-09-13] MEDS: Dorzolamide 2% Ophth Soln OU SCH ×2 (00:12→09:23)
[2018-09-13] MEDS ORDERED: DiphenhydrAMINE 50 mg/ml Inj IVP PRN (00:39)
[2018-09-13 02:39] VITALS: RESP 18
--- NOTE | 2018-09-13 08:26 | CP.PCM.CON ---
History of Present Illness - History of Present Illness History of Present Illness: Nick is a 63 yrs old male wgo has had anemia ad chronic neutropenia for a few yrs. When his WBC count comes down, he receives 1 dose of neupogen and when the hgb is down he gets 1 dose of procrit.He follows up with me in the infusion center.On Monday his WBC and HGB were both good,for him, and no medication was given. He presented to the ER with c/o cough,body aches,nausea, and shortness of breath. The chest x ray showed mild cardiomegaly and minimal pleural effusion in the right costophrenic angle. No evidence of pneumonia.His wbc was ok but his hgb was 7;7. He was transfused 1 unit ofpacked cells. PMH; DVT,edema, cough, he also has polychondritis Past Patient History - Infectious Disease Hx of Infectious Diseases: None - Tetanus Immunizations Tetanus Immunization: Unknown - Past Medical History & Family History Past Medical History?: Yes - Past Social History Smoking Status: Former Smoker - CARDIAC Hx Cardiac Disorders: No - PULMONARY Hx Respiratory Disorders: Yes Hx Bronchitis: Yes Hx Pneumonia: Yes - NEUROLOGICAL Hx Neurological Disorder: No - HEENT Hx HEENT Problems: Yes Hx Glaucoma: Yes Other/Comment: TMJ - RENAL Hx Chronic Kidney Disease: No - ENDOCRINE/METABOLIC Hx Endocrine Disorders: No - HEMATOLOGICAL/ONCOLOGICAL Hx Blood Disorders: Yes Hx Anemia: Yes Hx Human Immunodeficiency Virus (HIV): No Other/Comment: DVT X3 - INTEGUMENTARY Hx Dermatological Problems: Yes Hx Cellulitis: Yes (facial) Other/Comment: facial cellulitis x 2. Left lower leg. [place] - MUSCULOSKELETAL/RHEUMATOLOGICAL Hx Musculoskeletal Disorders: Yes Hx Arthritis: Yes Hx Falls: No - GASTROINTESTINAL Hx Gastrointestinal Disorders: Yes Hx Diverticulitis: Yes Hx Gall Bladder Disease: Yes - GENITOURINARY/GYNECOLOGICAL Hx Genitourinary Disorders: Yes Hx Prostate Problems: Yes (BPH) - PSYCHIATRIC Hx Psychophysiologic Disorder: Yes Hx Anxiety: Yes Hx Substance Use: No - SURGICAL HISTORY Hx Surgeries: Yes Hx Cholecystectomy: Yes Hx Herniorrhaphy: Yes - ANESTHESIA Hx Anesthesia: Yes Hx Anesthesia Reactions: No Hx Malignant Hyperthermia: No Meds Allergies/Adverse Reactions: Allergies Allergy/AdvReac Type Severity Reaction Status Date / Time Penicillins Allergy RASH Verified 09/12/18 17:13 Sulfa (Sulfonamide Allergy RASH Verified 09/12/18 17:13 Antibiotics) vancomycin Allergy RASH Verified 09/12/18 17:13 aspirin AdvReac NAUSEA Verified 09/12/18 17:13 naproxen AdvReac NAUSEA Verified 09/12/18 17:13 zuvox Allergy RASH Uncoded 09/12/18 17:13 - Medications Medications: Current Medications Diphenhydramine HCl (Benadryl) 50 mg IVP Q6 PRN PRN Reason: Allergy symptoms Dorzolamide HCl (Trusopt) 1 drop OU Q12 [facility] Last Admin: 09/13/18 00:12 Dose: 1 drop Home Med (Filgrastim [Neupogen]) 480 mcg IJ QWK [facility] Latanoprost (Xalatan Opht) 1 drop OD HS [facility] Last Admin: 09/13/18 00:14 Dose: 1 drop Multivitamins/Minerals (Therapeutic-M Tab) 1 tab PO DAILY [facility] Prednisone (Prednisone Tab) 20 mg PO DAILY [facility] Tamsulosin HCl (Flomax) 0.4 mg PO HS [facility] Last Admin: 09/13/18 00:07 Dose: 0.4 mg Timolol Maleate (Timoptic 0.5% Ophth Soln) 1 drop OU Q12 [facility] Last Admin: 09/13/18 00:16 Dose: 1 drop Physical Exam - Additional Findings Additional findings: Physical exam' Alert,well oriented,in no acute distress Neck; supple,no adenopathy Chest;bilateral wheezing off and,no rales Heart; rsr, no murmur abd; no ascitis,noh/s megeay Results - Vital Signs Recent Vital Signs: Last Vital Signs Temp 97.5 F L 09/13/18 05:59 Pulse 60 09/13/18 05:59 Resp 18 09/13/18 05:59 BP 106/60 09/13/18 05:59 Pulse Ox 96 09/13/18 05:34 - Labs Result Diagrams: 09/12/18 18:50 09/12/18 18:50 Labs: Laboratory Results - last 24 hr 09/12/18 09/12/18 09/12/18 18:05 18:45 18:50 WBC RBC Hgb Hct MCV MCH MCHC RDW Plt Count MPV Neut % (Auto) Lymph % (Auto) [place] % (Auto) Eos % (Auto) Baso % (Auto) Neut # (Auto) Lymph # (Auto) [place] # (Auto) Eos # (Auto) Baso # (Auto) PT INR APTT pO2 VBG pH VBG pCO2 VBG HCO3 VBG Total CO2 VBG O2 Sat (Calc) VBG Base Excess VBG Potassium Sodium 134 Chloride 95 L Glucose Lactate FiO2 Potassium 4.9 Carbon Dioxide 27 Anion Gap 17 BUN 30 H Creatinine 1.3 Est GFR ( Amer) > 60 Est GFR (Non-Af Amer) 55 Random Glucose 111 H Calcium 9.2 Total Bilirubin 0.5 AST 41 ALT 13 L D Alkaline Phosphatase 119 Troponin I < 0.0120 NT-Pro-B Natriuret Pep 1500 H Total Protein 8.3 H Albumin 4.2 Globulin 4.1 H Albumin/Globulin Ratio 1.0 Venous Blood Potassium Urine Color Yellow Urine Clarity Slighty-cloudy Urine pH 5.0 Ur Specific [place] 1.023 Urine Protein 30 Urine Glucose (UA) Neg Urine Ketones Negative Urine Blood Large Urine Nitrate Negative Urine Bilirubin Negative Urine Urobilinogen 2.0 Ur Leukocyte Esterase Neg Urine RBC (Auto) 15 H Urine Microscopic WBC 3 Ur Squamous Epith Cells < 1 Calcium Oxalate Crystal Few H Influenza Typ A,B (EIA) Negative for flu a/b Blood Type Antibody Screen Crossmatch BBK History Checked 09/12/18 09/12/18 09/12/18 18:50 18:50 18:50 WBC 2.8 L RBC 2.05 L Hgb 7.9 L Hct 23.7 L MCV 115.9 H MCH 38.5 H MCHC 33.2 RDW 15.0 H Plt Count 84 L MPV 8.9 Neut % (Auto) 57.5 Lymph % (Auto) 31.7 [place] % (Auto) 9.0 Eos % (Auto) 1.1 Baso % (Auto) 0.7 Neut # (Auto) 1.6 L Lymph # (Auto) 0.9 L [place] # (Auto) 0.3 Eos # (Auto) 0.0 Baso # (Auto) 0.0 PT 14.2 H INR 1.3 APTT 34.8 pO2 18 L VBG pH 7.38 VBG pCO2 49 VBG HCO3 25.3 VBG Total CO2 30.5 H VBG O2 Sat (Calc) 29.3 L VBG Base Excess 3.0 H VBG Potassium 4.6 Sodium 131.0 L Chloride 98.0 Glucose 111 H Lactate 1.5 FiO2 21.0 Potassium Carbon Dioxide Anion Gap BUN Creatinine Est GFR ( Amer) Est GFR (Non-Af Amer) Random Glucose Calcium Total Bilirubin AST ALT Alkaline Phosphatase Troponin I NT-Pro-B Natriuret Pep Total Protein Albumin Globulin Albumin/Globulin Ratio Venous Blood Potassium 4.6 Urine Color Urine Clarity Urine pH Ur Specific [place] Urine Protein Urine Glucose (UA) Urine Ketones Urine Blood Urine Nitrate Urine Bilirubin Urine Urobilinogen Ur Leukocyte Esterase Urine RBC (Auto) Urine Microscopic WBC Ur Squamous Epith Cells Calcium Oxalate Crystal Influenza Typ A,B (EIA) Blood Type Antibody Screen Crossmatch BBK History Checked 09/12/18 20:30 WBC RBC Hgb Hct MCV MCH MCHC RDW Plt Count MPV Neut % (Auto) Lymph % (Auto) [place] % (Auto) Eos % (Auto) Baso % (Auto) Neut # (Auto) Lymph # (Auto) [place] # (Auto) Eos # (Auto) Baso # (Auto) PT INR APTT pO2 VBG pH VBG pCO2 VBG HCO3 VBG Total CO2 VBG O2 Sat (Calc) VBG Base Excess VBG Potassium Sodium Chloride Glucose Lactate FiO2 Potassium Carbon Dioxide Anion Gap BUN Creatinine Est GFR ( Amer) Est GFR (Non-Af Amer) Random Glucose Calcium Total Bilirubin AST ALT Alkaline Phosphatase Troponin I NT-Pro-B Natriuret Pep Total Protein Albumin Globulin Albumin/Globulin Ratio Venous Blood Potassium Urine Color Urine Clarity Urine pH Ur Specific [place] Urine Protein Urine Glucose (UA) Urine Ketones Urine Blood Urine Nitrate Urine Bilirubin Urine Urobilinogen Ur Leukocyte Esterase Urine RBC (Auto) Urine Microscopic WBC Ur Squamous Epith Cells Calcium Oxalate Crystal Influenza Typ A,B (EIA) Blood Type O POSITIVE Antibody Screen Negative Crossmatch See Detail BBK History Checked Patient has bt Assessment & Plan - Assessment and Plan (Free Text) Assessment: impresion; 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 Pt feels better when he takes the steroids, but he only takes it off ad on,. Plan: Plan; pt was already transfused 1 unit of packed cells. will give him procrit ad continue the steroids.
[2018-09-13] MEDS ORDERED: Epoetin Alfa 40000 UNIT/ml Inj SC ONE (08:40)
[2018-09-13] MEDS ORDERED: Multivitamin With Minerals Tab PO SCH (09:00)
--- NOTE | 2018-09-13 09:06 | CARD ---
APPROVED REPORT Date of service: 09/12/2018 EKG Measurement Heart [id number] <Conclusion> Sinus tachycardia Cannot rule out Anterior infarct, age undetermined Abnormal ECG
[2018-09-13 09:12] LABS: BASO % 0.3 % (0.0-2.0); EOS % 0.1 % (0.0-4.0); HEMOGLOBIN 8.5 g/dL (12.0-18.0); LYMPH # 0.3 K/uL (1.0-4.3); LYMPH % 23.4 % (20.0-40.0); MEAN CELL VOLUME 111.7 fl (80.0-94.0); MEAN CORPUSCULAR HEMOGLOBIN 36.9 pg (27.0-31.0); MEAN PLATELET VOLUME 9.4 fl (7.2-11.7); MONO % 4.3 % (0.0-10.0); NEUT # 0.8 K/uL (1.8-7.0); NEUT % 71.9 % (50.0-75.0); NRBC % 0.2 % (0.0-0.0); RBC 2.3 Mil/uL (4.40-5.90); RED CELL DISTRIBUTION WIDTH 17.3 % (11.5-14.5)
[2018-09-13 09:19] LABS: WHITE BLOOD COUNT 1.2 K/uL (4.8-10.8)
[2018-09-13 09:30] LABS: B-TYPE NATRIURETIC PEPTIDE 1740 pg/ml (0-900)
[2018-09-13 09:31] LABS: ALBUMIN 4.2 g/dL (3.5-5.0); ALT/SGPT 16 U/L (21-72); AST/SGOT 27 U/L (17-59); BLOOD UREA NITROGEN 28 mg/dl (9-20); CALCIUM 9.5 mg/dL (8.4-10.2); GFR NON-AFRICAN AMERICAN > 60
[2018-09-13 12:34] VITALS: BP 124/74; PULSE 83; TEMP 98.3
--- NOTE | 2018-09-13 13:47 | CP.PCM.PCO ---
Assessment & Plan - Assessment and Plan (Free Text) Assessment: pt. seen and examined reports feeling better today, currently denies sob, cp or cough pt. s/p 1 unit prbc am labs noted; wbc 1.2- d/w Dr.Damle Bennett 480mcg x 1 ordered, cont. procrit pt. cleared for discharge to Home today by and pt. has f/u appointment with Dr. Samano on Monday - Functional Status Prior to Admission: independent Current Status: independent with adl Impairment Code: .
--- NOTE | 2018-09-13 16:33 | CP.PCM.HP ---
History of Present Illness - History of Present Illness History of Present Illness: 63 yo male presented to ED with complaints of SOB, wheeze/chest tightness, malaise, found to have low grade fever here, symptoms otherwise ongoing and worsening for 5-6 days. Patient has history of pancytopenia which he follows with Dr. Samano with. Dr. Samano consulted and pRBC given. Patient was seen and examined at bedside today no complaints offered monica like to go home meds: as per chart all: as per chart fam hx: non contributory Present on Admission - Present on Admission Any Indicators Present on Admission: No Review of Systems - Review of Systems All systems: reviewed and no additional remarkable complaints except (mentioned above) Past Patient History - Infectious Disease Hx of Infectious Diseases: None - Tetanus Immunizations Tetanus Immunization: Unknown - Past Medical History & Family History Past Medical History?: Yes - Past Social History Smoking Status: Former Smoker - CARDIAC Hx Cardiac Disorders: No - PULMONARY Hx Respiratory Disorders: Yes Hx Bronchitis: Yes Hx Pneumonia: Yes - NEUROLOGICAL Hx Neurological Disorder: No - HEENT Hx HEENT Problems: Yes Hx Glaucoma: Yes Other/Comment: TMJ - RENAL Hx Chronic Kidney Disease: No - ENDOCRINE/METABOLIC Hx Endocrine Disorders: No - HEMATOLOGICAL/ONCOLOGICAL Hx Blood Disorders: Yes Hx Anemia: Yes Hx Human Immunodeficiency Virus (HIV): No Other/Comment: DVT X3 - INTEGUMENTARY Hx Dermatological Problems: Yes Hx Cellulitis: Yes (facial) Other/Comment: facial cellulitis x 2. Left lower leg. [place] - MUSCULOSKELETAL/RHEUMATOLOGICAL Hx Musculoskeletal Disorders: Yes Hx Arthritis: Yes Hx Falls: No - GASTROINTESTINAL Hx Gastrointestinal Disorders: Yes Hx Diverticulitis: Yes Hx Gall Bladder Disease: Yes - GENITOURINARY/GYNECOLOGICAL Hx Genitourinary Disorders: Yes Hx Prostate Problems: Yes (BPH) - PSYCHIATRIC Hx Psychophysiologic Disorder: Yes Hx Anxiety: Yes Hx Substance Use: No - SURGICAL HISTORY Hx Surgeries: Yes Hx Cholecystectomy: Yes Hx Herniorrhaphy: Yes - ANESTHESIA Hx Anesthesia: Yes Hx Anesthesia Reactions: No Hx Malignant Hyperthermia: No Meds Allergies/Adverse Reactions: Allergies Allergy/AdvReac Type Severity Reaction Status Date / Time Penicillins Allergy RASH Verified 09/12/18 17:13 Sulfa (Sulfonamide Allergy RASH Verified 09/12/18 17:13 Antibiotics) vancomycin Allergy RASH Verified 09/12/18 17:13 aspirin AdvReac NAUSEA Verified 09/12/18 17:13 naproxen AdvReac NAUSEA Verified 09/12/18 17:13 zuvox Allergy RASH Uncoded 09/12/18 17:13 Physical Exam - Constitutional Appears: Non-toxic, No Acute Distress - Head Exam Head Exam: NORMAL INSPECTION - Eye Exam Eye Exam: Normal appearance - Respiratory Exam Respiratory Exam: NORMAL BREATHING PATTERN - Cardiovascular Exam Cardiovascular Exam: +S1, +S2 - GI/Abdominal Exam GI & Abdominal Exam: Soft - Extremities Exam Extremities exam: Positive for: normal inspection - Neurological Exam Neurological exam: Alert, Oriented x3 - Psychiatric Exam Psychiatric exam: Normal Affect, Normal Mood - Skin Skin Exam: Normal Color, Warm Results - Vital Signs Recent Vital Signs: Last Vital Signs Temp 98.3 F 09/13/18 12:00 Pulse 83 09/13/18 12:00 Resp 18 09/13/18 12:00 BP 124/74 09/13/18 12:00 Pulse Ox 96 09/13/18 12:00 - Labs Result Diagrams: 09/13/18 08:30 09/13/18 08:30 Labs: Laboratory Results - last 24 hr 09/12/18 09/12/18 09/12/18 18:05 18:45 18:50 WBC RBC Hgb Hct MCV MCH MCHC RDW Plt Count MPV Neut % (Auto) Lymph % (Auto) [place] % (Auto) Eos % (Auto) Baso % (Auto) Neut # (Auto) Lymph # (Auto) [place] # (Auto) Eos # (Auto) Baso # (Auto) PT INR APTT pO2 VBG pH VBG pCO2 VBG HCO3 VBG Total CO2 VBG O2 Sat (Calc) VBG Base Excess VBG Potassium Sodium 134 Chloride 95 L Glucose Lactate FiO2 Potassium 4.9 Carbon Dioxide 27 Anion Gap 17 BUN 30 H Creatinine 1.3 Est GFR ( Amer) > 60 Est GFR (Non-Af Amer) 55 Random Glucose 111 H Calcium 9.2 Total Bilirubin 0.5 AST 41 ALT 13 L D Alkaline Phosphatase 119 Troponin I < 0.0120 NT-Pro-B Natriuret Pep 1500 H Total Protein 8.3 H Albumin 4.2 Globulin 4.1 H Albumin/Globulin Ratio 1.0 Venous Blood Potassium Urine Color Yellow Urine Clarity Slighty-cloudy Urine pH 5.0 Ur Specific [place] 1.023 Urine Protein 30 Urine Glucose (UA) Neg Urine Ketones Negative Urine Blood Large Urine Nitrate Negative Urine Bilirubin Negative Urine Urobilinogen 2.0 Ur Leukocyte Esterase Neg Urine RBC (Auto) 15 H Urine Microscopic WBC 3 Ur Squamous Epith Cells < 1 Calcium Oxalate Crystal Few H Influenza Typ A,B (EIA) Negative for flu a/b Blood Type Antibody Screen Crossmatch BBK History Checked 09/12/18 09/12/18 09/12/18 18:50 18:50 18:50 WBC 2.8 L RBC 2.05 L Hgb 7.9 L Hct 23.7 L MCV 115.9 H MCH 38.5 H MCHC 33.2 RDW 15.0 H Plt Count 84 L MPV 8.9 Neut % (Auto) 57.5 Lymph % (Auto) 31.7 [place] % (Auto) 9.0 Eos % (Auto) 1.1 Baso % (Auto) 0.7 Neut # (Auto) 1.6 L Lymph # (Auto) 0.9 L [place] # (Auto) 0.3 Eos # (Auto) 0.0 Baso # (Auto) 0.0 PT 14.2 H INR 1.3 APTT 34.8 pO2 18 L VBG pH 7.38 VBG pCO2 49 VBG HCO3 25.3 VBG Total CO2 30.5 H VBG O2 Sat (Calc) 29.3 L VBG Base Excess 3.0 H VBG Potassium 4.6 Sodium 131.0 L Chloride 98.0 Glucose 111 H Lactate 1.5 FiO2 21.0 Potassium Carbon Dioxide Anion Gap BUN Creatinine Est GFR ( Amer) Est GFR (Non-Af Amer) Random Glucose Calcium Total Bilirubin AST ALT Alkaline Phosphatase Troponin I NT-Pro-B Natriuret Pep Total Protein Albumin Globulin Albumin/Globulin Ratio Venous Blood Potassium 4.6 Urine Color Urine Clarity Urine pH Ur Specific [place] Urine Protein Urine Glucose (UA) Urine Ketones Urine Blood Urine Nitrate Urine Bilirubin Urine Urobilinogen Ur Leukocyte Esterase Urine RBC (Auto) Urine Microscopic WBC Ur Squamous Epith Cells Calcium Oxalate Crystal Influenza Typ A,B (EIA) Blood Type Antibody Screen Crossmatch BBK History Checked 09/12/18 09/13/18 09/13/18 20:30 08:30 08:30 WBC 1.2 L* D RBC 2.30 L Hgb 8.5 L Hct 25.7 L MCV 111.7 H D MCH 36.9 H MCHC 33.0 RDW 17.3 H Plt Count 80 L MPV 9.4 Neut % (Auto) 71.9 Lymph % (Auto) 23.4 [place] % (Auto) 4.3 Eos % (Auto) 0.1 Baso % (Auto) 0.3 Neut # (Auto) 0.8 L Lymph # (Auto) 0.3 L [place] # (Auto) 0.0 Eos # (Auto) 0.0 Baso # (Auto) 0.0 PT INR APTT pO2 VBG pH VBG pCO2 VBG HCO3 VBG Total CO2 VBG O2 Sat (Calc) VBG Base Excess VBG Potassium Sodium 137 Chloride 100 Glucose Lactate FiO2 Potassium 5.1 H Carbon Dioxide 24 Anion Gap 18 BUN 28 H Creatinine 1.2 Est GFR ( Amer) > 60 Est GFR (Non-Af Amer) > 60 Random Glucose 167 H Calcium 9.5 Total Bilirubin 1.1 AST 27 ALT 16 L D Alkaline Phosphatase 99 Troponin I NT-Pro-B Natriuret Pep 1740 H Total Protein 8.2 Albumin 4.2 Globulin 4.1 H Albumin/Globulin Ratio 1.0 Venous Blood Potassium Urine Color Urine Clarity Urine pH Ur Specific [place] Urine Protein Urine Glucose (UA) Urine Ketones Urine Blood Urine Nitrate Urine Bilirubin Urine Urobilinogen Ur Leukocyte Esterase Urine RBC (Auto) Urine Microscopic WBC Ur Squamous Epith Cells Calcium Oxalate Crystal Influenza Typ A,B (EIA) Blood Type O POSITIVE Antibody Screen Negative Crossmatch See Detail BBK History Checked Patient has bt Assessment & Plan (1) Pancytopenia Status: Chronic - Assessment and Plan (Free Text) Plan: available diagnostic data reviewed heme/onc on board appreciate recommendations dispo planning rest of plan as ordered
[2018-09-14 15:50] VITALS: O2SAT 98
== END 2018-09-13 15:19 | disposition home or self-care (01) ==
LOC: H.ER 16:38 → H.ERHOLD 19:34 → INTOOBSV 19:34 → H.TEL 23:29
PROVIDERS: ADMIT Family Medicine; ATTEND Family Medicine
DX: D61.818 Other pancytopenia (principal); M35.9 Systemic involvement of connective tissue, unspecified; Z88.1 Allergy status to other antibiotic agents; Z88.0 Allergy status to penicillin; Z88.2 Allergy status to sulfonamides; F41.9 Anxiety disorder, unspecified; M19.90 Unspecified osteoarthritis, unspecified site; N40.0 Benign prostatic hyperplasia without lower urinary tract symptoms; Z87.891 Personal history of nicotine dependence
CPT/HCPCS: 36415; 36430; 71046; 80053; 81003; 82803; 83880; 84145; 84484; 85025; 85610; 85730; 86850; 86900; 86920; 87040; 87086; 87804; 93005; 96372; 99282; G0378; J0456; J0885; J1447; J2930; J7030; J7050; P9051

== ENCOUNTER 2018-11-08 11:04 | Emergency (ER) | payer MEDICARE ==
[2018-11-08 11:11] VITALS: BP 137/76; PULSE 79; RESP 20; TEMP 98.6; O2SAT 99; BMI 27.6
--- NOTE | 2018-11-08 13:44 | ED PDOC ---
HPI: Abdomen Time Seen by Provider: 11/08/18 12:08 Chief Complaint (Nursing): Abdominal Pain Chief Complaint (Provider): Right sided abdominal pain when sitting up History Per: Patient History/Exam Limitations: no limitations Onset/Duration Of Symptoms: Days Outside of [place] travel?: No Current Symptoms Are (Timing): Intermittent Episodes Additional Complaint(s): 63 yo male with history of anemia, anxiety, BPH, diverticulitis presents for evaluation of pain on the right side of abdomen when sitting up. PT states that he does lift weight and exercise at home. PT states it noticed it last night while rolling over in bed. PT states he ate an egg and cheese sandwich this morning and it did not upset his stomach. Pt reports no nausea, vomiting or diarrhea. PT denies chest pain or SOB. Past Medical History Reviewed: Historical Data, Nursing Documentation, Vital Signs Vital Signs: Last Vital Signs Temp 98.6 F 11/08/18 11:11 Pulse 79 11/08/18 11:11 Resp 20 11/08/18 11:11 BP 137/76 11/08/18 11:11 Pulse Ox 99 11/08/18 11:11 Primary Care Provider: FAMILY PROVIDER,NO - Medical History PMH: Anemia, Anxiety, Arthritis, Benign Prostatic Hyperplasia, Bronchitis, Diverticulitis, Deep Vein Thrombosis (x3), Gall Bladder Disease, Pneumonia Denies: COPD, HIV, HTN, Hypothyroidism, Chronic Kidney Disease - Surgical History Surgical History: Cholecystectomy, Endoscopy, Hernia Repair (ventral) - Family History Family History: States: Unknown Family Hx - Immunization History Hx Influenza Vaccination: Yes Hx Pneumococcal Vaccination: Yes - Home Medications Home Medications: Ambulatory Orders Medication Instructions Recorded Tamsulosin [Flomax] 0.4 mg PO HS 07/25/17 Dorzolamide 2%/Timolol 0.5% 1 drop EACHEYE Q12 03/22/18 [Cosopt 2%-0.5% Opht] Filgrastim [Neupogen] 480 mcg IJ QWK 03/30/18 Latanoprost [Xalatan] 1 drop EACHEYE HS 05/11/18 predniSONE [predniSONE Tab] 20 mg PO DAILY 05/11/18 Levofloxacin [Levaquin] 500 mg PO DAILY 10/22/18 - Allergies Allergies/Adverse Reactions: Allergies Allergy/AdvReac Type Severity Reaction Status Date / Time Penicillins Allergy RASH Verified 09/12/18 17:13 Sulfa (Sulfonamide Allergy RASH Verified 09/12/18 17:13 Antibiotics) vancomycin Allergy RASH Verified 09/12/18 17:13 aspirin AdvReac NAUSEA Verified 09/12/18 17:13 naproxen AdvReac NAUSEA Verified 09/12/18 17:13 zuvox Allergy RASH Uncoded 09/12/18 17:13 Review of Systems ROS Statement: Except As Marked, All Systems Reviewed And Found Negative Constitutional: Negative for: Fever, Chills Cardiovascular: Negative for: Chest Pain, Palpitations Respiratory: Negative for: Cough, Shortness of Breath Gastrointestinal: Positive for: Abdominal Pain. Negative for: Nausea, Vomiting, Diarrhea, Constipation, Melena, Hematochezia, Rectal Pain Physical Exam - Reviewed Nursing Documentation Reviewed: Yes Vital Signs Reviewed: Yes - Physical Exam Appears: Positive for: Well, Non-toxic, No Acute Distress Head Exam: Positive for: ATRAUMATIC, NORMAL INSPECTION, NORMOCEPHALIC Skin: Positive for: Normal Color, Warm, DRY Eye Exam: Positive for: Normal appearance ENT: Positive for: Normal ENT Inspection Neck: Positive for: Normal, Painless ROM Cardiovascular/Chest: Positive for: Regular Rate, Rhythm Respiratory: Positive for: Normal Breath Sounds. Negative for: Accessory Muscle Use, Respiratory Distress Back: Positive for: Normal Inspection Extremity: Positive for: Normal ROM. Negative for: Tenderness, Deformity, Swelling Neurological/Psych: Positive for: Awake, Alert, Normal Tone - ECG O2 Sat by Pulse Oximetry: 99 Pulse Ox Interpretation: Normal Medical Decision Making Medical Decision Making: EKG - Normal SR Without abdominal tenderness, pain elicited with contraction of abdominal wall muscles. Disposition - Clinical Impression Clinical Impression: Muscle strain - Patient ED Disposition Is Patient to be Admitted: No Counseled Patient/Family Regarding: Diagnosis, Need For Followup - Disposition Disposition: Routine/Home Disposition Time: 13:47 Condition: GOOD Instructions: Muscle Strain (DC)
--- NOTE | 2018-11-08 16:02 | CARD ---
APPROVED REPORT Date of service: 11/08/2018 EKG Measurement Heart [id number] <Conclusion> Normal sinus rhythm Normal ECG
== END 2018-11-08 14:07 | disposition home or self-care (01) ==
LOC: H.ER 11:04
DX: R10.9 Unspecified abdominal pain (principal); Z88.0 Allergy status to penicillin; N40.0 Benign prostatic hyperplasia without lower urinary tract symptoms

== ENCOUNTER 2018-11-10 17:55 | Emergency (ER) | payer MEDICARE ==
[2018-11-10 17:55] VITALS: BMI 27.6
[2018-11-10 18:02] VITALS: PULSE 100; TEMP 98.4
--- NOTE | 2018-11-10 18:33 | ED PDOC ---
HPI: CCC, URI, Sore Throat Time Seen by Provider: 11/10/18 18:19 Chief Complaint (Nursing): Lower Extremity Problem/Injury Chief Complaint (Provider): Chest congestion History Per: Patient Additional Complaint(s): Pt reports chest congestion X 2 days, nonproductive cough. Also c/o RLE pain and slight swelling. Also requesting blood work because he has problems with his blood counts. Denies fever, CP, SOB, abdominal pain, recent travel. Past Medical History Reviewed: Nursing Documentation, Vital Signs Vital Signs: Last Vital Signs Temp 98.4 F 11/10/18 18:01 Pulse 100 H 11/10/18 18:01 Resp 16 11/10/18 18:01 BP 127/72 11/10/18 18:01 Pulse Ox 97 11/10/18 18:01 Primary Care Provider: Poli Samano - Medical History PMH: Anemia, Anxiety, Arthritis, Benign Prostatic Hyperplasia, Bronchitis, Diverticulitis, Deep Vein Thrombosis (x3), Gall Bladder Disease, Pneumonia Denies: COPD, HIV, HTN, Hypothyroidism, Chronic Kidney Disease - Surgical History Surgical History: Cholecystectomy, Endoscopy, Hernia Repair (ventral) - Family History Family History: States: Unknown Family Hx - Social History Current smoker - smoking cessation education provided: No Alcohol: None - Immunization History Hx Influenza Vaccination: Yes Hx Pneumococcal Vaccination: Yes - Home Medications Home Medications: Ambulatory Orders Medication Instructions Recorded Tamsulosin [Flomax] 0.4 mg PO HS 07/25/17 Dorzolamide 2%/Timolol 0.5% 1 drop EACHEYE Q12 03/22/18 [Cosopt 2%-0.5% Opht] Filgrastim [Neupogen] 480 mcg IJ QWK 03/30/18 Latanoprost [Xalatan] 1 drop EACHEYE HS 05/11/18 predniSONE [predniSONE Tab] 20 mg PO DAILY 05/11/18 Levofloxacin [Levaquin] 500 mg PO DAILY 10/22/18 - Allergies Allergies/Adverse Reactions: Allergies Allergy/AdvReac Type Severity Reaction Status Date / Time Penicillins Allergy RASH Verified 09/12/18 17:13 Sulfa (Sulfonamide Allergy RASH Verified 09/12/18 17:13 Antibiotics) vancomycin Allergy RASH Verified 09/12/18 17:13 aspirin AdvReac NAUSEA Verified 09/12/18 17:13 naproxen AdvReac NAUSEA Verified 09/12/18 17:13 zuvox Allergy RASH Uncoded 09/12/18 17:13 Review of Systems Constitutional: Negative for: Fever, Chills Cardiovascular: Negative for: Chest Pain, Palpitations Respiratory: Positive for: Cough. Negative for: Shortness of Breath Gastrointestinal: Negative for: Abdominal Pain Musculoskeletal: Positive for: Leg Pain Skin: Negative for: Rash, Lesions Neurological: Negative for: Headache, Dizziness Physical Exam - Reviewed Nursing Documentation Reviewed: Yes Vital Signs Reviewed: Yes - Physical Exam Appears: Positive for: Well, No Acute Distress (Speaking full sentences) Head Exam: Positive for: ATRAUMATIC, NORMAL INSPECTION Skin: Positive for: Normal Color, Warm, Dry Eye Exam: Positive for: Normal appearance, EOMI, PERRL Cardiovascular/Chest: Positive for: Regular Rate, Rhythm Respiratory: Positive for: Normal Breath Sounds. Negative for: Rales, Rhonchi, Wheezing, Respiratory Distress Gastrointestinal/Abdominal: Positive for: Normal Exam Extremity: Positive for: Normal ROM, Tenderness, Calf Tenderness (Mild), Capillary Refill (<2 sec). Negative for: Deformity, Swelling Neurological/Psych: Positive for: Awake, Alert, Oriented - Laboratory Results Result Diagrams: 11/10/18 18:44 11/10/18 18:44 - ECG O2 Sat by Pulse Oximetry: 97 Medical Decision Making Medical Decision Makin yo male with chest congestion and RLE pain. - labs - EKG - CXR - RLE ultrasound 20:[address] chest, stating his chest congestion "is just a cold". Disposition - Clinical Impression Clinical Impression: URI (upper respiratory infection), Leg pain - Disposition Referrals: Poli Samano MD [Staff Provider] - Disposition: Routine/Home Disposition Time: 21:44 Condition: STABLE Instructions: Muscle and Bone Pain (DC), Cough, Runny Nose, and the Common Cold (DC) Forms: [employer] (Bengali)
[2018-11-10 19:29] LABS: ALB/GLOB RATIO 1.1 (1.0-2.1); ALBUMIN 4.2 g/dL (3.5-5.0); ALT/SGPT 19 U/L (21-72); AST/SGOT 15 U/L (17-59); BLOOD UREA NITROGEN 25 mg/dl (9-20); CALCIUM 9.2 mg/dL (8.4-10.2); GFR NON-AFRICAN AMERICAN > 60; INR 1.1
[2018-11-10 19:32] LABS: PARTIAL THROMBOPLASTIN TIME 26.9 Seconds (25.6-37.1)
[2018-11-10 19:33] LABS: BASO % 0.6 % (0.0-2.0); EOS % 2.3 % (0.0-4.0); HEMOGLOBIN 9.2 g/dL (12.0-18.0); LYMPH % 47.1 % (20.0-40.0); MEAN CORPUSCULAR HEMOGLOBIN 35.9 pg (27.0-31.0); MEAN CORPUSCULAR HGB CONC 32.9 g/dL (33.0-37.0); MEAN PLATELET VOLUME 8.3 fl (7.2-11.7); MONO # 0.4 K/uL (0.0-0.8); MONO % 17.9 % (0.0-10.0); NEUT # 0.7 K/uL (1.8-7.0); NEUT % 32.1 % (50.0-75.0); NRBC % 0.1 % (0.0-0.0); RBC 2.55 Mil/uL (4.40-5.90); RED CELL DISTRIBUTION WIDTH 14.6 % (11.5-14.5); WHITE BLOOD COUNT 2.1 K/uL (4.8-10.8)
[2018-11-10 20:09] LABS: MEAN CELL VOLUME 109.3 fl (80.0-94.0)
[2018-11-10] MEDS ORDERED: Iodixanol 320 MG/ML 100 ML BOTTLE IV ONE (20:39)
[2018-11-10] MEDS ORDERED: Sodium Chloride 0.9% 0 ML IV ONE (20:39)
[2018-11-10 22:17] VITALS: BP 125/66; RESP 18
--- NOTE | 2018-11-11 09:18 | RAD ---
Date of service: 11/10/2018 HISTORY: Chest congestion COMPARISON: CT angiogram chest 03/22/2018. Chest radiographs 09/12/2018 TECHNIQUE: Chest PA and lateral views FINDINGS: LUNGS: No active pulmonary disease. Calcified subpleural granuloma again seen the bilateral upper lung zones. PLEURA: No significant pleural effusion identified. No pneumothorax apparent. CARDIOVASCULAR: No aortic atherosclerotic calcification present. Stable mild cardiomegaly. No pulmonary vascular congestion. OSSEOUS STRUCTURES: No significant abnormalities. VISUALIZED UPPER ABDOMEN: Normal. OTHER FINDINGS: None. IMPRESSION: Stable mild cardiomegaly. No pulmonary vascular congestion. No interval acute pulmonary disease.
--- NOTE | 2018-11-11 17:02 | US ---
Date of service: 11/10/2018 PROCEDURE: Right lower extremity venous duplex Doppler. HISTORY: R calf pain COMPARISON: None available. TECHNIQUE: Common femoral, superficial femoral, popliteal and posterior tibial veins were evaluated. Flow was assessed with color Doppler, compressibility, assessment of phasic flow and augmentation response. FINDINGS: COMMON FEMORAL VEIN: Unremarkable. SUPERFICIAL FEMORAL VEIN: Unremarkable. POPLITEAL VEIN: Unremarkable. POSTERIOR TIBIAL VEIN: Unremarkable. OTHER FINDINGS: None. IMPRESSION: No sonographic evidence of deep venous thrombosis in the right lower extremity. Concordant preliminary report from [facility], 11/10/2018, 9:25 p.m..
--- NOTE | 2018-11-11 19:02 | CARD ---
APPROVED REPORT Date of service: 11/10/2018 EKG Measurement Heart [id number] <Conclusion> Normal sinus rhythm Normal ECG
[2018-11-12 15:52] VITALS: O2SAT 97
== END 2018-11-10 22:12 | disposition home or self-care (01) ==
LOC: H.ER 17:55
DX: J06.9 Acute upper respiratory infection, unspecified (principal); M79.604 Pain in right leg